=== PATIENT | female | born 1960 | race Caucasian/White ===

== ENCOUNTER → 2019-06-17 09:10 | Outpatient (BNVA) | payer MEDICARE, OTHER, SELFPAY | PROVIDERS: Family Provider Family Medicine; PCP Family Medicine; Visit Provider Nurse Practitioner Women's Health | DX: N89.8 Other specified noninflammatory disorders of vagina (principal) | CPT/HCPCS: 88305 ==

== ENCOUNTER 2019-06-23 12:29 | Outpatient (CLI) | payer MEDICARE, OTHER, SELFPAY ==
--- NOTE | 2019-06-23 12:44 | XRR_ITS ---
PROCEDURE INFORMATION: Exam: XR Cervical Spine, 6 or More Views Exam date and time: 06/23/2019 1:22 PM Age: 58 years old Clinical indication: Radiculopathy; Cervical region; Prior surgery; Surgery type: Fusion; Additional info: Cervical radiculopathy bilateral, migraines x 1 month TECHNIQUE: Imaging protocol: XR of the cervical spine, 6 or more views. COMPARISON: CR Cervical Spine Flex/Ext [id number] 12/31/2015 3:49 PM FINDINGS: Vertebrae: Surgical hardware seen in the anterior aspect of the lower cervical spine anterior to C5 and C6. There is fusion of these vertebral bodies. No acute fracture. There is loss of cervical lordosis which likely represents postsurgical changes. The exam is negative for instability with flexion and extension maneuvers. Comparison to prior examination similar findings are seen. Soft tissues: Normal. Other findings: Unremarkable XR/XR cervical spine min 6V [id number] IMPRESSION: 1. Stable Postsurgical changes cervical spine. 2. Negative for instability with flexion and extension 3. Loss of cervical lordosis 4. Otherwise negative examination
== END 2019-06-23 12:30 | disposition home or self-care (01) ==
LOC: RAD 12:36
PROVIDERS: Family Provider Family Medicine; PCP Family Medicine; Visit Provider Family Medicine
DX: M54.12 Radiculopathy, cervical region (principal); Z98.1 Arthrodesis status
CPT/HCPCS: 72052

== ENCOUNTER 2019-11-29 14:30 | Outpatient (RCR) | payer MEDICARE, OTHER, SELFPAY | END 2019-11-29 23:59 | disposition home or self-care (01) | LOC: SPT 14:30 | PROVIDERS: PCP Family Medicine; Referring Provider Family Medicine; Visit Provider Family Medicine | DX: H81.10 Benign paroxysmal vertigo, unspecified ear (principal) | CPT/HCPCS: 95992; 97162 ==

== ENCOUNTER 2019-12-07 06:00 | Outpatient (RCR) | payer MEDICARE, OTHER, SELFPAY | END 2019-12-30 23:59 | disposition home or self-care (01) | LOC: SPT 06:00 | PROVIDERS: PCP Family Medicine; Referring Provider Family Medicine; Visit Provider Family Medicine | DX: H81.10 Benign paroxysmal vertigo, unspecified ear (principal) | CPT/HCPCS: 95992 ==

== ENCOUNTER 2019-12-09 12:41 | Outpatient (CLI) | payer MEDICARE, OTHER, SELFPAY ==
--- NOTE | 2019-12-09 | MR_ITS ---
WS: [id number] MRA ANGIOGRAPHY [place] HISTORY: VERTIGO /vertebrobasilar INSUFFIENCEY COMPARISON: None available. TECHNIQUE: 3-D MR angiography is performed of the [place]. All images are reviewed including source images. Distal vertebral and basilar arteries are intact with no significant stenosis or plaque. Posterior ce rebral arteries are normal course and caliber. Posterior communicating arteries are both patent but s mall caliber. Intracranial portion of the internal carotid arteries are normal course and caliber. No significant a therosclerosis, stenosis or aneurysm identified. Middle and anterior cerebral arteries are both paten t with no significant disease. Anterior communicating artery is also normal. MR/MR angio head wo con [id number] IMPRESSION: Normal MRA [place].
--- NOTE | 2019-12-09 | MR_ITS ---
WS: [id number] MRA CAROTID ARTERIES HISTORY: VERTIGO /vertebrobasilar INSUFFIENCEY COMPARISON: None available. TECHNIQUE: MRA is performed with intravenous gadolinium. MIP and source images are reviewed. Right: Normal RIGHT common, internal/external carotid arteries. No significant stenosis. No aneurysm. Left: Normal LEFT common, internal and external carotid arteries. No significant stenosis or aneurysm . Subclavian Arteries: Normal. Vertebral Arteries: Normal. Very slight narrowing of the distal RIGHT vertebral artery but no stenosi s. MR/MR angio neck w con* [id number] IMPRESSION: Normal MRA carotid arteries.
== END 2019-12-09 12:42 | disposition home or self-care (01) ==
LOC: RADSHAW 12:44
PROVIDERS: PCP Family Medicine; Visit Provider Family Medicine
DX: R42 Dizziness and giddiness (principal)
CPT/HCPCS: 70544; 70548; A9579

== ENCOUNTER 2019-12-13 14:54 | Observation (INO) | payer MEDICARE, OTHER, SELFPAY ==
[2019-12-13] VITALS (11 sets, daily range): BP systolic 104–146; BP diastolic 64–99; PULSE 82–122; RESP 17–24; TEMP 36.9–37.3; O2SAT 94–99; BMI 30.8
--- NOTE | 2019-12-13 15:43 | XRR_ITS ---
PROCEDURE INFORMATION: Exam: XR Chest, 1 View Exam date and time: 12/13/2019 4:18 PM Age: 58 years old Clinical indication: Chest pain; Other: Center; Additional info: Weakness, n/v TECHNIQUE: Imaging protocol: XR of the chest Views: 1 view. COMPARISON: No relevant prior studies available. FINDINGS: Lungs: Unremarkable. No consolidation. Pleural space: Unremarkable. No pleural effusion. No pneumothorax. Heart/Mediastinum: Unremarkable. No cardiomegaly. Bones/joints: Unremarkable. XR/XR chest 1V portable [id number] IMPRESSION: No acute findings.
--- NOTE | 2019-12-13 15:43 | ECG_ITS ---
[facility] Test Date: 2019-12-13 Pat Name: Randi Arechiga Department: Room: Gender: Female Rn Pediatric: : 1960 Requested By: Mimi Ford Order Number: [id number] Kathi MD: Libby Renteria M.D. Measurements Intervals [place] Rate: 95 P: 63 CO: 153 QRS: 4 QRSD: 89 T: 51 QT: 342 QTc: 430 Interpretive Statements SINUS RHYTHM Compared to ECG 10/07/2018 19:36:33 Myocardial infarct finding no longer present T-wave abnormality no longer present Electronically Signed On 12-13-2019 19:17:57 CDT by Libby Renteria M.D. [id number]
[2019-12-13 16:05] LABS: Basophils % 0.1 %; Eosinophils % 0.1 %; Hematocrit 43.4 % (37.0-47.0); Hemoglobin 13.9 g/dL (11.5-15.3); Lymphocytes # 2.5 10^3/uL (0.8-4.8); Lymphocytes % 30.3 %; Mean Corpuscular Hemoglobin 28.3 pg (28.0-34.0); Mean Corpuscular Volume 88.2 fL (81-99); Mean Platelet Volume 10.4 fL (7.4-10.4); Monocytes # 0.6 10^3/uL (0.2-0.9); Neutrophils # 5.12 10^3/uL (1.8-7.7); Neutrophils % 61.9 %; Nucleated Red Blood Cells % 0 %; Platelet Count 259 10^3/cmm (130-400); Red Blood Count 4.92 10^6/uL (4.1-5.3); Red Cell Distribution Width 11.7 % (12.1-15.1); White Blood Count 8.3 10^3/uL (4.0-10.0)
[2019-12-13 16:22] LABS: Lactate (Lactic Acid level) 1.4 mmol/L (0.5-2.2)
[2019-12-13 16:32] LABS: Alanine Aminotransferase 14 U/L (0-33); Albumin Level 4.6 g/dL (3.5-5.2); Alkaline Phosphatase 66 IU/L (35-105); Anion Gap 15.5 (5-19); Aspartate Amino Transferase 13 U/L (0-32); Blood Urea Nitrogen 18 mg/dL (6-20); Calcium 10.1 mg/dL (8.5-10.5); Carbon Dioxide 27 mmol/L (22-29); Chloride 100 mmol/L (98-107); Globulin 3.1 g/dL (1.3-4.6); Glomerular Filtration Rate 64.1 mL/min (90-130); Glucose 109 mg/dL (65-115); NT Pro B Type Natriuretic Pept 8 pg/mL (0-125); Osmolality Calculated 283 mOsm/kg (285-295); Potassium 4.5 mmol/L (3.5-5.1); Sodium 138 mmol/L (136-145); Total Bilirubin 0.2 mg/dL (0.15-1.2); Total Protein 7.7 g/dL (6.6-8.7)
[2019-12-13 16:49] LABS: INR 0.93 (0.8-1.2)
[2019-12-13] MEDS: ondansetron 2 mg/ML SDV 2 mL 4 MG IVP ×2 (17:11→23:26)
[2019-12-13 17:12] LABS: Add Urine Microscopic? NO
[2019-12-13 17:29] LABS: Bilirubin Urine Neg (NEGATIVE); Blood Urine Neg (Negative); Glucose Urine UA Norm (Normal); Ketones Urine Negative (Negative); Leukocyte Esterase Urine Negative (Negative); Nitrate Urine Negative (Negative); Protein Urine Neg (Negative); Specific Gravity, Urine 1.015 (1.005-1.030); Urine Appearance Clear (CLEAR); Urine Color Yellow (Yellow); Urobilinogen Urine Norm (Negative); pH Urine 5 (5-7)
[2019-12-13 17:40] LABS: Troponin(5th) Baseline 6 ng/L (0-10)
--- NOTE | 2019-12-13 17:43 | ECG_ITS ---
[facility] Test Date: 2019-12-13 Pat Name: Randi Arechiga Department: Room: Gender: Female [employer] Analyst: : 1960 Requested By: Mimi Ford Order Number: [id number] Kathi MD: Libby Renteria M.D. Measurements Intervals [place] Rate: 99 P: 55 VA: 153 QRS: 5 QRSD: 92 T: 31 QT: 347 QTc: 446 Interpretive Statements SINUS RHYTHM Compared to ECG 12/13/2019 17:15:16 No significant changes Electronically Signed On 12-13-2019 19:19:53 CDT by Libby Renteria M.D. [email or web address]/store/[id number]
[2019-12-13 18:27] LABS: Troponin 5 2HR Delta 0 ABS# (0-10)
--- NOTE | 2019-12-13 18:30 | ED_ITS ---
HPI - Dizziness General: Chief Complaint: Nausea/Vomiting/Diarrhea Stated Complaint: N/V/dizziness/syncope Time Seen by Provider: 12/13/19 15:34 History of Present Illness: HPI Narrative: This patient is a 58-year-old female presenting with dizziness, nausea, vomiting. She has had the symptoms for about 3 weeks and has been seeing her primary care doctor, Dr. Francois. He has been getting an outpatient work-up including an MRA of her head and neck. Those were done within the last few days and were normal. She had an episode of vomiting today which is the first time she is had that. She describes the dizziness as being worse with movement or standing up. She also has some mild ringing in her ears. She has a history of fibromyalgia and is on medications for that. Those have not changed. She was started on Trulicity fairly recently and that is her only new medicine. MD elicited complaint: dizziness, lightheadedness, near syncope and vertigo Onset (ago): week(s) (3) Timing: gradual onset and intermittent Severity: severe Description: lightheadedness, difficulty walking and near-syncope Associated symptoms: Reports headache(s), malaise, nausea and vomiting; Denies chest pain or chills Associated neuro symptoms: Deny numbness in extremities Review of Systems General: Reports: 10 or more systems reviewed and unremarkable except in HPI and below Const: Reports: fatigue and malaise; Denies: fever(s) or chills Eyes: Denies: change in vision ENMT: Denies: odynophagia Card: Denies: chest pain or swelling of feet/ankles Resp: Denies: dyspnea, productive cough or non-productive cough GI: Reports: nausea and vomiting; Denies: abdominal pain : Denies: flank pain or difficulty voiding Musc: Denies: neck pain or back pain Skin/Breast: Denies: rash Neuro: Reports: headache(s); Denies: numbness in extremities or weakness in extremities [place]/Lymph: Denies: easy bruising or easy bleeding PFSH ED PFSH: Medical History Diabetes mellitus Fibromyalgia syndrome History of IBS Migraines Stones, urinary tract Surgical History History of carpal tunnel repair History of cervical discectomy History of cholecystectomy Laparoscopic History of hysterectomy 1999, TV, Performed by Dr. Agustin History of kidney surgery Removal of stonesto History of lumbar discectomy History of toe surgery joint cleaned out History of wisdom tooth extraction Family History Mother Hypertension Hyperlipidemia Stroke Thyroid condition Father Hypertension Hyperlipidemia Stroke Family history of ITP Sister Hypertension Hyperlipidemia Thyroid condition x 2 Grandmother Diabetes Maternal Hyperlipidemia Maternal and paternal Stroke Maternal and paternal Grandfather Diabetes Paternal Hyperlipidemia Maternal and paternal Stroke Maternal and patnernal Unknown Patient denies medical problems Denies family history of: breast/ovarian/uterine/colon cancer Social History Smoking and tobacco status: former smoker Alcohol intake: never Additional social history: Well balanced diet Physical Exam Const: COMMON NORMALS: no acute distress, patient oriented x3, no limitations and alert GENERAL APPEARANCE: cooperative and comfortable HENMT: HEAD & SCALP: normal to inspection FACE & SINUS: normal facial exam Eye: GENERAL EYE: appearance normal, both eyes and all related structures Neck/C-Spine: COMMON NORMALS: supple, no meningeal signs and no JVD Chest: COMMONS NORMALS: normal inspection of the chest Resp: COMMON NORMALS: normal respiratory effort, No use of accessory muscles and clear to auscultation bilaterally AUSCULTATION: clear to auscultation bilaterally Cardio: COMMON NORMALS: no JVD, regular rate, regular rhythm and No murmurs present (Cardio) RATE: regular rate RHYTHM: regular rhythm GI: COMMON NORMALS: Normal to inspection, nondistended, normoactive bowel sounds present, Soft to palpation and non-tender INSPECTION: Yes normal to inspection AUSCULTATION: Yes normoactive bowel sounds PALPATION: Yes Soft to palpation Back/Pelvis: COMMON NORMALS: thoracic and lumbar spine normal to inspection Extremity: COMMON NORMALS: normal to inspection Neuro: COMMON NORMALS: patient oriented x3, moves all extremities, no focal motor deficits and no sensory deficits noted SENSORIUM/ORIENTATION: Yes alert MENINGEAL SIGNS: Yes no meningeal signs Psych: COMMON NORMALS: mental status grossly normal, cooperative and normal affect Skin: COMMON NORMALS: no rashes or lesions noted and turgor normal GENERAL SKIN EXAM: no rashes or lesions noted and turgor normal Course ED course: This patient was sent over to the ER for evaluation of syncopal episodes and dizziness. Her work-up here is been benign including a negative d- dimer, negative troponins. She had an MRA of her head and neck recently it was normal. She was quite orthostatic. I did not check orthostatics again after fluids but she did not really feel any better. She feels like this is worsening. I discussed the case with Dr. Francois and he agreed to admit her for further evaluation and monitoring. Vital Signs: Vital signs: Vital Signs Temperature 97.9 F 12/14/19 04:00 Pulse Rate 76 12/14/19 04:00 Respiratory Rate 18 12/14/19 04:00 Blood Pressure 106/68 12/14/19 04:00 Pulse Oximetry 96 12/14/19 04:00 MDM - Dizziness Lab Data: Labs: Lab Results 12/13/19 12/13/19 12/13/19 Range/Units 16:00 16:00 16:00 WBC 8.3 (4.0-10.0) 10^3/ uL RBC 4.92 (4.1-5.3) 10^6/u L Hgb 13.9 (11.5-15.3) g/dL Hct 43.4 (37.0-47.0) % MCV 88.2 (81-99) fL MCH 28.3 (28.0-34.0) pg MCHC 32.0 (30.0-36.0) g/dL RDW 11.7 L (12.1-15.1) % Plt Count 259 (130-400) 10^3/c mm MPV 10.4 (7.4-10.4) fL Neut % (Auto) 61.9 % Lymph % (Auto) 30.3 % [place] % (Auto) 7.0 % Eos % (Auto) 0.1 % Baso % (Auto) 0.1 % Neut # (Auto) 5.12 (1.8-7.7) 10^3/u L Lymph # (Auto) 2.5 (0.8-4.8) 10^3/u L [place] # (Auto) 0.6 (0.2-0.9) 10^3/u L Eos # (Auto) 0.0 (0.0-0.8) 10^3/u L Baso # (Auto) 0.0 (0.0-0.1) 10^3/u L Nucleated RBC % (a uto) 0 % Nucleated RBCs # 0.0 /100WBC PT 12.70 (10.5-13.3) SECO NDS INR 0.93 (0.8-1.2) D-Dimer (0-0.59) ug/mIFE U Sodium 138 (136-145) mmol/L Potassium 4.5 (3.5-5.1) mmol/L Chloride 100 (98-107) mmol/L Carbon Dioxide 27 (22-29) mmol/L Anion Gap 15.5 (5-19) BUN 18 (6-20) mg/dL Creatinine 0.9 (0.5-0.9) mg/dL GFR Calculation 64.1 L (90-130) mL/min Glucose 109 (65-115) mg/dL Calculated Osmolal ity 283 L (285-295) mOsm/k g Lactate (0.5-2.2) mmol/L Calcium 10.1 (8.5-10.5) mg/dL Total Bilirubin 0.2 (0.15-1.2) mg/dL AST 13 (0-32) U/L ALT 14 (0-33) U/L Alkaline Phosphata se 66 (35-105) IU/L Troponin T Baselin e (0-10) ng/L Troponin T 120 Min [place] (0-10) ng/L Delta Troponin T (0-10) ABS# NT-Pro-B Natriuret Pep 8 (0-125) pg/mL Total Protein 7.7 (6.6-8.7) g/dL Albumin 4.6 (3.5-5.2) g/dL Globulin 3.1 (1.3-4.6) g/dL Urine Color (Yellow) Urine Appearance (CLEAR) Urine pH (5-7) Ur Specific Gravit y (1.005-1.030) Urine Protein (Negative) Urine Glucose (UA) (Normal) Urine Ketones (Negative) Urine Blood (Negative) Urine Nitrate (Negative) Urine Bilirubin (NEGATIVE) Urine Urobilinogen (Negative) mg/dL Ur Leukocyte Saige ase (Negative) 12/13/19 12/13/19 12/13/19 Range/Units 16:00 16:00 16:00 WBC (4.0-10.0) 10^3/ uL RBC (4.1-5.3) 10^6/u L Hgb (11.5-15.3) g/dL Hct (37.0-47.0) % MCV (81-99) fL MCH (28.0-34.0) pg MCHC (30.0-36.0) g/dL RDW (12.1-15.1) % Plt Count (130-400) 10^3/c mm MPV (7.4-10.4) fL Neut % (Auto) % Lymph % (Auto) % [place] % (Auto) % Eos % (Auto) % Baso % (Auto) % Neut # (Auto) (1.8-7.7) 10^3/u L Lymph # (Auto) (0.8-4.8) 10^3/u L [place] # (Auto) (0.2-0.9) 10^3/u L Eos # (Auto) (0.0-0.8) 10^3/u L Baso # (Auto) (0.0-0.1) 10^3/u L Nucleated RBC % (a uto) % Nucleated RBCs # /100WBC PT (10.5-13.3) SECO NDS INR (0.8-1.2) D-Dimer <= 0.27 (0-0.59) ug/mIFE U Sodium (136-145) mmol/L Potassium (3.5-5.1) mmol/L Chloride (98-107) mmol/L Carbon Dioxide (22-29) mmol/L Anion Gap (5-19) BUN (6-20) mg/dL Creatinine (0.5-0.9) mg/dL GFR Calculation (90-130) mL/min Glucose (65-115) mg/dL Calculated Osmolal ity (285-295) mOsm/k g Lactate 1.4 (0.5-2.2) mmol/L Calcium (8.5-10.5) mg/dL Total Bilirubin (0.15-1.2) mg/dL AST (0-32) U/L ALT (0-33) U/L Alkaline Phosphata se (35-105) IU/L Troponin T Baselin e 6 (0-10) ng/L Troponin T 120 Min [place] (0-10) ng/L Delta Troponin T (0-10) ABS# NT-Pro-B Natriuret Pep (0-125) pg/mL Total Protein (6.6-8.7) g/dL Albumin (3.5-5.2) g/dL Globulin (1.3-4.6) g/dL Urine Color (Yellow) Urine Appearance (CLEAR) Urine pH (5-7) Ur Specific Gravit y (1.005-1.030) Urine Protein (Negative) Urine Glucose (UA) (Normal) Urine Ketones (Negative) Urine Blood (Negative) Urine Nitrate (Negative) Urine Bilirubin (NEGATIVE) Urine Urobilinogen (Negative) mg/dL Ur Leukocyte Saige ase (Negative) 12/13/19 12/13/19 Range/Units 16:50 18:04 WBC (4.0-10.0) 10^3/ uL RBC (4.1-5.3) 10^6/u L Hgb (11.5-15.3) g/dL Hct (37.0-47.0) % MCV (81-99) fL MCH (28.0-34.0) pg MCHC (30.0-36.0) g/dL RDW (12.1-15.1) % Plt Count (130-400) 10^3/c mm MPV (7.4-10.4) fL Neut % (Auto) % Lymph % (Auto) % [place] % (Auto) % Eos % (Auto) % Baso % (Auto) % Neut # (Auto) (1.8-7.7) 10^3/u L Lymph # (Auto) (0.8-4.8) 10^3/u L [place] # (Auto) (0.2-0.9) 10^3/u L Eos # (Auto) (0.0-0.8) 10^3/u L Baso # (Auto) (0.0-0.1) 10^3/u L Nucleated RBC % (a uto) % Nucleated RBCs # /100WBC PT (10.5-13.3) SECO NDS INR (0.8-1.2) D-Dimer (0-0.59) ug/mIFE U Sodium (136-145) mmol/L Potassium (3.5-5.1) mmol/L Chloride (98-107) mmol/L Carbon Dioxide (22-29) mmol/L Anion Gap (5-19) BUN (6-20) mg/dL Creatinine (0.5-0.9) mg/dL GFR Calculation (90-130) mL/min Glucose (65-115) mg/dL Calculated Osmolal ity (285-295) mOsm/k g Lactate (0.5-2.2) mmol/L Calcium (8.5-10.5) mg/dL Total Bilirubin (0.15-1.2) mg/dL AST (0-32) U/L ALT (0-33) U/L Alkaline Phosphata se (35-105) IU/L Troponin T Baselin e (0-10) ng/L Troponin T 120 Min [place] 6.00 (0-10) ng/L Delta Troponin T 0 (0-10) ABS# NT-Pro-B Natriuret Pep (0-125) pg/mL Total Protein (6.6-8.7) g/dL Albumin (3.5-5.2) g/dL Globulin (1.3-4.6) g/dL Urine Color Yellow (Yellow) Urine Appearance Clear (CLEAR) Urine pH 5 (5-7) Ur Specific Gravit y 1.015 (1.005-1.030) Urine Protein Neg (Negative) Urine Glucose (UA) Norm (Normal) Urine Ketones Negative (Negative) Urine Blood Neg (Negative) Urine Nitrate Negative (Negative) Urine Bilirubin Neg (NEGATIVE) Urine Urobilinogen Norm (Negative) mg/dL Ur Leukocyte Saige ase Negative (Negative) Discharge Plan Discharge Patient Disposition: Admitted As Inpatient Admit Provider: Vlad Francois Clinical Impression: Orthostatic hypotension, Dizziness Condition: Stable Referrals: Vlad Francois MD [Primary Care Provider] - Discharge Date/Time: 12/13/19 22:17 Coding Level of Care Code ED Naturopathic Physician for Chg Fwd Exam Comprehensive
[2019-12-13 19:42] LABS: D Dimer <= 0.27 ug/mIFEU (0-0.59)
--- NOTE | 2019-12-13 19:58 | PC.NURSE ---
EKG done at 191 and shown to ER doctor
[2019-12-13] MEDS: sodium chloride 0.9% 1,000 ML 999 ML IV (20:30)
[2019-12-13] MEDS: sodium chloride 0.9% 1,000 ML 125 ML IV (23:27)
[2019-12-14] VITALS (9 sets, daily range): BP systolic 93–136; BP diastolic 57–85; PULSE 74–88; RESP 16–22; TEMP 36.4–37.2; O2SAT 95–98
[2019-12-14 01:21] LABS: Glucose Point of Care 177 mg/dL (70-110)
[2019-12-14 06:59] LABS: Glucose Point of Care 111 mg/dL (70-110)
--- NOTE | 2019-12-14 08:30 | PM.HP ---
Providers/Chief Complaint Admitting Physician: Vlad Francois MD Primary Care Provider: Vlad Francois MD Chief Complaint: n/v History of Present Illness Randi Arechiga is a 58 year old female with past medical history of diabetes mellitus type 2, fibromyalgia, migraines who presented to my office on 12/13/2019 with concerns for increasing dizziness. The patient has been having dizziness symptoms off and on for the last few weeks and it has been gradually getting worse. There was concern that this could be due to a vertebral artery stenosis, and an MRI/MRA was done that was negative. Upon explaining results to the patient in clinic, the patient became more dizzy and lightheaded. The patient was presyncopal and it was felt best to send her to the emergency department for further evaluation. The patient was noted to have epigastric pain and a cardiac work-up was negative in the ER. The patient's d-dimer was normal as well as other routine labs. The patient continued to have presyncopal episodes and significant dizziness with standing, so she was admitted for further observation. Review of Systems Narrative: The patient admits to nausea, epigastric pain, lower central chest pain, cough, vertigo, recent exposure to the patient with COVID. The patient denies dyspnea, vomiting, constipation, diarrhea, dysuria. Medications/Allergies Home Medications Medication Instructions Recorded Confirmed Last Taken Type amitriptyline 50 mg tablet 50 mg PO ONCE tab 06/15/19 12/14/19 12/14/19 History 50 atenolol 25 mg tablet 25 mg PO DAILY tab 06/15/19 12/14/19 12/09/19 History 25 baclofen 10 mg tablet 10 mg PO DAILY PRN tab 06/15/19 12/14/19 12/11/19 History 10 cyanocobalamin (vitamin B-12) 50 50 mcg PO DAILY tab 06/15/19 12/14/19 12/14/19 History mcg tablet 50 duloxetine 60 mg capsule,delayed 60 mg PO BID cap 06/15/19 12/14/19 12/13/19 History release 120 eletriptan 40 mg tablet 40 mg PO Q2H PRN tab MDD 50 06/15/19 12/14/19 11/14/19 History 40 insulin glargine 100 unit/mL 40 unit SUBCUT BEDTIME ml 06/15/19 12/14/19 12/13/19 History subcutaneous solution 40 levetiracetam 500 mg tablet 500 mg PO BID 06/15/19 12/14/19 12/13/19 History 500 magnesium 250 mg tablet 500 mg PO DAILY tab 06/15/19 12/14/19 12/13/19 History 500 metformin 850 mg tablet 500 mg PO BID 06/15/19 12/14/19 12/13/19 History 1000 montelukast 10 mg tablet 10 mg PO DAILY 06/15/19 12/14/19 12/14/19 History 10 phenylephrine HCl 5 mg tablet See Rx Instructions PO Q6H PRN 06/15/19 12/14/19 Unknown History simvastatin 40 mg tablet 40 mg PO DAILY tab 06/15/19 12/14/19 12/13/19 History 40 spironolactone 50 mg tablet 50 mg PO BID 06/15/19 12/14/19 12/13/19 History 100 azelastine 2 spray INTRANASAL BEDTIME 12/14/19 12/14/19 12/12/19 History dulaglutide [Trulicity] See Rx Instructions .ROUTE .COMPLEX 12/14/19 12/14/19 12/11/19 History tramadol 50 mg PO Q4H PRN 12/14/19 12/14/19 12/06/19 History Allergies Allergy/AdvReac Type Severity Reaction Status Date / Time Sulfa (Sulfonamide Allergy Mild unknown Verified 06/30/19 11:13 Antibiotics) pregabalin [From Lyrica] Allergy swelling Verified 06/30/19 11:13 PFSH Acute PFSH: Medical History Diabetes mellitus Fibromyalgia syndrome History of IBS Migraines Stones, urinary tract Surgical History History of carpal tunnel repair History of cervical discectomy History of cholecystectomy Laparoscopic History of hysterectomy , Performed by Dr. Agustin History of kidney surgery Removal of stonesto History of lumbar discectomy History of toe surgery joint cleaned out History of wisdom tooth extraction Family History Mother Hypertension Hyperlipidemia Stroke Thyroid condition Father Hypertension Hyperlipidemia Stroke Family history of ITP Sister Hypertension Hyperlipidemia Thyroid condition x 2 Grandmother Diabetes Maternal Hyperlipidemia Maternal and paternal Stroke Maternal and paternal Grandfather Diabetes Paternal Hyperlipidemia Maternal and paternal Stroke Maternal and patnernal Unknown Patient denies medical problems Denies family history of: breast/ovarian/uterine/colon cancer Social History Smoking and tobacco status: former smoker Alcohol intake: never Additional social history: Well balanced diet Vitals/I&O/Wt Last Vital Signs Temp 97.9 F 12/14/19 07:52 Pulse 74 12/14/19 07:52 Resp 18 12/14/19 07:52 BP 105/66 12/14/19 07:52 Pulse Ox 95 12/14/19 07:52 12/13/19 12/14/19 12/14/19 22:59 06:59 14:59 Intake Total 1000 / 1000 585.417 / 1585.417 Balance 1000 / 1000 585.417 / 1585.417 Weight last 48 hrs Weight 197 lb Physical Exam Narrative: EXAM NARRATIVE: General: Alert and oriented x3 Eyes: Pupils equal round and reactive to light and accommodation, EOMI Mouth: Mucous membranes moist without lesions Neck: No thyromegaly or masses noted. Cardiac: Regular rate and rhythm without murmurs. Carotid bruit noted in the left. Lungs: Clear to auscultation bilaterally without wheezes, crackles or rhonchi. Mild cough noted. Abdomen: No hepatosplenomegaly noted. No significant tenderness. No masses appreciated. Extremities: Trace edema in the bilateral lower extremities. Neurological: Patient with mild dizziness with sitting up. Patient without significant dizziness with raising arms above head. Data : 12/13/19 16:00 12/13/19 16:00 A&P Assessment and plan (1) Dizziness: Status: Acute (2) Orthostatic hypotension: Status: Acute (3) Migraines: Status: Acute (4) Diabetes mellitus: Status: Acute Additional A&P Information 1. Vertigo -patient has significant vertigo and the underlying cause is unclear. The patient has tried meclizine, Pasha's maneuvers and we have done an MRI/MRA of the brain without significant findings. We will get an ultrasound of the heart to rule out further cardiac issues. Her EKG and troponins are negative. The patient's only new medications over the last few weeks would be Trulicity. This will be stopped along with other medications that may be contributing. 2. Orthostatic hypotension -this could be secondary to her multiple medications. I had a discussion with her regarding the need to cut back on medications and we will cut back on a significant number and gradually add back if needed. 3. Diabetes mellitus -the patient is currently on Trulicity, metformin, and Lantus. We will stop Trulicity in case of side effects. We will hold metformin while in the hospital. Continue with sliding scale. 4. Migraine headaches -the patient has migraine headaches and had been on atenolol, amitriptyline and levetiracetam for prophylaxis. We will stop the atenolol and amitriptyline to decrease possible medication side effects. 5. Polypharmacy -the patient is on multiple medications that may be causing her symptoms. We will hold amitriptyline, atenolol, azelastine, baclofen, Trulicity, Montella cast, phenylephrine, spironolactone and simvastatin. We will gradually add them back as needed. 6. Prophylaxis -Lovenox while the patient is in the hospital. Attestations Medical Necessity Statement*: At this time the patient is here for observation. We will see how she does throughout the day and possibly discharge home later this afternoon depending on how she is doing. Coding Level of Care Code Acute Manager Community Relations for Althea Hutson Diagnoses Dizziness R42 Orthostatic hypotension I95.1 Migraines G43.909 Diabetes mellitus E11.9
[2019-12-14] MEDS: duloxetine 30 mg Capsule PO ×2 (09:21→18:41)
[2019-12-14] MEDS: levETIRAcetam 500 mg Tablet 250 MG PO ×2 (09:22→18:38)
[2019-12-14] MEDS: acetaminophen 500 mg Tablet 1000 MG PO (09:22)
[2019-12-14] MEDS: enoxaparin 40 mg/0.4 mL Syringe SUBCUT (09:22)
[2019-12-14] MEDS: sodium chloride 0.9% 1,000 ML 125 ML IV ×3 (09:23→22:42)
--- NOTE | 2019-12-14 09:45 | PC.CHAP ---
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 visit [] Patient/Family/Request visit [] Outpatient visit [] Follow-up visit [] Physician referral [] Code/Alert [] Routine visit [] Staff referral [] Actively dying [] Patient sleeping [] Family support [] [] Out of room [] Palliative care [] [] Receiving care in room [] Pre-surgical visit [] Trauma [] Long length of stay [] ICU visit [x] Other: Isolation Relational/Emotional Strength [] Patient feels connected with others/family/visitors/staff [] Distress [] Loneliness/isolation [] Abandonment Spirituality of Patient [] Person of Sonia [] Attends Druze of their Sonia [] Believes in Prayer [] Reads Bible or Cheondoism materials [] There are Spiritual issues to be addressed Sporting Goods Sales Associate Interventions [] Prayer [] Active listening [] Non-anxious presence [] Spiritual/emotional support [] Crisis/trauma care [] Spiritual counseling [] Bereavement support [] Provided bereavement packet [] Provided Bible/devotional materials [] Provided toy/stuffed animal, coloring book to patient or family member [] Provided Communion [] Anointing/[place] [] Salvation [] Completed spiritual assessment [] Other: Impact on Illness or Injury [] Angry [] Fearful [] Anxious [] Often cries [] Exhaustion [] Unable to work [] Unable to attend nondenominational [] Unable to walk/stand [] Unable to read [] Unable to drive [] Unable to eat/drink [] Unable to sleep [] Unable to be with family [] Patient intubated [] Other: Summary Time spent with patient
[2019-12-14 09:56] LABS: Basophils % 0.2 %; Eosinophils % 0.3 %; Hematocrit 37.1 % (37.0-47.0); Lymphocytes # 2.1 10^3/uL (0.8-4.8); Lymphocytes % 35.9 %; Mean Corpuscular HGB Conc 32.3 g/dL (30.0-36.0); Mean Corpuscular Hemoglobin 29.4 pg (28.0-34.0); Mean Corpuscular Volume 90.9 fL (81-99); Mean Platelet Volume 10.5 fL (7.4-10.4); Monocytes # 0.3 10^3/uL (0.2-0.9); Monocytes % 5.5 %; Neutrophils # 3.33 10^3/uL (1.8-7.7); Neutrophils % 57.6 %; Nucleated Red Blood Cells % 0 %; Platelet Count 216 10^3/cmm (130-400); Red Blood Count 4.08 10^6/uL (4.1-5.3); Red Cell Distribution Width 11.8 % (12.1-15.1); White Blood Count 5.8 10^3/uL (4.0-10.0)
[2019-12-14 10:15] LABS: Alanine Aminotransferase 12 U/L (0-33); Albumin Level 3.8 g/dL (3.5-5.2); Alkaline Phosphatase 53 IU/L (35-105); Aspartate Amino Transferase 12 U/L (0-32); Blood Urea Nitrogen 12 mg/dL (6-20); CRP High Sensitivity Cardiac < 0.150 mg/dL (0.0-0.3); Calcium 8.8 mg/dL (8.5-10.5); Carbon Dioxide 27 mmol/L (22-29); Chloride 102 mmol/L (98-107); Glomerular Filtration Rate 73.4 mL/min (90-130); Glucose 177 mg/dL (65-115); Lipase 42 U/L (13-60); Osmolality Calculated 284 mOsm/kg (285-295); Sodium 137 mmol/L (136-145); Total Bilirubin 0.2 mg/dL (0.15-1.2); Total Protein 6.8 g/dL (6.6-8.7)
[2019-12-14 10:51] LABS: Anion Gap 12.7 (5-19); Potassium 4.7 mmol/L (3.5-5.1)
[2019-12-14 10:55] LABS: Glucose Point of Care 182 mg/dL (70-110)
[2019-12-14] MEDS: TRAMadol 50 mg Tablet PO (15:12)
[2019-12-14 16:57] LABS: Glucose Point of Care 111 mg/dL (70-110)
[2019-12-14 18:40] LABS: Coronavirus Lab Test PTC Positive
[2019-12-14 20:48] LABS: Glucose Point of Care 160 mg/dL (70-110)
[2019-12-14] MEDS: insulin glargine 100 units/1 mL 40 UNIT SUBCUT (22:42)
[2019-12-14] MEDS: SUMAtriptan 25 mg Tablet 50 MG PO (23:05)
[2019-12-15] VITALS (17 sets, daily range): BP systolic 95–138; BP diastolic 54–84; PULSE 71–97; RESP 13–32; TEMP 36.6–36.8; O2SAT 93–98
[2019-12-15 05:18] LABS: Basophils % 0.2 %; Eosinophils # 0.1 10^3/uL (0.0-0.8); Eosinophils % 0.8 %; Hematocrit 35.8 % (37.0-47.0); Hemoglobin 11.3 g/dL (11.5-15.3); Lymphocytes # 2.5 10^3/uL (0.8-4.8); Lymphocytes % 41.2 %; Mean Corpuscular HGB Conc 31.6 g/dL (30.0-36.0); Mean Corpuscular Hemoglobin 28.8 pg (28.0-34.0); Mean Corpuscular Volume 91.1 fL (81-99); Mean Platelet Volume 10.4 fL (7.4-10.4); Monocytes # 0.3 10^3/uL (0.2-0.9); Monocytes % 5.4 %; Neutrophils # 3.08 10^3/uL (1.8-7.7); Neutrophils % 51.9 %; Nucleated Red Blood Cells % 0 %; Platelet Count 217 10^3/cmm (130-400); Red Blood Count 3.93 10^6/uL (4.1-5.3); Red Cell Distribution Width 11.7 % (12.1-15.1); White Blood Count 5.9 10^3/uL (4.0-10.0)
[2019-12-15 05:37] LABS: Anion Gap 12.2 (5-19); Blood Urea Nitrogen 10 mg/dL (6-20); Carbon Dioxide 26 mmol/L (22-29); Chloride 106 mmol/L (98-107); Potassium 4.2 mmol/L (3.5-5.1); Sodium 140 mmol/L (136-145)
[2019-12-15 05:38] LABS: Alanine Aminotransferase 10 U/L (0-33); Albumin Level 3.6 g/dL (3.5-5.2); Alkaline Phosphatase 48 IU/L (35-105); Aspartate Amino Transferase 8 U/L (0-32); CRP High Sensitivity Cardiac < 0.150 mg/dL (0.0-0.3); Calcium 8.6 mg/dL (8.5-10.5); Globulin 2.8 g/dL (1.3-4.6); Glomerular Filtration Rate 85.6 mL/min (90-130); Glucose 105 mg/dL (65-115); Osmolality Calculated 286 mOsm/kg (285-295); Phosphorus 3.3 mg/dL (2.5-4.5); Total Bilirubin 0.2 mg/dL (0.15-1.2); Total Protein 6.4 g/dL (6.6-8.7)
[2019-12-15 07:46] LABS: Glucose Point of Care 99 mg/dL (70-110)
[2019-12-15] MEDS: sodium chloride 0.9% 1,000 ML 125 ML IV ×2 (08:13→08:14)
--- NOTE | 2019-12-15 08:31 | P.DS_ITS ---
Discharge Providers Date of Admission: 12/13/19 20:26 Date of Discharge: December 15, 2019 Attending Provider at Admission: Vlad Francois MD Attending Provider at Discharge: Vlad Francois MD Primary Care Provider: Vlad Francois MD Diagnoses at Discharge Discharge Diagnosis (1) Dizziness: Status: Acute (2) Orthostatic hypotension: Status: Acute (3) Migraines: Status: Acute (4) Diabetes mellitus: Status: Acute (5) COVID-19: Status: Acute (6) Fibromyalgia syndrome: Status: Acute Other Information Additional DC diagnoses/information: 1. Vertigo 2. Orthostatic hypotension 3. Diabetes mellitus 4. Migraine headaches 5. Polypharmacy 6. COVID-19 Reason for Visit Reason for Visit: n/v Hospital Course Hospital Course: The patient was admitted secondary to significant dizziness and unsteadiness on her feet. The patient was tachycardic and barely able to stand. The patient was given IV fluids and labs do not find any specific findings until her COVID-19 test came back positive. The patient had been exposed to her [id number] who had similar symptoms. The onset of her symptoms was approximately 3 to 4 weeks ago. This brings into question whether her symptoms of dizziness are related to COVID-19 or worsened by it. We have gone through the process of weaning a significant number of medications as she had polypharmacy. The patient symptoms have improved since stopping Trulicity, baclofen, azelastine, atenolol, amitriptyline, decreasing dose of levetiracetam, stopping montelukast, phenylephrine and spironolactone. We will gradually add back any that are necessary. The patient has had some headaches that could be secondary to withdrawal from these medications. The patient does have a known history of migraines for which she was taking levetiracetam, atenolol and amitriptyline. We will follow this as an outpatient and may need to adjust medications to get these back under control. The patient was initially under observation and expected to stay less than 2 midnights, however she did continue to have significant dizziness yesterday, so it was felt best to watch overnight. Her dizziness is improved to the point that she can get herself to the bathroom while holding onto the IV pole. She is comfortable with discharge home at this time. Regarding the COVID-19 diagnosis, the patient has not needed oxygen at this time and her oxygen levels are 95% and above on room air. She is starting to develop a mild cough that she did not have before. Chest x-ray was negative. CRP has been negative as well as her troponins. CPK, ferritin levels and LDH are pending. She was given strict precautions to stay at home and self quarantine for a minimum of 14 days. The patient was also given precautions in terms of what to watch for for severe symptoms including worsening dyspnea. The patient will be continued on her simvastatin and started on aspirin 81 mg for clotting prophylaxis. All questions were answered. We will plan for discharge home as long as she continues to to be stable throughout the day. Physical Exam Narrative: EXAM NARRATIVE: General: Alert and oriented x3 Mouth: Mucous membranes moist without lesions Neck: No thyromegaly or masses noted. Cardiac: Regular rate and rhythm without murmurs. Carotid bruit noted in the left. Lungs: Clear to auscultation bilaterally without wheezes, crackles or rhonchi. Mild cough noted. Abdomen: No hepatosplenomegaly noted. No significant tenderness. No masses appreciated. Extremities: Trace edema in the bilateral lower extremities. Neurological: Patient without significant dizziness with sitting up. Discharge Data Data Completed and Pending: Completed Studies During Hospitalization Category Date Time Status XR chest 1V ana ble [id number] Stat Exams 12/13/19 15:43 Completed Pending at discharge Category Date Time Status Creatine Phosphok inase Routine Lab 12/15/19 08:29 Ordered Ferritin Routine Lab 12/15/19 08:29 Ordered Lactate Dehydroge nase CSF Routine Lab 12/15/19 08:29 Uncollected Labs from last 24 hours 12/15/19 12/15/19 12/15/19 07:39 05:00 05:00 WBC 5.9 RBC 3.93 L Hgb 11.3 L Hct 35.8 L MCV 91.1 MCH 28.8 MCHC 31.6 RDW 11.7 L Plt Count 217 MPV 10.4 Neut % (Auto) 51.9 Lymph % (Auto) 41.2 Glenn % (Auto) 5.4 Eos % (Auto) 0.8 Baso % (Auto) 0.2 Neut # (Auto) 3.08 Lymph # (Auto) 2.5 Glenn # (Auto) 0.3 Eos # (Auto) 0.1 Baso # (Auto) 0.0 Nucleated RBC % (a uto) 0 Nucleated RBCs # 0.0 Sodium 140 Potassium 4.2 Chloride 106 Carbon Dioxide 26 Anion Gap 12.2 BUN 10 Creatinine 0.7 GFR Calculation 85.6 L Glucose 105 POC Glucose 99 Calculated Osmolal ity 286 Calcium 8.6 Phosphorus 3.3 Magnesium 2.0 Total Bilirubin 0.2 AST 8 ALT 10 Alkaline Phosphata se 48 C-React Prot High Sens < 0.150 Total Protein 6.4 L Albumin 3.6 Globulin 2.8 Lipase Nasal/Oral COVID-1 9 12/14/19 12/14/19 12/14/19 20:43 16:40 10:41 WBC RBC Hgb Hct MCV MCH MCHC RDW Plt Count MPV Neut % (Auto) Lymph % (Auto) Glenn % (Auto) Eos % (Auto) Baso % (Auto) Neut # (Auto) Lymph # (Auto) Glenn # (Auto) Eos # (Auto) Baso # (Auto) Nucleated RBC % (a uto) Nucleated RBCs # Sodium Potassium Chloride Carbon Dioxide Anion Gap BUN Creatinine GFR Calculation Glucose POC Glucose 160 111 182 Calculated Osmolal ity Calcium Phosphorus Magnesium Total Bilirubin AST ALT Alkaline Phosphata se C-React Prot High Sens Total Protein Albumin Globulin Lipase Nasal/Oral COVID-1 9 12/14/19 12/14/19 12/13/19 09:50 09:50 23:45 WBC 5.8 RBC 4.08 L Hgb 12.0 Hct 37.1 MCV 90.9 MCH 29.4 MCHC 32.3 RDW 11.8 L Plt Count 216 MPV 10.5 H Neut % (Auto) 57.6 Lymph % (Auto) 35.9 Glenn % (Auto) 5.5 Eos % (Auto) 0.3 Baso % (Auto) 0.2 Neut # (Auto) 3.33 Lymph # (Auto) 2.1 Glenn # (Auto) 0.3 Eos # (Auto) 0.0 Baso # (Auto) 0.0 Nucleated RBC % (a uto) 0 Nucleated RBCs # 0.0 Sodium 137 Potassium 4.7 Chloride 102 Carbon Dioxide 27 Anion Gap 12.7 BUN 12 Creatinine 0.8 GFR Calculation 73.4 L Glucose 177 H POC Glucose Calculated Osmolal ity 284 L Calcium 8.8 Phosphorus Magnesium Total Bilirubin 0.2 AST 12 ALT 12 Alkaline Phosphata se 53 C-React Prot High Sens < 0.150 Total Protein 6.8 Albumin 3.8 Globulin 3.0 Lipase 42 Nasal/Oral COVID-1 9 PCR Positive Vitals: Last Vital Signs Temp 98.9 F 12/14/19 20:00 Pulse 71 12/15/19 06:00 Resp 17 12/15/19 06:00 BP 110/61 12/15/19 06:00 Pulse Ox 94 12/15/19 06:00 Discharge Plan Discharge Patient Disposition: Home, Self-Care Condition: Stable Prescriptions: New aspirin 81 mg Tablet,Delayed Release (Dr/Ec) 81 mg PO DAILY Qty: 30 RF: 0 Continued Lantus U-100 Insulin 100 unit/mL solution 40 unit SUBCUT BEDTIME RF: 0 Vitamin B-12 50 mcg tablet 50 mcg PO DAILY RF: 0 eletriptan [Relpax] 40 mg tablet 40 mg PO Q2H MDD 50 PRN (Reason: Acne) RF: 0 magnesium 250 mg tablet 500 mg PO DAILY RF: 0 metformin 850 mg tablet 500 mg PO BID RF: 0 duloxetine [Cymbalta] 60 mg capsule,delayed release(DR/EC) 60 mg PO BID RF: 0 simvastatin 40 mg tablet 40 mg PO DAILY RF: 0 tramadol 50 mg Tablet 50 mg PO Q4H PRN (Reason: Pain) RF: 0 Changed Keppra 500 mg tablet 250 mg PO BID Qty: 30 RF: 0 Discontinued Medi-Phenyl 5 mg tablet See Rx Instructions PO Q6H PRN (Reason: Allergic Symptoms) RF: 0 spironolactone 50 mg tablet 50 mg PO BID RF: 0 montelukast 10 mg tablet 10 mg PO DAILY RF: 0 baclofen 10 mg tablet 10 mg PO DAILY PRN (Reason: Agitation) RF: 0 amitriptyline 50 mg tablet 50 mg PO ONCE RF: 0 atenolol 25 mg tablet 25 mg PO DAILY RF: 0 azelastine 137 mcg (0.1 %) Aerosol,[place] 2 spray INTRANASAL BEDTIME RF: 0 Trulicity 0.75 mg/0.5 mL Pen Injector See Rx Instructions .ROUTE .COMPLEX RF: 0 Discharge Orders: Discharge Order (Routine); Ordered 12/15/19 Ordered By: Vlad Francois Referrals: Vlad Francois MD [Primary Care Provider] - (Please set up a tele-visit for early next week with Dr. Francois.) Discharge Diet: Diabetic Discharge Activity: Increase activity as tolerated Patient Instructions: Dizziness, Fibromyalgia (DC), Syncope (DC), Hypotension (DC) Activity Restrictions/Additional Instructions: If you have any signs of increasing shortness of breath, please return to the ER for further evaluation. If you are able to get a pulse oximeter, and you are feeling short of breath, check your oxygen level and if it is staying below 94%, go to the ER. Please be cautious with ambulation and let me know if this is getting worse. Discharge Date/Time: 12/15/19 15:34 Discharge Attestations Time Spent in Discharge Care*: greater than 30 min Quality Metrics Clinical Quality Measures During this hospital stay, did patient experience: None Coding Level of Care Code Acute Medical Record Retrieval Specialist for Althea Fwd Diagnoses Dizziness R42 Orthostatic hypotension I95.1 Migraines G43.909 Diabetes mellitus E11.9 COVID-19 U07.1 Fibromyalgia syndrome M79.7
[2019-12-15] MEDS: duloxetine 30 mg Capsule PO (09:36)
[2019-12-15] MEDS: levETIRAcetam 500 mg Tablet 250 MG PO (09:36)
[2019-12-15] MEDS: aspirin 81 mg EC Tablet PO (09:36)
[2019-12-15] MEDS: enoxaparin 40 mg/0.4 mL Syringe SUBCUT (09:37)
[2019-12-15] MEDS: TRAMadol 50 mg Tablet PO (09:37)
[2019-12-15] MEDS: SUMAtriptan 25 mg Tablet 50 MG PO (09:37)
[2019-12-15 10:36] LABS: Creatine Phosphokinase 65 U/L (26-192); Ferritin 100 ng/mL (15-150)
[2019-12-15 11:35] LABS: Glucose Point of Care 130 mg/dL (70-110)
[2019-12-15] MEDS: acetaminophen 500 mg Tablet 1000 MG PO (12:02)
--- NOTE | 2019-12-15 14:06 | PC.NURSE ---
MRS MACK HAS HAD AN INCESSENT HEADACHE SINCE ARRIVING. SHE WAS GIVEN EMETREX, TRAMADOL, AND TYLENOL OVER THE LAST 4 HOURS WITH NO IMPROVEMENT. SHE MAY NEED HER MAG SALTS OR BACLOFEN BUT THEY HAVE BEEN HELD AND RECOMMENDED TO NOT BE GIVEN AT HOME. HER BP HAS DIPPED UNDER [address] GARCIA IS AWARE. SHE WAS TOLD IN DETAIL ABOUT CHECKING HER SATS AND THOSE OF HER HUSBANDS MULTIPLE TIMES A DAY ESPECIALLY IF SHE FEELS WEAKER OR SOB. I ADVISED HER TO SEEK THE ER IF SHE NOTICES A SAT UNDER 94 THAT DOES NOT IMPROVE WITH REST, AND TO PROBABLY CALL AN AMBULANCE IF IT IS UNDER 85 . SHE IS AWARE THAT MANY PEOPLE HAVE NO IDEA WHAT A LOW SAT FEELS LIKE AND SHOULD GET FAMILIAR WITH THE PROCESS. SHE IS EATING WELL BUT STILL HAS TO GET UP SLOWLY AND REST BEDSIDE BEFORE GETTING UP TO GO RELIEVE HERSELF. NO FEVERS TODAY. HER COUGH HAS INCEASED AND WE DISCUSSED MUCINEX AND OTHER COUGH/MUCOUS THINNING MEDS, IF THE COUGH GETS PAINFUL OR CONSTANT TO CALL THE DOCTOR. HER HAS A MEETING AT 215 THAT SHOULD LAST AN HOUR AND HER FLUIDS WILL BE DONE AROUND 3:30. HE WAS TESTED FOR COVID AND SHOULD GET THE RESLULTS AROUND THURSDAY, MEANWHILE SHE WAS ENCOURAGED FOR THEM BOTH TO SELF ISOLATE FOR AT LEAST 2 WEEKS.
[2019-12-15 15:02] LABS: Lactate Dehydrogenase 235 U/L (135-214)
== END 2019-12-15 15:34 | disposition home or self-care (01) ==
LOC: ER 19:47 → MEDSURG 22:07 → ICU 12-14 21:05
PROVIDERS: Emergency Medicine; Admitting Provider Family Medicine; PCP Family Medicine; Visit Provider Family Medicine
DX: U07.1 COVID-19 (principal); I95.1 Orthostatic hypotension; R42 Dizziness and giddiness; G43.909 Migraine, unspecified, not intractable, without status migrainosus; E11.9 Type 2 diabetes mellitus without complications; M79.7 Fibromyalgia; Z79.4 Long term (current) use of insulin; Z87.891 Personal history of nicotine dependence; Z79.899 Other long term (current) drug therapy; Z82.49 Family history of ischemic heart disease and other diseases of the circulatory system; R00.0 Tachycardia, unspecified
CPT/HCPCS: 12345; 36415; 36416; 71045; 80053; 81003; 82550; 82728; 82962; 83605; 83615; 83690; 83735; 83880; 84100; 84484; 85025; 85378; 85610; 86141; 87635; 93005; 96361; 96372; 96374; 96375; 99284; 99285; G0378; J1650; J1815 ×2; J2405; J7030

== ENCOUNTER → 2020-01-09 12:41 | Outpatient (BNVA) | payer MEDICARE, OTHER, SELFPAY | PROVIDERS: PCP Family Medicine; Visit Provider Internal Medicine | DX: B97.29 Other coronavirus as the cause of diseases classified elsewhere (principal) | CPT/HCPCS: 87635 ==

== ENCOUNTER → 2020-05-21 14:06 | Outpatient (BNVA) | payer MEDICARE, OTHER, SELFPAY | PROVIDERS: PCP Family Medicine; Referring Provider Dermatology; Visit Provider Podiatrist Foot & Ankle Surgery | DX: M25.571 Pain in right ankle and joints of right foot (principal); M77.31 Calcaneal spur, right foot | CPT/HCPCS: 73630; 87210 ==

== ENCOUNTER 2020-07-06 12:09 | Emergency (ER) | payer MEDICARE, SELFPAY ==
[2020-07-06] VITALS (10 sets, daily range): BP systolic 120–157; BP diastolic 73–84; PULSE 82–114; RESP 16–18; TEMP 36.7; O2SAT 92–98; BMI 31.4
--- NOTE | 2020-07-06 12:34 | ED_ITS ---
HPI - Headache General: Chief Complaint: Headache Stated Complaint: nausea, migraine Time Seen by Provider: 07/06/20 12:18 Source: patient Mode of arrival: ambulatory Limitations: no limitations History of Present Illness: HPI Narrative: Patient is a 59-year-old female with a history of migraines who run out of her migraine medication which is a triptan. She developed a migraine headache 3 days ago and has been progressively worsening. She states that her primary care provider has refilled her medication, however the pharmacy does not have it at this time and she is not [facility] re when to get it so she was advised to come to the ED to be evaluated. MD elicited complaint: headache and migraine Onset (ago): day(s) (3) Onset description: gradually Location: frontal Severity: severe Quality & Timing: throbbing Exacerbating factors: none Relieving factors: nothing Context: occurred at rest Associated symptoms: Reports nausea, photophobia and sound sensitivity; Deny chest pain, confusion, cough, diaphoresis, eye pain, eye redness, fever(s), lightheadedness, loss of vision, malaise, neck stiffness, numbness, paresthesias, pre-syncope, rash, seizures, short of breath, syncope, vomiting or weakness Treatments prior to arrival: acetaminophen Review of Systems General: Reports: 10 or more systems reviewed and unremarkable except in HPI and below Const: Denies: fever(s), malaise or diaphoresis Eyes: Denies: change in vision or blurry vision ENMT: Denies: throat pain, enlarged tonsils, odynophagia, hoarseness, mouth pain or swelling of lips/tongue Card: Denies: chest pain, lightheadedness, syncope or pre-syncope Resp: Denies: dyspnea, productive cough or non-productive cough GI: Reports: nausea; Denies: vomiting : Denies: flank pain, difficulty voiding, dysuria, urinary frequency, urinary urgency or urinary hesitancy Musc: Denies: neck pain, back pain or extremity swelling Skin/Breast: Denies: rash Neuro: Denies: confusion Endo: Denies: polyuria, polydipsia or tired all the time [facility] PFSH: Medical History Diabetes mellitus Fibromyalgia syndrome History of IBS Migraines Stones, urinary tract Surgical History History of carpal tunnel repair History of cervical discectomy History of cholecystectomy Laparoscopic History of hysterectomy 1999, , Performed by Dr. Agustin History of kidney surgery Removal of stonesto History of lumbar discectomy History of toe surgery joint cleaned out History of wisdom tooth extraction Family History Mother Hypertension Hyperlipidemia Stroke Thyroid condition Father Hypertension Hyperlipidemia Stroke Family history of ITP Sister Hypertension Hyperlipidemia Thyroid condition x 2 Grandmother Diabetes Maternal Hyperlipidemia Maternal and paternal Stroke Maternal and paternal Grandfather Diabetes Paternal Hyperlipidemia Maternal and paternal Stroke Maternal and patnernal Unknown Patient denies medical problems Denies family history of: breast/ovarian/uterine/colon cancer Social History Smoking and tobacco status: former smoker Alcohol intake: never Additional social history: Well balanced diet Physical Exam Const: COMMON NORMALS: no acute distress, average body habitus, patient oriented x3, no limitations, healthy appearing, alert and well nourished HENMT: COMMON NORMALS: normocephalic, atraumatic and moist oral mucous membranes HEAD & SCALP: normocephalic and atraumatic Eye: COMMON NORMALS: Equal, round and reactive pupils present, EOMs intact bilaterally, conjunctivae normal and no scleral icterus CONJUNCTIVA: Yes conjunctivae normal PUPIL: Yes Equal, round and reactive pupils present DIRECT OPHTHALMOSCOPY: Yes photophobia Neck/C-Spine: COMMON NORMALS: full ROM, supple, no meningeal signs, no JVD and No carotid bruits Resp: COMMON NORMALS: normal respiratory effort, No retractions, No use of accessory muscles, clear to auscultation bilaterally and percussion normal AUSCULTATION: clear to auscultation bilaterally PERCUSSION: percussion normal Cardio: COMMON NORMALS: no JVD, regular rate, regular rhythm, S1 normal heart sound present, S2 normal heart sound present, No gallops present (Cardio), No clicks present (Cardio), No murmurs present (Cardio), No rub (Cardio) and Peripheral pulses 2+ throughout RATE: regular rate RHYTHM: regular rhythm HEART SOUNDS: S1 normal heart sound present and S2 normal heart sound present PERIPHERAL PULSES: Peripheral pulses 2+ throughout GI: COMMON NORMALS: Normal to inspection, nondistended, normoactive bowel sounds present, Soft to palpation, non-tender, No hepatosplenomegaly present, no masses and no bruits PALPATION: Yes Soft to palpation and Yes No hepatosplenomegaly present Extremity: COMMON NORMALS: normal to inspection, full ROM, capillary refill normal, no calf tenderness and no pedal edema Neuro: COMMON NORMALS: patient oriented x3 SENSORIUM/ORIENTATION: Yes alert MENINGEAL SIGNS: Yes no meningeal signs Course Vital Signs: Vital signs: Vital Signs Temperature 98.1 F 07/06/20 12:14 Pulse Rate 96 07/06/20 21:27 Respiratory Rate 16 07/06/20 21:27 Blood Pressure 157/84 07/06/20 21:27 Pulse Oximetry 92 07/06/20 21:27 MDM - Headache MDM Narrative: Medical decision making narrative: 59-year-old female patient with a history of migraines and who had run out of migraine medication for about 3 days. She has been having migraine headache for 3 days with no relief. She required multiple doses of medications and eventually we were able to get migraine under control and resolve it. Head CT was negative for acute findings. She remained stable throughout her ED stay. Medical Records: Attestation: I reviewed the patient's medical records. Imaging Data^: CT Head: Attestation: I personally reviewed and interpreted this imaging study as follows: Radiologist's impression: [address] [address] [address] Scan Report Signed Patient: Randi Arechiga #: [id number] : 1960Acct#:[id number] Age/Sex: 59 / FADM Date: 07/06/20 Loc: [facility]/Bed: Attending Dr: Ordering Provider/Ordering MD: Anastacio Rosario MD, [facility] [place] Date of Service: 07/06/20 Procedure(s): CT head wo con* [id number] Accession Number(s): [id number] Report Number: [id number] PROCEDURE INFORMATION: Exam: CT Head Without Contrast Exam date and time: 07/06/2020 6:55 PM Age: 59 years old Clinical indication: Pain; Headache; Aura effect not specified; Does not respond to medication; Severity not specified; Prior surgery; Surgery date: 6+ months; Surgery type: Sinus; Patient HX: C/O migraine x 3 days w n/v and light sensitivity; Additional info: Headache, nausea TECHNIQUE: Imaging protocol: Computed tomography of the head without contrast. Radiation optimization: All CT scans at this facility use at least one of these dose optimization techniques: automated exposure control; mA and/or kV adjustment per patient size (includes targeted exams where dose is matched to clinical indication); or iterative reconstruction. COMPARISON: MR angio head wo con [id number] 12/09/2019 1:08 PM RADIATION DOSE METRICS: Total DLP (mGy-cm): 857.77 FINDINGS: There is mild generalized atrophy. There is no evidence for acute infarct. There is no evidence for mass. There is no hemorrhage. There are no extra-axial fluid collections. There is no midline shift. The skull is intact. The visualized paranasal sinuses are well aerated. There is atherosclerotic change of the cavernous carotid arteries. CT/CT head wo con* [id number] IMPRESSION: No evidence for acute infarct, mass or hemorrhage. Radiation Dose CTDIVOL = (mGy): DLP = 857.77 (mGy-cm) Dictated By:Francisco Maurer MD Signed By:Francisco Maurer MDSigned Date/Time:07/06/201916 DD/ 15 Discharge Plan Discharge Patient Disposition: Home Clinical Impression: Migraine Qualifiers: Migraine type: unspecified Status migrainosus presence: without status migrainosus Intractability: intractable Qualified Code(s): G43.919 - Migraine, unspecified, intractable, without status migrainosus Condition: Stable Prescriptions: Continued Lantus U-100 Insulin 100 unit/mL solution 50 unit SUBCUT DAILY@21 RF: 0 eletriptan [Relpax] 40 mg tablet 40 mg PO PRN RF: 0 duloxetine [Cymbalta] 60 mg capsule,delayed release(DR/EC) 60 mg PO BID RF: 0 simvastatin 40 mg tablet 40 mg PO QPM RF: 0 metformin 500 mg tablet 500 mg PO BID RF: 0 Keppra 500 mg tablet 500 mg PO BID RF: 0 aspirin 81 mg tablet,delayed release (DR/EC) 81 mg PO QPM RF: 0 cyclobenzaprine 10 mg tablet 10 mg PO Q12H PRN (Reason: Muscle Spasm) RF: 0 fluconazole 100 mg tablet 200 mg PO Q7D RF: 0 ferrous sulfate 325 mg (65 mg iron) tablet 325 mg PO EVERY OTHER DAY RF: 0 promethazine 25 mg tablet 25 mg PO Q6H PRN (Reason: Nausea) RF: 0 finasteride 5 mg tablet 5 mg PO QAM RF: 0 amoxicillin-pot clavulanate 875-125 mg tablet 1 tab PO BID RF: 0 Vitamin D3 125 mcg (5,000 unit) Tablet 10,000 unit PO DAILY RF: 0 Trulicity 0.75 mg/0.5 mL pen injector 0.75 mg SUBCUT Q7D RF: 0 Discharge Orders: Discharge ED (Routine); Ordered 07/06/20 Ordered By: Anastacio Rosario Referrals: Vlad Francois MD [Primary Care Provider] - 1-3 days Discharge Diet: Usual diet Discharge Activity: Increase activity as tolerated Patient Instructions: Migraine Headache (ED) Activity Restrictions/Additional Instructions: Return for any new or worsening symptoms. Continue home medications. Follow-up with your primary care provider within 3 days. Coding Level of Care Code ED Informatica for Angelyg Fwd Exam Comprehensive
[2020-07-06] MEDS: diphenhydrAMINE 50 mg/mL SDV 1mL IVP (13:01)
[2020-07-06] MEDS: metoclopramide 5 mg/mL SDV 2 mL 10 MG IVP (13:01)
[2020-07-06] MEDS: ketorolac 30 mg/mL INJ IVP (13:01)
[2020-07-06] MEDS: valproic acid inj 1,000 MG in sodium chloride 0.9% 50 ML 55 MG IV (14:45)
[2020-07-06] MEDS: magnesium sulfate premix 2 GM/50 ML PIGGYBACK IV (14:45)
[2020-07-06] MEDS: dexamethasone 10 mg/mL INJ IVP (14:46)
[2020-07-06] MEDS: ondansetron 2 mg/ML SDV 2 mL 4 MG IVP ×2 (14:46→19:31)
[2020-07-06] MEDS: SUMAtriptan 6 mg/0.5 mL SDV SUBCUT (16:22)
[2020-07-06] MEDS: sodium chloride 0.9% 1,000 ML 999 ML IV (16:22)
[2020-07-06] MEDS: promethazine 25 mg/mL SDV 1 mL IM (18:06)
--- NOTE | 2020-07-06 18:43 | CTR_ITS ---
PROCEDURE INFORMATION: Exam: CT Head Without Contrast Exam date and time: 07/06/2020 6:55 PM Age: 59 years old Clinical indication: Pain; Headache; Aura effect not specified; Does not respond to medication; Severity not specified; Prior surgery; Surgery date: 6+ months; Surgery type: Sinus; Patient HX: C/O migraine x 3 days w n/v and light sensitivity; Additional info: Headache, nausea TECHNIQUE: Imaging protocol: Computed tomography of the head without contrast. Radiation optimization: All CT scans at this facility use at least one of these dose optimization techniques: automated exposure control; mA and/or kV adjustment per patient size (includes targeted exams where dose is matched to clinical indication); or iterative reconstruction. COMPARISON: MR angio head wo con [id number] 12/09/2019 1:08 PM RADIATION DOSE METRICS: Total DLP (mGy-cm): 857.77 FINDINGS: There is mild generalized atrophy. There is no evidence for acute infarct. There is no evidence for mass. There is no hemorrhage. There are no extra-axial fluid collections. There is no midline shift. The skull is intact. The visualized paranasal sinuses are well aerated. There is atherosclerotic change of the cavernous carotid arteries. CT/CT head wo con* [id number] IMPRESSION: No evidence for acute infarct, mass or hemorrhage. Radiation Dose CTDIVOL = (mGy): DLP = 857.77 (mGy-cm)
[2020-07-06] MEDS: haloperidol inj 5 mg/mL INJ 1 mL 1 MG IVP (19:34)
[2020-07-06] MEDS: fentaNYL 50 mcg/mL INJ 2mL 100 MCG IVP (20:15)
== END 2020-07-06 21:41 | disposition home or self-care (01) ==
PROVIDERS: Emergency Provider Family Medicine; PCP Family Medicine
DX: G43.919 Migraine, unspecified, intractable, without status migrainosus (principal); Z79.82 Long term (current) use of aspirin; Z79.4 Long term (current) use of insulin; E11.9 Type 2 diabetes mellitus without complications; Z87.891 Personal history of nicotine dependence
CPT/HCPCS: 12345; 70450; 96365; 96367; 96372; 96375; 96376; 99283; 99284; J1100; J1200; J1630; J1885; J2405; J2550; J2765; J3010; J3030; J3475; J7030

== ENCOUNTER 2020-07-23 14:28 | Outpatient (CLI) | payer MEDICARE, SELFPAY ==
--- NOTE | 2020-07-23 14:34 | XR_ITS ---
WS: [id number] DEXA (DUAL ENERGY X-RAY ABSORPTIOMETRY) Bone mineral density was performed using a [employer] machine. HISTORY: POSTMENOPAUSAL STATUS COMPARISON: None available. Lumbar spine BMD (L1-L4): 1.260 g/cm2 T score: 0.7 Z score: 1.0 Total hip BMD: Left: 0.890 g/cm2. T score: -0.9 Z score: -0.6 Right: 0.938 g/cm2. T score: -0.6 Z score: -0.2 10 year probability of a major osteoporotic fracture is 9%. XR/XR DEXA axial skeleton* [id number] IMPRESSION: NORMAL BONE MINERAL DENSITY based upon the WHO classification for females.
== END 2020-07-23 14:29 | disposition home or self-care (01) ==
LOC: RADWPI 14:32
PROVIDERS: PCP Family Medicine; Visit Provider Family Medicine
DX: Z78.0 Asymptomatic menopausal state (principal)
CPT/HCPCS: 77080

== ENCOUNTER 2020-10-07 06:21 | Emergency (ER) | payer MEDICARE, SELFPAY ==
[2020-10-07 06:27] VITALS: BP 145/85; PULSE 95; RESP 16; TEMP 36.6; O2SAT 99; BMI 31.3
--- NOTE | 2020-10-07 06:28 | XRR_ITS ---
PROCEDURE INFORMATION: Exam: XR Right Foot Exam date and time: 10/07/2020 6:35 AM Age: 59 years old Clinical indication: Pain; Foot; Right TECHNIQUE: Imaging protocol: XR Right foot. Views: 3 or more views. COMPARISON: No relevant prior studies available. FINDINGS: Bones/joints: No fracture or other acute abnormalities are seen in the right foot. Mild degenerative changes are present in the 1st metatarsophalangeal joint and interphalangeal joints with mild narrowing and sclerosis. There is chronic spurring on the calcaneus at the insertions of the Achilles tendon and plantar aponeurosis. There is calcification along the lateral aspect of the cuboid bone consistent with old injury. Soft tissues: See Bones/joints finding. XR/XR foot RT min 3V* [id number] IMPRESSION: 1. No acute abnormality. 2. Chronic degenerative changes.
--- NOTE | 2020-10-07 06:28 | XRR_ITS ---
PROCEDURE INFORMATION: Exam: XR Right Ankle Exam date and time: 10/07/2020 6:35 AM Age: 59 years old Clinical indication: Pain; Ankle; Right TECHNIQUE: Imaging protocol: XR Right ankle. Views: 3 or more views. COMPARISON: No relevant prior studies available. FINDINGS: Bones/joints: Chronic degenerative changes are present with osteophyte formation on the medial malleolus and talus. There is chronic spurring on the calcaneus. No fracture, dislocation or other acute bony abnormalities are seen in the right ankle. Soft tissues: Normal. XR/XR ankle RT min 3V* [id number] IMPRESSION: Chronic degenerative osteoarthritis. No acute abnormality.
--- NOTE | 2020-10-07 06:29 | ED_ITS ---
HPI - General Adult General: Chief complaint: Extremity Injury, Lower Stated complaint: foot pain Time Seen by Provider: 10/07/20 06:23 Source: patient Mode of arrival: ambulatory Limitations: no limitations History of Present Illness: HPI narrative: Mrs. Wheeler is a nice 59-year-old female who comes in complaining of foot pain to the bottom of her right foot. The pain is been going on for quite some time but the past few days has become much worse. She denies any specific injury. She denies any swelling or numbness or weakness to her foot. She states she is has a great deal of pain when she steps down on it. The pain seems to be located in the mid portion of the plantar aspect of her foot but comes up around her heel and her Achilles tendon. Denies any recent antibiotics. Patient has seen Dr. Chappell for this before and she states she was told she would have to live with this but as the pain is gotten worse she states she feels that something else needs to be done. She denies any other complaints or concerns at this time. Associated symptoms: Deny chest pain, dyspnea, headache(s), nausea, rash, palpitations, syncope or vomiting Review of Systems Const: Denies: fever(s) Eyes: Denies: change in vision or blurry vision ENMT: Denies: throat pain, hoarseness or swelling of lips/tongue Card: Denies: chest pain, palpitations, syncope, pre-syncope or dyspnea on exertion Resp: Denies: dyspnea, productive cough, non-productive cough, wheezing, change in phlegm color or hemoptysis GI: Denies: abdominal pain, nausea, vomiting or diarrhea : Denies: flank pain, dysuria, urinary frequency or urinary urgency Musc: Reports: extremity pain and joint pain; Denies: neck pain or back pain Skin/Breast: Denies: rash or pruritus Neuro: Denies: headache(s), numbness in extremities, weakness in extremities or dizziness Martinez/Lymph: Denies: easy bruising, easy bleeding, petechiae or purpura All/Imm: Denies: urticaria or throat swelling PFSH ED PFSH: Medical History Diabetes mellitus Fibromyalgia syndrome History of IBS Migraines Stones, urinary tract Surgical History History of carpal tunnel repair History of cervical discectomy History of cholecystectomy Laparoscopic History of hysterectomy 1999, TV, Performed by Dr. Agustin History of kidney surgery Removal of stonesto History of lumbar discectomy History of toe surgery joint cleaned out History of wisdom tooth extraction Family History Mother Hypertension Hyperlipidemia Stroke Thyroid condition Father Hypertension Hyperlipidemia Stroke Family history of ITP Sister Hypertension Hyperlipidemia Thyroid condition x 2 Grandmother Diabetes Maternal Hyperlipidemia Maternal and paternal Stroke Maternal and paternal Grandfather Diabetes Paternal Hyperlipidemia Maternal and paternal Stroke Maternal and patnernal Unknown Patient denies medical problems Denies family history of: breast/ovarian/uterine/colon cancer Social History Smoking and tobacco status: former smoker Alcohol intake: never Additional social history: Well balanced diet Physical Exam Const: COMMON NORMALS: no acute distress, patient oriented x3, no limitations and alert GENERAL APPEARANCE: cooperative HENMT: COMMON NORMALS: normocephalic, atraumatic, external ears normal, EAC's normal and Normal external nose present HEAD & SCALP: normal to inspection, normocephalic and atraumatic FACE & SINUS: normal facial exam and face symmetric NOSE: Normal external nose present and Normal nares present EXTERNAL EAR: Yes external ears normal EXTERNAL AUDITORY CANAL: EAC's normal MOUTH: Normal oral and palatal mucosa present, lip normal and tongue normal Eye: COMMON NORMALS: Equal, round and reactive pupils present and conjunctivae normal GENERAL EYE: appearance normal, both eyes and all related structures ALIGNMENT: Yes alignment normal PERIORBITAL: periorbital findings normal EYELID: eyelids normal CONJUNCTIVA: Yes conjunctivae normal SCLERA: sclerae normal PUPIL: Yes Equal, round and reactive pupils present Neck/C-Spine: COMMON NORMALS: full ROM, no lymphadenopathy, supple, no meningeal signs and no JVD GENERAL: Yes normal visual inspection and Yes trachea midline Chest: COMMONS NORMALS: normal inspection of the chest and normal palpation of entire chest wall Resp: COMMON NORMALS: normal respiratory effort, No retractions, No use of accessory muscles and clear to auscultation bilaterally EFFORT & INSPECTION: Yes able to speak in complete sentences and Yes symmetric chest movement AUSCULTATION: clear to auscultation bilaterally, no crackles, no rales, no rhonchi and no wheezes Cardio: COMMON NORMALS: no JVD, regular rate, regular rhythm, S1 normal heart sound present and S2 normal heart sound present RATE: regular rate RHYTHM: regular rhythm HEART SOUNDS: S1 normal heart sound present, S2 normal heart sound present, no click, no gallops, no murmurs and no rubs GI: COMMON NORMALS: Soft to palpation and No hepatosplenomegaly present PALPATION: Yes Soft to palpation, No Tenderness to palpation present (GI), No Guarding due to palpation present (GI), No Rigid due to palpation, Yes No hepatosplenomegaly present, No Hernia present, No Palpable mass present and No Pulsatile mass present : COMMON NORMALS: Yes no CVA tenderness BLADDER/KIDNEY EXAM: Yes no CVA tenderness EXTERNAL FEMALE EXAM: No Hernia present Back/Pelvis: COMMON NORMALS: no CVA tenderness, thoracic and lumbar spine normal to inspection, no thoracic nor lumbar tenderness and thoraco-lumbar ROM normal Extremity: COMMON NORMALS: normal to inspection, full ROM, capillary refill normal, no joint enlargement, no clubbing, cyanosis or edema and no calf tenderness NARRATIVE EXTREMITY EXAM: Pain on palpation to the sole of the foot. No erythema, no swelling, no contusions. No pain out of proportion to exam. Neuro: COMMON NORMALS: patient oriented x3, CN's II-XII intact bilaterally, moves all extremities, no focal motor deficits and no sensory deficits noted SENSORIUM/ORIENTATION: Yes alert MENINGEAL SIGNS: Yes no meningeal signs SPEECH: speech normal Psych: COMMON NORMALS: mental status grossly normal, Normal thought process present, cooperative, normal affect, speech normal and activity/motor behavior normal SPEECH: Yes normal speech THOUGHT PROCESS: Normal thought process present Skin: COMMON NORMALS: no rashes or lesions noted, turgor normal, no jaundice, no petechiae and no mottling GENERAL SKIN EXAM: no rashes or lesions noted and turgor normal Course Vital Signs: Vital signs: Vital Signs Temperature 97.9 F 10/07/20 06:27 Pulse Rate 90 10/07/20 06:31 Respiratory Rate 18 10/07/20 06:31 Blood Pressure 147/79 10/07/20 06:31 Pulse Oximetry 97 10/07/20 06:31 MDM - General Adult MDM Narrative: Medical decision making narrative: Mrs. Arechiga is a nice 59-year-old female who comes in with progressive right foot pain. I think she likely has calcific tendinitis of the Achilles tendon and the plantar aspect of the foot. It is possible it could be something more serious such as a tumor mass and I have instructed her that she needs to follow-up with Dr. Chappell but she states she is seeing him and he has told her that something she will have to live with. She would like a name of someone else she can follow-up with his given her Dr. Zambrano's name. She denies any other complaints or concerns. I see no sign of infected joint. Good discharge her with pain medications and focus on her symptomatic relief and she will follow-up with Dr. Zambrano with orthopedic doctor for choice for recheck. Imaging Data^: Right ankle/foot: Attestation: I personally reviewed and interpreted this imaging study as follows: My impression: Probable calcific tendinitis located in the plantar aspect of the right foot. No other obvious dislocations, subluxations or fractures. Other areas of arthritis noted. Discharge Plan Discharge Patient Disposition: Home Clinical Impression: Strain of ankle and foot Qualifiers: Encounter type: initial encounter Laterality: right Qualified Code(s): S96.911A - Strain of unspecified muscle and tendon at ankle and foot level, right foot, initial encounter Condition: Stable Prescriptions: New naproxen 250 mg tablet 500 mg PO BID PRN (Reason: pain) Qty: 20 RF: 0 No Action Lantus U-100 Insulin 100 unit/mL solution 50 unit SUBCUT DAILY@21 RF: 0 eletriptan [Relpax] 40 mg tablet 40 mg PO PRN RF: 0 simvastatin 40 mg tablet 40 mg PO QPM RF: 0 carvedilol 3.125 mg tablet 3.125 mg PO BID RF: 0 duloxetine [Cymbalta] 30 mg capsule,delayed release(DR/EC) 30 mg PO BID RF: 0 nitroglycerin 0.1 mg/hr patch 24 hour 1 patch transdermal DAILY Qty: 30 RF: 1 metformin 500 mg tablet 500 mg PO BID RF: 0 Keppra 500 mg tablet 500 mg PO BID RF: 0 aspirin 81 mg tablet,delayed release (DR/EC) 81 mg PO QPM RF: 0 cyclobenzaprine 10 mg tablet 10 mg PO Q12H PRN (Reason: Muscle Spasm) RF: 0 fluconazole 100 mg tablet 200 mg PO Q7D RF: 0 ferrous sulfate 325 mg (65 mg iron) tablet 325 mg PO EVERY OTHER DAY RF: 0 promethazine 25 mg tablet 25 mg PO Q6H PRN (Reason: Nausea) RF: 0 finasteride 5 mg tablet 5 mg PO QAM RF: 0 Vitamin D3 125 mcg (5,000 unit) Tablet 10,000 unit PO DAILY RF: 0 Trulicity 0.75 mg/0.5 mL pen injector 0.75 mg SUBCUT Q7D RF: 0 Discharge Orders: Discharge ED (Routine); Ordered 10/07/20 Ordered By: Verónica Mac Referrals: Nayan Zambrano DO [Physician] - 4-7 days Vlad Francois MD [Primary Care Provider] - Discharge Diet: Usual diet Discharge Activity: Limit activity as instructed Patient Instructions: Foot Sprain (ED) Activity Restrictions/Additional Instructions: Please return to the ER immediately for any of the signs or symptoms listed on your discharge instruction sheets, worsening/changing of your symptoms, you are not getting better as quickly as expected, or for ANY other cause or concerns. Use your crutches and do not bear weight on your foot if it causes you pain. You can also take Tylenol at home in addition to the medication I have prescribed for you. Follow-up with Dr. Chappell or with Dr. Zambrano for recheck and for further evaluation and care of your pain. You have a abnormal calcification on the bottom of your foot that does need to be checked to evaluate for calcific tendinitis or another even more serious cause for the calcification in the bottom of your foot. Follow-up is essential. Coding Level of Care Code ED [employer] Worker for [employer] Fwd Exam Comprehensive
[2020-10-07 06:31] VITALS: BP 147/79; PULSE 90; RESP 18; O2SAT 97
[2020-10-07] MEDS: HYDROcodone-acetaminophen 5-325 mg Tablet 1 TAB PO ×2 (06:40→07:08)
[2020-10-07] MEDS: naproxen 500 mg Tablet 250 MG PO (07:06)
--- NOTE | 2020-10-07 07:18 | PC.NURSE ---
norco was ordered twice and norco was wasted
[2020-10-07 07:39] VITALS: BP 123/76; PULSE 97; RESP 18; O2SAT 97
--- NOTE | 2020-10-08 10:02 | DCPLANNER ---
police manager had message to schedule a follow up appointment with ortho. police manager called the ortho clinic, spoke with [place], gave clinic patients information. police manager was told that patients information would be printed and reviewed. Clinic will call patient with appointment information.
--- NOTE | 2020-10-10 07:52 | DCPLANNER ---
Patient had a follow up appointment scheduled for 10.09.[address] Chappell at [facility] - patient did attend appointment.
== END 2020-10-07 07:44 | disposition home or self-care (01) ==
PROVIDERS: Emergency Provider Emergency Medicine; PCP Family Medicine
DX: S96.911A Strain of unspecified muscle and tendon at ankle and foot level, right foot, initial encounter (principal); Z79.4 Long term (current) use of insulin; Z79.82 Long term (current) use of aspirin; E11.9 Type 2 diabetes mellitus without complications; Z87.891 Personal history of nicotine dependence; X58.XXXA Exposure to other specified factors, initial encounter
CPT/HCPCS: 29515; 73610; 73630; 99283

== ENCOUNTER 2020-11-02 10:53 | Outpatient (CLI) | payer MEDICARE, SELFPAY ==
--- NOTE | 2020-11-02 11:00 | MR_ITS ---
WS: [id number] MRI RIGHT ANKLE NONCONTRAST TECHNIQUE: Sagittal proton density, sagittal STIR, axial proton density, axial T1, axial T2 fat sat, coronal proton density, coronal proton density fat sat, coronal T2 fat sat. CLINICAL INFORMATION: foot pain. Achilles tendon pain. COMPARISON: None. FINDINGS: Proximal and mid Achilles tendon normal in appearance. T2 signal abnormality in the distal Achilles at the calcaneal insertion consistent with insertional tendinopathy. Trace edema in the toby cent calcaneus. Small amount of peritendinous soft tissue edema. No evidence of high-grade tear. Normal bone marrow signal in the talus and calcaneus. Normal talar dome navicular articulation. Gabriela l talocalcaneal articulation. Degenerative arthritis involving the tarsal bones. Proximal metatarsals appear normal. Normal peroneal longus and brevis. Normal extensor and flexor compartment tendons. Small amount of te nosynovitis along the tibialis posterior. Mild degenerative arthritis at the ankle mortise. Normal la teral malleolus. Tiny chronic avulsion normal plantar aponeurosis. At the tip of the medial malleolus . Plantar calcaneal spurring. Achilles enthesophyte. MR/MR ankle RT wo con* [id number] IMPRESSION: 1. Small amount of T2 hyperintensity involving the distal Achilles at the calc aneal insertion consistent with insertional tendinopathy. Thickening of the dis esa Achilles tendon at the insertion with a small amount of peritendinous edema . No high-grade tears. 2. Plantar calcaneal spurring. Normal plantar aponeurosis. 3. Normal peroneus longus and brevis. 4. Extensor and flexor compartment tendons are normal in appearance. 5. Mild degenerative arthritis ankle mortise. 6. Small chronic bony avulsion at the tip of the medial malleolus.
== END 2020-11-02 10:54 | disposition home or self-care (01) ==
LOC: RADSHAW 10:55
PROVIDERS: PCP Family Medicine; Visit Provider Podiatrist Foot & Ankle Surgery
DX: M76.61 Achilles tendinitis, right leg (principal); M79.671 Pain in right foot; M77.31 Calcaneal spur, right foot; S82.891A Other fracture of right lower leg, initial encounter for closed fracture; X58.XXXA Exposure to other specified factors, initial encounter; M19.071 Primary osteoarthritis, right ankle and foot
CPT/HCPCS: 73721

== ENCOUNTER 2021-01-31 09:57 | Outpatient (CLI) | payer MEDICARE, SELFPAY ==
--- NOTE | 2021-01-31 10:06 | XR_ITS ---
WS: [id number] Left hand, 3 views, 01/31/2021 Clinical Data: BILATERAL HAND PAIN Comparison: None. Findings: No fractures or dislocations are seen. The soft tissues are unremarkable. The joint spaces are normal XR/XR hand LT min 3V* [id number] Impression: Negative left hand.
--- NOTE | 2021-01-31 10:06 | XR_ITS ---
WS: [id number] Right hand, 3 views, 01/31/2021 Clinical Data: BILATERAL HAND PAIN Comparison: None. Findings: No fractures or dislocations are seen. The soft tissues are unremarkable. The joint space s are normal XR/XR hand RT min 3V* [id number] Impression: Negative right hand.
== END 2021-01-31 09:58 | disposition home or self-care (01) ==
LOC: RAD 10:04
PROVIDERS: PCP Family Medicine; Visit Provider Anesthesiology Pain Medicine
DX: M79.641 Pain in right hand (principal); M79.642 Pain in left hand
CPT/HCPCS: 36415; 73130; 86431

== ENCOUNTER → 2021-02-24 18:51 | Outpatient (BNVA) | payer MEDICARE, SELFPAY | PROVIDERS: PCP Family Medicine; Visit Provider Nurse Practitioner | DX: R39.9 Unspecified symptoms and signs involving the genitourinary system (principal) | CPT/HCPCS: 81000 ==

== ENCOUNTER → 2021-05-24 12:22 | Outpatient (BNVA) | payer MEDICARE, SELFPAY | PROVIDERS: PCP Family Medicine; Visit Provider Family Medicine | DX: N39.0 Urinary tract infection, site not specified (principal) | CPT/HCPCS: 81000 ==

== ENCOUNTER 2021-06-09 10:11 | Emergency (ER) | payer MEDICARE, SELFPAY ==
[2021-06-09 10:22] VITALS: BP 148/94; PULSE 103; RESP 12; TEMP 36.8; O2SAT 96; BMI 31.3
--- NOTE | 2021-06-09 12:12 | ED_ITS ---
Documented by User: Bety Ricardo PA-C 06/09/21 15:46 HPI - Abdominal Pain General: Chief Complaint: Abdominal Pain Stated Complaint: abd pains Time Seen by Provider: 06/09/21 12:08 Source: patient Mode of arrival: ambulatory Limitations: no limitations History of Present Illness: HPI narrative: 60-year-old female presents to the ER today for epigastric and right upper quadrant pain x1 to 2 weeks. Patient was seen by her PCP and told that if things worsen she should go to the ER for work-up. Patient had a recent kidney infection around [place] and she reports she is unsure that things got completely better before the pain in her abdomen started. Patient has a history of a cholecystectomy. Patient reports this pain is achy and sharp at times. It kept her up all night. Patient reports nausea but no vomiting. She reports no appetite this morning. Patient denies any diarrhea or constipation. Patient reports eating does make the pain worse. Patient has a history of diabetes. Patient has been taking pantoprazole with no improvement. MD elicited complaint: abdominal pain Pertinent past history: past UTI Onset (ago): week(s) Pain Consistency: constant Location: Epigastric and RUQ Severity: moderate Pain scale (0-10): 6 Quality: cramping, aching and sharp Radiation: back Exacerbating factors: eating Relieving factors: nothing Associated Symptoms: Reports nausea and poor appetite Review of Systems General: Reports: 10 or more systems reviewed and unremarkable except in HPI and below GI: Reports: nausea PFSH ED PFSH: Medical History Diabetes mellitus Fibromyalgia syndrome History of IBS Migraines Stones, urinary tract Surgical History History of carpal tunnel repair History of cervical discectomy History of cholecystectomy Laparoscopic History of hysterectomy 1999, [facility], Performed by Dr. Agustin History of kidney surgery Removal of stonesto History of lumbar discectomy History of toe surgery joint cleaned out History of wisdom tooth extraction Family History Mother Hypertension Hyperlipidemia Stroke Thyroid condition Father Hypertension Hyperlipidemia Stroke Family history of ITP Sister Hypertension Hyperlipidemia Thyroid condition x 2 Grandmother Diabetes Maternal Hyperlipidemia Maternal and paternal Stroke Maternal and paternal Grandfather Diabetes Paternal Hyperlipidemia Maternal and paternal Stroke Maternal and patnernal Unknown Patient denies medical problems Denies family history of: breast/ovarian/uterine/colon cancer Social History Second hand smoke exposure: No Alcohol intake: never Desire information about alcohol rehabilitation?: No Desire information about substance/drug rehabilitation?: No Additional social history: Well balanced diet Physical Exam Const: COMMON NORMALS: average body habitus and patient oriented x3 GENERAL APPEARANCE: cooperative and ill appearing; not comfortable HENMT: COMMON NORMALS: normocephalic and moist oral mucous membranes HEAD & SCALP: normocephalic Eye: COMMON NORMALS: conjunctivae normal CONJUNCTIVA: Yes conjunctivae normal Lymph: LYMPHATIC: no lymphadenopathy noted Resp: COMMON NORMALS: normal respiratory effort, No retractions and clear to auscultation bilaterally EFFORT & INSPECTION: Yes able to speak in complete sentences AUSCULTATION: clear to auscultation bilaterally, no rales, no rhonchi and no wheezes Cardio: COMMON NORMALS: regular rate, regular rhythm and No murmurs present (Cardio) RATE: regular rate RHYTHM: regular rhythm GI: COMMON NORMALS: Normal to inspection, nondistended, normoactive bowel sounds present and Soft to palpation PALPATION: Yes Soft to palpation, Yes Tenderness to palpation present (GI) Details: RUQ and other (epigastric) and No Guarding due to palpation present (GI) : COMMON NORMALS: Yes no CVA tenderness BLADDER/KIDNEY EXAM: Yes no CVA tenderness Back/Pelvis: COMMON NORMALS: no CVA tenderness THORACIC SPINE/UPPER BACK: Yes thoracic ROM normal LUMBAR SPINE/LOWER BACK: Yes lumbar ROM normal Extremity: COMMON NORMALS: normal to inspection and full ROM Neuro: COMMON NORMALS: patient oriented x3, moves all extremities, no sensory deficits noted and gait normal Psych: COMMON NORMALS: mental status grossly normal, Normal thought process present and cooperative THOUGHT PROCESS: Normal thought process present Skin: COMMON NORMALS: no rashes or lesions noted and no wounds GENERAL SKIN EXAM: no rashes or lesions noted Course ED course: Patient presents to the ER today for epigastric and right upper quadrant abdominal pain that has been going on for several weeks but worsening over the last 24 hours. Patient reports nausea and no appetite. Patient reports pain is constant and to keep her up all night. Patient did not have any diarrhea or constipation. Patient's PCP recommended she go to ER for work-up. Will get CT of the abdomen pelvis as patient did have a recent kidney infection also. We will also get labs at this time. Patient given fluids and Zofran for nausea. Reevaluation(s): Reevaluation #1: Patient given a snack due to low blood sugar. She reports she is feeling better after the snack however still nauseated. Time: 14:26 Vital Signs: Vital signs: Vital Signs Temperature 99.3 F 06/09/21 16:00 Pulse Rate 100 06/09/21 16:00 Respiratory Rate 14 06/09/21 16:00 Blood Pressure 114/75 06/09/21 16:00 Pulse Oximetry 94 06/09/21 16:00 MDM - Abdominal Pain MDM Narrative: Medical decision making narrative: 60-year-old female presents to the ER today for epigastric abdominal pain and right upper quadrant pain x2 weeks. Patient reports significantly worsened overnight and she was unable to rest. Patient reports nausea associated with this in addition to the decreased appetite. Patient has had a history of a cholecystectomy however her doctor was concerned for common bile duct issues. Labs and imaging done in the ER today. Patient has a mildly bumped white count otherwise labs are unremarkable. Imaging is normal of the abdomen pelvis. EKG is normal as is troponin. Discussed findings with patient. Would recommend patient follow-up with PCP to discuss EGD versus other tests. Return to the ER with any new or worsening symptoms. We will send patient home with metoclopramide for nausea. Patient verbalized understanding is in agreement with the treatment plan. Lab Data: Attestation: I reviewed the patient's lab results. Labs: Lab Results 06/09/21 06/09/21 06/09/21 12:02 12:02 12:45 WBC 10.3 10^3/uL H 10 ^3/uL (4.0-10.0) RBC 5.17 10^6/uL 10^6 /uL (4.1-5.3) Hgb 15.0 g/dL g/dL (11.5-15.3) Hct 48.3 % H % (37.0-47.0) MCV 93.4 fl fl (81-99) MCH 29.0 pg pg (28.0-34.0) MCHC 31.1 g/dL g/dL (30.0-36.0) RDW 11.9 % L % (12.1-15.1) Plt Count 231 10^3/cmm 10^3 /cmm (130-400) MPV 11.0 fL H fL (7.4-10.4) Neut % (Auto) 73.5 % % Lymph % (Auto) 19.0 % % [place] % (Auto) 6.9 % % Eos % (Auto) 0.2 % % Baso % (Auto) 0.2 % % Neut # (Auto) 7.59 10^3/uL 10^3 /uL (1.8-7.7) Lymph # (Auto) 2.0 10^3/uL 10^3/ uL (0.8-4.8) [place] # (Auto) 0.7 10^3/uL 10^3/ uL (0.2-0.9) Eos # (Auto) 0.0 10^3/uL 10^3/ uL (0.0-0.8) Baso # (Auto) 0.0 10^3/uL 10^3/ uL (0.0-0.1) Nucleated RBC % (a uto) 0 % % Nucleated RBCs # 0.0 /100WBC /100W BC Sodium Cancelled Potassium Cancelled Chloride Cancelled Carbon Dioxide Cancelled Anion Gap Cancelled BUN Cancelled Creatinine Cancelled GFR Calculation Cancelled Glucose Cancelled POC Glucose Calculated Osmolal ity Cancelled Calcium Cancelled Total Bilirubin Cancelled AST Cancelled ALT Cancelled Alkaline Phosphata se Cancelled Troponin T Gen 5 n g/L Total Protein Cancelled Albumin Cancelled Globulin Cancelled Lipase Cancelled Urine Color Yellow (Yellow) Urine Appearance Clear (CLEAR) Urine pH 5 (5-7) Ur Specific Gravit y 1.015 (1.005-1.030) Urine Protein Neg (Negative) Urine Glucose (UA) Norm (Normal) Urine Ketones 1+ H (Negative) Urine Blood Neg (Negative) Urine Nitrate Negative (Negative) Urine Bilirubin Neg (Negative) Urine Urobilinogen Norm mg/dL mg/dL (Negative) Ur Leukocyte Saige ase Negative (Negative) 06/09/21 06/09/21 06/09/21 13:05 13:29 14:54 WBC RBC Hgb Hct MCV MCH MCHC RDW Plt Count MPV Neut % (Auto) Lymph % (Auto) [place] % (Auto) Eos % (Auto) Baso % (Auto) Neut # (Auto) Lymph # (Auto) [place] # (Auto) Eos # (Auto) Baso # (Auto) Nucleated RBC % (a uto) Nucleated RBCs # Sodium 136 mmol/L mmol/L (136-145) Potassium 4.3 mmol/L mmol/L (3.5-5.1) Chloride 100 mmol/L mmol/L (98-107) Carbon Dioxide 25 mmol/L mmol/L (22-29) Anion Gap 15.3 (5-19) BUN 16 mg/dL mg/dL (8-23) Creatinine 0.8 mg/dL mg/dL (0.5-0.9) GFR Calculation 72.9 mL/min L mL/ min (90-130) Glucose 78 mg/dL mg/dL (65-115) POC Glucose 71 mg/dL mg/dL 165 mg/dL H mg/dL (70-110) (70-110) Calculated Osmolal ity 282 mOsm/kg L mOs m/kg (285-295) Calcium 9.1 mg/dL mg/dL (8.5-10.5) Total Bilirubin 0.4 mg/dL mg/dL (0.15-1.2) AST 11 U/L U/L (0-32) ALT 9 U/L U/L (0-33) Alkaline Phosphata se 60 IU/L IU/L (35-105) Troponin T Gen 5 n g/L Total Protein 7.0 g/dL g/dL (6.6-8.7) Albumin 4.3 g/dL g/dL (3.5-5.2) Globulin 2.7 g/dL g/dL (1.3-4.6) Lipase 25 U/L U/L (13-60) Urine Color Urine Appearance Urine pH Ur Specific Gravit y Urine Protein Urine Glucose (UA) Urine Ketones Urine Blood Urine Nitrate Urine Bilirubin Urine Urobilinogen Ur Leukocyte Saige ase 06/09/21 15:09 WBC RBC Hgb Hct MCV MCH MCHC RDW Plt Count MPV Neut % (Auto) Lymph % (Auto) [place] % (Auto) Eos % (Auto) Baso % (Auto) Neut # (Auto) Lymph # (Auto) [place] # (Auto) Eos # (Auto) Baso # (Auto) Nucleated RBC % (a uto) Nucleated RBCs # Sodium Potassium Chloride Carbon Dioxide Anion Gap BUN Creatinine GFR Calculation Glucose POC Glucose Calculated Osmolal ity Calcium Total Bilirubin AST ALT Alkaline Phosphata se Troponin T Gen 5 n g/L 6 ng/L ng/L (0-10) Total Protein Albumin Globulin Lipase Urine Color Urine Appearance Urine pH Ur Specific Gravit y Urine Protein Urine Glucose (UA) Urine Ketones Urine Blood Urine Nitrate Urine Bilirubin Urine Urobilinogen Ur Leukocyte Saige ase Imaging Data ^: CT Abd/Pel: Radiologist's impression: [facility] [address] [place] [address] CT Scan Report Signed Patient: Randi Arechiga Unit #: [id number] : 1960 Age/Sex: 60 / F ADM Date: 06/09/21 Loc: ER Room/Bed: Attending Dr: Ordering Provider/Ordering MD: Bety Ricardo Date of Service: 06/09/21 Procedure(s): CT abdomen pelvis w con* [id number] Accession Number(s): [id number] Report Number: [id number] PROCEDURE INFORMATION: Exam: CT Abdomen And Pelvis With Contrast Exam date and time: 06/09/2021 12:27 PM Age: 60 years old Clinical indication: Abdominal pain; Epigastric; Additional info: Abdominal pain, nausea TECHNIQUE: Imaging protocol: Computed tomography of the abdomen and pelvis with contrast. Axial, coronal and sagittal reformatted images were created and reviewed. Radiation optimization: All CT scans at this facility use at least one of these dose optimization techniques: automated exposure control; mA and/or kV adjustment per patient size (includes targeted exams where dose is matched to clinical indication); or iterative reconstruction. Contrast material: OMNI 300; Contrast volume: 95 ml; Contrast route: INTRAVENOUS (IV); COMPARISON: CT abdomen pelvis w con* [id number] 02/22/2019 1:56 PM RADIATION DOSE METRICS: Total DLP (mGy-cm): 1786.32 FINDINGS: Liver: Unremarkable. Gallbladder and bile ducts: Status post cholecystectomy. No biliary ductal dilatation. Pancreas: Unremarkable. Spleen: Unremarkable. Adrenal glands: Normal. No mass. Kidneys and ureters: No mass. No radiodense calculi. No hydronephrosis. Stomach and bowel: Moderate amount of retained stool in the colon. No obstruction. No bowel wall thickening. No pneumatosis. Appendix: Normal. Intraperitoneal space: No free fluid. No organized fluid collection. No free air. Vasculature: 6 2 mild atherosclerotic disease. No aneurysm. Lymph nodes: No pathologically enlarged lymph nodes. Urinary bladder: Unremarkable as visualized. Reproductive: Status post hysterectomy. Bones/joints: No acute osseous abnormality. Osteopenia. Degenerative changes. Soft tissues: Unremarkable. CT/CT abdomen pelvis w con* [id number] IMPRESSION: 1. No CT evidence of acute intra-abdominal or pelvic pathology. 2. Additional findings, as above. Dictated By: Javier Angel MD Signed By: Javier Angel MD Signed Date/Time: 06/09/21 1420 DD/ 1227 EKG Data ^: EKG 1: EKG interpretation date: 06/09/21 EKG interpretation time: 14:47 Interpretation: NSR, normal rate, no ST-T wave changes noted Critical Care Time Critical Care Time: Critical Care Time: No Discharge Plan Discharge Patient Disposition: Home Clinical Impression: Diabetic gastroparesis Condition: Stable Prescriptions: New metoclopramide HCl 10 mg tablet 10 mg PO Q6H PRN (Reason: nausea and vomiting) Qty: 30 RF: 0 Held promethazine 25 mg tablet 25 mg PO Q6H PRN (Reason: Nausea) RF: 0 Hold Instructions: do not take while taking metoclopramide No Action Lantus U-100 Insulin 100 unit/mL solution 50 unit SUBCUT DAILY@21 RF: 0 eletriptan [Relpax] 40 mg tablet 40 mg PO PRN RF: 0 simvastatin 40 mg tablet 40 mg PO QPM RF: 0 carvedilol 3.125 mg tablet 6.25 mg PO BID RF: 0 levofloxacin 750 mg tablet 750 mg PO DAILY 5 Days Qty: 5 RF: 0 metformin 500 mg tablet 500 mg PO BID RF: 0 Keppra 500 mg tablet 500 mg PO BID RF: 0 aspirin 81 mg tablet,delayed release (DR/EC) 81 mg PO QPM RF: 0 cyclobenzaprine 10 mg tablet 10 mg PO Q12H PRN (Reason: Muscle Spasm) RF: 0 ferrous sulfate 325 mg (65 mg iron) tablet 325 mg PO EVERY OTHER DAY RF: 0 finasteride 5 mg tablet 5 mg PO QAM RF: 0 Vitamin D3 125 mcg (5,000 unit) Tablet 10,000 unit PO DAILY RF: 0 Trulicity 0.75 mg/0.5 mL pen injector 0.75 mg SUBCUT Q7D RF: 0 Discharge Orders: Discharge ED (Routine); Ordered 06/09/21 Ordered By: Bety Ricardo Referrals: Vlad Francois MD [Primary Care Provider] - Discharge Diet: Diabetic Discharge Activity: Resume usual activity Patient Instructions: Gastroparesis (ED), Opioid Safety Activity Restrictions/Additional Instructions: Take metoclopramide for nausea as prescribed. [place] diet recommended until symptoms improve. Follow-up with PCP in 2 to 3 days. Return to the ER with any new or worsening symptoms. Coding Level of Care Code ED Facility Technician for Chg Fwd Exam Comprehensive Documented by User: Simba Jarvis MD 06/15/21 21:36 HPI - Abdominal Pain General: Chief Complaint: Abdominal Pain Stated Complaint: abd pains Time Seen by Provider: 06/09/21 12:08 [facility] ED PFSH: Medical History Diabetes mellitus Fibromyalgia syndrome History of IBS Migraines Stones, urinary tract Surgical History History of carpal tunnel repair History of cervical discectomy History of cholecystectomy Laparoscopic History of hysterectomy 1999, , Performed by Dr. Agustin History of kidney surgery Removal of stonesto History of lumbar discectomy History of toe surgery joint cleaned out History of wisdom tooth extraction Family History Mother Hypertension Hyperlipidemia Stroke Thyroid condition Father Hypertension Hyperlipidemia Stroke Family history of ITP Sister Hypertension Hyperlipidemia Thyroid condition x 2 Grandmother Diabetes Maternal Hyperlipidemia Maternal and paternal Stroke Maternal and paternal Grandfather Diabetes Paternal Hyperlipidemia Maternal and paternal Stroke Maternal and patnernal Unknown Patient denies medical problems Denies family history of: breast/ovarian/uterine/colon cancer Social History Second hand smoke exposure: No Alcohol intake: never Desire information about alcohol rehabilitation?: No Desire information about substance/drug rehabilitation?: No Additional social history: Well balanced diet Course Vital Signs: Vital signs: Vital Signs Temperature 99.3 F 06/09/21 16:00 Pulse Rate 100 06/09/21 16:00 Respiratory Rate 14 06/09/21 16:00 Blood Pressure 114/75 06/09/21 16:00 Pulse Oximetry 94 06/09/21 16:00 MDM - Abdominal Pain MDM Narrative: Medical decision making narrative: I have reviewed this d ocumentation. I have reviewed labs and imaging. Simba Jarvis MD Emergency Medicine Lab Data: Labs: Lab Results 06/09/21 06/09/21 06/09/21 12:02 12:02 12:45 WBC 10.3 10^3/uL H 10 ^3/uL (4.0-10.0) RBC 5.17 10^6/uL 10^6 /uL (4.1-5.3) Hgb 15.0 g/dL g/dL (11.5-15.3) Hct 48.3 % H % (37.0-47.0) MCV 93.4 fl fl (81-99) MCH 29.0 pg pg (28.0-34.0) MCHC 31.1 g/dL g/dL (30.0-36.0) RDW 11.9 % L % (12.1-15.1) Plt Count 231 10^3/cmm 10^3 /cmm (130-400) MPV 11.0 fL H fL (7.4-10.4) Neut % (Auto) 73.5 % % Lymph % (Auto) 19.0 % % [place] % (Auto) 6.9 % % Eos % (Auto) 0.2 % % Baso % (Auto) 0.2 % % Neut # (Auto) 7.59 10^3/uL 10^3 /uL (1.8-7.7) Lymph # (Auto) 2.0 10^3/uL 10^3/ uL (0.8-4.8) [place] # (Auto) 0.7 10^3/uL 10^3/ uL (0.2-0.9) Eos # (Auto) 0.0 10^3/uL 10^3/ uL (0.0-0.8) Baso # (Auto) 0.0 10^3/uL 10^3/ uL (0.0-0.1) Nucleated RBC % (a uto) 0 % % Nucleated RBCs # 0.0 /100WBC /100W BC Sodium Cancelled Potassium Cancelled Chloride Cancelled Carbon Dioxide Cancelled Anion Gap Cancelled BUN Cancelled Creatinine Cancelled GFR Calculation Cancelled Glucose Cancelled POC Glucose Calculated Osmolal ity Cancelled Calcium Cancelled Total Bilirubin Cancelled AST Cancelled ALT Cancelled Alkaline Phosphata se Cancelled Troponin T Gen 5 n g/L Total Protein Cancelled Albumin Cancelled Globulin Cancelled Lipase Cancelled Urine Color Yellow (Yellow) Urine Appearance Clear (CLEAR) Urine pH 5 (5-7) Ur Specific Gravit y 1.015 (1.005-1.030) Urine Protein Neg (Negative) Urine Glucose (UA) Norm (Normal) Urine Ketones 1+ H (Negative) Urine Blood Neg (Negative) Urine Nitrate Negative (Negative) Urine Bilirubin Neg (Negative) Urine Urobilinogen Norm mg/dL mg/dL (Negative) Ur Leukocyte Saige ase Negative (Negative) 06/09/21 06/09/21 06/09/21 13:05 13:29 14:54 WBC RBC Hgb Hct MCV MCH MCHC RDW Plt Count MPV Neut % (Auto) Lymph % (Auto) [place] % (Auto) Eos % (Auto) Baso % (Auto) Neut # (Auto) Lymph # (Auto) [place] # (Auto) Eos # (Auto) Baso # (Auto) Nucleated RBC % (a uto) Nucleated RBCs # Sodium 136 mmol/L mmol/L (136-145) Potassium 4.3 mmol/L mmol/L (3.5-5.1) Chloride 100 mmol/L mmol/L (98-107) Carbon Dioxide 25 mmol/L mmol/L (22-29) Anion Gap 15.3 (5-19) BUN 16 mg/dL mg/dL (8-23) Creatinine 0.8 mg/dL mg/dL (0.5-0.9) GFR Calculation 72.9 mL/min L mL/ min (90-130) Glucose 78 mg/dL mg/dL (65-115) POC Glucose 71 mg/dL mg/dL 165 mg/dL H mg/dL (70-110) (70-110) Calculated Osmolal ity 282 mOsm/kg L mOs m/kg (285-295) Calcium 9.1 mg/dL mg/dL (8.5-10.5) Total Bilirubin 0.4 mg/dL mg/dL (0.15-1.2) AST 11 U/L U/L (0-32) ALT 9 U/L U/L (0-33) Alkaline Phosphata se 60 IU/L IU/L (35-105) Troponin T Gen 5 n g/L Total Protein 7.0 g/dL g/dL (6.6-8.7) Albumin 4.3 g/dL g/dL (3.5-5.2) Globulin 2.7 g/dL g/dL (1.3-4.6) Lipase 25 U/L U/L (13-60) Urine Color Urine Appearance Urine pH Ur Specific Gravit y Urine Protein Urine Glucose (UA) Urine Ketones Urine Blood Urine Nitrate Urine Bilirubin Urine Urobilinogen Ur Leukocyte Saige ase 06/09/21 15:09 WBC RBC Hgb Hct MCV MCH MCHC RDW Plt Count MPV Neut % (Auto) Lymph % (Auto) [place] % (Auto) Eos % (Auto) Baso % (Auto) Neut # (Auto) Lymph # (Auto) [place] # (Auto) Eos # (Auto) Baso # (Auto) Nucleated RBC % (a uto) Nucleated RBCs # Sodium Potassium Chloride Carbon Dioxide Anion Gap BUN Creatinine GFR Calculation Glucose POC Glucose Calculated Osmolal ity Calcium Total Bilirubin AST ALT Alkaline Phosphata se Troponin T Gen 5 n g/L 6 ng/L ng/L (0-10) Total Protein Albumin Globulin Lipase Urine Color Urine Appearance Urine pH Ur Specific Gravit y Urine Protein Urine Glucose (UA) Urine Ketones Urine Blood Urine Nitrate Urine Bilirubin Urine Urobilinogen Ur Leukocyte Saige ase Discharge Plan Discharge Patient Disposition: Home Clinical Impression: Diabetic gastroparesis Condition: Stable Prescriptions: New metoclopramide HCl 10 mg tablet 10 mg PO Q6H PRN (Reason: nausea and vomiting) Qty: 30 RF: 0 Held promethazine 25 mg tablet 25 mg PO Q6H PRN (Reason: Nausea) RF: 0 Hold Instructions: do not take while taking metoclopramide No Action Lantus U-100 Insulin 100 unit/mL solution 50 unit SUBCUT DAILY@21 RF: 0 eletriptan [Relpax] 40 mg tablet 40 mg PO PRN RF: 0 simvastatin 40 mg tablet 40 mg PO QPM RF: 0 carvedilol 3.125 mg tablet 6.25 mg PO BID RF: 0 levofloxacin 750 mg tablet 750 mg PO DAILY 5 Days Qty: 5 RF: 0 metformin 500 mg tablet 500 mg PO BID RF: 0 Keppra 500 mg tablet 500 mg PO BID RF: 0 aspirin 81 mg tablet,delayed release (DR/EC) 81 mg PO QPM RF: 0 cyclobenzaprine 10 mg tablet 10 mg PO Q12H PRN (Reason: Muscle Spasm) RF: 0 ferrous sulfate 325 mg (65 mg iron) tablet 325 mg PO EVERY OTHER DAY RF: 0 finasteride 5 mg tablet 5 mg PO QAM RF: 0 Vitamin D3 125 mcg (5,000 unit) Tablet 10,000 unit PO DAILY RF: 0 Trulicity 0.75 mg/0.5 mL pen injector 0.75 mg SUBCUT Q7D RF: 0 Discharge Orders: Discharge ED (Routine); Ordered 06/09/21 Ordered By: Bety Ricardo Referrals: Vlad Francois MD [Primary Care Provider] - Discharge Diet: Diabetic Discharge Activity: Resume usual activity Patient Instructions: Gastroparesis (ED), Opioid Safety Activity Restrictions/Additional Instructions: Take metoclopramide for nausea as prescribed. [place] diet recommended until symptoms improve. Follow-up with PCP in 2 to 3 days. Return to the ER with any new or worsening symptoms. Coding Level of Care Code ED Facility Technician for [place] Fwd Exam Comprehensive
[2021-06-09 12:14] LABS: Basophils % 0.2 %; Eosinophils % 0.2 %; Hematocrit 48.3 % (37.0-47.0); Mean Corpuscular HGB Conc 31.1 g/dL (30.0-36.0); Mean Corpuscular Volume 93.4 fl (81-99); Monocytes # 0.7 10^3/uL (0.2-0.9); Monocytes % 6.9 %; Neutrophils # 7.59 10^3/uL (1.8-7.7); Neutrophils % 73.5 %; Nucleated Red Blood Cells % 0 %; Platelet Count 231 10^3/cmm (130-400); Red Blood Count 5.17 10^6/uL (4.1-5.3); Red Cell Distribution Width 11.9 % (12.1-15.1); White Blood Count 10.3 10^3/uL (4.0-10.0)
--- NOTE | 2021-06-09 12:27 | CTR_ITS ---
PROCEDURE INFORMATION: Exam: CT Abdomen And Pelvis With Contrast Exam date and time: 06/09/2021 12:27 PM Age: 60 years old Clinical indication: Abdominal pain; Epigastric; Additional info: Abdominal pain, nausea TECHNIQUE: Imaging protocol: Computed tomography of the abdomen and pelvis with contrast. Axial, coronal and sagittal reformatted images were created and reviewed. Radiation optimization: All CT scans at this facility use at least one of these dose optimization techniques: automated exposure control; mA and/or kV adjustment per patient size (includes targeted exams where dose is matched to clinical indication); or iterative reconstruction. Contrast material: OMNI 300; Contrast volume: 95 ml; Contrast route: INTRAVENOUS (IV); COMPARISON: CT abdomen pelvis w con* [id number] 02/22/2019 1:56 PM RADIATION DOSE METRICS: Total DLP (mGy-cm): 1786.32 FINDINGS: Liver: Unremarkable. Gallbladder and bile ducts: Status post cholecystectomy. No biliary ductal dilatation. Pancreas: Unremarkable. Spleen: Unremarkable. Adrenal glands: Normal. No mass. Kidneys and ureters: No mass. No radiodense calculi. No hydronephrosis. Stomach and bowel: Moderate amount of retained stool in the colon. No obstruction. No bowel wall thickening. No pneumatosis. Appendix: Normal. Intraperitoneal space: No free fluid. No organized fluid collection. No free air. Vasculature: 6 2 mild atherosclerotic disease. No aneurysm. Lymph nodes: No pathologically enlarged lymph nodes. Urinary bladder: Unremarkable as visualized. Reproductive: Status post hysterectomy. Bones/joints: No acute osseous abnormality. Osteopenia. Degenerative changes. Soft tissues: Unremarkable. CT/CT abdomen pelvis w con* [id number] IMPRESSION: 1. No CT evidence of acute intra-abdominal or pelvic pathology. 2. Additional findings, as above.
[2021-06-09 13:12] LABS: Add Urine Microscopic? NO; Charge for UA Resulting for Rev
[2021-06-09] MEDS: sodium chloride 0.9% 1,000 ML 999 ML IV (13:30)
[2021-06-09] MEDS: ondansetron 2 mg/ML SDV 2 mL 4 MG IVP (13:30)
[2021-06-09 13:32] LABS: Glucose Point of Care 71 mg/dL (70-110)
[2021-06-09 13:41] LABS: Alanine Aminotransferase 9 U/L (0-33); Albumin Level 4.3 g/dL (3.5-5.2); Alkaline Phosphatase 60 IU/L (35-105); Anion Gap 15.3 (5-19); Aspartate Amino Transferase 11 U/L (0-32); Blood Urea Nitrogen 16 mg/dL (8-23); Calcium 9.1 mg/dL (8.5-10.5); Carbon Dioxide 25 mmol/L (22-29); Chloride 100 mmol/L (98-107); Globulin 2.7 g/dL (1.3-4.6); Glomerular Filtration Rate 72.9 mL/min (90-130); Glucose 78 mg/dL (65-115); Lipase 25 U/L (13-60); Osmolality Calculated 282 mOsm/kg (285-295); Potassium 4.3 mmol/L (3.5-5.1); Sodium 136 mmol/L (136-145); Total Bilirubin 0.4 mg/dL (0.15-1.2)
[2021-06-09 13:42] LABS: Urine Appearance Clear (CLEAR); Urine Color Yellow (Yellow)
[2021-06-09 13:43] LABS: Bilirubin Urine Neg (Negative); Blood Urine Neg (Negative); Glucose Urine UA Norm (Normal); Ketones Urine 1+ (Negative); Leukocyte Esterase Urine Negative (Negative); Nitrate Urine Negative (Negative); Protein Urine Neg (Negative); Specific Gravity, Urine 1.015 (1.005-1.030); Urobilinogen Urine Norm (Negative); pH Urine 5 (5-7)
[2021-06-09] MEDS: iohexol 300 mg/mL 100 mL Btl IV (13:57)
--- NOTE | 2021-06-09 14:22 | ECG_ITS ---
[facility] Test Date: 2021-06-09 Pat Name: Randi Arechiga Department: Room: Gender: Female Manager Route: : 1960 Requested By: Bety Ricardo Order Number: [id number] Armenta MD: Dianelys Robledo M.D. Measurements Intervals [place] Rate: 99 P: 54 MN: 145 QRS: 12 QRSD: 90 T: 40 QT: 345 QTc: 443 Interpretive Statements SINUS RHYTHM LOW QRS VOLTAGE IN PRECORDIAL LEADS [QRS DEFLECTION < 1.0 mV IN CHEST LEADS] Compared to ECG 12/13/2019 19:24:46 Low QRS voltage now present Electronically Signed On 06-11-2021 5:20:19 FIREPERSON by Dianelys Robledo M.D. [id number]
[2021-06-09 14:57] LABS: Glucose Point of Care 165 mg/dL (70-110)
[2021-06-09 15:34] LABS: Troponin T (5th) Once 6 ng/L (0-10)
[2021-06-09 16:00] VITALS: BP 114/75; PULSE 100; RESP 14; TEMP 37.4; O2SAT 94
--- NOTE | 2021-06-09 16:13 | PC.NURSE ---
reviewed discharge instructions with patient, patient verbalizes understanding of all instructions, one prescription and when to follow up, patient ambulated from the ED after IV removed with all belongings
== END 2021-06-09 16:21 | disposition home or self-care (01) ==
PROVIDERS: Emergency Provider Physician Assistant; PCP Family Medicine
DX: E11.43 Type 2 diabetes mellitus with diabetic autonomic (poly)neuropathy (principal); K31.84 Gastroparesis; Z87.440 Personal history of urinary (tract) infections; Z87.442 Personal history of urinary calculi; Z79.4 Long term (current) use of insulin; Z79.84 Long term (current) use of oral hypoglycemic drugs; Z79.82 Long term (current) use of aspirin; Z87.19 Personal history of other diseases of the digestive system; Z90.49 Acquired absence of other specified parts of digestive tract
CPT/HCPCS: 36415; 36416; 74177; 80053; 81003; 82962; 83690; 84484; 85025; 93005; 96361; 96374; 99284; J2405; J7030; Q9967

== ENCOUNTER 2021-08-28 08:23 | Observation (INO) | payer MEDICARE, SELFPAY ==
[2021-08-28] VITALS (13 sets, daily range): BP systolic 104–149; BP diastolic 57–82; PULSE 67–99; RESP 14–21; TEMP 36.1–36.6; O2SAT 94–99; BMI 30.4; BMI 31.0
--- NOTE | 2021-08-28 08:46 | ECG_ITS ---
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 Measurements Intervals [place] Rate: 68 P: 59 ME: 143 QRS: 36 QRSD: 103 T: 39 QT: 400 QTc: 426 Interpretive Statements SINUS RHYTHM Compared to ECG 06/09/2021 14:43:46 No significant changes Electronically Signed On 08-28-2021 17:05:50 CDT by Jim Manuel M.D. [email or web address] [email or web address].[employer] Customer Support/store/[id number] f
--- NOTE | 2021-08-28 08:46 | XR_ITS ---
WS: [id number] Exam: XR chest 1V portable [id number] Date/Time of Exam: 08/28/2021 9:09 AM Reason For Exam: chest pain Comparison 12/13/2019. Findings: The lungs are clear and fully expanded. Costophrenic angles are sharp. No infiltrates. Bronchovascula r relief appears normal. Cardiac silhouette is unremarkable. Bony elements are intact. Fusion hardwar e noted in the lower C-spine. XR/XR chest 1V portable [id number] IMPRESSION: Unremarkable chest radiograph.
--- NOTE | 2021-08-28 08:54 | ED_ITS ---
HPI - Chest Pain General: Chief Complaint: Chest Pain Stated Complaint: Chest Pain Time Seen by Provider: 08/28/21 08:36 Source: patient Mode of arrival: ambulatory Limitations: no limitations History of Present Illness: 60-year-old female presents emergency room with complaints of substernal chest pain that began around 8 AM this morning. No history of coronary disease she had seen a mapping technician for some rapid heart rates. MD complaint: chest pain Pertinent past history: other (Diabetic) Onset (ago): minute(s) Timing of current episode: episodic and still present Prior episodes: No Onset: during rest Pain location: epigastric and subxiphoid Pain radiation: back Severity: moderate Quality: sharp Relieving factors: nothing Exacerbating factors: nothing Associated symptoms: Reports abdominal pain (Epigastric), diaphoresis, dyspnea and nausea; Deny fever(s), leg edema, palpitations, sense of impending doom, syncope or vomiting Treatment prior to arrival: none Review of Systems Const: Reports: diaphoresis; Denies: fever(s) ENMT: Denies: throat pain, ear or mastoid pain, nasal discharge or nasal c ongestion Card: Reports: chest pain; Denies: palpitations or syncope Resp: Reports: dyspnea; Denies: productive cough or non-productive cough GI: Reports: abdominal pain (Epigastric) and nausea; Denies: vomiting : Denies: flank pain, difficulty voiding, dysuria, urinary frequency or urinary urgency Skin/Breast: Denies: rash or pruritus [facility] PFSH: Medical History COVID-19 (~11/2019) Diabetes mellitus Fibromyalgia syndrome History of IBS Migraines Stones, urinary tract Surgical History History of carpal tunnel repair History of cervical discectomy History of cholecystectomy Laparoscopic History of hysterectomy 1999, , Performed by Dr. Agustin History of kidney surgery Removal of stones History of lumbar discectomy History of toe surgery joint cleaned out History of wisdom tooth extraction Family History Mother Hypertension Hyperlipidemia Stroke Thyroid condition Father Hypertension Hyperlipidemia Stroke Family history of ITP Sister Hypertension Hyperlipidemia Thyroid condition x 2 Grandmother Diabetes Maternal Hyperlipidemia Maternal and paternal Stroke Maternal and paternal Grandfather Diabetes Paternal Hyperlipidemia Maternal and paternal Stroke Maternal and patnernal Unknown Patient denies medical problems Denies family history of: breast/ovarian/uterine/colon cancer Social History Smoking and tobacco status: never smoked Second hand smoke exposure: No Alcohol intake: never Substance/Drug Use: never Additional social history: Well balanced diet Physical Exam Const: GENERAL APPEARANCE: cooperative and comfortable ORIENTATION/CONSCIOUSNESS: Yes awake, Yes oriented to person, Yes oriented to place and Yes oriented to time HENMT: COMMON NORMALS: normocephalic, atraumatic and hearing grossly normal bilaterally HEAD & SCALP: normocephalic and atraumatic Neck/C-Spine: COMMON NORMALS: no JVD Resp: COMMON NORMALS: normal respiratory effort, No retractions, No use of ac cessory muscles and clear to auscultation bilaterally AUSCULTATION: clear to auscultation bilaterally Cardio: COMMON NORMALS: no JVD, regular rate, regular rhythm and No murmurs present (Cardio) RATE: regular rate RHYTHM: regular rhythm GI: COMMON NORMALS: Soft to palpation and No hepatosplenomegaly present AUSCULTATION: Yes normoactive bowel sounds PALPATION: Yes Soft to palpation, No Tenderness to palpation present (GI), No Guarding due to palpation present (GI) and Yes No hepatosplenomegaly present Extremity: COMMON NORMALS: normal to inspection, capillary refill normal, no clubbing, cyanosis or edema, no calf tenderness and no pedal edema Neuro: SENSORIUM/ORIENTATION: Yes oriented to person, Yes oriented to place and Yes oriented to time Skin: COMMON NORMALS: no rashes or lesions noted GENERAL SKIN EXAM: no rashes or lesions noted Course Vital Signs: Vital signs: Vital Signs Pulse Rate 89 08/28/21 13:18 Respiratory Rate 15 08/28/21 13:18 Blood Pressure 142/76 08/28/21 13:18 Pulse Oximetry 96 08/28/21 13:18 MDM - Chest Pain Medical Decision Making EKG no acute ST changes, normal troponins are normal. Patient has a heart score of 4-5. She is already on a beta-shari aspirin and statin. Given her heart score her diabetes and quite concerned there would likely be of pretty significant delay to her getting her stress test done because she will be leaving for vacation soon. Her heart score would indicate a observation and early stress testing. I discussed with the patient and her different options they would prefer to have early testing which based on her chest pain pathway she would fall into the category of observation. Medical Records I reviewed the patient's medical records. Lab Data I reviewed the patient's lab results. : 08/28/21 08:56 08/28/21 08:56 Radiology Impressions Chest X-Ray 08/28/21 08:46 IMPRESSION: Unremarkable chest radiograph. Abdomen/Pelvis CT 08/28/21 08:55 IMPRESSION: 1. No acute abdominal or pelvic process identified. 2. Moderate constipation and obstipation with no transition point or focal obstruction. 3. Normal appendix. 4. No free fluid. 5. Prior cholecystectomy with mild dilatation of the common bile duct which is probably physiologic. Laboratory Results WBC 8.7 10^3/uL (4.0-10.0) 08/28/21 08:56 RBC 4.75 10^6/uL (4.1-5.3) 08/28/21 08:56 Hgb 13.6 g/dL (11.5-15.3) 08/28/21 08:56 Hct 40.7 % (37.0-47.0) 08/28/21 08:56 MCV 85.7 fl (81-99) 08/28/21 08:56 MCH 28.6 pg (28.0-34.0) 08/28/21 08:56 MCHC 33.4 g/dL (30.0-36.0) 08/28/21 08:56 RDW 11.6 % (12.1-15.1) L 08/28/21 08:56 Plt Count 233 10^3/cmm (130-400) 08/28/21 08:56 MPV 10.2 fL (7.4-10.4) 08/28/21 08:56 Neut % (Auto) 49.9 % 08/28/21 08:56 Lymph % (Auto) 45.2 % 08/28/21 08:56 Pepin % (Auto) 4.4 % 08/28/21 08:56 Eos % (Auto) 0.2 % 08/28/21 08:56 Baso % (Auto) 0.1 % 08/28/21 08:56 Neut # (Auto) 4.33 10^3/uL (1.8-7.7) 08/28/21 08:56 Lymph # (Auto) 3.9 10^3/uL (0.8-4.8) 08/28/21 08:56 Pepin # (Auto) 0.4 10^3/uL (0.2-0.9) 08/28/21 08:56 Eos # (Auto) 0.0 10^3/uL (0.0-0.8) 08/28/21 08:56 Baso # (Auto) 0.0 10^3/uL (0.0-0.1) 08/28/21 08:56 Nucleated RBC % (auto) 0 % 08/28/21 08:56 Nucleated RBCs # 0.0 /100WBC 08/28/21 08:56 Sodium 136 mmol/L (136-145) 08/28/21 08:56 Potassium 3.5 mmol/L (3.5-5.1) 08/28/21 08:56 Chloride 99 mmol/L (98-107) 08/28/21 08:56 Carbon Dioxide 27 mmol/L (22-29) 08/28/21 08:56 Anion Gap 13.5 (5-19) 08/28/21 08:56 BUN 16 mg/dL (8-23) 08/28/21 08:56 Creatinine 0.7 mg/dL (0.5-0.9) 08/28/21 08:56 GFR Calculation 85.1 mL/min (90-130) L 08/28/21 08:56 Glucose 143 mg/dL (65-115) H 08/28/21 08:56 Calculated Osmolality 286 mOsm/kg (285-295) 08/28/21 08:56 Calcium 9.3 mg/dL (8.5-10.5) 08/28/21 08:56 Total Bilirubin 0.3 mg/dL (0.15-1.2) 08/28/21 08:56 AST 87 U/L (0-32) H 08/28/21 08:56 ALT 49 U/L (0-33) H 08/28/21 08:56 Alkaline Phosphatase 74 IU/L (35-105) 08/28/21 08:56 Troponin T Baseline 6 ng/L (0-10) 08/28/21 08:56 Troponin T 120 Minute 6.00 ng/L (0-10) 08/28/21 11:06 Delta Troponin T 0 ABS# (0-10) 08/28/21 11:06 Total Protein 6.8 g/dL (6.6-8.7) 08/28/21 08:56 Albumin 3.9 g/dL (3.5-5.2) 08/28/21 08:56 Globulin 2.9 g/dL (1.3-4.6) 08/28/21 08:56 Discharge Plan Discharge Patient Disposition: Placed in Observation Admit Provider: Alessandra Terry Clinical Impression: Atypical chest pain, Diabetes Coding Level of Care Code ED Electronic Induction Hardener for g Fwd Exam Comprehensive
--- NOTE | 2021-08-28 08:55 | CT_ITS ---
WS: [id number] CT ABDOMEN AND PELVIS WITH CONTRAST HISTORY: Abdominal pain in the epigastric area. TECHNIQUE: Imaging performed of the abdomen and pelvis with IV contrast. Single phase imaging of the abdomen. Coronal and sagittal reformats are submitted. All CT scans at [facility] use at [facility] one of these dose optimization techniques: automated exposure control; mA and/or kV adjustment per patient size (includes targeted exams where dose is matched to clinical indication); or iterative re construction. IV CONTRAST: Omnipaque 300; 95 mL IV. Oral contrast: No DLP: 1819.93 mGy.cm COMPARISON: 06/09/2021 Lower thorax: Lung bases are clear. Heart is normal size. Small hiatal hernia. Liver/biliary system: Normal size liver. There is mild central bile duct dilatation similar to the pr ior study may be related to the cholecystectomy. Common bile duct is very mildly dilated at 7.8 mm. N o stone identified in the duct. Duct size similar to the prior studies. Normal portal vein. Gallbladder: Status post cholecystectomy. Pancreas: Normal size pancreas and pancreatic duct. No adjacent inflammation. Spleen: Normal size spleen. No mass or infarct. Adrenal glands: Normal. Right kidney: Normal. Left kidney: Normal size kidney. No mass. Nonobstructing 4 mm calcification lower pole. Aorta: Mild atherosclerosis with no aneurysm. Lymphadenopathy: None. Free fluid: None. GI tract: Stomach is moderately distended with food products. There is mild dilatation of the small b owel with mild fluid distention. Moderate colonic diffuse constipation with obstipation. No focal poi nt of obstruction. The appendix is normal. No acute inflammatory process. Abdominal wall: Unremarkable abdominal wall. No hernia. Pelvis: No free fluid or adenopathy within the pelvis. Bones: Mild degenerative disc disease at L5-S1. CT/CT abdomen pelvis w con* [id number] IMPRESSION: 1. No acute abdominal or pelvic process identified. 2. Moderate constipation and obstipation with no transition point or focal obs truction. 3. Normal appendix. 4. No free fluid. 5. Prior cholecystectomy with mild dilatation of the common bile duct which is probably physiologic.
[2021-08-28 09:04] LABS: Basophils % 0.1 %; Eosinophils % 0.2 %; Hematocrit 40.7 % (37.0-47.0); Hemoglobin 13.6 g/dL (11.5-15.3); Lymphocytes # 3.9 10^3/uL (0.8-4.8); Lymphocytes % 45.2 %; Mean Corpuscular HGB Conc 33.4 g/dL (30.0-36.0); Mean Corpuscular Hemoglobin 28.6 pg (28.0-34.0); Mean Corpuscular Volume 85.7 fl (81-99); Mean Platelet Volume 10.2 fL (7.4-10.4); Monocytes # 0.4 10^3/uL (0.2-0.9); Monocytes % 4.4 %; Neutrophils # 4.33 10^3/uL (1.8-7.7); Neutrophils % 49.9 %; Nucleated Red Blood Cells % 0 %; Platelet Count 233 10^3/cmm (130-400); Red Blood Count 4.75 10^6/uL (4.1-5.3); Red Cell Distribution Width 11.6 % (12.1-15.1); White Blood Count 8.7 10^3/uL (4.0-10.0)
[2021-08-28] MEDS: aspirin 81 mg Chew Tablet 324 MG PO (09:04)
[2021-08-28 09:24] LABS: Troponin(5th) Baseline 6 ng/L (0-10)
[2021-08-28 09:26] LABS: Alanine Aminotransferase 49 U/L (0-33); Albumin Level 3.9 g/dL (3.5-5.2); Alkaline Phosphatase 74 IU/L (35-105); Anion Gap 13.5 (5-19); Aspartate Amino Transferase 87 U/L (0-32); Blood Urea Nitrogen 16 mg/dL (8-23); Calcium 9.3 mg/dL (8.5-10.5); Carbon Dioxide 27 mmol/L (22-29); Chloride 99 mmol/L (98-107); Globulin 2.9 g/dL (1.3-4.6); Glomerular Filtration Rate 85.1 mL/min (90-130); Glucose 143 mg/dL (65-115); Osmolality Calculated 286 mOsm/kg (285-295); Potassium 3.5 mmol/L (3.5-5.1); Sodium 136 mmol/L (136-145); Total Bilirubin 0.3 mg/dL (0.15-1.2); Total Protein 6.8 g/dL (6.6-8.7)
[2021-08-28] MEDS: iohexol 300 mg/mL 100 mL Btl IV (09:43)
--- NOTE | 2021-08-28 10:46 | ECG_ITS ---
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 Measurements Intervals [place] Rate: 78 P: 59 LA: 152 QRS: 24 QRSD: 102 T: 16 QT: 384 QTc: 439 Interpretive Statements SINUS RHYTHM Compared to ECG 08/28/2021 08:33:24 No significant changes Electronically Signed On 08-28-2021 17:16:56 CDT by Jim Manuel M.D. [email or web address] comprehensive health centerVolantis Systemsuniversity hospitals [facility].[employer]deal[employer]/store/OM/[id number]
[2021-08-28 11:40] LABS: Troponin 5 2HR Delta 0 ABS# (0-10)
--- NOTE | 2021-08-28 12:44 | ECG_ITS ---
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 Interpretive Statements NAME OF STUDY: LEXISCAN SESTAMIBI STRESS TEST INDICATION: Chest Pain/RESULTS TO GILBERT GARCIA PROCEDURE: At the baseline, the EKG revealed normal sinus rhythm with a poor R wave progression. Normal ST Ts.. The baseline blood pressure was 117/70 mm Hg with a heart rate of 74 beats/min. Lexiscan was infused over a period of 20 seconds. A total of 0.4 milligrams of Lexiscan was infused. The stress phase was continued for a total of 5 minutes. Heart rate at the end of the stress phase was 93 with a blood pressure 132/58. The EKG at the peak infusion revealed no significant changes. Sestamibi was injected 20 seconds after the Lexiscan infusion. Blood pressure at the end of the recovery phase was 127/69 with a heart rate of 89 per minute. CONCLUSION: 1. No significant EKG changes with the LexiScan infusion 2. No LexiScan induced chest pain or cardiac arrhythmia 3. Normal blood pressure and heart rate response 4. Sestamibi/sestamibi perfusion scan pending; see separate report. Electronically Signed On 08-30-2021 14:08:50 CDT by Yuko Nicholas M.D. [email or web address]/store/[id number]
--- NOTE | 2021-08-28 13:08 | PM.HP ---
Providers/Chief Complaint Admitting Physician: Alessandra Terry MD Primary Care Provider: Vlad Francois MD Chief Complaint: Chest Pain History of Present Illness Randi Arechiga is a 60 year old female who presented to the emergency room with chief complaint of chest pain. She was in her usual state of health yesterday. She has a history of diabetes mellitus type 2, hyperlipidemia, fibromyalgia and migraines among other diagnoses listed below. She awakened this morning with sudden onset of severe pain in her lower chest epigastric area. She described it as like labor pain . It was located in the center without radiation elsewhere. She had associated nausea but no vomiting. She was diaphoretic and dizzy. She did have palpitations. She got up to walk around thinking that things would get better. She had no improvement. She started doing Lamaze type breathing. Her heard her and came in to see what was wrong. She told him that she was having chest pain. She then tried to lay down and did not have any improvement after a period of time and came into the emergency room for further evaluation. She has never had anything like this before. The pain is been persistent since it started alternating between sharp and dull discomfort. It is improved presently but not resolved. Initial EKG without any acute ST segment changes. Troponin x2 is unremarkable. Her heart score is 5. She has never had any cardiac testing. She describes a history of fast heartbeat for which she is on carvedilol chronically. Denies knowing the words atrial fibrillation and has not been on any anticoagulation. Consideration was given to discharge home but with persistent symptoms and risk factors she is being admitted for further evaluation and treatment here. Of late she has had recurrent issues with sinus infections. She has had several courses of antibiotics over the last 2 months most recently about a week ago with Levaquin. She was also on a 7-day course of steroids. She has been using Flonase. No other recent changes in medications described. Denies any history of significant reflux symptoms. She does not smoke or drink. She has had her gallbladder removed previously. Of note she did receive multiple trigger point injections yesterday at Dr. Acosta's office for the first time in several years due to pain in her neck, back and shoulders related to fibromyalgia. She denies any episodes of exertional dyspnea or exertional chest pain. Does not describe increasing fatigue lately. She is supposed to go on a vacation for the first time in a couple of years next week. Review of Systems Const: Reports: fatigue; Denies: fever(s) or chills ENMT: Reports: nasal discharge, nasal congestion, sinus pain and other (Left ear feels full, no drainage); Denies: throat pain Card: Reports: chest pain, palpitations and lightheadedness; Denies: edema, syncope, dyspnea on exertion or orthopnea Resp: Reports: dyspnea (With chest pain); Denies: productive cough or non-productive cough GI: Reports: abdominal pain (Epigastric), nausea and constipation (Chronic issue despite taking various things for it); Denies: vomiting, heartburn, diarrhea or hematochezia : Denies: difficulty voiding Musc: Reports: neck pain (Chronic but worse lately), back pain (Chronic but worse lately), extremity pain (Chronic but worse lately) and muscle weakness Skin/Breast: Denies: rash, pruritus or sores Neuro: Denies: headache(s), numbness in extremities, weakness in extremities or difficulty walking Endo: Denies: tired all the time Martinez/Lymph: Denies: easy bleeding All/Imm: Reports: seasonal rhinorrhea Medications/Allergies Home Medications Medication Instructions Recorded Confirmed Last Taken Type eletriptan 40 mg tablet (Relpax) 40 mg PO PRN tab 06/15/19 08/28/21 11/14/19 History 40 insulin glargine 100 unit/mL 44 unit SUBCUT DAILY@21 ml 06/15/19 08/28/21 08/27/21 History subcutaneous solution (Lantus U-100 Insulin) simvastatin 40 mg tablet 40 mg PO QPM tab 06/15/19 08/28/21 08/27/21 History aspirin 81 mg tablet,delayed 81 mg PO QPM 07/06/20 08/28/21 08/27/21 History release dulaglutide 0.75 mg/0.5 mL 0.75 mg SUBCUT Q7D 07/06/20 08/28/21 08/26/21 History subcutaneous pen injector (Trulicity) ferrous sulfate 325 mg (65 mg 325 mg PO EVERY OTHER DAY 07/06/20 08/28/21 08/27/21 History iron) tablet finasteride 5 mg tablet 5 mg PO QAM 0208/28/21 08/27/21 History metformin 500 mg tablet 500 mg PO BID 07/06/20 08/28/21 08/27/21 History promethazine 25 mg tablet 25 mg PO Q6H PRN 07/06/20 08/28/21 07/06/20 History carvedilol 3.125 mg tablet 6.25 mg PO BID tab 01/21/21 08/28/21 08/27/21 History duloxetine 60 mg capsule,delayed 60 mg PO DAILY 08/28/21 08/28/21 08/27/21 History release estradiol 10 mcg vaginal tablet See Rx Instructions .ROUTE .COMPLEX 08/28/21 08/28/21 08/26/21 History (Yuvafem) fluticasone propionate 50 2 spray INTRANASAL BID 08/28/21 08/28/21 08/28/21 History mcg/actuation nasal spray,suspension (Flonase Allergy Relief) hydrocodone 10 mg-acetaminophen 1 tab PO BID 08/28/21 08/28/21 Unknown History 325 mg tablet levetiracetam 500 mg tablet 250 mg PO DAILY 08/28/21 08/28/21 08/27/21 History minoxidil 2.5 mg tablet 2.5 mg PO DAILY 08/28/21 08/28/21 08/27/21 History nitroglycerin 0.4 mg sublingual 0.4 mg SUBLINGUAL Q5M PRN #30 tab 08/28/21 Unknown Rx tablet Allergies Allergy/AdvReac Type Severity Reaction Status Date / Time Sulfa (Sulfonamide Allergy Mild unknown Verified 08/28/21 09:23 Antibiotics) pregabalin [From Lyrica] Allergy swelling Verified 08/28/21 09:23 tramadol Allergy swelling Verified 08/28/21 09:23 surgical glue Allergy Unknown Uncoded 06/09/21 10:22 PFSH Acute PFSH: Medical History (Updated 08/28/21 @ 17:11 by Alessandra Terry MD) Alopecia on finasteride and minoxidil Arrhythmia Fast heart rate on chronic carvedilol COVID-19 (~11/2019) Diabetes mellitus Insulin requiring Fibromyalgia syndrome on duloxetine and hydrocodone prn History of IBS Hyperlipidemia Migraines Recurrent sinusitis Stones, urinary tract Surgical History (Updated 08/28/21 @ 16:45 by Alessandra Terry MD) History of carpal tunnel repair History of cervical discectomy History of cholecystectomy Laparoscopic History of hysterectomy 1999, TVH/BSO, Performed by Dr. Agustin History of kidney surgery Removal of stones History of lumbar discectomy History of sinus surgery History of toe surgery joint cleaned out History of wisdom tooth extraction Other postprocedural status trigger point injections, gets periodically, had 07/2021 Family History (Updated 08/28/21 @ 16:17 by Alessandra Terry MD) Mother Hypertension Hyperlipidemia Thyroid condition Heart attack Stroke Father Hypertension Hyperlipidemia Stroke Family history of ITP History of open heart surgery Sister Hypertension Hyperlipidemia Thyroid condition x 2 Grandmother Diabetes Maternal Hyperlipidemia Maternal and paternal Stroke Maternal and paternal Grandfather Diabetes Paternal Hyperlipidemia Maternal and paternal Stroke Maternal and paternal Unknown Patient denies medical problems Denies family history of: breast/ovarian/uterine/colon cancer Social History Smoking and tobacco status: never smoked Second hand smoke exposure: No Alcohol intake: never Substance/Drug Use: never Additional social history: Well balanced diet Vitals/I&O/Wt Last Vital Signs Pulse 80 08/28/21 13:04 Resp 16 08/28/21 13:04 BP 142/76 08/28/21 13:04 Pulse Ox 95 08/28/21 13:04 Weight last 48 hrs Weight 87.997 kg Physical Exam Narrative: Constitutional: Awake and alert, cooperative, oriented x3 HEENT: Normocephalic, atraumatic, pupils are equally reactive, extraocular movements are intact, nasopharynx is erythematous with rhinorrhea noted, moist mucous membranes, external ear and behind the ear on the left without any redness, erythema or tenderness, tympanic membrane not visualized Neck: Supple Respiratory: Clear to auscultation bilaterally Cardiovascular: Regular rate and rhythm, no murmurs Abdomen: Soft, positive bowel sounds, pain is not reproducible on examination and epigastric area Extremities: No pitting edema Skin: Dry, no rashes on visible skin Neuro: Speech clear, face symmetric, moves all extremities Psych: Slightly flat affect Data : 08/28/21 08:56 08/28/21 08:56 Other Labs: Radiology Impressions Chest X-Ray 08/28/21 08:46 IMPRESSION: Unremarkable chest radiograph. Abdomen/Pelvis CT 08/28/21 08:55 IMPRESSION: 1. No acute abdominal or pelvic process identified. 2. Moderate constipation and obstipation with no transition point or focal obstruction. 3. Normal appendix. 4. No free fluid. 5. Prior cholecystectomy with mild dilatation of the common bile duct which is probably physiologic. Laboratory Results WBC 8.7 10^3/uL (4.0-10.0) 08/28/21 08:56 RBC 4.75 10^6/uL (4.1-5.3) 08/28/21 08:56 Hgb 13.6 g/dL (11.5-15.3) 08/28/21 08:56 Hct 40.7 % (37.0-47.0) 08/28/21 08:56 MCV 85.7 fl (81-99) 08/28/21 08:56 MCH 28.6 pg (28.0-34.0) 08/28/21 08:56 MCHC 33.4 g/dL (30.0-36.0) 08/28/21 08:56 RDW 11.6 % (12.1-15.1) L 08/28/21 08:56 Plt Count 233 10^3/cmm (130-400) 08/28/21 08:56 MPV 10.2 fL (7.4-10.4) 08/28/21 08:56 Neut % (Auto) 49.9 % 08/28/21 08:56 Lymph % (Auto) 45.2 % 08/28/21 08:56 [place] % (Auto) 4.4 % 08/28/21 08:56 Eos % (Auto) 0.2 % 08/28/21 08:56 Baso % (Auto) 0.1 % 08/28/21 08:56 Neut # (Auto) 4.33 10^3/uL (1.8-7.7) 08/28/21 08:56 Lymph # (Auto) 3.9 10^3/uL (0.8-4.8) 08/28/21 08:56 [place] # (Auto) 0.4 10^3/uL (0.2-0.9) 08/28/21 08:56 Eos # (Auto) 0.0 10^3/uL (0.0-0.8) 08/28/21 08:56 Baso # (Auto) 0.0 10^3/uL (0.0-0.1) 08/28/21 08:56 Nucleated RBC % (auto) 0 % 08/28/21 08:56 Nucleated RBCs # 0.0 /100WBC 08/28/21 08:56 Sodium 136 mmol/L (136-145) 08/28/21 08:56 Potassium 3.5 mmol/L (3.5-5.1) 08/28/21 08:56 Chloride 99 mmol/L (98-107) 08/28/21 08:56 Carbon Dioxide 27 mmol/L (22-29) 08/28/21 08:56 Anion Gap 13.5 (5-19) 08/28/21 08:56 BUN 16 mg/dL (8-23) 08/28/21 08:56 Creatinine 0.7 mg/dL (0.5-0.9) 08/28/21 08:56 GFR Calculation 85.1 mL/min (90-130) L 08/28/21 08:56 Glucose 143 mg/dL (65-115) H 08/28/21 08:56 Calculated Osmolality 286 mOsm/kg (285-295) 08/28/21 08:56 Calcium 9.3 mg/dL (8.5-10.5) 08/28/21 08:56 Total Bilirubin 0.3 mg/dL (0.15-1.2) 08/28/21 08:56 AST 87 U/L (0-32) H 08/28/21 08:56 ALT 49 U/L (0-33) H 08/28/21 08:56 Alkaline Phosphatase 74 IU/L (35-105) 08/28/21 08:56 Troponin T Baseline 6 ng/L (0-10) 08/28/21 08:56 Troponin T 120 Minute 6.00 ng/L (0-10) 08/28/21 11:06 Delta Troponin T 0 ABS# (0-10) 08/28/21 11:06 Total Protein 6.8 g/dL (6.6-8.7) 08/28/21 08:56 Albumin 3.9 g/dL (3.5-5.2) 08/28/21 08:56 Globulin 2.9 g/dL (1.3-4.6) 08/28/21 08:56 A&P Assessment and plan (1) Atypical chest pain: Lower sternal and epigastric area Risk factors include diabetes, hyperlipidemia and family history although it sounds like her parents had heart problems in their 70s Differential includes angina, arrhythmia, esophageal spasm, gastritis/esophagitis, constipation, musculoskeletal pain. Not tachypneic and maintaining saturations on room air and not really describing pleuritic type pain. 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 (3) Fibromyalgia syndrome: On chronic duloxetine and as needed hydrocodone which she does not take very often by her report Status: Chronic (4) Constipation: Chronic, take intermittent stool softeners and laxatives without consistent result Status: Acute Qualifiers: Constipation type: chronic idiopathic constipation Qualified Code(s): K59.04 - Chronic idiopathic constipation (5) Other postprocedural status: Status post multiple trigger point injections on 08/27/2021 Status: Acute (6) Hyperlipidemia: On chronic statin therapy Status: Chronic Qualifiers: Hyperlipidemia type: mixed hyperlipidemia Qualified Code(s): E78.2 - Mixed hyperlipidemia (7) Arrhythmia: Status: Chronic Qualifiers: Arrhythmia type: paroxysmal tachycardia, unspecified Qualified Code(s): I47.9 - Paroxysmal tachycardia, unspecified (8) Recurrent sinusitis: Has had 3 courses of antibiotics over the last couple of months and is using Flonase, ongoing symptoms Status: Chronic (9) Migraines: Chronic, on Keppra and as needed triptan Status: Chronic Qualifiers: Migraine type: chronic without aura Status migrainosus presence: without status migrainosus Intractability: not intractable Qualified Code(s): G43.709 - Chronic migraine without aura, not intractable, without status migrainosus (10) Alopecia: On chronic finasteride and minoxidil Status: Chronic Plan Mild elevation in transaminases Observation admission Serial cardiac enzymes and EKGs Continue home carvedilol, aspirin, statin Check hemoglobin A1c and lipid panel Started on treatment dose Lovenox in the emergency room Telemetry monitoring for any arrhythmias Stress test and echocardiogram in the morning Stool softeners with laxatives; reviewed with patient options for chronic bowel regimen Recheck transaminases along with INR Proton pump inhibitor Continue lower dose of home long-acting insulin with sliding scale, currently holding Metformin and Trulicity; Metformin needs to be held for 48 hours secondary to contrast administration Continue home duloxetine for fibromyalgia Continue home Keppra for chronic migraines Continue home finasteride and minoxidil Monitor for any other clinical changes Supportive care otherwise Anticipate disposition home once medically stable Findings, plans and concerns were discussed with patient and she was given an opportunity to ask questions Full code Attestations Medical Necessity Statement*: Currently anticipate a stay less than 2 midnights in this patient presenting with chest pain. It is somewhat atypical but she has a heart score of 5. She has not had prior cardiac evaluation. Pain is persistent and given her risk factors need to rule out cardiovascular source of her symptoms and monitor for progression acutely. Plans are as noted above. Coding Level of Care Code Acute Coating Engineer for Althea Fwd Diagnoses Atypical chest pain R07.89 Diabetes mellitus E11.9; Z79.4 Diabetes mellitus complication status: without complication Diabetes mellitus salvage determiner insulin use: with salvage determiner use Diabetes mellitus type: type 2 Fibromyalgia syndrome M79.7 Migraines G43.709 Migraine type: chronic without aura Status migrainosus presence: without status migrainosus Intractability: not intractable Hyperlipidemia E78.2 Hyperlipidemia type: mixed hyperlipidemia Alopecia L65.9 Other postprocedural status Z98.890 Constipation K59.04 Constipation type: chronic idiopathic constipation Recurrent sinusitis J32.9 Arrhythmia I47.9 Arrhythmia type: paroxysmal tachycardia, unspecified
[2021-08-28] MEDS: enoxaparin 100 mg/mL Syringe 90 MG SUBCUT (14:20)
--- NOTE | 2021-08-28 14:46 | ECG_ITS ---
[facility] Test Date: 2021-08-28 Pat Name: Randi Arechiga Department: Room: 102 Gender: Female Private Pilot: : 1960 Requested By: Cam Ford Order Number: [id number] Kathi MD: Jim Manuel M.D. Measurements Intervals [place] Rate: 77 P: 57 WV: 148 QRS: 13 QRSD: 94 T: 18 QT: 378 QTc: 428 Interpretive Statements SINUS RHYTHM Compared to ECG 08/28/2021 10:22:18 No significant changes Electronically Signed On 08-28-2021 17:18:37 CDT by Jim Manuel M.D. [id number]
--- NOTE | 2021-08-28 14:57 | USCV_ITS ---
Randi Arechiga Age: 60 Gender: F : 1960 Exam Date: 08/28/2021 16:44 Ordering Phys: Alessandra Terry MD Technologist: Emir Elizondo Exam Location: [facility] [place] Indication: Chest pain BP: 126 / 71 HR: 73 Rhythm: Sinus Technical Quality: Adequate MEASUREMENTS (Male / Female) Normal Values 2D ECHO LV Diastolic Diameter PLAX 4.3 cm 4.2 - 5.9 / 3.9 - 5.3 cm LV Systolic Diameter PLAX 2.9 cm IVS Diastolic Thickness 1.1 cm 0.6 - 1.0 / 0.6 - 0.9 cm IVS Systolic Thickness 1.1 cm LVPW Diastolic Thickness 1.2 cm 0.6 - 1.0 / 0.6 - 0.9 cm LVPW Systolic Thickness 1.8 cm LVOT Diameter 2.0 cm LV Ejection Fraction 2D Teich 60.2 % LV Ejection Fraction MOD 2C 56.1 % LV Ejection Fraction 2C AL 55.6 % LA Diameter 3.3 cm LA Width 3.0 cm LA Height 3.9 cm RA Width 2.5 cm RA Height 3.6 cm Aorta at Sinotubular Diameter 2.3 cm M-MODE Aortic Annulus Diameter 2.8 cm LA Ao Ratio MM 1.2 MV E Point Septal Separation 0.3 cm DOPPLER AV Peak Velocity 124.0 cm/s LVOT Peak Velocity 101.0 cm/s AV Area Cont Eq vti 2.7 cm squared AV Area Cont Eq pk 2.6 cm squared MV Area PHT 4.0 cm squared Mitral E to A Ratio 0.7 MV E' Velocity 32.0 cm/s Mitral E to MV E' Ratio 8.0 Mitral E to LV E' Lateral Ratio 9.4 Mitral E to LV E' Septal Ratio 7.0 TR Peak Velocity 244.5 cm/s TR Peak Gradient 23.9 mmHg TR Mean Velocity 184.9 cm/s TR Mean Gradient 14.2 mmHg TR Velocity Time Integral 64.7 cm Right Atrial Pressure 3.0 mmHg Pulmonary Artery Systolic Pressu 26.9 mmHg RV Acceleration Time 0.1 s RV Ejection Time 0.3 s RV AcT/ET 0.3 FINDINGS Left Ventricle Normal left ventricular size, systolic function and wall thickness, with no regional wall motion abnormalities. Left ventricular ejection fraction is estimated at 70 %. Normal diastolic function. Right Ventricle Normal right ventricular size and systolic function, RVSP 26.9 mmHg. Right Atrium Normal right atrial size. Right atrial pressure estimated at 3 mmHg. Left Atrium Normal left atrial size. Mitral Valve Structurally normal mitral valve. No mitral valve stenosis. Trace mitral valve regurgitation. Aortic Valve Structurally normal trileaflet aortic valve. No aortic valve stenosis. No aortic valve regurgitation. Tricuspid Valve Structurally normal tricuspid valve. Pulmonic Valve Structurally normal pulmonic valve. No pulmonary valve stenosis. Trace pulmonary valve regurgitation. Pericardium No pericardial effusion. Aorta Normal size aortic root and proximal ascending aorta. Normal- sized inferior vena cava with normal respiratory variation. CONCLUSIONS 1. Normal left ventricular size, systolic function and wall thickness, with no regional wall motion abnormalities. Left ventricular ejection fraction is estimated at 70 %. Normal diastolic function. 2. No significant valvular abnormality. 3. Normal pulmonary artery pressure. 4. No prior similar studies to compare. Dianelys Robledo MD (Electronically Signed) Final Date: 29 August 2021 14:51 S
[2021-08-28 16:07] LABS: Troponin 5 6HR 6.43 ng/L (0-10)
[2021-08-28 16:16] LABS: NT Pro B Type Natriuretic Pept 15 pg/mL (0-125)
[2021-08-28 16:54] LABS: Troponin 5 6HR Delta 0.43 ng/L (0-12)
[2021-08-28 16:56] LABS: Glucose Point of Care 101 mg/dL (70-110)
[2021-08-28] MEDS: lactulose oral liq 20 gm/30 mL UDC 30 GM PO (17:34)
[2021-08-28] MEDS: aspirin 81 mg EC Tablet PO (17:36)
[2021-08-28] MEDS: fluticasone nasal spray 16gm Btl 2 SPRAY INTRANASAL (17:36)
[2021-08-28] MEDS: sennosides-docusate Tablet 2 TAB PO (17:37)
[2021-08-28] MEDS: carvedilol 3.125 mg Tablet 6.25 MG PO (20:22)
[2021-08-28] MEDS: atorvastatin 40 mg Tablet PO (20:22)
[2021-08-28] MEDS: insulin glargine 100 units/1 mL 38 UNIT SUBCUT (20:22)
[2021-08-28 20:24] LABS: Glucose Point of Care 114 mg/dL (70-110)
[2021-08-29] VITALS (8 sets, daily range): BP systolic 100–143; BP diastolic 67–78; PULSE 74–107; RESP 16–20; TEMP 36.6; O2SAT 94–97
[2021-08-29 03:40] LABS: Glucose Point of Care 69 mg/dL (70-110)
[2021-08-29 04:17] LABS: Basophils % 0.2 %; Eosinophils # 0.1 10^3/uL (0.0-0.8); Eosinophils % 1.6 %; Hematocrit 42.1 % (37.0-47.0); Hemoglobin 13.6 g/dL (11.5-15.3); Lymphocytes % 49.3 %; Mean Corpuscular HGB Conc 32.3 g/dL (30.0-36.0); Mean Corpuscular Hemoglobin 28.6 pg (28.0-34.0); Mean Corpuscular Volume 88.4 fl (81-99); Mean Platelet Volume 10.3 fL (7.4-10.4); Monocytes # 0.5 10^3/uL (0.2-0.9); Monocytes % 5.9 %; Neutrophils # 3.46 10^3/uL (1.8-7.7); Neutrophils % 42.8 %; Nucleated Red Blood Cells % 0 %; Platelet Count 237 10^3/cmm (130-400); Red Blood Count 4.76 10^6/uL (4.1-5.3); Red Cell Distribution Width 11.9 % (12.1-15.1); White Blood Count 8.1 10^3/uL (4.0-10.0)
[2021-08-29 04:24] LABS: Glucose Point of Care 84 mg/dL (70-110)
[2021-08-29] MEDS: ondansetron 2 mg/ML SDV 2 mL 4 MG IVP (04:28)
[2021-08-29 04:30] LABS: Estmated Average Glucose 108; Hemoglobin A1C 5.4 % (4.0-6.0)
[2021-08-29 04:33] LABS: Alanine Aminotransferase 34 U/L (0-33); Albumin Level 3.9 g/dL (3.5-5.2); Alkaline Phosphatase 65 IU/L (35-105); Anion Gap 13.5 (5-19); Aspartate Amino Transferase 23 U/L (0-32); Blood Urea Nitrogen 12 mg/dL (8-23); Calcium 9.5 mg/dL (8.5-10.5); Carbon Dioxide 27 mmol/L (22-29); Chloride 104 mmol/L (98-107); Globulin 2.6 g/dL (1.3-4.6); Glomerular Filtration Rate 85.1 mL/min (90-130); Glucose 79 mg/dL (65-115); Osmolality Calculated 291 mOsm/kg (285-295); Potassium 3.5 mmol/L (3.5-5.1); Sodium 141 mmol/L (136-145); Total Bilirubin 0.2 mg/dL (0.15-1.2); Total Protein 6.5 g/dL (6.6-8.7)
[2021-08-29 04:36] LABS: Chol HDL Ratio 3.02 mg/dL (0.0-4.40); Cholesterol 130 mg/dL (0-200); HDL Cholesterol 43 mg/dL (60-100); LDL Cholesterol Calculated 58 mg/dL (50-129); LDL HDL Ratio 1.35 RATIO (0.00-3.22); Triglycerides 146 mg/dL (0-150)
[2021-08-29 04:38] LABS: Partial Thromboplastin Time 28.3 SECONDS (23.9-36.7)
[2021-08-29 06:33] LABS: Glucose Point of Care 70 mg/dL (70-110)
--- NOTE | 2021-08-29 07:00 | NMCV_ITS ---
NM evert perf SPECT r/s* [id number] Randi Arechiga Age: 60 Gender: F : 1960 Exam Date: 08/29/2021 07:00 Ordering Phys: Cam Edward DO Technologist: ABHISHEK Sanders Exam Location: [facility] [place] Indications: CHEST PAIN STRESS TEST Please [facility] IMAGE PROTOCOL Rest/Stress 1 Lexiscan Day Radiopharmaceutical Dose (mCi) Administration Site Administered by Rest: Tc-99m 10.9 IV ABHISHEK Nice Sestamibi Stress:Tc-99m 32.8 IV ABHISHEK Nice Sestamibi Rest: 29-Aug-2021 60 Discovery 630 Stress: 29-Aug-2021 30 Discovery 630 0.4mg Lexiscan. Images obtained in supine and prone position. SPECT RESULTS Technical Quality: Excellent Raw Data Analysis: Normal Image Corrections: No attenuation or motion correction applied Summed Stress Score: 0 Summed Rest Score: 2 Summed Difference Score: 0 PERFUSION FINDINGS Small patchy areas of slightly decreased tracer uptake were noted in the anteroseptal and inferolateral regions. No significant reversibility was noted in these regions FUNCTIONAL RESULTS (calculated via Gated SPECT) Stress Image LV EF (%): 72 Stress EDV (mL):81 TID: 0.98 Stress ESV (mL):23 FUNCTIONAL FINDINGS: Segmental wall motion analysis revealing no gross wall motion normalities IMPRESSIONS 1. Myocardial perfusion imaging revealing patchy areas of persistent decreased tracer uptake in the anteroseptal and inferolateral regions, most likely are present attenuation artifacts. 2. Normal LV ejection fraction 72%. 3. LV wall motion analysis revealing no gross wall motion abnormalities. 4. Normal LV volume Low probability for coronary ischemia, based on the above findings Dr Yuko Nicholas MD FAC (Electronically Signed) Final Date: 29 August 2021 13:51 S
[2021-08-29] MEDS: regadenoson 0.4 Mg/5 ml Syringe IVP (07:21)
[2021-08-29] MEDS: finasteride 5 mg Tablet PO (08:47)
[2021-08-29] MEDS: carvedilol 3.125 mg Tablet 6.25 MG PO (08:47)
[2021-08-29] MEDS: duloxetine 60 mg Capsule PO (08:47)
[2021-08-29] MEDS: fluticasone nasal spray 16gm Btl 2 SPRAY INTRANASAL (08:48)
[2021-08-29] MEDS: levETIRAcetam 500 mg Tablet 250 MG PO (08:48)
[2021-08-29] MEDS: pantoprazole DR 40 mg Tablet PO (08:49)
[2021-08-29] MEDS: loratadine 10 mg Tablet PO (08:49)
[2021-08-29] MEDS: sennosides-docusate Tablet 2 TAB PO (08:49)
[2021-08-29] MEDS: minoxidil 10 mg Tablet 25 MG PO (09:33)
--- NOTE | 2021-08-29 10:33 | PC.CHAP ---
Pastoral Care Encounter/Spiritual Assessment Type of Contact [] Declined platform engineer visit [] Patient/Family/Request visit [] Outpatient visit [] Follow-up visit [] Physician referral [] Code/Alert [x] Routine visit [] Staff referral [] Actively dying [] Patient sleeping [] Family support [] [] Out of room [] Palliative care [] [x] Receiving care in room [] Pre-surgical visit [] Trauma [x] Long length of stay [] ICU visit [] Other: Relational/Emotional Strength [x] Patient feels connected with others/family/visitors/staff [] Distress [] Loneliness/isolation [] Abandonment Spirituality of Patient [x] Person of Sonia [] Attends Jewish of their Sonia [x] Believes in Prayer [] Reads Bible or Baptism materials [] There are Spiritual issues to be addressed 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 Driving Interventions [x] Prayer [x] Active listening [x] Non-anxious presence [x] Spiritual/emotional support [] Crisis/trauma care [x] Spiritual counseling [] Bereavement support [] Provided bereavement packet [] Provided Bible/devotional materials [] Provided toy/stuffed animal, coloring book to patient or family member [] Provided Communion [] Anointing/[place] [] Salvation [x] Completed spiritual assessment [] Other: Impact on Illness or Injury [] Angry [] Fearful [x] Anxious [] Often cries [] Exhaustion [x] Unable to work [] Unable to attend baptist [] Unable to walk/stand [] Unable to read [] Unable to drive [] Unable to eat/drink [] Unable to sleep [] Unable to be with family [] Patient intubated [] Other: Summary chest pain had tests doen't know about how long she will need heart will need soime recovery time will go home Time spent with patient 10 mins
--- NOTE | 2021-08-29 10:52 | P.DS_ITS ---
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 Permanent problem details: Insulin requiring (3) Fibromyalgia syndrome: Status: Chronic Permanent problem details: on duloxetine and hydrocodone prn (4) Constipation: Status: Acute Qualifiers: Constipation type: chronic idiopathic constipation Qualified Code(s): K59.04 - Chronic idiopathic constipation (5) Other postprocedural status: Status: Acute Permanent problem details: trigger point injections, gets periodically, had 07/2021 (6) Hyperlipidemia: Status: Chronic Qualifiers: Hyperlipidemia type: mixed hyperlipidemia Qualified Code(s): E78.2 - Mixed hyperlipidemia (7) Arrhythmia: Status: Chronic Qualifiers: Arrhythmia type: paroxysmal tachycardia, unspecified Qualified Code(s): I47.9 - Paroxysmal tachycardia, unspecified Permanent problem details: Fast heart rate on chronic carvedilol (8) Recurrent sinusitis: Status: Chronic (9) Migraines: Status: Chronic Qualifiers: Intractability: not intractable Migraine type: chronic without aura Status migrainosus presence: without status migrainosus Qualified Code(s): G43.709 - Chronic migraine without aura, not intractable, without status migrainosus (10) Alopecia: Status: Chronic Permanent problem details: on finasteride and minoxidil Reason for Visit Reason for Visit: Chest Pain Hospital Course Hospital Course 60-year-old female was admitted for management and evaluation of atypical chest pain. Stress test did not show acute ischemic changes, artifact noted. She remained asymptomatic, she was complaining of mid epigastric discomfort, her last bowel movement was 1 week ago. I did give her strong bowel regimen. No bowel movement yet. She did not experience chest pain in the hospital, troponins were negative delta. EKG without ischemic or infarctive changes. Echo showed normal ejection fraction on 70%, no regional wall motion abnormality, She will be discharged home on omeprazole, bowel regimen. I have asked her to follow-up with Dr. Henderson within 2 weeks. Her symptoms seems to be related to GI/chronic constipation. Physical Exam Narrative: Very pleasant female Laying comfortably No active chest pain Midepigastric discomfort on deep palpation Abdomen is soft Pleasant and cooperative female Nonfocal neuro exam S1, S2 Saturating well on room air No audible stridor or wheezing Discharge Data Studies Completed and Pending Completed Studies During Hospitalization Category Date Time Status CT abdomen pelvis w con* [id number] Stat Cat Scan 08/28/21 08:55 Completed Cardiac Stress Test MIBI [Sestamibi Stress Test Request Exams 08/28/21 12:44 Draft ] Stat XR chest 1V portable [id number] Stat Exams 08/28/21 08:46 Completed Pending at discharge Category Date Time Status NM evert perf SPECT r/s* [id number] Routine Nuc Med 08/29/21 07:00 Taken CV. echo complete* [id number] Routine Ultrasound 08/28/21 14:57 Taken Radiology Impressions Chest X-Ray 08/28/21 08:46 IMPRESSION: Unremarkable chest radiograph. Abdomen/Pelvis CT 08/28/21 08:55 IMPRESSION: 1. No acute abdominal or pelvic process identified. 2. Moderate constipation and obstipation with no transition point or focal obstruction. 3. Normal appendix. 4. No free fluid. 5. Prior cholecystectomy with mild dilatation of the common bile duct which is probably physiologic. Laboratory Results WBC 8.1 10^3/uL (4.0-10.0) 08/29/21 03:58 RBC 4.76 10^6/uL (4.1-5.3) 08/29/21 03:58 Hgb 13.6 g/dL (11.5-15.3) 08/29/21 03:58 Hct 42.1 % (37.0-47.0) 08/29/21 03:58 MCV 88.4 fl (81-99) 08/29/21 03:58 MCH 28.6 pg (28.0-34.0) 08/29/21 03:58 MCHC 32.3 g/dL (30.0-36.0) 08/29/21 03:58 RDW 11.9 % (12.1-15.1) L 08/29/21 03:58 Plt Count 237 10^3/cmm (130-400) 08/29/21 03:58 MPV 10.3 fL (7.4-10.4) 08/29/21 03:58 Neut % (Auto) 42.8 % 08/29/21 03:58 Lymph % (Auto) 49.3 % 08/29/21 03:58 [place] % (Auto) 5.9 % 08/29/21 03:58 Eos % (Auto) 1.6 % 08/29/21 03:58 Baso % (Auto) 0.2 % 08/29/21 03:58 Neut # (Auto) 3.46 10^3/uL (1.8-7.7) 08/29/21 03:58 Lymph # (Auto) 4.0 10^3/uL (0.8-4.8) 08/29/21 03:58 [place] # (Auto) 0.5 10^3/uL (0.2-0.9) 08/29/21 03:58 Eos # (Auto) 0.1 10^3/uL (0.0-0.8) 08/29/21 03:58 Baso # (Auto) 0.0 10^3/uL (0.0-0.1) 08/29/21 03:58 Nucleated RBC % (auto) 0 % 08/29/21 03:58 Nucleated RBCs # 0.0 /100WBC 08/29/21 03:58 PT 12.50 SECONDS (12.1-14.9) 08/29/21 03:58 INR 0.90 (0.8-1.2) 08/29/21 03:58 APTT 28.3 SECONDS (23.9-36.7) 08/29/21 03:58 Sodium 141 mmol/L (136-145) 08/29/21 03:58 Potassium 3.5 mmol/L (3.5-5.1) 08/29/21 03:58 Chloride 104 mmol/L (98-107) 08/29/21 03:58 Carbon Dioxide 27 mmol/L (22-29) 08/29/21 03:58 Anion Gap 13.5 (5-19) 08/29/21 03:58 BUN 12 mg/dL (8-23) 08/29/21 03:58 Creatinine 0.7 mg/dL (0.5-0.9) 08/29/21 03:58 GFR Calculation 85.1 mL/min (90-130) L 08/29/21 03:58 Glucose 79 mg/dL (65-115) 08/29/21 03:58 POC Glucose 70 mg/dL (70-110) 08/29/21 06:25 Estimat Average Glucose 108 08/29/21 03:58 Hemoglobin A1c 5.4 % (4.0-6.0) 08/29/21 03:58 Calculated Osmolality 291 mOsm/kg (285-295) 08/29/21 03:58 Calcium 9.5 mg/dL (8.5-10.5) 08/29/21 03:58 Magnesium 2.0 mg/dL (1.7-2.3) 08/29/21 03:58 Total Bilirubin 0.2 mg/dL (0.15-1.2) 08/29/21 03:58 AST 23 U/L (0-32) 08/29/21 03:58 ALT 34 U/L (0-33) H 08/29/21 03:58 Alkaline Phosphatase 65 IU/L (35-105) 08/29/21 03:58 Troponin T Baseline 6 ng/L (0-10) 08/28/21 08:56 Troponin T 120 Minute 6.00 ng/L (0-10) 08/28/21 11:06 Delta Troponin T 0 ABS# (0-10) 08/28/21 11:06 Troponin T Hi Sens 6Hr 6.43 ng/L (0-10) 08/28/21 15:20 Troponin T Hi Sens 6Hr Delta 0.43 ng/L (0-12) 08/28/21 15:20 NT-Pro-B Natriuret Pep 15 pg/mL (0-125) 08/28/21 15:20 Total Protein 6.5 g/dL (6.6-8.7) L 08/29/21 03:58 Albumin 3.9 g/dL (3.5-5.2) 08/29/21 03:58 Globulin 2.6 g/dL (1.3-4.6) 08/29/21 03:58 Triglycerides 146 mg/dL (0-150) 08/29/21 03:58 Cholesterol 130 mg/dL (0-200) 08/29/21 03:58 LDL Cholesterol, Calc 58 mg/dL (50-129) 08/29/21 03:58 HDL Cholesterol 43 mg/dL (60-100) L 08/29/21 03:58 LDL/HDL Ratio 1.35 RATIO (0.00-3.22) 08/29/21 03:58 Cholesterol/HDL Ratio 3.02 mg/dL (0.0-4.40) 08/29/21 03:58 Vitals Last Vital Signs Temp 98 F 08/29/21 04:00 Pulse 90 08/29/21 08:00 Resp 16 08/29/21 08:00 BP 143/72 08/29/21 08:00 Pulse Ox 97 08/29/21 08:00 Discharge Plan Discharge Patient Disposition: Home Condition: Stable Prescriptions: New nitroglycerin 0.4 mg tablet, sublingual 0.4 mg sublingual Q5M PRN (Reason: chest pain) Qty: 30 0RF Rx Instructions: do not exceed 3 doses per episode lactulose 20 gram packet 20 g PO DAILY PRN (Reason: constipation) Qty: 30 0RF omeprazole 10 mg capsule,delayed release(DR/EC) 10 mg PO DAILY Qty: 30 0RF Continued Lantus U-100 Insulin 100 unit/mL solution 44 unit SUBCUT DAILY@21 0RF eletriptan [Relpax] 40 mg tablet 40 mg PO PRN 0RF simvastatin 40 mg tablet 40 mg PO QPM 0RF carvedilol 3.125 mg tablet 6.25 mg PO BID 0RF Rx Instructions: must administer with a meal/food metformin 500 mg tablet 500 mg PO BID 0RF aspirin 81 mg tablet,delayed release (DR/EC) 81 mg PO QPM 0RF ferrous sulfate 325 mg (65 mg iron) tablet 325 mg PO EVERY OTHER DAY 0RF promethazine 25 mg tablet 25 mg PO Q6H PRN (Reason: Nausea) 0RF Hold Instructions: do not take while taking metoclopramide finasteride 5 mg tablet 5 mg PO QAM 0RF Trulicity 0.75 mg/0.5 mL pen injector 0.75 mg SUBCUT Q7D 0RF Rx Instructions: on thursday levetiracetam 500 mg tablet 250 mg PO DAILY 0RF hydrocodone-acetaminophen 10-325 mg tablet 1 tab PO BID 0RF minoxidil 2.5 mg tablet 2.5 mg PO DAILY 0RF duloxetine 60 mg capsule,delayed release(DR/EC) 60 mg PO DAILY 0RF Yuvafem 10 mcg tablet See Rx Instructions .ROUTE .COMPLEX 0RF Rx Instructions: 10 mcg vaginally Thursday &;amp Flonase Allergy Relief 50 mcg/actuation [place],Suspension 2 spray INTRANASAL BID 0RF Rx Instructions: administer into each nostril Discharge Orders: Discharge Order (Routine); Ordered 08/29/21 Ordered By: Libby Goins Referrals: Curt Henderson M.D [Physician] - 10/24/21 12:15 pm (You have a cardiology followup with Dr. Henderson on October 24 at 12:15pm) Vlad Francois MD [Primary Care Provider] - 09/03/21 2:50 pm (You have a hospital followup with Dr. Francois on September 03 at 2:50pm) Patient Instructions: Nitroglycerin (By mouth) (Nitro-Time), Omeprazole (By mouth) (PriLOSEC, PriLOSEC OTC, Omeclamox-Rocky, First..., Lactulose (By mouth) (Constulose, Enulose, Generlac, Kristalose), Irritable Bowel Syndrome (DC), Constipation (DC), Cardiac Stress Test (DC), Opioid Safety Discharge Attestations Time Spent in Discharge Care*: less than 30 min Quality Metrics Clinical Quality Measures [ No reported AMI, CVA or VTE this stay] Coding Level of Care Code Acute Chg FW DC note Diagnoses Atypical chest pain R07.89 Diabetes mellitus E11.9; Z79.4 Diabetes mellitus complication status: without complication Diabetes mellitus usp insulin use: with usp use Diabetes mellitus type: type 2 Fibromyalgia syndrome M79.7 Constipation K59.04 Constipation type: chronic idiopathic constipation Other postprocedural status Z98.890 Hyperlipidemia E78.2 Hyperlipidemia type: mixed hyperlipidemia Arrhythmia I47.9 Arrhythmia type: paroxysmal tachycardia, unspecified Recurrent sinusitis J32.9 Migraines G43.709 Intractability: not intractable Migraine type: chronic without aura Status migrainosus presence: without status migrainosus Alopecia L65.9
[2021-08-29 10:58] LABS: Glucose Point of Care 87 mg/dL (70-110)
[2021-08-29] MEDS: polyethylene glycol 3350 Pkt 17 gm PO (11:43)
[2021-08-29] MEDS: magnesium hydroxide 30 mL UDC 15 ML PO (11:43)
== END 2021-08-29 15:23 | disposition home or self-care (01) ==
LOC: ER 12:14 → CSU 13:04
PROVIDERS: Admitting Provider Hospitalist; Emergency Provider Family Medicine; PCP Family Medicine; Visit Provider Internal Medicine
DX: R07.89 Other chest pain (principal); E11.9 Type 2 diabetes mellitus without complications; Z79.4 Long term (current) use of insulin; M79.7 Fibromyalgia; K59.04 Chronic idiopathic constipation; E78.2 Mixed hyperlipidemia; I47.9 Paroxysmal tachycardia, unspecified; J32.9 Chronic sinusitis, unspecified; G43.709 Chronic migraine without aura, not intractable, without status migrainosus; L65.9 Nonscarring hair loss, unspecified; Z86.16 Personal history of COVID-19; Z82.49 Family history of ischemic heart disease and other diseases of the circulatory system; Z83.3 Family history of diabetes mellitus; Z82.3 Family history of stroke
CPT/HCPCS: 36415; 36416; 71045; 74177; 78452; 80053; 80061; 82962; 83036; 83735; 83880; 84484; 85025; 85610; 85730; 93005; 93017; 93306; 96372; 99285; A9500; G0378; J1650; J1815; J2405; J2785; Q9967

== ENCOUNTER → 2021-10-24 13:20 | Outpatient (BNVA) | payer MEDICARE, SELFPAY | PROVIDERS: PCP Family Medicine; Visit Provider Internal Medicine | DX: R07.9 Chest pain, unspecified (principal); E11.9 Type 2 diabetes mellitus without complications; Z79.4 Long term (current) use of insulin | CPT/HCPCS: 99204; 99213; 99214 ==

== ENCOUNTER 2022-01-05 20:04 | Emergency (ER) | payer MEDICARE, SELFPAY ==
[2022-01-05 20:15] VITALS: BP 150/80; PULSE 88; RESP 16; TEMP 37; O2SAT 95; BMI 31.0
--- NOTE | 2022-01-05 20:36 | ED_ITS ---
HPI - Extremity Problem General: Chief complaint: Extremity Problem,Nontraumatic Stated complaint: Fibromyalgia Time Seen by Provider: 01/05/22 20:36 History of Present Illness: 61-year-old female comes in today with complaints of generalized body aches. Patient denies any fever, vomiting, shortness of breath, or chest pain. Patient appears nontoxic. Patient appears in mild to moderate pain. Patient reports a history of fibromyalgia and when she gets a flareup she aches all over and goes to her physician's office and usually gets a shot of Toradol and promethazine. Patient states that this usually helps and she is able to sleep and feel much better when she wakes up. Patient has tried her routine medications at home with minimal to no relief. Associated symptoms: Deny chest pain, fever(s) or rash Review of Systems General: Reports: 10 or more systems reviewed and unremarkable except in HPI and below Const: Denies: fever(s) Card: Denies: chest pain Resp: Denies: dyspnea GI: Reports: nausea; Denies: vomiting, diarrhea or constipation : Denies: difficulty voiding or dysuria Musc: Reports: other (Generalized muscle pain) Skin/Breast: Denies: rash Neuro: Denies: headache(s) PFSH ED PFSH: Medical History (Updated 01/05/22 @ 20:40 by DAVID Posadas) Alopecia on finasteride and minoxidil Arrhythmia Fast heart rate on chronic carvedilol Atypical chest pain Constipation COVID-19 (~11/2019) Diabetes mellitus Insulin requiring Fibromyalgia syndrome on duloxetine and hydrocodone prn History of IBS Hyperlipidemia Migraines Recurrent sinusitis Stones, urinary tract Surgical History History of carpal tunnel repair History of cervical discectomy History of cholecystectomy Laparoscopic History of hysterectomy 1999, TVH/BSO, Performed by Dr. Agustin History of kidney surgery Removal of stones History of lumbar discectomy History of sinus surgery History of toe surgery joint cleaned out History of wisdom tooth extraction Other postprocedural status trigger point injections, gets periodically, had 07/2021 Family History Mother Hypertension Hyperlipidemia Thyroid condition Heart attack Stroke Father Hypertension Hyperlipidemia Stroke Family history of ITP History of open heart surgery Sister Hypertension Hyperlipidemia Thyroid condition x 2 Grandmother Diabetes Maternal Hyperlipidemia Maternal and paternal Stroke Maternal and paternal Grandfather Diabetes Paternal Hyperlipidemia Maternal and paternal Stroke Maternal and paternal Unknown Patient denies medical problems Denies family history of: breast/ovarian/uterine/colon cancer Social History Smoking and tobacco status: never smoked Second hand smoke exposure: No Alcohol intake: never Additional social history: Well balanced diet Physical Exam Const: COMMON NORMALS: alert HENMT: COMMON NORMALS: normocephalic HEAD & SCALP: normocephalic Neck/C-Spine: COMMON NORMALS: full ROM Resp: COMMON NORMALS: normal respiratory effort and clear to auscultation bilaterally AUSCULTATION: clear to auscultation bilaterally Cardio: COMMON NORMALS: regular rate and regular rhythm RATE: regular rate RHYTHM: regular rhythm Back/Pelvis: OTHER: Generalized tenderness on palpation of the paraspinous muscles and spine. Extremity: COMMON NORMALS: normal to inspection and no pedal edema Neuro: SENSORIUM/ORIENTATION: Yes alert Skin: COMMON NORMALS: no rashes or lesions noted GENERAL SKIN EXAM: no rashes or lesions noted Course Vital Signs: Vital signs: Vital Signs Temperature 98.6 F 01/05/22 20:15 Pulse Rate 88 01/05/22 20:15 Respiratory Rate 16 01/05/22 20:15 Blood Pressure 150/80 01/05/22 20:15 Pulse Oximetry 95 01/05/22 20:15 Oxygen Delivery Me thod 01/05/22 20:15 MDM - Extremity (Nontraumatic) Medical Decision Making Patient comes in today for complaints of generalized body pain. Patient has a history of fibromyalgia and states that she usually will get a flare in which she needs to get a shot of Toradol and promethazine to help settle it so she can rest. On exam patient has some paraspinous muscle tenderness, patient moves all extremities well, patient has no edema, patient has clear lung sounds and normal heart rate. Vital signs are normal. Differential diagnosis includes but not limited to depression, malingering, fibromyalgia. Patient was given a dose of Toradol 60 mg and 1 dose of promethazine 25 mg. Patient had some improvement in discomfort and was allowed to go home to rest and recover. Patient was r ecommended to follow-up with primary care in the morning for further instructions. Patient stated understanding and agreed to plan. Discharge Plan Discharge Patient Disposition: Home Clinical Impression: Chronic pain syndrome, Fibromyalgia Condition: Stable Prescriptions: No Action eletriptan [Relpax] 40 mg tablet 40 mg PO PRN simvastatin 40 mg tablet 40 mg PO QPM Lantus U-100 Insulin 100 unit/mL solution 50 unit SUBCUT DAILY@21 carvedilol 3.125 mg tablet 6.25 mg PO BID Rx Instructions: must administer with a meal/food promethazine 12.5 mg tablet 12.5 mg PO Q6H PRN (Reason: nausea and vomiting) Qty: 20 0RF lactulose 10 gram/15 mL (15 mL) solution 15 ml PO DAILY Rx Instructions: take 15ml po every 6 hours prn for constipation omeprazole 40 mg capsule,delayed release(DR/EC) 40 mg PO DAILY biest/progesterone as directed metformin 500 mg tablet 500 mg PO BID aspirin 81 mg tablet,delayed release (DR/EC) 81 mg PO QPM promethazine 25 mg tablet 25 mg PO Q6H PRN (Reason: Nausea) Hold Instructions: do not take while taking metoclopramide finasteride 5 mg tablet 5 mg PO QAM Trulicity 0.75 mg/0.5 mL pen injector 0.75 mg SUBCUT Q7D Rx Instructions: on thursday levetiracetam 500 mg tablet 250 mg PO DAILY hydrocodone-acetaminophen 10-325 mg tablet 1 tab PO BID minoxidil 2.5 mg tablet 2.5 mg PO DAILY duloxetine 60 mg capsule,delayed release(DR/EC) 60 mg PO DAILY Yuvafem 10 mcg tablet See Rx Instructions .ROUTE .COMPLEX Rx Instructions: 10 mcg vaginally Thursday &;amp nitroglycerin 0.4 mg tablet, sublingual 0.4 mg sublingual Q5M PRN (Reason: chest pain) Qty: 30 0RF Rx Instructions: do not exceed 3 doses per episode Flonase Allergy Relief 50 mcg/actuation [place],Suspension 2 spray INTRANASAL BID Rx Instructions: administer into each nostril Discharge Orders: Discharge ED (Routine); Ordered 01/05/22 Ordered By: Joselito Hutchison Referrals: Vlad Francois MD [Primary Care Provider] - Discharge Diet: Usual diet Discharge Activity: Increase activity as tolerated Patient Instructions: Chronic Pain (ED) Activity Restrictions/Additional Instructions: Follow-up with primary care for further instructions. Drink plenty of water. Try to maintain normal physical activity daily. Return to ER for new concerns. 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
[2022-01-05] MEDS: ketorolac 60 mg/2 mL INJ IM (21:13)
[2022-01-05] MEDS: promethazine 25 mg/mL SDV 1 mL IM (21:13)
== END 2022-01-05 21:15 | disposition home or self-care (01) ==
PROVIDERS: Emergency Provider Nurse Practitioner Family; PCP Family Medicine
DX: G89.4 Chronic pain syndrome (principal); M79.7 Fibromyalgia; Z79.899 Other long term (current) drug therapy; Z79.84 Long term (current) use of oral hypoglycemic drugs; Z79.82 Long term (current) use of aspirin; Z79.4 Long term (current) use of insulin; E11.9 Type 2 diabetes mellitus without complications; E78.5 Hyperlipidemia, unspecified
CPT/HCPCS: 96372; 99284; J1885; J2550

== ENCOUNTER → 2022-06-23 08:04 | Outpatient (BNVA) | payer MEDICARE, SELFPAY | PROVIDERS: PCP Electrodiagnostic Medicine; Visit Provider Podiatrist Foot & Ankle Surgery | DX: M72.2 Plantar fascial fibromatosis (principal) | CPT/HCPCS: 99213 ==

== ENCOUNTER → 2022-08-11 11:40 | Outpatient (BNVA) | payer MEDICARE, SELFPAY | PROVIDERS: PCP Electrodiagnostic Medicine; Visit Provider Podiatrist Foot & Ankle Surgery | DX: M72.2 Plantar fascial fibromatosis (principal); L60.3 Nail dystrophy | CPT/HCPCS: 99213 ==

== ENCOUNTER → 2022-09-15 11:22 | Outpatient (BNVA) | payer MEDICARE, SELFPAY | PROVIDERS: PCP Electrodiagnostic Medicine; Visit Provider Podiatrist Foot & Ankle Surgery | DX: L60.3 Nail dystrophy (principal) | CPT/HCPCS: 99213 ==

== ENCOUNTER 2023-02-15 00:30 | Emergency (ER) | payer MEDICARE, SELFPAY ==
[2023-02-15 00:38] VITALS: BP 138/62; PULSE 98; RESP 20; TEMP 36.6; O2SAT 99; BMI 32.5
--- NOTE | 2023-02-15 00:45 | W.ED.EXTPRO ---
HPI - Extremity Problem General: Chief complaint: Extremity Injury, Lower Stated complaint: Fibromyalgia Time Seen by Provider: 02/15/23 00:42 History of Present Illness: Back [id number] female comes in today for complaints of pain with radiation down the right leg. Patient also reports that she has a history of fibromyalgia. Patient does take routine medications for her pain but tonight she could not rest. Patient had been seen earlier today at the walk-in clinic and had gotten a dose of ketorolac and promethazine for her fibromyalgia flare which she reports has minimally helped. Patient appears nontoxic. Patient appears in mild to moderate pain. Review of Systems General: Reports: 10 or more systems reviewed and unremarkable except in HPI and below Musc: Reports: back pain PFSH ED PFSH: Medical History Alopecia on finasteride and minoxidil Arrhythmia Fast heart rate on chronic carvedilol Atypical chest pain Constipation COVID-19 (~11/2019) Diabetes mellitus Insulin requiring Fibromyalgia syndrome on duloxetine and hydrocodone prn History of IBS Hyperlipidemia Migraines Recurrent sinusitis Stones, urinary tract Surgical History History of carpal tunnel repair History of cervical discectomy History of cholecystectomy Laparoscopic History of hysterectomy 1999, TVH/BSO, Performed by Dr. Agustin History of kidney surgery Removal of stones History of lumbar discectomy History of sinus surgery History of toe surgery joint cleaned out History of wisdom tooth extraction Other postprocedural status trigger point injections, gets periodically, had 07/2021 Family History Mother Hypertension Hyperlipidemia Thyroid condition Heart attack Stroke Father Hypertension Hyperlipidemia Stroke Family history of ITP History of open heart surgery Sister Hypertension Hyperlipidemia Thyroid condition x 2 Grandmother Diabetes Maternal Hyperlipidemia Maternal and paternal Stroke Maternal and paternal Grandfather Diabetes Paternal Hyperlipidemia Maternal and paternal Stroke Maternal and paternal Unknown Patient denies medical problems Denies family history of: breast/ovarian/uterine/colon cancer Social History Smoking and tobacco status: never smoked Second hand smoke exposure: No Alcohol intake: never Substance/Drug Use: never Additional social history: Well balanced diet Physical Exam Const: COMMON NORMALS: alert HENMT: COMMON NORMALS: normocephalic HEAD & SCALP: normocephalic Neck/C-Spine: COMMON NORMALS: full ROM Resp: COMMON NORMALS: normal respiratory effort and clear to auscultation bilaterally AUSCULTATION: clear to auscultation bilaterally Cardio: COMMON NORMALS: regular rate and regular rhythm RATE: regular rate RHYTHM: regular rhythm Back/Pelvis: THORACIC SPINE/UPPER BACK: No thoracic spinal tenderness LUMBAR SPINE/LOWER BACK: No lumbar spinal tenderness and Yes paraspinal muscle tenderness Lumbar paraspinal muscle tenderness: right Extremity: COMMON NORMALS: normal to inspection and no pedal edema Neuro: SENSORIUM/ORIENTATION: Yes alert Skin: COMMON NORMALS: turgor normal GENERAL SKIN EXAM: turgor normal Course Vital Signs: Vital signs: Vital Signs Temperature 98 F 02/15/23 00:38 Pulse Rate 95 02/15/23 00:51 Respiratory Rate 16 02/15/23 00:51 Blood Pressure 132/62 02/15/23 00:51 Pulse Oximetry 94 02/15/23 00:51 Oxygen Delivery Me thod Room Air 02/15/23 00:51 MDM - Extremity (Nontraumatic) Medical Decision Making 62-year-old female comes in today with complaints of low back pain radiating down the right leg. Patient reports that she has a history of fibromyalgia and at first she thought it was a flare but it has had minimal relief with usual dose of ketorolac and promethazine she received at walk-in clinic. Patient came in tonight due to the persistence of pain and not being able to sleep. Patient appears nontoxic. Patient appears in mild to moderate pain. Patient is able to sit up straight in bed with no point tenderness along the cervical, thoracic, lumbar spine. Patient does have some muscle tenderness in the lower right paraspinal muscles of the lumbar spine. Distal pulses and sensations are intact in the extremities. No redness or swelling is noted to the lower extremities. Differential diagnosis includes but not limited to intervertebral disc disease, facet arthropathy, malingering, fibromyalgia, lumbar strain, sciatica. Patient was given a dose of ketorolac 30 mg, and 4 mg of morphine IM. Patient was recommended continue with routine care at home and follow-up with primary care. Patient stated understanding and agreed to plan. No radiology studies performed this visit Discharge Plan Discharge Patient Disposition: Home Clinical Impression: Lumbar radicular pain, Fibromyalgia Condition: Stable Prescriptions: No Action eletriptan [Relpax] 40 mg tablet 40 mg PO PRN Lantus U-100 Insulin 100 unit/mL solution 50 unit SUBCUT DAILY@21 promethazine 12.5 mg tablet 12.5 mg PO Q6H PRN (Reason: nausea and vomiting) Qty: 20 0RF prednisone 20 mg tablet 20 mg PO DAILY 5 Days Qty: 5 0RF lactulose 10 gram/15 mL (15 mL) solution 15 ml PO DAILY Rx Instructions: take 15ml po every 6 hours prn for constipation omeprazole 40 mg capsule,delayed release(DR/EC) 40 mg PO DAILY biest/progesterone as directed simvastatin 40 mg tablet 40 mg PO QPM Qty: 90 3RF meloxicam 15 mg tablet See Rx Instructions .ROUTE .COMPLEX Qty: 30 0RF Dose Instruction: TAKE 1 TABLET BY MOUTH EVERY DAY Rx Instructions: TAKE 1 TABLET BY MOUTH EVERY DAY levetiracetam 500 mg tablet See Rx Instructions .ROUTE .COMPLEX Qty: 90 0RF Dose Instruction: Take 1/2 (one-half) tablet by mouth twice daily Rx Instructions: Take 1/2 (one-half) tablet by mouth twice daily carvedilol 6.25 mg tablet See Rx Instructions .ROUTE .COMPLEX Qty: 180 0RF Dose Instruction: Take 1 tablet by mouth twice daily Rx Instructions: Take 1 tablet by mouth twice daily metformin 500 mg tablet 500 mg PO BID aspirin 81 mg tablet,delayed release (DR/EC) 81 mg PO QPM promethazine 25 mg tablet 25 mg PO Q6H PRN (Reason: Nausea) Hold Instructions: do not take while taking metoclopramide finasteride 5 mg tablet 5 mg PO QAM Trulicity 0.75 mg/0.5 mL pen injector 0.75 mg SUBCUT Q7D Rx Instructions: on thursday hydrocodone-acetaminophen 10-325 mg tablet 1 tab PO BID minoxidil 2.5 mg tablet 2.5 mg PO DAILY duloxetine 60 mg capsule,delayed release(DR/EC) 60 mg PO DAILY Yuvafem 10 mcg tablet See Rx Instructions .ROUTE .COMPLEX Rx Instructions: 10 mcg vaginally Thursday &;amp nitroglycerin 0.4 mg tablet, sublingual 0.4 mg sublingual Q5M PRN (Reason: chest pain) Qty: 30 0RF Rx Instructions: do not exceed 3 doses per episode Flonase Allergy Relief 50 mcg/actuation [place],Suspension 2 spray INTRANASAL BID Rx Instructions: administer into each nostril Discharge Orders: Discharge ED (Routine); Ordered 02/15/23 Ordered By: Joselito Hutchison Referrals: Steve Tim DO [Primary Care Provider] - Discharge Diet: Usual diet Discharge Activity: Increase activity as tolerated Patient Instructions: Fibromyalgia (ED), Back Pain (ED) Activity Restrictions/Additional Instructions: Activity as tolerated. Use ice or heat for further pain relief. Continue with routine medications otherwise as directed. Follow-up with primary care for persistent symptoms. Return to ER for new concerns or worsening symptoms such as loss of bowel or bladder control, fever greater than 100.4, or inability to walk. 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
[2023-02-15 00:51] VITALS: BP 132/62; PULSE 95; RESP 16; O2SAT 94
[2023-02-15 00:54] VITALS: RESP 16; O2SAT 95
[2023-02-15] MEDS: ketorolac 30 mg/mL INJ IM (00:54)
[2023-02-15] MEDS: morphine 4 mg/mL SDV 1 mL IM (00:54)
[2023-02-15] MEDS: ondansetron 4 MG Tablet PO (01:17)
[2023-02-15 01:36] VITALS: BP 148/81; PULSE 93; RESP 14; O2SAT 99
== END 2023-02-15 01:36 | disposition home or self-care (01) ==
PROVIDERS: Emergency Provider Nurse Practitioner Family; PCP Electrodiagnostic Medicine
DX: M54.16 Radiculopathy, lumbar region (principal); M79.7 Fibromyalgia; Z79.82 Long term (current) use of aspirin; Z79.84 Long term (current) use of oral hypoglycemic drugs; Z79.4 Long term (current) use of insulin; E11.9 Type 2 diabetes mellitus without complications; E78.5 Hyperlipidemia, unspecified
CPT/HCPCS: 96372; 99284; J1885; J2270; Q0162

== ENCOUNTER 2023-05-25 01:20 | Emergency (ER) | payer MEDICARE, SELFPAY ==
[2023-05-25 01:30] VITALS: BP 146/92; PULSE 89; RESP 18; TEMP 36.7; O2SAT 95; BMI 32.1
[2023-05-25 01:39] LABS: Glucose Point of Care 228 mg/dL (70-110)
[2023-05-25 02:17] LABS: Basophils % 0.2 %; Eosinophils # 0.1 10^3/uL (0.0-0.8); Eosinophils % 0.8 %; Hematocrit 37.3 % (36-47); Lymphocytes # 3.6 10^3/uL (0.8-4.8); Lymphocytes % 38.9 %; Mean Corpuscular HGB Conc 33.5 g/dL (30-55); Mean Corpuscular Hemoglobin 28.9 pg (27-33); Mean Corpuscular Volume 86.3 fl (85-98); Mean Platelet Volume 10.3 fL (7.4-10.4); Monocytes # 0.6 10^3/uL (0.2-0.9); Monocytes % 6.2 %; Neutrophils # 4.91 10^3/uL (1.8-7.7); Neutrophils % 53.6 %; Nucleated Red Blood Cells % 0 %; Platelet Count 224 10^3/cmm (157-399); Red Blood Count 4.32 10^6/uL (3.85-5.65); Red Cell Distribution Width 11.9 % (12.1-15.1); White Blood Count 9.16 10^3/uL (3.29-11.43)
[2023-05-25] MEDS: sodium chloride 0.9% 1,000 ML 999 ML IV (02:17)
[2023-05-25 02:27] LABS: Ketone (Acetest) Serum Negative (Negative)
[2023-05-25 02:43] LABS: Alanine Aminotransferase 19 U/L (0-33); Albumin Level 4.1 g/dL (3.5-5.2); Alkaline Phosphatase 74 U/L (35-105); Aspartate Amino Transferase 14 U/L (0-32); Blood Urea Nitrogen 13 mg/dL (8-23); Calcium 9.4 mg/dL (8.5-10.5); Carbon Dioxide 27 mmol/L (22-29); Chloride 103 mmol/L (98-107); Globulin 2.7 g/dL (1.3-4.6); Glomerular Filtration Rate 84.5 mL/min (90-130); Glucose 266 mg/dL (65-115); Lipase 53 U/L (13-60); Osmolality Calculated 295 mOsm/kg (285-295); Phosphorus 2.6 mg/dL (2.5-4.5); Sodium 138 mmol/L (136-145); Thyroid Stimulating Hormone 2.13 uIU/mL (0.27-4.20); Total Bilirubin 0.2 mg/dL (0.15-1.2); Total Protein 6.8 g/dL (6.6-8.7)
--- NOTE | 2023-05-25 02:59 | ED_ITS ---
HPI - Recheck/Abnormal Lab/Rx 2 General: Chief Complaint: Recheck/Abnormal Lab/Rx Stated Complaint: blood sugar high, weak nausea heart racing Time Seen by Provider: 05/25/23 02:08 History of Present Illness: 62-year-old female with a history of darryl sheba. She is transition to [facility] from [facility], and is out of her [facility]. She could not get her med urine of this week. She takes 44 units of Lantus at night usually, but gave herself 48 units this evening. Her blood sugar was significantly elevated at home. She had symptoms of diaphoresis, blurry vision, nausea. She has not been sick in any other way. No cough, no fever. Blood sugar at home was in the 360s. Currently down to 228 here. Review of Systems 2 Const: Denies: fever(s), chills or body aches Eyes: Reports: blurry vision; Denies: blind spots Card: Denies: chest pain or palpitations Resp: Denies: dyspnea, productive cough, non-productive cough or wheezing GI: Reports: nausea; Denies: abdominal pain, vomiting, diarrhea or hematochezia : Denies: difficulty voiding Skin/Breast: Denies: rash Neuro: Reports: dizziness; Denies: headache(s), weakness in extremities or confusion PFSH ED 2 PFSH: Medical History Arrhythmia Fast heart rate on chronic carvedilol Constipation Recurrent sinusitis Alopecia on finasteride and minoxidil Hyperlipidemia Atypical chest pain COVID-19 (~11/2019) Fibromyalgia syndrome on duloxetine and hydrocodone prn Migraines Diabetes mellitus Insulin requiring Stones, urinary tract History of IBS Surgical History Other postprocedural status trigger point injections, gets periodically, had 07/2021 History of sinus surgery History of cholecystectomy Laparoscopic History of wisdom tooth extraction History of toe surgery joint cleaned out History of kidney surgery Removal of stones History of lumbar discectomy History of cervical discectomy History of carpal tunnel repair History of hysterectomy 1999, TVH/BSO, Performed by Dr. Agustin Family History Mother Hypertension Hyperlipidemia Thyroid disease Heart attack Stroke Father Hypertension Hyperlipidemia Stroke Family history of ITP History of open heart surgery Sister Hypertension Hyperlipidemia Thyroid disease x 2 Grandmother Diabetes Maternal Hyperlipidemia Maternal and paternal Stroke Maternal and paternal Grandfather Diabetes Paternal Hyperlipidemia Maternal and paternal Stroke Maternal and paternal Unknown Patient denies medical problems Denies family history of: breast/ovarian/uterine/colon cancer Social History Smoking and tobacco/nicotine status: never used tobacco/nicotine Second hand smoke exposure: No Alcohol intake: never Substance/Drug Use: never Additional social history: Well balanced diet Physical Exam 2 Const: COMMON NORMALS: no acute distress GENERAL APPEARANCE: cooperative; not ill appearing and not frail appearing HENMT: COMMON NORMALS: normocephalic, atraumatic and Normal external nose present HEAD & SCALP: normocephalic and atraumatic FACE & SINUS: normal facial exam and face symmetric NOSE: Normal external nose present Eye: COMMON NORMALS: Equal, round and reactive pupils present and EOMs intact bilaterally PUPIL: Yes Equal, round and reactive pupils present Neck/C-Spine: GENERAL: Yes trachea midline Chest: CHEST: Yes Symmetrical chest wall rise Resp: COMMON NORMALS: normal respiratory effort, No retractions, No use of accessory muscles and clear to auscultation bilaterally AUSCULTATION: clear to auscultation bilaterally Cardio: COMMON NORMALS: regular rate and regular rhythm RATE: regular rate RHYTHM: regular rhythm GI: COMMON NORMALS: Normal to inspection, nondistended, normoactive bowel sounds present Extremity: COMMON NORMALS: no pedal edema Neuro: DELGADO COMA SCALE: document GCS findings Delgado coma scale eye opening: Spontaneous Redford coma scale verbal response: Orientated Redford coma scale motor response: Obey commands Redford coma scale total score: 15 S ENSORY EXAM: Yes extremities (intact) Psych: COMMON NORMALS: speech normal SPEECH: Yes normal speech Skin: COMMON NORMALS: no rashes or lesions noted GENERAL SKIN EXAM: no rashes or lesions noted Course 2 Vital Signs: Vital signs: Vital Signs Temperature 98.1 F 05/25/23 01:30 Pulse Rate 82 05/25/23 04:10 Respiratory Rate 16 05/25/23 04:10 Blood Pressure 134/91 05/25/23 04:10 Pulse Oximetry 95 05/25/23 04:10 Oxygen Delivery Me thod Room Air 05/25/23 01:30 MDM - Recheck/Abnormal Lab/Rx Medical Decision Making Patient with hyperglycemia and symptoms likely related to this. Blood sugar is 266 on serum testing. She is given a small dose of IV insulin, 1 L of fluid. She says that her symptoms are improved. Her laboratory is not remarkable otherwise. She will be allowed discharge. Have prescribed a sliding scale insulin with lispro if needed to keep her sugars under control until she gets new medication. She understands. She will return for any worsening symptoms. Lab Data 05/25/23 02:08 05/25/23 02:08 Laboratory Results WBC 9.16 10^3/uL (3.29-11.43) 05/25/23 02:08 RBC 4.32 10^6/uL (3.85-5.65) 05/25/23 02:08 Hgb 12.50 g/dL (11.27-16.99) 05/25/23 02:08 Hct 37.3 % (36-47) 05/25/23 02:08 MCV 86.3 fl (85-98) 05/25/23 02:08 MCH 28.9 pg (27-33) 05/25/23 02:08 MCHC 33.5 g/dL (30-55) 05/25/23 02:08 RDW 11.9 % (12.1-15.1) L 05/25/23 02:08 Plt Count 224 10^3/cmm (157-399) 05/25/23 02:08 MPV 10.3 fL (7.4-10.4) 05/25/23 02:08 Neut % (Auto) 53.6 % 05/25/23 02:08 Lymph % (Auto) 38.9 % 05/25/23 02:08 Hill % (Auto) 6.2 % 05/25/23 02:08 Eos % (Auto) 0.8 % 05/25/23 02:08 Baso % (Auto) 0.2 % 05/25/23 02:08 Neut # (Auto) 4.91 10^3/uL (1.8-7.7) 05/25/23 02:08 Lymph # (Auto) 3.6 10^3/uL (0.8-4.8) 05/25/23 02:08 Hill # (Auto) 0.6 10^3/uL (0.2-0.9) 05/25/23 02:08 Eos # (Auto) 0.1 10^3/uL (0.0-0.8) 05/25/23 02:08 Baso # (Auto) 0.0 10^3/uL (0.0-0.1) 05/25/23 02:08 Nucleated RBC % (auto) 0 % 05/25/23 02:08 Nucleated RBCs # 0.0 /100WBC 05/25/23 02:08 Sodium 138 mmol/L (136-145) 05/25/23 02:08 Potassium 4.0 mmol/L (3.5-5.1) 05/25/23 02:08 Chloride 103 mmol/L (98-107) 05/25/23 02:08 Carbon Dioxide 27 mmol/L (22-29) 05/25/23 02:08 Anion Gap 12.0 (5-19) 05/25/23 02:08 BUN 13 mg/dL (8-23) 05/25/23 02:08 Creatinine 0.7 mg/dL (0.5-0.9) 05/25/23 02:08 GFR Calculation 84.5 mL/min (90-130) L 05/25/23 02:08 Glucose 266 mg/dL (65-115) H 05/25/23 02:08 POC Glucose 158 mg/dL (70-110) H 05/25/23 03:55 Calculated Osmolality 295 mOsm/kg (285-295) 05/25/23 02:08 Calcium 9.4 mg/dL (8.5-10.5) 05/25/23 02:08 Phosphorus 2.6 mg/dL (2.5-4.5) 05/25/23 02:08 Magnesium 2.0 mg/dL (1.7-2.3) 05/25/23 02:08 Total Bilirubin 0.2 mg/dL (0.15-1.2) 05/25/23 02:08 AST 14 U/L (0-32) 05/25/23 02:08 ALT 19 U/L (0-33) 05/25/23 02:08 Alkaline Phosphatase 74 U/L (35-105) 05/25/23 02:08 Total Protein 6.8 g/dL (6.6-8.7) 05/25/23 02:08 Albumin 4.1 g/dL (3.5-5.2) 05/25/23 02:08 Globulin 2.7 g/dL (1.3-4.6) 05/25/23 02:08 Lipase 53 U/L (13-60) 05/25/23 02:08 TSH 2.13 uIU/mL (0.27-4.20) 05/25/23 02:08 Serum Ketones Negative (Negative) 05/25/23 02:08 No radiology studies performed this visit Discharge Plan Discharge Patient Disposition: Home Clinical Impression: Acute hyperglycemia Condition: Stable Prescriptions: New insulin lispro 100 unit/mL insulin pen 3 unit SUBCUT TID Qty: 15 0RF No Action eletriptan [Relpax] 40 mg tablet 40 mg PO PRN Lantus U-100 Insulin 100 unit/mL solution 50 unit SUBCUT DAILY@21 promethazine 12.5 mg tablet 12.5 mg PO Q6H PRN (Reason: nausea and vomiting) Qty: 20 0RF lactulose 10 gram/15 mL (15 mL) solution 15 ml PO DAILY Rx Instructions: take 15ml po every 6 hours prn for constipation omeprazole 40 mg capsule,delayed release(DR/EC) 40 mg PO DAILY biest/progesterone as directed simvastatin 40 mg tablet 40 mg PO QPM Qty: 90 3RF levetiracetam 500 mg tablet See Rx Instructions .ROUTE .COMPLEX Qty: 90 0RF Dose Instruction: Take 1/2 (one-half) tablet by mouth twice daily Rx Instructions: Take 1/2 (one-half) tablet by mouth twice daily carvedilol 6.25 mg tablet See Rx Instructions .ROUTE .COMPLEX Qty: 180 0RF Dose Instruction: Take 1 tablet by mouth twice daily Rx Instructions: Take 1 tablet by mouth twice daily aspirin 81 mg tablet,delayed release (DR/EC) 81 mg PO QPM promethazine 25 mg tablet 25 mg PO Q6H PRN (Reason: Nausea) Hold Instructions: do not take while taking metoclopramide finasteride 5 mg tablet 5 mg PO QAM Trulicity 0.75 mg/0.5 mL pen injector 0.75 mg SUBCUT Q7D Rx Instructions: on thursday hydrocodone-acetaminophen 10-325 mg tablet 1 tab PO BID minoxidil 2.5 mg tablet 2.5 mg PO DAILY duloxetine 60 mg capsule,delayed release(DR/EC) 60 mg PO DAILY Yuvafem 10 mcg tablet See Rx Instructions .ROUTE .COMPLEX Rx Instructions: 10 mcg vaginally Thursday &;amp Flonase Allergy Relief 50 mcg/actuation [place],Suspension 2 spray INTRANASAL BID Rx Instructions: administer into each nostril Discharge Orders: Discharge ED (Routine); Ordered 05/25/23 Ordered By: Mike Daugherty Referrals: Steve Tim DO [Primary Care Provider] - 4-7 days Patient Instructions: Diabetic Hyperglycemia (ED) Activity Restrictions/Additional Instructions: Return for any concerning problems. You may use the sliding scale along with the insulin pen prescribed if control of your blood sugar is difficult. You may also fill your Trulicity, and use that as well. Follow-up with your doctor regarding transition to other medication as directed. Coding Level of Care Code ED Radiologic Technologist Mammogram for Althea Hutson
[2023-05-25] MEDS: insulin regular-human 100 units/1 mL 4 UNIT IVP (03:05)
[2023-05-25 03:58] LABS: Glucose Point of Care 158 mg/dL (70-110)
[2023-05-25 04:10] VITALS: BP 134/91; PULSE 82; RESP 16; O2SAT 95
== END 2023-05-25 04:09 | disposition home or self-care (01) ==
PROVIDERS: Emergency Provider Emergency Medicine; PCP Electrodiagnostic Medicine
DX: E11.65 Type 2 diabetes mellitus with hyperglycemia (principal); Z79.4 Long term (current) use of insulin; Z79.82 Long term (current) use of aspirin; Z79.85 Long-term (current) use of injectable non-insulin antidiabetic drugs; E78.5 Hyperlipidemia, unspecified
CPT/HCPCS: 36416; 80053; 82009; 82962; 83690; 83735; 84100; 84443; 85025; 96361; 96374; 99284; J1815; J7030

== ENCOUNTER 2023-07-10 23:59 | Emergency (ER) | payer MEDICARE, SELFPAY ==
[2023-07-11 00:04] VITALS: BP 188/84; PULSE 86; RESP 18; TEMP 36.4; O2SAT 98
--- NOTE | 2023-07-11 00:24 | W.ED.DENTAL ---
HPI - Dental/Oral General: Chief complaint: Dental/Oral Stated complaint: toothache left side Time Seen by Provider: 07/11/23 00:22 Source: patient Mode of arrival: ambulatory Limitations: no limitations History of Present Illness: Patient is a nice 62-year-old female presents to ED today for treatment regarding a left upper molar toothache. Patient states the tooth has been bothering her intermittently for approximately a year now. She does report previous work, tooth including a filling. She states she was seen by a dentist back in January and was told there was nothing wrong with the tooth. She states today the pain became severe thus prompting her emergency evaluation. She has not noticed any facial swelling, redness, or pain. No fevers. Patient is continuing to eat and drink normally. MD Complaint: tooth pain Teeth map: 1. Onset (ago): hour(s) Duration: constant Severity scale (1-10): 10 Relieving factors: nothing Exacerbating factors: nothing Associated symptoms: Reports no associated symptoms; Denies ear or mastoid pain or odynophagia Treatment prior to arrival: oral analgesic Review of Systems ENMT: Reports: dental pain; Denies: throat pain, odynophagia, swelling of lips/tongue, oral sores, ear or mastoid pain, nasal discharge or nasal congestion Card: Denies: chest pain Resp: Denies: dyspnea GI: Reports: nausea; Denies: vomiting Musc: Denies: neck pain Neuro: Denies: headache(s) [facility] ED PFSH: Medical History Arrhythmia Fast heart rate on chronic carvedilol Constipation Recurrent sinusitis Alopecia on finasteride and minoxidil Hyperlipidemia Atypical chest pain COVID-19 (~11/2019) Fibromyalgia syndrome on duloxetine and hydrocodone prn Migraines Diabetes mellitus Insulin requiring Stones, urinary tract History of IBS Surgical History Other postprocedural status trigger point injections, gets periodically, had 07/2021 History of sinus surgery History of cholecystectomy Laparoscopic History of wisdom tooth extraction History of toe surgery joint cleaned out History of kidney surgery Removal of stones History of lumbar discectomy History of cervical discectomy History of carpal tunnel repair History of hysterectomy 1999, TVH/BSO, Performed by Dr. Agustin Family History Mother Hypertension Hyperlipidemia Thyroid disease Heart attack Stroke Father Hypertension Hyperlipidemia Stroke Family history of ITP History of open heart surgery Sister Hypertension Hyperlipidemia Thyroid disease x 2 Grandmother Diabetes Maternal Hyperlipidemia Maternal and paternal Stroke Maternal and paternal Grandfather Diabetes Paternal Hyperlipidemia Maternal and paternal Stroke Maternal and paternal Unknown Patient denies medical problems Denies family history of: breast/ovarian/uterine/colon cancer Social History Smoking and tobacco/nicotine status: never used tobacco/nicotine Second hand smoke exposure: No Alcohol intake: never Substance/Drug Use: never Additional social history: Well balanced diet Physical Exam Const: COMMON NORMALS: patient oriented x3, no limitations, healthy appearing, alert and well nourished GENERAL APPEARANCE: cooperative and in distress (appears uncomfortable secondary to pain) HENMT: FACE & SINUS: normal facial exam, sinuses nontender and face symmetric; no sinus tenderness, no erythema and no edema MOUTH: Normal oral and palatal mucosa present, lip normal, tongue normal and Normal salivary glands and ducts present TEETH & GINGIVA IMAGES: 1. pain, filling present; no surrounding edema or findings to suggest infection THROAT: posterior oropharynx normal Neck/C-Spine: COMMON NORMALS: no lymphadenopathy GENERAL: No anterior neck swelling and No submandibular swelling Neuro: COMMON NORMALS: patient oriented x3 SENSORIUM/ORIENTATION: Yes alert Course Vital Signs: Vital signs: Vital Signs Temperature 97.6 F 07/11/23 00:04 Pulse Rate 86 07/11/23 00:04 Respiratory Rate 18 07/11/23 00:04 Blood Pressure 188/84 07/11/23 00:04 Pulse Oximetry 98 07/11/23 00:04 Oxygen Delivery Me thod Room Air 07/11/23 00:04 MDM - Dental/Oral Medical Decision Making Patient here for severe dental pain. No signs of infection. Recommend she follow-up with her dentist as soon as possible. She is requesting pain medications. Small amount of these will be provided for her. Return to ED precautions given. Differential Diagnosis Likely dental caries, toothache, dental abscess and fracture of tooth Medical Records I reviewed the patient's medical records. No radiology studies performed this visit Discharge Plan Discharge Patient Disposition: Home Clinical Impression: Toothache Condition: Stable Prescriptions: New lidocaine HCl [Lidocaine Viscous] 2 % solution 15 ml MUCOUS MEM QID Qty: 100 0RF Rx Instructions: Mix with water and swish for 60 seconds, then spit hydrocodone-acetaminophen 5-325 mg tablet 1 tab PO Q6H PRN (Reason: pain) Qty: 10 0RF No Action eletriptan [Relpax] 40 mg tablet 40 mg PO PRN Lantus U-100 Insulin 100 unit/mL solution 50 unit SUBCUT DAILY@21 promethazine 12.5 mg tablet 12.5 mg PO Q6H PRN (Reason: nausea and vomiting) Qty: 20 0RF lactulose 10 gram/15 mL (15 mL) solution 15 ml PO DAILY Rx Instructions: take 15ml po every 6 hours prn for constipation omeprazole 40 mg capsule,delayed release(DR/EC) 40 mg PO DAILY biest/progesterone as directed levetiracetam 500 mg tablet See Rx Instructions .ROUTE .COMPLEX Qty: 90 0RF Dose Instruction: Take 1/2 (one-half) tablet by mouth twice daily Rx Instructions: Take 1/2 (one-half) tablet by mouth twice daily carvedilol 6.25 mg tablet See Rx Instructions .ROUTE .COMPLEX Qty: 180 0RF Dose Instruction: Take 1 tablet by mouth twice daily Rx Instructions: Take 1 tablet by mouth twice daily simvastatin 40 mg tablet See Rx Instructions .ROUTE .COMPLEX Qty: 90 3RF Dose Instruction: TAKE 1 TABLET EVERY EVENING Rx Instructions: TAKE 1 TABLET EVERY EVENING aspirin 81 mg tablet,delayed release (DR/EC) 81 mg PO QPM promethazine 25 mg tablet 25 mg PO Q6H PRN (Reason: Nausea) Hold Instructions: do not take while taking metoclopramide finasteride 5 mg tablet 5 mg PO QAM Trulicity 0.75 mg/0.5 mL pen injector 0.75 mg SUBCUT Q7D Rx Instructions: on thursday hydrocodone-acetaminophen 10-325 mg tablet 1 tab PO BID minoxidil 2.5 mg tablet 2.5 mg PO DAILY duloxetine 60 mg capsule,delayed release(DR/EC) 60 mg PO DAILY Yuvafem 10 mcg tablet See Rx Instructions .ROUTE .COMPLEX Rx Instructions: 10 mcg vaginally Thursday &;amp Flonase Allergy Relief 50 mcg/actuation [place],Suspension 2 spray INTRANASAL BID Rx Instructions: administer into each nostril insulin lispro 100 unit/mL insulin pen 3 unit SUBCUT TID Qty: 15 0RF Discharge Orders: Discharge ED (Routine); Ordered 07/11/23 Ordered By: Lilia Trevizo Referrals: Steve Tim DO [Primary Care Provider] - Patient Instructions: Toothache (ED), Opioid Safety, Pain Management, Toothache Coding Level of Care Code ED Rag Cutting Machine Tender for Althea Hutson
[2023-07-11] MEDS: morphine 4 mg/mL SDV 1 mL IM (00:47)
[2023-07-11] MEDS: promethazine 25 mg/mL SDV 1 mL IM (00:47)
[2023-07-11] MEDS: lidocaine 2% viscous 15 mL UDC MUCOUS MEM (00:47)
== END 2023-07-11 01:09 | disposition home or self-care (01) ==
PROVIDERS: Emergency Provider Physician Assistant; PCP Electrodiagnostic Medicine
DX: K08.89 Other specified disorders of teeth and supporting structures (principal); Z79.82 Long term (current) use of aspirin; Z79.4 Long term (current) use of insulin; Z79.01 Long term (current) use of anticoagulants; E78.5 Hyperlipidemia, unspecified; E11.9 Type 2 diabetes mellitus without complications
CPT/HCPCS: 96372; 99284; J2270; J2550

== ENCOUNTER 2023-07-12 07:44 | Emergency (ER) | payer MEDICARE, SELFPAY ==
[2023-07-12] VITALS (7 sets, daily range): BP systolic 191; BP diastolic 102; PULSE 101–105; RESP 17; O2SAT 91–98; BMI 32.4
[2023-07-12] MEDS: sodium chloride 0.9% 1,000 ML 999 ML IV (08:32)
[2023-07-12] MEDS: morphine 4 mg/mL SDV 1 mL IVP (08:33)
[2023-07-12] MEDS: ondansetron 2 mg/ML SDV 2 mL 4 MG IVP (08:33)
[2023-07-12 08:36] LABS: Basophils % 0.1 %; Eosinophils % 0.2 %; Hematocrit 40.7 % (36-47); Lymphocytes # 1.8 10^3/uL (0.8-4.8); Lymphocytes % 21.3 %; Mean Corpuscular HGB Conc 33.4 g/dL (30-55); Mean Corpuscular Hemoglobin 28.9 pg (27-33); Mean Corpuscular Volume 86.6 fl (85-98); Mean Platelet Volume 10.3 fL (7.4-10.4); Monocytes # 0.6 10^3/uL (0.2-0.9); Monocytes % 6.9 %; Neutrophils # 6.06 10^3/uL (1.8-7.7); Neutrophils % 71.3 %; Nucleated Red Blood Cells % 0 %; Platelet Count 242 10^3/cmm (157-399); Red Cell Distribution Width 11.5 % (12.1-15.1); White Blood Count 8.51 10^3/uL (3.29-11.43)
[2023-07-12 08:54] LABS: Blood Urea Nitrogen 8 mg/dL (8-23); Carbon Dioxide 28 mmol/L (22-29); Chloride 99 mmol/L (98-107); Glomerular Filtration Rate 84.5 mL/min (90-130); Glucose 104 mg/dL (65-115); Osmolality Calculated 281 mOsm/kg (285-295); Sodium 136 mmol/L (136-145)
--- NOTE | 2023-07-12 09:24 | CTR_ITS ---
PROCEDURE INFORMATION: Exam: CT Maxillofacial With Contrast Exam date and time: 07/12/2023 9:04 AM Age: 62 years old Clinical indication: Headache and jaw pain; Patient HX: Had a root canal yesterday on lt upper tooth; Additional info: Facial pain/ abscess TECHNIQUE: Imaging protocol: Computed tomography of the face with contrast. Radiation optimization: All CT scans at this facility use at least one of these dose optimization techniques: automated exposure control; mA and/or kV adjustment per patient size (includes targeted exams where dose is matched to clinical indication); or iterative reconstruction. Contrast material: OMNI 350; Contrast volume: 80 ml; Contrast route: INTRAVENOUS (IV); COMPARISON: CT facial bones w con [id number] 07/12/2023 9:04 AM RADIATION DOSE METRICS: Total DLP (mGy-cm): 623.7 FINDINGS: Orbital cavities: Orbits are normal. Globes are unremarkable. Bones/joints: See Dental finding. Paranasal sinuses: See Dental finding. Mastoid air cells: Remaining paranasal sinuses and mastoid air cells are clear Lymph nodes: No adenopathy. Shotty bilateral neck nodes. Soft tissues: Fat planes of the left face are preserved. Pituitary gland and sella: Bilateral infundibula and frontoethmoidal recesses are patent. Mastoid air cells are clear. Dental: Multiple metallic dental crowns create beam hardening effect which obscures surrounding structures and limits the evaluation . Left upper molar tooth# 14 demonstrates up to 3 mm thick periapical lucencies; lucency extends up to the floor of the left maxillary sinus. (series 15, images 30-31). Left maxillary sinus floor demonstrates osseous rarefaction with thin indistinct cortex and possible small areas of bony discontinuity. Left maxillary sinus demonstrates up to 7 mm thick [id number] diffuse mucosal thickening. Constellation of findings suggests odontogenic sinusitis related to apical periodontal disease. Very small periapical lucency surrounding adjacent #15 left upper molar compatible with early apical periodontitis. Trachea: Visualized airways are patent. CT/CT facial bones w con [id number] IMPRESSION: 1. Constellation of findings compatible with odontogenic sinusitis related to apical periodontal disease of the left upper # 14 molar. 2. Very small periapical lucency surrounding adjacent #15 left upper molar compatible with early apical periodontitis.
[2023-07-12] MEDS: iohexol 350 mg/mL 500 mL Btl (per mL) IV (09:28)
--- NOTE | 2023-07-12 10:01 | PC.NURSE ---
Patient was still rating the pain in the left side of her face and head a 10 out of 10 after the morphine. I provided the patient with an ice pack (she requested one) to see if that might help the pain some.
[2023-07-12] MEDS: LORazepam 2 mg/mL INJ 10 mL MDV 1 MG IV (10:53)
[2023-07-12] MEDS: haloperidol inj 5 mg/mL INJ 1 mL IM (10:53)
[2023-07-12] MEDS: diphenhydrAMINE 50 mg/mL SDV 1mL IVP (10:53)
--- NOTE | 2023-07-12 11:21 | ED_ITS ---
HPI - Headache 2 General: Chief Complaint: Headache Stated Complaint: headache, left side mouth pain Time Seen by Provider: 07/12/23 07:56 History of Present Illness: This patient is a 62-year-old white female who presents to the emergency department complaining of a migraine headache. Since patient states this feels like one of her typical migraines however she did undergo a root canal procedure yesterday and is concerned about a possible abscess. Root canal was performed on a left upper molar. She has had some nausea but no vomiting. No fever. Associated symptoms: Reports nausea Review of Systems 2 General: Reports: 10 or more systems reviewed and unremarkable except in HPI and below GI: Reports: nausea Neuro: Reports: headache(s) PFSH ED 2 PFSH: Medical History Arrhythmia Fast heart rate on chronic carvedilol Constipation Recurrent sinusitis Alopecia on finasteride and minoxidil Hyperlipidemia Atypical chest pain COVID-19 (~11/2019) Fibromyalgia syndrome on duloxetine and hydrocodone prn Migraines Diabetes mellitus Insulin requiring Stones, urinary tract History of IBS Surgical History Other postprocedural status trigger point injections, gets periodically, had 07/2021 History of sinus surgery History of cholecystectomy Laparoscopic History of wisdom tooth extraction History of toe surgery joint cleaned out History of kidney surgery Removal of stones History of lumbar discectomy History of cervical discectomy History of carpal tunnel repair History of hysterectomy 1999, TVH/BSO, Performed by Dr. Agustin Family History Mother Hypertension Hyperlipidemia Thyroid disease Heart attack Stroke Father Hypertension Hyperlipidemia Stroke Family history of ITP History of open heart surgery Sister Hypertension Hyperlipidemia Thyroid disease x 2 Grandmother Diabetes Maternal Hyperlipidemia Maternal and paternal Stroke Maternal and paternal Grandfather Diabetes Paternal Hyperlipidemia Maternal and paternal Stroke Maternal and paternal Unknown Patient denies medical problems Denies family history of: breast/ovarian/uterine/colon cancer Social History Smoking and tobacco/nicotine status: never used tobacco/nicotine Second hand smoke exposure: No Alcohol intake: never Substance/Drug Use: never Additional social history: Well balanced diet Physical Exam 2 Const: COMMON NORMALS: patient oriented x3 and no limitations GENERAL APPEARANCE: cooperative HENMT: COMMON NORMALS: normocephalic, atraumatic, Normal nasal mucous membranes and turbinates present, moist oral mucous membranes and oropharynx normal HEAD & SCALP: normal to inspection, normocephalic and atraumatic F ALANNA & SINUS: normal facial exam NOSE: Normal nasal mucous membranes and turbinates present Eye: COMMON NORMALS: Equal, round and reactive pupils present, EOMs intact bilaterally and conjunctivae normal GENERAL EYE: appearance normal, both eyes and all related structures CONJUNCTIVA: Yes conjunctivae normal PUPIL: Yes Equal, round and reactive pupils present Neck/C-Spine: COMMON NORMALS: supple and no JVD Chest: COMMONS NORMALS: normal inspection of the chest Resp: COMMON NORMALS: normal respiratory effort and clear to auscultation bilaterally AUSCULTATION: clear to auscultation bilaterally Cardio: COMMON NORMALS: no JVD, regular rate, regular rhythm, No gallops present (Cardio), No murmurs present (Cardio) and No rub (Cardio) RATE: r egular rate RHYTHM: regular rhythm GI: COMMON NORMALS: Normal to inspection, nondistended, normoactive bowel sounds present, Soft to palpation and non-tender AUSCULTATION: Yes normoactive bowel sounds PALPATION: Yes Soft to palpation : COMMON NORMALS: Yes no CVA tenderness BLADDER/KIDNEY EXAM: Yes no CVA tenderness Back/Pelvis: COMMON NORMALS: no CVA tenderness and thoracic and lumbar spine normal to inspection Extremity: COMMON NORMALS: normal to inspection Neuro: COMMON NORMALS: patient oriented x3 and CN's II-XII intact bilaterally Psych: COMMON NORMALS: mental status grossly normal, Normal thought process present and cooperative THOUGHT PROCESS: Normal thought process present Skin: COMMON NORMALS: no rashes or lesions noted, turgor normal and no jaundice GENERAL SKIN EXAM: no rashes or lesions noted and turgor normal Course 2 Vital Signs: Vital signs: Vital Signs Pulse Rate 102 H 07/12/23 07:50 Respiratory Rate 17 07/12/23 08:33 Blood Pressure 191/102 07/12/23 07:50 Pulse Oximetry 98 07/12/23 08:33 Oxygen Delivery Me thod Room Air 07/12/23 07:50 MDM - Headache Medical Decision Making CT of the facial bones and sinuses did not reveal an abscess. There does appear to be maxillary sinusitis. CBC and BMP were normal. Patient was initially given Dilaudid, Zofran and IV fluids. She continued to have pains we gave her Haldol, Benadryl and Ativan. She is finally resting more comfortably. I will switch her from the penicillin to Augmentin for the sinusitis. She does have narcotic pain medication that her dentist prescribed. Recommended she follow-up with her dentist and her primary care physician for ongoing management. She was discharged in stable condition. Lab Data 07/12/23 08:30 07/12/23 08:[address] 07/12/23 09:24 IMPRESSION: 1. Constellation of findings compatible with odontogenic sinusitis related to apical periodontal disease of the left upper # 14 molar. 2. Very small periapical lucency surrounding adjacent #15 left upper molar compatible with early apical periodontitis. Laboratory Results WBC 8.51 10^3/uL (3.29-11.43) 07/12/23 08:30 RBC 4.70 10^6/uL (3.85-5.65) 07/12/23 08:30 Hgb 13.60 g/dL (11.27-16.99) 07/12/23 08:30 Hct 40.7 % (36-47) 07/12/23 08:30 MCV 86.6 fl (85-98) 07/12/23 08:30 MCH 28.9 pg (27-33) 07/12/23 08:30 MCHC 33.4 g/dL (30-55) 07/12/23 08:30 RDW 11.5 % (12.1-15.1) L 07/12/23 08:30 Plt Count 242 10^3/cmm (157-399) 07/12/23 08:30 MPV 10.3 fL (7.4-10.4) 07/12/23 08:30 Neut % (Auto) 71.3 % 07/12/23 08:30 Lymph % (Auto) 21.3 % 07/12/23 08:30 [place] % (Auto) 6.9 % 07/12/23 08:30 Eos % (Auto) 0.2 % 07/12/23 08:30 Baso % (Auto) 0.1 % 07/12/23 08:30 Neut # (Auto) 6.06 10^3/uL (1.8-7.7) 07/12/23 08:30 Lymph # (Auto) 1.8 10^3/uL (0.8-4.8) 07/12/23 08:30 [place] # (Auto) 0.6 10^3/uL (0.2-0.9) 07/12/23 08:30 Eos # (Auto) 0.0 10^3/uL (0.0-0.8) 07/12/23 08:30 Baso # (Auto) 0.0 10^3/uL (0.0-0.1) 07/12/23 08:30 Nucleated RBC % (auto) 0 % 07/12/23 08:30 Nucleated RBCs # 0.0 /100WBC 07/12/23 08:30 Sodium 136 mmol/L (136-145) 07/12/23 08:30 Potassium 4.0 mmol/L (3.5-5.1) 07/12/23 08:30 Chloride 99 mmol/L (98-107) 07/12/23 08:30 Carbon Dioxide 28 mmol/L (22-29) 07/12/23 08:30 Anion Gap 13.0 (5-19) 07/12/23 08:30 BUN 8 mg/dL (8-23) 07/12/23 08:30 Creatinine 0.7 mg/dL (0.5-0.9) 07/12/23 08:30 GFR Calculation 84.5 mL/min (90-130) L 07/12/23 08:30 Glucose 104 mg/dL (65-115) 07/12/23 08:30 Calculated Osmolality 281 mOsm/kg (285-295) L 07/12/23 08:30 Calcium 9.0 mg/dL (8.5-10.5) 07/12/23 08:30 All radiology interpretation(s) finalized by discharge Discharge Plan Discharge Patient Disposition: Home Clinical Impression: Headache Qualifiers: Headache type: unspecified Headache chronicity pattern: episodic headache I ntractability: not intractable Qualified Code(s): R51.9 - Headache, unspecified Sinusitis Qualifiers: Sinusitis location: maxillary Chronicity: acute Recurrence: not specified as recurrent Qualified Code(s): J01.00 - Acute maxillary sinusitis, unspecified Condition: Stable Prescriptions: New amoxicillin-pot clavulanate 875-125 mg tablet 1 tab PO BID Qty: 28 0RF No Action eletriptan [Relpax] 40 mg tablet 40 mg PO PRN Lantus U-100 Insulin 100 unit/mL solution 50 unit SUBCUT DAILY@21 promethazine 12.5 mg tablet 12.5 mg PO Q6H PRN (Reason: nausea and vomiting) Qty: 20 0RF lactulose 10 gram/15 mL (15 mL) solution 15 ml PO DAILY Rx Instructions: take 15ml po every 6 hours prn for constipation omeprazole 40 mg capsule,delayed release(DR/EC) 40 mg PO DAILY biest/progesterone as directed levetiracetam 500 mg tablet See Rx Instructions .ROUTE .COMPLEX Qty: 90 0RF Dose Instruction: Take 1/2 (one-half) tablet by mouth twice daily Rx Instructions: Take 1/2 (one-half) tablet by mouth twice daily carvedilol 6.25 mg tablet See Rx Instructions .ROUTE .COMPLEX Qty: 180 0RF Dose Instruction: Take 1 tablet by mouth twice daily Rx Instructions: Take 1 tablet by mouth twice daily simvastatin 40 mg tablet See Rx Instructions .ROUTE .COMPLEX Qty: 90 3RF Dose Instruction: TAKE 1 TABLET EVERY EVENING Rx Instructions: TAKE 1 TABLET EVERY EVENING aspirin 81 mg tablet,delayed release (DR/EC) 81 mg PO QPM promethazine 25 mg tablet 25 mg PO Q6H PRN (Reason: Nausea) Hold Instructions: do not take while taking metoclopramide finasteride 5 mg tablet 5 mg PO QAM Trulicity 0.75 mg/0.5 mL pen injector 0.75 mg SUBCUT Q7D Rx Instructions: on thursday hydrocodone-acetaminophen 10-325 mg tablet 1 tab PO BID minoxidil 2.5 mg tablet 2.5 mg PO DAILY duloxetine 60 mg capsule,delayed release(DR/EC) 60 mg PO DAILY Yuvafem 10 mcg tablet See Rx Instructions .ROUTE .COMPLEX Rx Instructions: 10 mcg vaginally Thursday &;amp Flonase Allergy Relief 50 mcg/actuation [place],Suspension 2 spray INTRANASAL BID Rx Instructions: administer into each nostril insulin lispro 100 unit/mL insulin pen 3 unit SUBCUT TID Qty: 15 0RF Lidocaine Viscous 2 % solution 15 ml MUCOUS MEM QID Qty: 100 0RF Rx Instructions: Mix with water and swish for 60 seconds, then spit hydrocodone-acetaminophen 5-325 mg tablet 1 tab PO Q6H PRN (Reason: pain) Qty: 10 0RF Discharge Orders: Discharge ED (Routine); Ordered 07/12/23 Ordered By: Deng Hernadez Referrals: Steve Tim DO [Primary Care Provider] - 1-3 days Patient Instructions: Opioid Safety, Pain Management Coding Level of Care Code ED Electronic [employer] for Althea Hutson
== END 2023-07-12 11:38 | disposition home or self-care (01) ==
PROVIDERS: Emergency Provider Emergency Medicine; PCP Electrodiagnostic Medicine
DX: R51.9 Headache, unspecified (principal); J01.00 Acute maxillary sinusitis, unspecified; Z79.82 Long term (current) use of aspirin; Z79.85 Long-term (current) use of injectable non-insulin antidiabetic drugs; Z79.4 Long term (current) use of insulin; E78.5 Hyperlipidemia, unspecified; E11.9 Type 2 diabetes mellitus without complications
CPT/HCPCS: 70487; 80048; 85025; 96361; 96372; 96374; 96375; 99285; J1200; J1630; J2060; J2270; J2405; J7030; Q9967

== ENCOUNTER 2023-09-14 13:35 | Outpatient (CLI) | payer MEDICARE, SELFPAY ==
--- NOTE | 2023-09-14 13:30 | XR_ITS ---
WS: [id number] DEXA (DUAL ENERGY X-RAY ABSORPTIOMETRY) Bone mineral density was performed using a [employer] machine. HISTORY: Z78.0 - Asymptomatic menopausal state COMPARISON: 07/23/2020 Left forearm BMD: 0.743 g/cm2. T score: -1.5 Z score: -0.3 Total hip BMD: Left: 0.884 g/cm2. T score: -1.0 Z score: -0.4 Right: 0.894 g/cm2. T score: -0.9 Z score: -0.4 10 year probability of a major osteoporotic fracture is 9.9%. Compared to the prior study from 07/23/2020. Bilateral hips bone mineral density has decreased by 2.7%. IMPRESSION: OSTEOPENIA based upon the WHO classification for females. Significant decrease in bone mineral density within the hips since the prior study.
== END 2023-09-14 13:36 | disposition home or self-care (01) ==
LOC: RAD 13:36
PROVIDERS: PCP Electrodiagnostic Medicine; Visit Provider Nurse Practitioner Women's Health
DX: Z78.0 Asymptomatic menopausal state (principal); M85.80 Other specified disorders of bone density and structure, unspecified site
CPT/HCPCS: 77080

== ENCOUNTER 2024-05-23 14:55 | Outpatient (CLI) | payer MEDICARE, SELFPAY ==
--- NOTE | 2024-05-23 15:01 | MR_ITS ---
WS: [id number] MRI LUMBAR SPINE NONCONTRAST TECHNIQUE: Sagittal T1, T2 and STIR imaging. Axial T1 and T2 imaging. CLINICAL INFORMATION: Intervertebral Disc Disorder Lumbar Region COMPARISON: None. FINDINGS: Mild lumbar curve. No acute compression. Disc bulging worse at L5-S1. Evidence of prior hemilaminecto my L4-5. L1-L2: Spinal canal and foramen are patent. L2-L3: Mild annular bulging. Slight narrowing the RIGHT subarticular recess. Small bilateral foramina l protrusions RIGHT greater than LEFT with mild bilateral foraminal narrowing. Mild facet arthropathy . L3-L4: Slight retrolisthesis. Mild annular bulging with slight impingement the LEFT subarticular rece ss and traversing LEFT L4 nerve root. Mild facet arthropathy. Mild LEFT and no significant RIGHT fora johnnie narrowing. Mild facet arthropathy. L4-L5: Mild disc bulging with slight impingement LEFT subarticular recess and traversing LEFT L5 nerv e root. Moderate facet arthropathy. Mild LEFT and no significant RIGHT foraminal narrowing. L5-S1: Slight retrolisthesis. Mild disc bulging with impingement on the RIGHT S1 nerve root. Mild fac et arthropathy. Moderate RIGHT and mild LEFT foraminal narrowing. Visualized pelvic bony structures: Normal. Paravertebral soft tissues: Normal. MR/MR lumbar spine wo con* [id number] IMPRESSION: 1. Mild central canal stenosis L3-L4 and L4-L5. 2. Impingement on the LEFT L3-4 and LEFT L4-5 subarticular recess with impinge ment on the traversing LEFT L4 and LEFT L5 nerve roots respectively. 3. Disc bulge L5-S1 with impingement traversing RIGHT S1 nerve root in the sub articular recess. 4. Moderate RIGHT L5-S1 foraminal narrowing. 5. Small RIGHT foraminal protrusion L2-3 with mild RIGHT foraminal narrowing. 6. Small LEFT foraminal protrusion L3-4 slightly impinges the exiting L3 nerve root. 7. Prior hemilaminectomy defects L4-5.
== END 2024-05-23 14:56 | disposition home or self-care (01) ==
LOC: RAD 14:59
PROVIDERS: PCP Electrodiagnostic Medicine; Visit Provider Electrodiagnostic Medicine
DX: M51.06 Intervertebral disc disorders with myelopathy, lumbar region (principal); M47.896 Other spondylosis, lumbar region; M99.63 Osseous and subluxation stenosis of intervertebral foramina of lumbar region; M54.16 Radiculopathy, lumbar region
CPT/HCPCS: 72148

== ENCOUNTER 2024-08-01 15:18 | Emergency (ER) | payer MEDICARE, SELFPAY ==
[2024-08-01 15:36] VITALS: BP 110/70; PULSE 98; TEMP 36.7; O2SAT 98; BMI 26.1
[2024-08-01 19:02] LABS: Basophils % 0.1 %; Eosinophils % 0.5 %; Hematocrit 40.4 % (36-47); Lymphocytes # 2.4 10^3/uL (0.8-4.8); Lymphocytes % 29.5 %; Mean Corpuscular HGB Conc 32.7 g/dL (30-55); Mean Corpuscular Hemoglobin 28.4 pg (27-33); Mean Corpuscular Volume 86.9 fl (85-98); Mean Platelet Volume 10.6 fL (7.4-10.4); Monocytes # 0.5 10^3/uL (0.2-0.9); Monocytes % 5.8 %; Neutrophils # 5.08 10^3/uL (1.8-7.7); Neutrophils % 63.8 %; Nucleated Red Blood Cells % 0 %; Platelet Count 246 10^3/cmm (157-399); Red Blood Count 4.65 10^6/uL (3.85-5.65); Red Cell Distribution Width 11.9 % (12.1-15.1); White Blood Count 7.96 10^3/uL (3.29-11.43)
[2024-08-01 19:22] LABS: Alanine Aminotransferase 46 U/L (0-33); Albumin Level 4.2 g/dL (3.5-5.2); Alkaline Phosphatase 73 U/L (35-105); Aspartate Amino Transferase 70 U/L (0-32); Blood Urea Nitrogen 9 mg/dL (8-23); Calcium 9.4 mg/dL (8.5-10.5); Carbon Dioxide 28 mmol/L (22-29); Chloride 102 mmol/L (98-107); Creatinine Clr Calc Pharmacy 97.1584; Globulin 2.9 g/dL (1.3-4.6); Glomerular Filtration Rate 100.6 mL/min (90-130); Glucose 93 mg/dL (65-115); Lipase 46 U/L (13-60); Osmolality Calculated 284 mOsm/kg (285-295); Sodium 138 mmol/L (136-145); Total Bilirubin 0.3 mg/dL (0.15-1.2); Total Protein 7.1 g/dL (6.6-8.7)
--- NOTE | 2024-08-01 21:01 | XRR_ITS ---
PROCEDURE INFORMATION: Exam: XR Abdomen Exam date and time: 08/01/2024 9:05 PM Age: 63 years old Clinical indication: Abdominal pain; Acute; Prior surgery; Surgery date: 6+ months; Surgery type: Hyst choley; Additional info: Ruq pain, HX of constipation TECHNIQUE: Imaging protocol: Radiologic exam of the abdomen. Views: Frontal supine view of the abdomen. 1 View. COMPARISON: CT abdomen pelvis w con* [id number] 08/28/2021 9:44 AM FINDINGS: Gastrointestinal tract: There is excessive colonic stool content. Organs: There has been a cholecystectomy. Vasculature: There are numerous benign phleboliths in the pelvis. Bones/joints: There are mild degenerative changes of the hip joints. The pubic symphysis demonstrates mild degenerative changes. XR/XR KUB portable [id number] IMPRESSION: Constipation.
--- NOTE | 2024-08-01 21:02 | W.ED.ABDPA2 ---
HPI - Abdominal Pain General: Chief Complaint: Abdominal Pain Stated Complaint: abd pain Time Seen by Provider: 08/01/24 20:46 Source: patient Mode of arrival: ambulatory Limitations: no limitations History of Present Illness: Patient is a 63-year-old female with a past medical history of IBS-C, diabetes, and fibromyalgia who presents the emergency department complaining of right upper quadrant abdominal pain since last night. She notes that the pain woke her up from sleep, though she does have a history of cholecystectomy that she states was years ago. Does note some nausea and 1 episode of vomiting, and overall states that she does feel constipated. She did try an enema earlier today, which did relieve her of stool but did not change her pain much. States that she does not chronically take narcotic pain medications. No changes in her diet. States that movement makes her pain worse, no other specific alleviating or exacerbating factor. Other than the enema she has not tried anything for the pain. She is not reporting any fever, history of pancreatitis or heavy alcohol use, jaundice, hematochezia or melena, diarrhea, chest pain or shortness of breath, or any other symptoms at this time. Her vitals are within normal limits. Patient states she still does have her appendix. MD elicited complaint: abdominal pain Pertinent past history: constipation Onset (ago): day(s) Pain Consistency: constant Location: RUQ Severity: severe Pain scale (0-10): 8 Quality: fullness Radiation: none Migration to: no migration Exacerbating factors: movement Relieving factors: nothing Associated Symptoms: Reports constipation, nausea and vomiting; Denies bloating, chills, diarrhea, dysuria, fever(s) and hematochezia Treatments prior to arrival: other (Enema) Related Data Home Medications ?Medication ?Instructions ?Recorded ?Confirmed eletriptan 40 mg tablet (Relpax) 40 mg PO PRN 06/15/19 07/11/24 aspirin 81 mg tablet,delayed 81 mg PO QPM 07/06/20 07/11/24 release finasteride 5 mg tablet 5 mg PO QAM 07/06/20 07/11/24 duloxetine 60 mg capsule,delayed 60 mg PO DAILY 08/28/21 07/11/24 release fluticasone propionate 50 2 spray intranasal BID 08/28/21 07/11/24 mcg/actuation nasal spray,suspension (Flonase Allergy Relief) minoxidil 2.5 mg tablet 2.5 mg PO DAILY 08/28/21 07/11/24 insulin glargine 100 unit/mL 40 unit SUBCUT DAILY@21 09/01/23 07/11/24 subcutaneous solution (Lantus U-100 Insulin) tirzepatide 10 mg/0.5 mL 12.5 mg SUBCUT .weekly 12/24/23 07/11/24 subcutaneous pen injector (Grace) Previous Rx's ?Medication ?Instructions ?Recorded promethazine 12.5 mg tablet 12.5 mg PO Q6H PRN nausea and 12/06/21 vomiting #20 tabs carvedilol 6.25 mg tablet See Rx Instructions .Route 08/12/22 .COMPLEX #180 tabs levetiracetam 500 mg tablet See Rx Instructions .Route 08/12/22 .COMPLEX #90 tabs estradiol 10 mcg vaginal tablet 10 mcg vaginal .twice weekly #24 09/01/23 (Yuvafem) tabs simvastatin 40 mg tablet See Rx Instructions .Route 05/17/24 .COMPLEX #90 tabs Allergies Allergy/AdvReac Type Severity Reaction Status Date / Time Sulfa (Sulfonamide Allergy Mild unknown Verified 08/01/24 15:42 Antibiotics) pregabalin (From Lyrica) Allergy swelling Verified 08/01/24 15:42 tramadol Allergy swelling Verified 08/01/24 15:42 surgical glue Allergy Unknown Uncoded 08/01/24 15:42 Review of Systems General: Reports: 10 or more systems reviewed and unremarkable except in HPI and below Const: Denies: fever(s), chills, change in appetite, change in weight or diaphoresis ENMT: Denies: throat pain or hoarseness Card: Denies: chest pain, palpitations or lightheadedness Resp: Denies: dyspnea, productive cough or wheezing GI: Reports: abdominal pain, nausea, vomiting and constipation; Denies: diarrhea, bloating or hematochezia : Denies: flank pain, difficulty voiding, dysuria, urinary frequency or urinary urgency Musc: Denies: neck pain or back pain Skin/Breast: Denies: rash or new lesions Neuro: Denies: headache(s) or dizziness PFSH ED PFSH: Medical History Arrhythmia Fast heart rate on chronic carvedilol Constipation Recurrent sinusitis Alopecia on finasteride and minoxidil Hyperlipidemia Atypical chest pain COVID-19 (~11/2019) Fibromyalgia syndrome on duloxetine and hydrocodone prn Migraines Diabetes mellitus Insulin requiring Stones, urinary tract History of IBS Surgical History H/O stem cell transplant (~06/2023) both knees-- performed by Dr. Daugherty Other postprocedural status trigger point injections, gets periodically, had 07/2021 History of sinus surgery History of cholecystectomy Laparoscopic History of wisdom tooth extraction History of toe surgery joint cleaned out History of kidney surgery Removal of stones History of lumbar discectomy History of cervical discectomy History of carpal tunnel repair History of hysterectomy 1999, TVH/BSO, Performed by Dr. Agustin Family History Mother Hypertension Hyperlipidemia Thyroid disease Heart attack Stroke Father Hypertension Hyperlipidemia Stroke Family history of ITP History of open heart surgery Sister Hypertension Hyperlipidemia Thyroid disease x 2 Grandmother Diabetes Maternal Hyperlipidemia Maternal and paternal Stroke Maternal and paternal Grandfather Diabetes Paternal Hyperlipidemia Maternal and paternal Stroke Maternal and paternal Unknown Patient denies medical problems Denies family history of: breast/ovarian/uterine/colon cancer Social History Smoking and tobacco/nicotine status: never used tobacco/nicotine Physical Exam Const: COMMON NORMALS: no acute distress, average body habitus, patient oriented x3, no limitations, healthy appearing, alert and well nourished GENERAL APPEARANCE: cooperative and comfortable ORIENTATION/CONSCIOUSNESS: Yes awake HENMT: COMMON NORMALS: normocephalic, atraumatic, hearing grossly normal bilaterally, external ears normal, Normal external nose present, Normal nasal mucous membranes and turbinates present and moist oral mucous membranes HEAD & SCALP: normocephalic and atraumatic NOSE: Normal external nose present and Normal nasal mucous membranes and turbinates present EXTERNAL EAR: Yes external ears normal Eye: COMMON NORMALS: Equal, round and reactive pupils present, EOMs intact bilaterally, conjunctivae normal and normal visual reeves by confrontation CONJUNCTIVA: Yes conjunctivae normal PUPIL: Yes Equal, round and reactive pupils present Neck/C-Spine: COMMON NORMALS: full ROM, supple, no meningeal signs and no JVD Resp: COMMON NORMALS: normal respiratory effort, No retractions, No use of accessory muscles and clear to auscultation bilaterally AUSCULTATION: clear to auscultation bilaterally, no crackles, no rales, no rhonchi and no wheezes Cardio: COMMON NORMALS: no JVD, regular rate, regular rhythm, S1 normal heart sound present, S2 normal heart sound present, No gallops present (Cardio), No clicks present (Cardio), No murmurs present (Cardio), No rub (Cardio) and Peripheral pulses 2+ throughout RATE: regular rate RHYTHM: regular rhythm HEART SOUNDS: S1 normal heart sound present and S2 normal heart sound present PERIPHERAL PULSES: Peripheral pulses 2+ throughout GI: COMMON NORMALS: Normal to inspection, nondistended, normoactive bowel sounds present, Soft to palpation, No hepatosplenomegaly present and no masses AUSCULTATION: Yes normoactive bowel sounds PALPATION: Yes Soft to palpation, Yes Tenderness to palpation present (GI) Details: RUQ, No Guarding due to palpation present (GI), No Rigid due to palpation and Yes No hepatosplenomegaly present RECTAL EXAM: deferred : COMMON NORMALS: Yes no CVA tenderness BLADDER/KIDNEY EXAM: Yes no CVA tenderness Back/Pelvis: COMMON NORMALS: no CVA tenderness Extremity: COMMON NORMALS: normal to inspection and full ROM Neuro: COMMON NORMALS: patient oriented x3, moves all extremities, no focal motor deficits and no sensory deficits noted SENSORIUM/ORIENTATION: Yes alert MENINGEAL SIGNS: Yes no meningeal signs Psych: COMMON NORMALS: mental status grossly normal, cooperative and speech normal SPEECH: Yes normal speech Skin: COMMON NORMALS: no rashes or lesions noted GENERAL SKIN EXAM: no rashes or lesions noted Course Vital Signs: Vital signs: Vital Signs Temperature 98.0 F 08/01/24 15:36 Pulse Rate 98 08/01/24 15:36 Blood Pressure 89/57 08/01/24 23:00 Pulse Oximetry 95 08/01/24 23:00 Oxygen Delivery Me thod Room Air 08/01/24 15:36 MDM - Abdominal Pain Medical Decision Making Patient presented with right upper quadrant pain waking her from sleep last night. History of cholecystectomy. Episode of vomiting and some nausea reported, no other concerning symptoms. Vitals have been unremarkable throughout ED stay. Lab work was all normal, mild microscopic hematuria noted on urinalysis but she had no urinary symptoms to report. Initially obtained KUB that showed constipation, which patient has a history of chronic IBS-C. Patient does still reported she was in quite a bit of pain after receiving Toradol and having Fleet enema earlier before coming in, so ordered CT that ruled out any acute process. She does have a history of fibromyalgia as well and this could be causal for the pain as well as any other musculoskeletal etiology, I suspect constipation and will send her home with mag citrate, lactulose, and mineral oil. Discussed with her return precautions and necessary follow-up with primary care, on which she verbalized understanding. Lab Data 08/01/24 18:29 08/01/24 18:29 Labs/Radiology: Radiology Impressions KUB X-Ray 08/01/24 21:01 IMPRESSION: Constipation. Abdomen/Pelvis CT 08/01/24 22:24 IMPRESSION: No acute intra-abdominal process. Laboratory Results WBC 7.96 10^3/uL (3.29-11.43) 08/01/24 18:29 RBC 4.65 10^6/uL (3.85-5.65) 08/01/24 18:29 Hgb 13.20 g/dL (11.27-16.99) 08/01/24 18:29 Hct 40.4 % (36-47) 08/01/24 18:29 MCV 86.9 fl (85-98) 08/01/24 18:29 MCH 28.4 pg (27-33) 08/01/24 18: MCHC 32.7 g/dL (30-55) 08/01/24 18:29 RDW 11.9 % (12.1-15.1) L 08/01/24 18:29 Plt Count 246 10^3/cmm (157-399) 08/01/24 18:29 MPV 10.6 fL (7.4-10.4) H 08/01/24 18:29 Neut % (Auto) 63.8 % 08/01/24 18:29 Lymph % (Auto) 29.5 % 08/01/24 18:29 [place]ady % (Auto) 5.8 % 08/01/24 18:29 Eos % (Auto) 0.5 % 08/01/24 18:29 Baso % (Auto) 0.1 % 08/01/24 18: Neut # (Auto) 5.08 10^3/uL (1.8-7.7) 08/01/24 18: Lymph # (Auto) 2.4 10^3/uL (0.8-4.8) 08/01/24 18: [place]ady # (Auto) 0.5 10^3/uL (0.2-0.9) 08/01/24 18: Eos # (Auto) 0.0 10^3/uL (0.0-0.8) 08/01/24 18: Baso # (Auto) 0.0 10^3/uL (0.0-0.1) 08/01/24 18: Nucleated RBC % (auto) 0 % 08/01/24 18: Nucleated RBCs # 0.0 /100WBC 08/01/24 18: Sodium 138 mmol/L (136-145) 08/01/24 18: Potassium 4.0 mmol/L (3.5-5.1) 08/01/24 18: Chloride 102 mmol/L (98-107) 08/01/24 18: Carbon Dioxide 28 mmol/L (22-29) 08/01/24 18: Anion Gap 12.0 (5-19) 08/01/24 18: BUN 9 mg/dL (8-23) 08/01/24 18: Creatinine 0.6 mg/dL (0.5-0.9) 08/01/24 18: GFR Calculation 100.6 mL/min (90-130) 08/01/24 18: Glucose 93 mg/dL (65-115) 08/01/24 18: Calculated Osmolality 284 mOsm/kg (285-295) L 08/01/24 18: Calcium 9.4 mg/dL (8.5-10.5) 08/01/24 18: Total Bilirubin 0.3 mg/dL (0.15-1.2) 08/01/24 18: AST 70 U/L (0-32) H 08/01/24 18: ALT 46 U/L (0-33) H 08/01/24 18: Alkaline Phosphatase 73 U/L (35-105) 08/01/24 18: Total Protein 7.1 g/dL (6.6-8.7) 08/01/24 18: Albumin 4.2 g/dL (3.5-5.2) 08/01/24 18: Globulin 2.9 g/dL (1.3-4.6) 08/01/24 18: Lipase 46 U/L (13-60) 08/01/24 18:29 Urine Color Yellow (Yellow) 08/01/24 18: Urine Appearance Clear (CLEAR) 08/01/24 18: Urine pH 5.5 (5-7) 08/01/24 18: Ur Specific [place] 1.014 (1.005-1.030) 08/01/24 18: Urine Protein Negative (Negative) 08/01/24 18: Urine Glucose (UA) Negative (Normal) 08/01/24 18: Urine Ketones Trace (Negative) 08/01/24 18: Urine Blood 1+ (Negative) A 08/01/24 18:29 Urine Nitrate Negative (Negative) 08/01/24 18: Urine Bilirubin Negative (Negative) 08/01/24 18: Urine Urobilinogen 1.0 mg/dL (Negative) 08/01/24 18:29 Ur Leukocyte Esterase Negative (Negative) 08/01/24 18:29 Urine RBC 10-15 /hpf (0-2) H 08/01/24 18:29 Urine WBC None /hpf (0-5) 08/01/24 18:29 Ur Squamous Epith Cells 0-4 /hpf (0-5) H 08/01/24 18:29 Calcium Oxalate Crystal 0-4 /hpf H 08/01/24 18:29 Amorphous Sediment Not Reportable 08/01/24 18:29 Urine Bacteria None /hpf (NONE) 08/01/24 18:29 Urine Mucus Trace /hpf 08/01/24 18:29 All radiology interpretation(s) finalized by discharge Discharge Plan Discharge Patient Disposition: Home Clinical Impression: Constipation Qualifiers: Constipation type: unspecified constipation type Qualified Code(s): K59.00 - Constipation, unspecified Abdominal pain Qualifiers: Abdominal location: right upper quadrant Qualified Code(s): R10.11 - Right upper quadrant pain Condition: Stable Prescriptions: No Action eletriptan [Relpax] 40 mg tablet 40 mg PO PRN Lantus U-100 Insulin 100 unit/mL solution 40 unit SUBCUT DAILY@21 promethazine 12.5 mg tablet 12.5 mg PO Q6H PRN (Reason: nausea and vomiting) Qty: 20 0RF Yuvafem 10 mcg tablet 10 mcg vaginal .twice weekly Qty: 24 3RF Mounjaro 10 mg/0.5 mL pen injector 12.5 mg SUBCUT .weekly levetiracetam 500 mg tablet See Rx Instructions .ROUTE .COMPLEX Qty: 90 0RF Dose Instruction: Take 1/2 (one-half) tablet by mouth twice daily Rx Instructions: Take 1/2 (one-half) tablet by mouth twice daily carvedilol 6.25 mg tablet See Rx Instructions .ROUTE .COMPLEX Qty: 180 0RF Dose Instruction: Take 1 tablet by mouth twice daily Rx Instructions: Take 1 tablet by mouth twice daily simvastatin 40 mg tablet See Rx Instructions .ROUTE .COMPLEX Qty: 90 3RF Dose Instruction: TAKE 1 TABLET EVERY EVENING Rx Instructions: TAKE 1 TABLET EVERY EVENING aspirin 81 mg tablet,delayed release (DR/EC) 81 mg PO QPM finasteride 5 mg tablet 5 mg PO QAM minoxidil 2.5 mg tablet 2.5 mg PO DAILY duloxetine 60 mg capsule,delayed release(DR/EC) 60 mg PO DAILY Flonase Allergy Relief 50 mcg/actuation [place],Suspension 2 spray INTRANASAL BID Rx Instructions: administer into each nostril Discharge Orders: Discharge ED (Routine); Ordered 08/01/24 Ordered By: Sebastian Shetty Referrals: Steve Tim DO [Primary Care Provider] - Patient Instructions: Constipation (ED), Abdominal Pain (ED) Activity Restrictions/Additional Instructions: Lactulose, mineral oil, and magnesium citrate at home as we discussed. Increase your dietary fiber and drink plenty of fluids. Continue taking home medications. Follow-up with primary care later this week for general reevaluation. If you develop any new or concerning symptoms please return to the emergency department. Please see the attached patient instructions for further education. Print Language: Tamazight Coding Level of Care Code ED [employer] Manager for [employer]thea Hutson
[2024-08-01 21:21] LABS: Bilirubin Urine Negative (Negative); Blood Urine 1+ (Negative); Glucose Urine UA Negative (Normal); Ketones Urine Trace (Negative); Leukocyte Esterase Urine Negative (Negative); Nitrate Urine Negative (Negative); Protein Urine Negative (Negative); Specific Gravity, Urine 1.014 (1.005-1.030); Urine Appearance Clear (CLEAR); Urine Color Yellow (Yellow); pH Urine 5.5 (5-7)
[2024-08-01] MEDS: ketorolac 60 mg/2 mL INJ IM (21:27)
[2024-08-01 21:31] LABS: Add Urine Microscopic? YES; Squamous Epithelial Cell Urine 0-4 /hpf (0-5)
[2024-08-01 21:32] LABS: Calcium Oxalate Crystals Urine 0-4 /hpf; Mucus Urine TRACE /hpf
[2024-08-01 21:49] VITALS: O2SAT 97
--- NOTE | 2024-08-01 22:24 | CTR_ITS ---
PROCEDURE INFORMATION: Exam: CT Abdomen And Pelvis With Contrast Exam date and time: 08/01/2024 10:38 PM Age: 63 years old Clinical indication: Abdominal pain; Localized; Right upper quadrant (ruq); Prior surgery; Surgery date: 6+ months; Surgery type: Gb, hysterectomy; Additional info: Ruq pain, HX of lauryn, still /10 after meds TECHNIQUE: Imaging protocol: Computed tomography of the abdomen and pelvis with contrast. Radiation optimization: All CT scans at this facility use at least one of these dose optimization techniques: automated exposure control; mA and/or kV adjustment per patient size (includes targeted exams where dose is matched to clinical indication); or iterative reconstruction. Contrast material: OMNIPAQUE 350; Contrast volume: 100 ml; Contrast route: INTRAVENOUS (IV); COMPARISON: CT abdomen pelvis w con* [id number] 08/28/2021 9:44 AM RADIATION DOSE METRICS: Total DLP (mGy-cm): 501.93 FINDINGS: Liver: Normal. No mass. Gallbladder and biliary ducts: There has been a cholecystectomy. Pancreas: Normal. No ductal dilation. Spleen: Normal. No splenomegaly. Adrenal glands: Normal. No mass. Kidneys and ureters: There is an 8 mm nonobstructing stone in the lower pole of the left kidney. There is no evidence of hydronephrosis. Stomach and bowel: Unremarkable. No obstruction. No mucosal thickening. Appendix: No evidence of appendicitis. Intraperitoneal space: Unremarkable. No free air. No significant fluid collection. Vasculature: Calcified atheromas of the visualized arteries. There are numerous benign phleboliths in the pelvis. Lymph nodes: Unremarkable. No enlarged lymph nodes. Urinary bladder: Unremarkable as visualized. Reproductive: There has been a hysterectomy. Bones/joints: There are mild degenerative changes of the sacroiliac joints. The pubic symphysis demonstrates mild degenerative changes. There are mild degenerative changes of the hip joints. The lumbar spine demonstrates mild degenerative changes at multiple levels. Soft tissues: Unremarkable. CT/CT abdomen pelvis w con* [id number] IMPRESSION: No acute intra-abdominal process.
[2024-08-01] MEDS: iohexol 350 mg/mL 500 mL Btl (per mL) IV (22:37)
[2024-08-01 23:00] VITALS: BP 89/57; O2SAT 95
[2024-08-01] MEDS: lactulose oral liq 20 gm/30 mL UDC 30 GM PO (23:19)
[2024-08-01] MEDS: magnesium citrate Btl 296 mL PO (23:19)
[2024-08-01] MEDS: mineral oil 30 mL UDC PO (23:19)
[2024-08-01 23:25] VITALS: BP 141/81; PULSE 87; RESP 16; O2SAT 97
== END 2024-08-01 23:26 | disposition home or self-care (01) ==
PROVIDERS: Emergency Medicine; Emergency Provider Physician Assistant; PCP Electrodiagnostic Medicine
DX: K59.00 Constipation, unspecified (principal); R10.11 Right upper quadrant pain; E78.5 Hyperlipidemia, unspecified; E11.9 Type 2 diabetes mellitus without complications
CPT/HCPCS: 36415; 74018; 74177; 80053; 81001; 83690; 85025; 96372; 99285; J1885

== ENCOUNTER → 2024-09-13 14:06 | Outpatient (BNVA) | payer MEDICARE, SELFPAY | PROVIDERS: PCP Electrodiagnostic Medicine; Visit Provider Nurse Practitioner Women's Health | DX: M79.7 Fibromyalgia (principal) | CPT/HCPCS: 82306; 84443 ==

== ENCOUNTER 2024-10-06 08:28 | Outpatient (CLI) | payer MEDICARE, SELFPAY ==
--- NOTE | 2024-10-06 08:34 | FL_ITS ---
WS: [id number] [place] gastro [id number] REASON FOR EXAM: GASTROPARESIS FLUOROSCOPY TIME: 2min [id number] # OF SPOT FILMS: 13 TECHNIQUE: The examination was ordered as a Gastrografin small bowel follow-through. After interviewing the patient no indication for Gastrografin was found. Patient ingested a thin barium meal. Prone images were obtained at 30 minutes 1 hour, 2 hours, and 4 hours. After 2 hours the patient was allowed to eat and return for the final images. Fluoroscopy and fluoroscopically directed spot images were obtained at 2 hours. FINDINGS: 1 hour after thin barium medial contrast has progressed from the stomach into the proximal jejunum. At 2 hours the barium had progressed into the hepatic flexure of the colon. At 4 hours there was further progression of barium into the right colon but no advancement of the contrast column beyond the hepatic flexure. The patient's ligament of Treitz is in an abnormal position in the midline inferior to the stomach. There was a mild extrinsic compression of the duodenum/jejunum at this point. On the patient's previous CT scan this portion of the bowel can be seen lying between the proximal superior mesenteric artery and the aorta. There was mild dilatation of the duodenum proximal to this point. CT confirms low position of the presumed ligament of Treitz. The jejunum and the ileum demonstrated normal mucosa and caliber. No extrinsic or intrinsic mass effect noted. Terminal ileum is normal. FL/FL small bowel FT gastro [id number] IMPRESSION: Ingested contrast reaches the colon between 1 hour and 2 hours likely near the 90-minute, minimally delayed. Abnormal position of the presumed ligament of Treitz with mild SMA compression as above. This likely produces mild impedance of the gastric outflow.
== END 2024-10-06 08:29 | disposition home or self-care (01) ==
LOC: RAD 08:30
PROVIDERS: PCP Electrodiagnostic Medicine; Visit Provider Electrodiagnostic Medicine
DX: K31.84 Gastroparesis (principal); R93.89 Abnormal findings on diagnostic imaging of other specified body structures
CPT/HCPCS: 74250

== ENCOUNTER 2025-01-10 18:54 | Emergency (ER) | payer MEDICARE, SELFPAY ==
[2025-01-10 19:03] VITALS: BP 107/67; PULSE 107; RESP 14; TEMP 36.9; O2SAT 97
--- NOTE | 2025-01-10 21:25 | W.ED.HA ---
HPI - Headache General: Chief Complaint: Headache Stated Complaint: Migraine/ nausea/ fibromyalgia Time Seen by Provider: 01/10/25 21:16 History of Present Illness: 64-year-old female with a history of fibromyalgia, diabetes, obesity, hyperlipidemia and migraine headaches who presents emergency room with an intractable migraine. She taken her home medications earlier today. She is having some nausea but no vomiting. She has not had much to eat or drink today. She has phonophobia and photophobia. She had taken a hydrocodone earlier which did not help. Also Her Shani triptan did not help either. Related Data Home Medications ?Medication ?Instructions ?Recorded ?Confirmed aspirin 81 mg tablet,delayed 81 mg PO QPM 07/06/20 12/27/24 release finasteride 5 mg tablet 5 mg PO QAM 07/06/20 12/27/24 duloxetine 60 mg capsule,delayed 60 mg PO DAILY 08/28/21 12/27/24 release minoxidil 2.5 mg tablet 2.5 mg PO DAILY 08/28/21 12/27/24 tirzepatide 10 mg/0.5 mL 12.5 mg SUBCUT .weekly 12/24/23 12/27/24 subcutaneous pen injector (Grace) Previous Rx's ?Medication ?Instructions ?Recorded carvedilol 6.25 mg tablet See Rx Instructions .Route 08/12/22 .COMPLEX #180 tabs levetiracetam 500 mg tablet See Rx Instructions .Route 08/12/22 .COMPLEX #90 tabs simvastatin 40 mg tablet See Rx Instructions .Route 05/17/24 .COMPLEX #90 tabs ospemifene 60 mg tablet (Osphena) 60 mg PO DAILY #90 tabs 09/28/24 estradiol 0.01% (0.1 mg/gram) 1 g vaginal .twice weekly #3 tubes 11/02/24 vaginal cream (Estrace) Allergies Allergy/AdvReac Type Severity Reaction Status Date / Time Sulfa (Sulfonamide Allergy Mild unknown Verified 01/10/25 19:07 Antibiotics) pregabalin (From Lyrica) Allergy swelling Verified 01/10/25 19:07 tramadol Allergy swelling Verified 01/10/25 19:07 surgical glue Allergy Unknown Uncoded 01/10/25 19:07 Review of Systems Narrative: Constitutional symptoms: Negative except as documented in HPI. Skin symptoms: Negative except as documented in HPI. Eye symptoms: Negative except as documented in HPI. ENMT symptoms: Negative except as documented in HPI. Respiratory symptoms: Negative except as documented in HPI. Cardiovascular symptoms: Negative except as documented in HPI. Gastrointestinal symptoms: Negative except as documented in HPI. Genitourinary symptoms: Negative except as documented in HPI. Musculoskeletal symptoms: Negative except as documented in HPI. Neurologic symptoms: Negative except as documented in HPI. Psychiatric symptoms: Negative except as documented in HPI. Endocrine symptoms: Negative except as documented in HPI. PFSH ED PFSH: Medical History (Updated 01/10/25 @ 21:32 by Rebeca Sharp MD) No pertinent past medical history neghx: htn, thyroid, dvt/pe PCP: [facility] Arrhythmia Fast heart rate on chronic carvedilol Constipation Recurrent sinusitis Alopecia on finasteride and minoxidil Hyperlipidemia Atypical chest pain COVID-19 (~11/2019) Fibromyalgia syndrome on duloxetine and hydrocodone prn Migraines Diabetes mellitus Insulin requiring Stones, urinary tract History of IBS Surgical History H/O stem cell transplant (~06/2023) both knees-- performed by Dr. Daugherty Other postprocedural status trigger point injections, gets periodically, had 07/2021 History of sinus surgery History of cholecystectomy Laparoscopic History of wisdom tooth extraction History of toe surgery joint cleaned out History of kidney surgery Removal of stones History of lumbar discectomy History of cervical discectomy History of carpal tunnel repair History of hysterectomy 1999, TVH/BSO, Performed by Dr. Agustin Family History Mother Hypertension Hyperlipidemia Thyroid disease Heart attack Stroke Father Hypertension Hyperlipidemia Stroke Family history of ITP History of open heart surgery Sister Hypertension Hyperlipidemia Thyroid disease x 2 Grandmother Diabetes Maternal Hyperlipidemia Maternal and paternal Stroke Maternal and paternal Grandfather Diabetes Paternal Hyperlipidemia Maternal and paternal Stroke Maternal and paternal Unknown Patient denies medical problems Denies family history of: breast/ovarian/uterine/colon cancer Social History Smoking and tobacco/nicotine status: never used tobacco/nicotine Physical Exam Narrative: EXAM NARRATIVE: General: Alert, no acute distress. Skin: Warm, dry. Head: Normocephalic, atraumatic. Neck: Supple, trachea midline. Eye: Extraocular movements are intact. Ears, nose, mouth and throat: mucosa moist. Cardiovascular: Regular, Normal peripheral perfusion. Respiratory: Lungs are clear to auscultation, respirations are non-labored, breath sounds are equal, Symmetrical chest wall expansion. Gastrointestinal: Soft, Nontender, Non distended Musculoskeletal: Normal ROM, no deformity. Neurological: Alert and oriented, No focal neurological deficit observed. Psychiatric: Cooperative, appropriate mood & affect. Course Vital Signs: Vital signs: Vital Signs Temperature 98.5 F 01/10/25 19:03 Pulse Rate 98 01/10/25 21:27 Respiratory Rate 14 01/10/25 19:03 Blood Pressure 130/75 01/10/25 21:27 Pulse Oximetry 98 01/10/25 21:27 Oxygen Delivery Me thod Room Air 01/10/25 21:27 MDM - Headache Medical Decision Making Medical decision making: Differential diagnosis for this patient presenting with severe headache including but not limited to and based on the above HPI, review of systems and physical exam: Intracranial hemorrhage, stroke, migraine, cluster headache, infections such as influenza, covid Orders placed to evaluate differential diagnosis based on the above differential, HPI and physical exam Assessment and plan: Migraine headache - 50 mg IV Benadryl - 30 mg IV Toradol - 10 mg IV Reglan - 8 mg IV Zofran - 60 mg IV Norflex - 1 L normal saline bolus - Discharged home - Discussed plan with patient. Answered any questions. - Evaluation and treatment of this problem were appropriate in the emergency setting. No radiology studies performed this visit Discharge Plan Discharge Patient Disposition: Home Clinical Impression: Migraine Condition: Stable Prescriptions: No Action Mounjaro 10 mg/0.5 mL pen injector 12.5 mg SUBCUT .weekly Osphena 60 mg tablet 60 mg PO DAILY Qty: 90 3RF Rx Instructions: must administer with food, preferably a high-fat meal levetiracetam 500 mg tablet See Rx Instructions .ROUTE .COMPLEX Qty: 90 0RF Dose Instruction: Take 1/2 (one-half) tablet by mouth twice daily Rx Instructions: Take 1/2 (one-half) tablet by mouth twice daily carvedilol 6.25 mg tablet See Rx Instructions .ROUTE .COMPLEX Qty: 180 0RF Dose Instruction: Take 1 tablet by mouth twice daily Rx Instructions: Take 1 tablet by mouth twice daily simvastatin 40 mg tablet See Rx Instructions .ROUTE .COMPLEX Qty: 90 3RF Dose Instruction: TAKE 1 TABLET EVERY EVENING Rx Instructions: TAKE 1 TABLET EVERY EVENING estradiol [Estrace] 0.01 % (0.1 mg/gram) cream 1 g vaginal .twice weekly Qty: 3 3RF Rx Instructions: space out doses [email or web address] aspirin 81 mg tablet,delayed release (DR/EC) 81 mg PO QPM finasteride 5 mg tablet 5 mg PO QAM minoxidil 2.5 mg tablet 2.5 mg PO DAILY duloxetine 60 mg capsule,delayed release(DR/EC) 60 mg PO DAILY Discharge Orders: Discharge ED (Routine); Ordered 01/10/25 Ordered By: Rebeca Sharp Referrals: Steve Tim DO [Primary Care Provider, Family Practice] Discharge Diet: Usual diet Discharge Activity: Increase activity as tolerated Patient Instructions: Migraine Headache (ED), Opioid Safety, Pain Management, Patient Portal & Michelle Instructions Activity Restrictions/Additional Instructions: Thank you for choosing [facility] for your healthcare needs today. You have been screened and evaluated and felt safe for discharge. Health conditions do change or evolve sometimes and as such it is important that you follow up with your Primary Doctor to be re checked, 3-5 days is a general good time frame for follow up. You are always welcome to return to the ED for re assessment if your symptoms are worsening or you have new concerns Print Language: Latvian Coding Level of Care Code ED Pulling Unit Floorhand for Althea Hutson
[2025-01-10 21:27] VITALS: BP 130/75; PULSE 98; O2SAT 98
[2025-01-10] MEDS: ondansetron 2 mg/ML SDV 2 mL 8 MG IVP (21:37)
[2025-01-10] MEDS: diphenhydrAMINE 50 mg/mL SDV 1mL IVP (21:41)
[2025-01-10] MEDS: metoclopramide 5 mg/mL SDV 2 mL 10 MG IVP (21:46)
[2025-01-10] MEDS: orphenadrine 30 mg/mL Inj 2 mL 60 MG IVP (21:46)
[2025-01-10 22:55] VITALS: BP 139/74; PULSE 92; O2SAT 97
--- OUTSIDE RECORDS SUMMARY | 2025-01-11 18:24 | XMS_ITS | Encounter Summary ---
Author Organization [facility] Address [address] [place] [address] Care Team Providers Care Associate Professor Of Law Name Role Phone Vlad Francois MD Primary Care Provider [phone] Reason for Referral * Outpatient Services (Routine) - Closed Specialty Diagnoses / Procedures Referred By Nancy apple Referred To Contact Diagnoses Back pain Procedures MRI LUMBAR W WO CONTRAST Radha Díaz MD [address] [place] [address] Phone: tel: fax: Referral ID Status Reason Start Date Expiration Date Visits Re quested Visits Authorized [id number] Closed 09/03/2010 03/02/2011 1 1 Encounter Details Date Type Department Care Team (Late st Contact Info) Description 09/03/2010 Ancillary Orders [facility] Pre-Registration [place] CALL TO MAKE APPOINTMENT ONLY [address] [place] [address] Radha Díaz MD [address] 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 Herniated disc material seen previously in the rightward subarticular space and lateral recess has been resected. No residual displacing effect on the descending right S1 nerve root sleeve. There is however prominent enhancing perineural granulation tissue surrounding the nerve root. New from the prior study are fairly exuberant edema type marrow endplate changes with associated inflammatory enhancement at the L5-S1 level post discectomy. This is not highly concerning for spondylodiscitis, but rather postoperative inflammatory, although this diagnosis is not entirely excluded in the appropriate clinical context. Surveillance imaging could be pursued as indicated. [email or web address] 1409 PM - uploaded from [employer]- Narrative 09/05/2010 4:01 PM CDT Exam: MRI LUMBAR W WO CONTRAST Date/Time of Exam: Sep 05, 2010 01:28:00 PM History: BACK PAIN. Technique: Multiplanar, multisequence MR images were obtained through the lumbar spine prior to and following 20 mL Optimark. Comparison: 03/18/2010. Findings: Lumbar alignment is stable. Mild diffuse lumbar discogenic degeneration from the L1-L4 levels is overall stable to the prior study. There is some progressive disc disease at L4-L5 manifest as further loss of disc space height and now with new fairly prominent edema type discogenic marrow endplate changes present. Marrow signal is otherwise normal. Conus normal. Axial images show overall stable findings over the upper levels with only minor annular bulging and no stenosis. At L4-L5, mild annular bulging and a small central disc protrusion are stable to the prior study without stenosis. At L5-S1, there are changes of an interval right hemilaminotomy and right paramedian discectomy with the majority of right paracentral disc material present previously within the subarticular space and lateral recess having been resected. There is no appreciable residual displacing effect on the descending right S1 nerve root sleeve. A small central component of the disc herniation persists without neural impingement. There is however fairly extensive epidural and perineural enhancing granulation tissue surrounding the nerve root in the discectomy bed. Inflammatory enhancement extends along the laminectomy bed. No postoperative fluid collection. Procedure Note AyanaBijan, DO - 09/05/2010 Exam: MRI LUMBAR W WO CONTRAST Date/Time of Exam: Sep 05, 2010 01:28:00 PM History: BACK PAIN. Technique: Multiplanar, multisequence MR images were obtained through the lumbar spine prior to and following 20 mL Optimark. Comparison: 03/18/2010. Findings: Lumbar alignment is stable. Mild diffuse lumbar discogenic degeneration from the L1-L4 levels is overall stable to the prior study. There is some progressive disc disease at L4-L5 manifest as further loss of disc space height and now with new fairly prominent edema type discogenic marrow endplate changes present. Marrow signal is otherwise normal. Conus normal. Axial images show overall stable findings over the upper levels with only minor annular bulging and no stenosis. At L4-L5, mild annular bulging and a small central disc protrusion are stable to the prior study without stenosis. At L5-S1, there are changes of an interval right hemilaminotomy and right paramedian discectomy with the majority of right paracentral disc material present previously within the subarticular space and lateral recess having been resected. There is no appreciable residual displacing effect on the descending right S1 nerve root sleeve. A small central component of the disc herniation persists without neural impingement. There is however fairly extensive epidural and perineural enhancing granulation tissue surrounding the nerve root in the discectomy bed. Inflammatory enhancement extends along the laminectomy bed. No postoperative fluid collection. IMPRESSION Impression: Interval right hemilaminotomy and paramedian discectomy at L5-S1. Herniated disc material seen previously in the rightward subarticular space and lateral recess has been resected. No residual displacing effect on the descending right S1 nerve root sleeve. There is however prominent enhancing perineural granulation tissue surrounding the nerve root. New from the prior study are fairly exuberant edema type marrow endplate changes with associated inflammatory enhancement at the L5-S1 level post discectomy. This is not highly concerning for spondylodiscitis, but rather postoperative inflammatory, although this diagnosis is not entirely excluded in the appropriate clinical context. Surveillance imaging could be pursued as indicated. [email or web address] 1409 PM - uploaded from [employer] Radha Díaz MD MR ORDERABLES Final Result documented in this encounter Visit Diagnoses Diagnosis Back pain Backache, unspecified Back pain Backache, unspecified documented in this encounter Care Teams Associate Professor Of Law Relationship Specialty Start Date End Date Vlad Francois MD [address] [place] [address] PCP - General Family Practice 01/17/16 documented as of this encounter
--- OUTSIDE RECORDS SUMMARY | 2025-01-11 18:24 | XMS_ITS | Encounter Summary ---
Author Organization [facility] Address [address] [place] [address] Care Team Providers Care Genetic Counsellor Name Role Phone Vlad Francois MD Primary Care Provider [phone] Reason for Referral * Outpatient Services (Routine) - Closed Specialty Diagnoses / Procedures Referred By Contac t Referred To Contact Diagnoses Backache, unspecified Pain in limb Thoracic or lumbosacral neuritis or radiculitis, unspecified Displacement of lumbar intervertebral disc without myelopathy Procedures MRI LUMBAR W WO CONTRAST Radha Díaz MD [address] [place] [address] Phone: tel: fax: [facility] Pre-Registration [place] CALL TO MAKE APPOINTMENT ONLY [address] [place] [address] Phone: tel: fax: Referral ID Status Reason Start Date Expiration Date Visits Re quested Visits Authorized [id number] Closed 12/02/2011 12/01/2012 1 1 * Outpatient Services (Routine) - Closed Specialty Diagnoses / Procedures Referred By Contac t Referred To Contact Diagnoses Cervicalgia Brachial neuritis or radiculitis NOS Procedures MRI CERVICAL WO CONTRAST Radha Díaz MD [address] [place] [address] Phone: tel: fax: [facility] Pre-Registration [place] CALL TO MAKE APPOINTMENT ONLY [address] [address] Phone: tel: fax: Referral ID Status Reason Start Date Expiration Date Visits Re quested Visits Authorized [id number] Closed 12/02/2011 12/01/2012 1 1 Encounter Details Date Type Department Care Team (Latest Contact Info) Description 12/02/2011 Ancillary Orders [facility] Pre-Registration [place] CALL TO MAKE APPOINTMENT ONLY [address] [address] Radha Díaz MD 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 rli - uploaded from [employer] 12/11/2011 3:29 PM CDT Exam: MRI LUMBAR W WO CONTRAST Date/Time of Exam: Dec 11, 2011 01:31:00 PM Reason For Exam: BACKACHE, UNSPECIFIED. Technique: MRI of the lumbar spine was performed prior to and following the administration of intravenous contrast. Contrast: 20 mL of Optimark were given. No significant focal bony lesion or acute fracture is seen. Alignment is normal. L1-L2: Unremarkable. L2-L3 and L3-L4: No significant abnormality. L4-L5: Small central disc protrusion with minimal narrowing of the thecal sac. L5-S1: Mild disc height loss, degenerative endplate plate changes with small disc bulge and mild bilateral foraminal narrowing. The postcontrast images show no abnormal enhancement. Procedure Note Alton Adams MD - 12/11/2011 Exam: MRI LUMBAR W WO CONTRAST Date/Time of Exam: Dec 11, 2011 01:31:00 PM Reason For Exam: BACKACHE, UNSPECIFIED. Technique: MRI of the lumbar spine was performed prior to and following the administration of intravenous contrast. Contrast: 20 mL of Optimark were given. No significant focal bony lesion or acute fracture is seen. Alignment is normal. L1-L2: Unremarkable. L2-L3 and L3-L4: No significant abnormality. L4-L5: Small central disc protrusion with minimal narrowing of the thecal sac. L5-S1: Mild disc height loss, degenerative endplate plate changes with small disc bulge and mild bilateral foraminal narrowing. The postcontrast images show no abnormal enhancement. IMPRESSION Impression: Mild degenerative changes. rli - uploaded from [employer] - Radha Díaz MD MR ORDERABLES Final Result * MRI CERVICAL WO CONTRAST (12/11/2011 1:31 PM CDT) Anatomical Region Laterality Modality Spine Magnetic Resonan ce 12/11/2011 12:3 3 PM CDT Impressions 12/11/2011 3:29 PM CDT Impression: Postoperative change, but otherwise no significant abnormality. rli - uploaded from [employer] - Narrative 12/11/2011 3:29 PM CDT Exam: MRI CERVICAL WO CONTRAST Date/Time of Exam: Dec 11, 2011 01:31:00 PM Reason For Exam: CERVICALGIA. Technique: MRI of the cervical spine was performed without the administration of intravenous contrast. No significant focal bony lesion or acute fracture is seen. There is an anterior fusion at C5-C6. Alignment is normal. Spinal cord shows no abnormality. No significant spinal stenosis is seen. C1-C2 through C4-C5: No significant abnormality. C5-C6: Postoperative changes, but otherwise unremarkable. C6-C7: Unremarkable. A minimal disc bulge is present. C7-T1: No abnormality. Procedure Note Alton Adams MD - 12/11/2011 Exam: MRI CERVICAL WO CONTRAST Date/Time of Exam: Dec 11, 2011 01:31:00 PM Reason For Exam: CERVICALGIA. Technique: MRI of the cervical spine was performed without the administration of intravenous contrast. No significant focal bony lesion or acute fracture is seen. There is an anterior fusion at C5-C6. Alignment is normal. Spinal cord shows no abnormality. No significant spinal stenosis is seen. C1-C2 through C4-C5: No significant abnormality. C5-C6: Postoperative changes, but otherwise unremarkable. C6-C7: Unremarkable. A minimal disc bulge is present. C7-T1: No abnormality. IMPRESSION Impression: Postoperative change, but otherwise no significant abnormality. rli - uploaded from [employer] - Radha Díaz MD MR ORDERABLES Final Result documented in this encounter Visit Diagnoses Diagnosis Cervicalgia Brachial neuritis or radiculitis NOS Brachial neuritis or radiculitis nos Backache, unspecified Pain in limb Thoracic or lumbosacral neuritis or radiculitis, unspecified Displacement of lumbar intervertebral disc without myelopathy Cervicalgia Brachial neuritis or radiculitis NOS Brachial neuritis or radiculitis nos Backache, unspecified Pain in limb Thoracic or lumbosacral neuritis or radiculitis, unspecified Displacement of lumbar intervertebral disc without myelopathy documented in this encounter Care Teams Genetic Counsellor Relationship Specialty Start Date End Date Vlad Francois MD [address] [facility] [place] [id number] PCP - General Family Practice 01/17/16 documented as of this encounter
--- OUTSIDE RECORDS SUMMARY | 2025-01-11 18:24 | XMS_ITS | Encounter Summary ---
Author Organization [facility] Address [address] [place] [address] Care Team Providers Care Plumbing Installer Name Role Phone Vlad Francois MD Primary Care Provider [phone] Reason for Referral * Outpatient Services (Routine) - Closed Specialty Diagnoses / Procedures Referred By Nancy apple Referred To Contact Diagnoses Other screening mammogram Procedures MAMMO DIGITAL SCREEN BILAT Vlad Palmer MD NO ADDRESS ON FILE Referral ID Status Reason Start Date Expiration Date Visits Re quested Visits Authorized [id number] Closed 07/12/2012 08/12/2013 1 1 TENNIS COACH Encounter Details Date Type Department Care Team (Latest Contact Info) Description 07/12/2012 Ancillary Orders [facility] Pre-Registration [place] CALL TO MAKE APPOINTMENT ONLY [address] [place] [address] Vlad Palmer MD NO ADDRESS ON FILE Other screening mammogram Social History Tobacco Use Types Packs/Day Years Used Date Smoking Tobacco: Never Smokeless Tobacco: Never Alcohol Use Standard Drinks/Week Comments No 0 (1 standard drink = 0.6 oz pur e alcohol) Comments No Sex and Gender Information Value Date Recorded Sex Assigned at Not on file Legal Sex Female 5:59 AM HEAD TENNIS COACH Gender Identity Not on file Sexual Orientation Not on file Occupation Industry Job Start Date Job End Date Not on file Not on file Not on file Not on file documented as of this encounter Plan of Treatment Not on file documented as of this encounter Results * MAMMO DIGITAL SCREEN BILAT (08/05/2012 12:38 PM HEAD TENNIS COACH) Anatomical Region Laterality Modality Breast Bilateral Mammography Narrative 08/06/2012 2:40 PM HEAD TENNIS COACH Bilateral Mammogram Reason for Exam: Screening Comparison: Comparison is made with the prior exam(s) dated 06.18.11, 1215.04, 04.10. Findings: Bilateral CC and MLO views were obtained. This examination was reviewed with the aid of a computer-aided detection system(CAD). The breast tissue density is average. No significant new findings since the prior mammogram(s). Procedure Note Emily Hernanedz MD - 08/06/2012 Bilateral Mammogram Reason for Exam: Screening Comparison: Comparison is made with the prior exam(s) dated 06.18.11,1215., 04.10. Findings: Bilateral CC and MLO views were obtained. This examination was reviewed with the aid of a computer-aided detectionsystem(CAD). The breast tissue density is average. No significant new findings since the prior mammogram(s). us Vlad Palmer MD MAMMO ORDERABLES Final Resul t documented in this encounter Visit Diagnoses Diagnosis Other screening mammogram Other screening mammogram documented in this encounter Care Teams Plumbing Installer Relationship Specialty Start Date End Date Vlad Francois MD [address] [place] [phone] PCP - General Family Practice 01/17/16 documented as of this encounter
--- OUTSIDE RECORDS SUMMARY | 2025-01-11 18:25 | XMS_ITS | Encounter Summary ---
Author Organization [facility] Address [address] [place] [address] Care Team Providers Care Script Manager Name Role Phone Vlad Francois MD Primary Care Provider [phone] Encounter Details Date Type Department Care Team (Latest Contact Info) Description 09/16/2005 Outpatient Historical [facility] Imaging Services-[facility] [place] [address] [place] [address] Aidan Oden, DPM NO ADDRESS ON FILE Pain in Limb (Primary Dx) Social History Tobacco Use Types Packs/Day Years Used Date Smoking Tobacco: Never Assessed Comments Unknown Sex and Gender Information Value Date Recorded Sex Assigned at Not on file Legal Sex Female 5:59 AM LATHE SETUP OPERATOR Gender Identity Not on file Sexual Orientation Not on file documented as of this encounter Plan of Treatment Not on file documented as of this encounter Visit Diagnoses Diagnosis Pain in limb- Primary Pain in soft tissues of limb documented in this encounter Care Teams Script Manager Relationship Specialty Start Date End Date Vlad Francois MD [address] [place] [phone] PCP - General Family Practice 01/17/16 documented as of this encounter
--- OUTSIDE RECORDS SUMMARY | 2025-01-11 18:25 | XMS_ITS | Encounter Summary ---
Author Organization [facility] Address [address] [place] [address] Care Team Providers Care Aircraft Machinist Helper Name Role Phone Vlad Francois MD Primary Care Provider [phone] Encounter Details Date Type Department Care Team (Late st Contact Info) Description 12/25/2005 Outpatient Historical [facility] Physical Therapy [address] [place] [address] [place] [address] Vlad Raman MD NO ADDRESS ON FILE Social History Tobacco Use Types Packs/Day Years Used Date Smoking Tobacco: Never Assessed Comments Unknown Sex and Gender Information Value Date Recorded Sex Assigned at Not on file Legal Sex Female 5:59 AM BONDING MACHINE OPERATOR Gender Identity Not on file Sexual Orientation Not on file documented as of this encounter Plan of Treatment Not on file documented as of this encounter Visit Diagnoses Not on filedocumented in this encounter Care Teams Aircraft Machinist Helper Relationship Specialty Start Date End Date Vlad Francois MD [address] [place] [phone] PCP - General Family Practice 01/17/16 documented as of this encounter
--- OUTSIDE RECORDS SUMMARY | 2025-01-11 18:25 | XMS_ITS | Encounter Summary ---
Author Organization [facility] Address [address] [place] [address] Care Team Providers Care Ramp And Cargo Supervisor Name Role Phone Vlad Francois MD Primary Care Provider [phone] Reason for Referral * Outpatient Services (Urgent) - Closed Specialty Diagnoses / Procedures Referred By Nancy apple Referred To Contact Radiology Diagnoses New daily persistent headache Memory loss Blurred vision Procedures MRI BRAIN WO CONTRAST Vlad Raman MD [facility] MRI [address] [place] [address] Phone: tel: fax: Referral ID Status Reason Start Date Expiration Date V isits Requested Visits Authorized [id number] Closed F [facility] TO SCHEDULE (SGF) 01/30/2015 03/01/2016 1 1 Encounter Details Date Type Department Care Team (Latest Contact Info) Description 01/30/2015 Ancillary Orders [facility] Pre-Registration [place] CALL TO MAKE APPOINTMENT ONLY [address] [place] [address] Vlad Raman MD NO ADDRESS ON FILE New daily persistent headache (Primary Dx); Memory loss; Blurred vision Social History Tobacco Use Types Packs/Day Years Used Date Smoking Tobacco: Never Smokeless Tobacco: Never Alcohol Use Standard Drinks/Week Comments No 0 (1 standard drink = 0.6 oz pur e alcohol) Comments No Sex and Gender Information Value Date Recorded Sex Assigned at Not on file Legal Sex Female 5:59 AM SHAREPOINT ARCHITECT Gender Identity Not on file Sexual Orientation Not on file Occupation Industry Job Start Date Job End Date Not on file Not on file Not on file Not on file documented as of this encounter Plan of Treatment Not on file documented as of this encounter Results * MRI BRAIN WO CONTRAST (01/31/2015 12:35 PM CDT) Anatomical Region Laterality Modality Head Magnetic Resonan ce 01/31/2015 12:2 3 PM CDT Impressions 01/31/2015 12:56 PM CDT IMPRESSION: See report below. Exam: MRI BRAIN WO CONTRAST Date/Time of Exam: Jan 31, 2015 12:35:58 PM Reason For Exam: New daily persistent headache. Technique: MRI of the brain was performed without the administration of intravenous contrast. Diffusion-weighted imaging shows no recent infarcts the brain shows no sites of abnormal signal on FLAIR images. No old infarcts or masses or abnormal fluid collections are present the ventricles appear normal. Midline structures are normal. The intracranial flow-voids are unremarkable. The posterior fossa appears normal. The suprasellar cistern is normal. The basal ganglia and cerebral white matter and cortex appear normal. The paranasal sinuses are unremarkable. The orbits appear normal. Susceptibility weighted imaging is normal. Impression: Normal exam. Narrative Procedure Note Mason Ward MD - 01/31/2015 IMPRESSION IMPRESSION: See report below. Exam: MRI BRAIN WO CONTRAST Date/Time of Exam: Jan 31, 2015 12:35:58 PM Reason For Exam: New daily persistent headache. Technique: MRI of the brain was performed without the administration of intravenous contrast. Diffusion-weighted imaging shows no recent infarcts the brain shows no sites of abnormal signal on FLAIR images. No old infarcts or masses or abnormal fluid collections are present the ventricles appear normal. Midline structures are normal. The intracranial flow-voids are unremarkable. The posterior fossa appears normal. The suprasellar cistern is normal. The basal ganglia and cerebral white matter and cortex appear normal. The paranasal sinuses are unremarkable. The orbits appear normal. Susceptibility weighted imaging is normal. Impression: Normal exam. Vlad Raman MD MR ORDERABLES Final Result documented in this encounter Visit Diagnoses Diagnosis New daily persistent headache- Primary Memory loss Blurred vision Other specified visual disturbances New daily persistent headache Memory loss Blurred vision Other specified visual disturbances documented in this encounter Care Teams Ramp And Cargo Supervisor Relationship Specialty Start Date End Date Vlad Francois MD [address] [place] [phone] PCP - General Family Practice 01/17/16 documented as of this encounter
--- OUTSIDE RECORDS SUMMARY | 2025-01-11 18:25 | XMS_ITS | Encounter Summary ---
Author Organization [facility] Address [address] [place] [address] Care Team Providers Care Bioinformatics Software Engineer Name Role Phone Vlad Francois MD Primary Care Provider [phone] Encounter Details Date Type Department Care Team (Latest Contact Info) Description 12/16/2004 Outpatient Historical [facility] Ophthalmology [address] [place] [address] Mason Charles MD NO ADDRESS ON FILE HEADACHE (Primary Dx); MYOPIA; ASTIGMATISM NOS; PRESBYOPIA Social History Tobacco Use Types Packs/Day Years Used Date Smoking Tobacco: Never Assessed Comments Unknown Sex and Gender Information Value Date Recorded Sex Assigned at Not on file Legal Sex Female 5:59 AM CHRISTIAN SCIENCE READER Gender Identity Not on file Sexual Orientation Not on file documented as of this encounter Plan of Treatment Not on file documented as of this encounter Visit Diagnoses Diagnosis Headache(784.0)- Primary Headache Myopia Astigmatism, unspecified Presbyopia documented in this encounter Care Teams Bioinformatics Software Engineer Relationship Specialty Start Date End Date Vlad Francois MD [address] [place] [phone] PCP - General Family Practice 01/17/16 documented as of this encounter
--- OUTSIDE RECORDS SUMMARY | 2025-01-11 18:25 | XMS_ITS | Encounter Summary ---
Author Organization [facility] Address [address] [place] [address] Care Team Providers Care Educational Consultant Name Role Phone Vlad Francois MD Primary Care Provider [phone] Encounter Details Date Type Department Care Team (Late st Contact Info) Description 01/03/2025 External Device Data [facility] ABSTRACTION Provider, Abstract NO ADDRESS ON FILE Social History Tobacco Use Types Packs/Day Years Used Date Smoking Tobacco: Never Smokeless Tobacco: Never Alcohol Use Standard Drinks/Week Comments No 0 (1 standard drink = 0.6 oz pur e alcohol) Comments No Sex and Gender Information Value Date Recorded Sex Assigned at Female 06/06/2024 12:31 PM MANAGER STRATEGIC PARTNERSHIPS Legal Sex Female 7:08 AM MANAGER STRATEGIC PARTNERSHIPS Gender Identity Female 06/06/2024 12:31 PM MANAGER STRATEGIC PARTNERSHIPS Sexual Orientation Straight 06/06/2024 12 :31 PM MANAGER STRATEGIC PARTNERSHIPS documented as of this encounter Plan of Treatment Not on file documented as of this encounter Visit Diagnoses Not on filedocumented in this encounter Care Teams Educational Consultant Relationship Specialty Start Date End Date Vlad Francois MD [address] [place] [phone] PCP - General 08/10/20 documented as of this encounter
--- OUTSIDE RECORDS SUMMARY | 2025-01-11 18:25 | XMS_ITS | Encounter Summary ---
Author Organization [facility] Address [address] [place] [address] Care Team Providers Care Fiberglass Roving Winder Name Role Phone Vlad Francois MD Primary Care Provider Encounter Details Date Type Department Care Team (Latest Contact Info) Description 01/09/2006 Outpatient Historical [facility] Endocrinology-[facility] [place] [address] [place] [address] Barrington Laureano MD NO ADDRESS ON FILE Abnormal Weight Gain (Primary Dx) Social History Tobacco Use Types Packs/Day Years Used Date Smoking Tobacco: Never Assessed Comments Unknown Sex and Gender Information Value Date Recorded Sex Assigned at Not on file Legal Sex Female 5:59 AM MANAGER MASSAGE DEPARTMENT Gender Identity Not on file Sexual Orientation Not on file documented as of this encounter Plan of Treatment Not on file documented as of this encounter Visit Diagnoses Diagnosis Abnormal weight gain- Primary documented in this encounter Care Teams Fiberglass Roving Winder Relationship Specialty Start Date End Date Vlad Francois MD [address] [place] [phone] PCP - General Family Practice 01/17/16 documented as of this encounter
--- OUTSIDE RECORDS SUMMARY | 2025-01-11 18:25 | XMS_ITS | Encounter Summary ---
Author Organization [facility] Address [address] [facility] Attn: [place] [address] Care Team Providers Care Practice Professional Name Role Phone Vlad Francois MD Primary Care Provider [phone] Encounter Details Date Type Department Care Team (Late st Contact Info) Description 09/09/1999 Outpatient Historical Goran Jaime MD NO ADDRESS ON FILE Social History Tobacco Use Types Packs/Day Years Used Date Smoking Tobacco: Never Assessed Comments Unknown Sex and Gender Information Value Date Recorded Sex Assigned at Not on file Legal Sex Female 5:59 AM UNIX ARCHITECT Gender Identity Not on file Sexual Orientation Not on file documented as of this encounter Plan of Treatment Not on file documented as of this encounter Visit Diagnoses Not on filedocumented in this encounter Care Teams Practice Professional Relationship Specialty Start Date End Date Vlad Francois MD [address] [place] [phone] PCP - General Family Practice 01/17/16 documented as of this encounter
--- OUTSIDE RECORDS SUMMARY | 2025-01-11 18:25 | XMS_ITS | Encounter Summary ---
Author Organization [facility] Address [address] [facility] Attn: [place] [address] Care Team Providers Care Rubber Roller Grinder Operator Name Role Phone Vlad Francois MD Primary Care Provider [phone] Encounter Details Date Type Department Care Team (Late st Contact Info) Description 05/02/2001 Outpatient Historical Non-Staff, Physician NO ADDRESS ON FILE Social History Tobacco Use Types Packs/Day Years Used Date Smoking Tobacco: Never Assessed Comments Unknown Sex and Gender Information Value Date Recorded Sex Assigned at Not on file Legal Sex Female 5:59 AM PLAIN GOODS HEMMER Gender Identity Not on file Sexual Orientation Not on file documented as of this encounter Plan of Treatment Not on file documented as of this encounter Visit Diagnoses Not on filedocumented in this encounter Care Teams Rubber Roller Grinder Operator Relationship Specialty [place] [address] [place] [phone] PCP - General Family Practice 01/17/16 documented as of this encounter
--- OUTSIDE RECORDS SUMMARY | 2025-01-11 18:25 | XMS_ITS | Encounter Summary ---
Author Organization [facility] Address [address] [place] [address] Care Team Providers Care Morning Show Host Name Role Phone Vlad Francois MD Primary Care Provider [phone] Encounter Details Date Type Department Care Team (Late st Contact Info) Description 01/25/2006 Outpatient Historical [facility] Physical Therapy [address] [place] [address] [place] [address] Vlad Raman MD NO ADDRESS ON FILE Social History Tobacco Use Types Packs/Day Years Used Date Smoking Tobacco: Never Assessed Comments Unknown Sex and Gender Information Value Date Recorded Sex Assigned at Not on file Legal Sex Female 5:59 AM INSTRUCTIONAL COACH Gender Identity Not on file Sexual Orientation Not on file documented as of this encounter Plan of Treatment Not on file documented as of this encounter Visit Diagnoses Not on filedocumented in this encounter Care Teams Morning Show Host Relationship Specialty Start Date End Date Vlad Francois MD [address] [place] [phone] PCP - General Family Practice 01/17/16 documented as of this encounter
--- OUTSIDE RECORDS SUMMARY | 2025-01-11 18:25 | XMS_ITS | Encounter Summary ---
Author Organization [facility] Address [address] [place] [address] Care Team Providers Care Shelter Case Manager Name Role Phone Vlad Francois MD Primary Care Provider [phone] Encounter Details Date Type Department Care Team (Latest Contact Info) Description 09/16/2005 Outpatient [facility] Podiatry-[facility] [place] [address] [place] [address] Aidan Oden, DPM NO ADDRESS ON FILE Exostosis of Unspecified Site (Primary Dx) Social History Tobacco Use Types Packs/Day Years Used Date Smoking Tobacco: Never Assessed Comments Unknown Sex and Gender Information Value Date Recorded Sex Assigned at Not on file Legal Sex Female 5:59 AM CHAIN MENDER Gender Identity Not on file Sexual Orientation Not on file documented as of this encounter Plan of Treatment Not on file documented as of this encounter Visit Diagnoses Diagnosis Exostosis of unspecified site- Primary documented in this encounter Care Teams Shelter Case Manager Relationship Specialty [place] [address] [place] [phone] PCP - General Family Practice 01/17/16 documented as of this encounter
--- OUTSIDE RECORDS SUMMARY | 2025-01-11 18:25 | XMS_ITS | Encounter Summary ---
Author Organization [facility] Address [address] [place] [address] Care Team Providers Care Scheduler Name Role Phone Vlad Francois MD Primary Care Provider [phone] Encounter Details Date Type Department Care Team (Latest Contact Info) Description 12/03/2005 Outpatient Historical [facility] Ear, Nose and Throat [address] [place] [address] [place] [address] Aiden Schulz MD [address] [address] Benign Paroxysmal Positional Vertigo (Primary Dx) Social History Tobacco Use Types Packs/Day Years Used Date Smoking Tobacco: Never Assessed Comments Unknown Sex and Gender Information Value Date Recorded Sex Assigned at Not on file Legal Sex Female 5:59 AM GLOBAL COMPENSATION ANALYST Gender Identity Not on file Sexual Orientation Not on file documented as of this encounter Plan of Treatment Not on file documented as of this encounter Visit Diagnoses Diagnosis Benign paroxysmal positional vertigo- Primary documented in this encounter Care Teams Scheduler Relationship Specialty [place] [address] [place] [phone] PCP - General Family Practice 01/17/16 documented as of this encounter
--- OUTSIDE RECORDS SUMMARY | 2025-01-11 18:25 | XMS_ITS | Encounter Summary ---
Author Organization [facility] Address [address] [place] [address] Care Team Providers Care Pierogi Maker Name Role Phone Vlad Francois MD Primary Care Provider [phone] Encounter Details Date Type Department Care Team (Latest Contact Info) Description 08/08/2004 Outpatient Historical [facility] OBGYN-[place] [address] [place] [address] Marylu Brenner NO ADDRESS ON FILE Atrophic vaginitis (Primary Dx) Social History Tobacco Use Types Packs/Day Years Used Date Smoking Tobacco: Never Assessed Comments Unknown Sex and Gender Information Value Date Recorded Sex Assigned at Not on file Legal Sex Female 5:59 AM FOREST RANGER Gender Identity Not on file Sexual Orientation Not on file documented as of this encounter Plan of Treatment Not on file documented as of this encounter Visit Diagnoses Diagnosis Atrophic vaginitis- Primary Postmenopausal atrophic vaginitis documented in this encounter Care Teams Pierogi Maker Relationship Specialty Start Date End Date Vlad Francois MD [facility] [place] [phone] PCP - General Family Practice 01/17/16 documented as of this encounter
--- OUTSIDE RECORDS SUMMARY | 2025-01-11 18:25 | XMS_ITS | Encounter Summary ---
Author Organization [facility] Address [address] [place] [address] Care Team Providers Care Administrator Pesticide Name Role Phone Vlad Francois MD Primary Care Provider [phone] Encounter Details Date Type Department Care Team (Latest Contact Info) Description 09/18/1999 Outpatient Historical [facility] Ear, Nose and Throat [address] [address] [place] [address] oGran Jaime MD NO ADDRESS ON FILE Allergic rhinitis, cause unspecified (Primary Dx) Social History Tobacco Use Types Packs/Day Years Used Date Smoking Tobacco: Never Assessed Comments Unknown Sex and Gender Information Value Date Recorded Sex Assigned at Not on file Legal Sex Female 5:59 AM INVESTMENT DIRECTOR Gender Identity Not on file Sexual Orientation Not on file documented as of this encounter Plan of Treatment Not on file documented as of this encounter Visit Diagnoses Diagnosis Allergic rhinitis, cause unspecified- Primary documented in this encounter Care Teams Administrator Pesticide Relationship Specialty Start Date End Date Vlad Francois MD [address] [place] [phone] PCP - General Family Practice 01/17/16 documented as of this encounter
--- OUTSIDE RECORDS SUMMARY | 2025-01-11 18:25 | XMS_ITS | Encounter Summary ---
Author Organization [facility] Address [address] [place] [address] Care Team Providers Care Non Licensed Nuclear Plant Operator Name Role Phone Vlad Francois MD Primary Care Provider [phone] Encounter Details Date Type Department Care Team (Latest Contact Info) Description 09/16/2004 Outpatient Historical [facility] OBGYN-[place] [address] [place] [address] Theo Staley MD [address] [address] CANDIDAL VULVOVAGINITIS (Primary Dx); NONINFECT VAG LEUKORRHEA Social History Tobacco Use Types Packs/Day Years Used Date Smoking Tobacco: Never Assessed Comments Unknown Sex and Gender Information Value Date Recorded Sex Assigned at Not on file Legal Sex Female 5:59 AM GENERAL ACCOUNTANT Gender Identity Not on file Sexual Orientation Not on file documented as of this encounter Plan of Treatment Not on file documented as of this encounter Visit Diagnoses Diagnosis Candidiasis of vulva and vagina- Primary Leukorrhea, not specified as infective documented in this encounter Care Teams Non Licensed Nuclear Plant Operator Relationship Specialty Start Date End Date Vlad Francois MD [address] [place] [phone] PCP - General Family Practice 01/17/16 documented as of this encounter
--- OUTSIDE RECORDS SUMMARY | 2025-01-11 18:25 | XMS_ITS | Encounter Summary ---
Author Organization [facility] Address [address] [place] [address] Care Team Providers Care Windsurfing Instructor Name Role Phone Vlad Francois MD Primary Care Provider [phone] Encounter Details Date Type Department Care Team (Late st Contact Info) Description 11/06/2006 Outpatient Historical [facility] 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 The cauda equina and conus medullaris appearnormal. No intradural disease is present. Mild type one bony changes are present surrounding the L5-S1 disc space. Mild spondylosis is presentdiffusely. The paraspinal tissues are unremarkable in appearance. L1-L2: Normal. L2-L3: Unremarkable. L3-L4: Mild loss of disc signal is present. L4-L5: A mild diffuse bulge of the disc is present. Minimal central disc protrusion may bepresent. L5-S1: Disc protrusion is present in the right paracentral and subarticular zones without appreciableimpingement upon the adjacent S1 nerve root. The neural foramina are widely patent. Impression: 1. Mild disc protrusion on the right at L5-S1 does not appreciably affect the adjacent S1 nerve root. Clinical correlation is necessary. 2. Mild disc disease at L4-L5 is present without appreciable neural impingement. - Dictated By: Mason Ward M.D. Electronically Signed By: Mason Ward M.D. Date Signed: 11/06/06 Procedure Note 04/21/2009 The lumbar spine is normal in sagittal alignment. The cauda equina andconus medullaris appearnormal. No intradural disease is present. Mild type one bony changes are present surrounding the L5-S1 disc space.Mild spondylosis is presentdiffusely. The paraspinal tissues are unremarkable in appearance. L1-L2: Normal. L2-L3: Unremarkable. L3-L4: Mild loss of disc signal is present. L4-L5: A mild diffuse bulge of the disc is present. Minimal central discprotrusion may bepresent. L5-S1: Disc protrusion is present in the right paracentral and subarticular zoneswithout appreciableimpingement upon the adjacent S1 nerve root. The neural foramina are widely patent. Impression: 1. Mild disc protrusion on the right at L5-S1 does not appreciably affectthe adjacent S1 nerve root. Clinical correlation is necessary. 2. Mild disc disease at L4-L5 is present without appreciable neuralimpingement. - Dictated By: Mason Ward M.D. Electronically Signed By: Mason Ward M.D. Date Signed: 11/06/06 us Radha Díaz MD MR ORDERABLES Final Result * MRI CERVICAL WO CONTRAST (11/06/2006 12:01 AM CDT) Anatomical Region Laterality Modality Spine Other 11/06/2006 12:0 1 AM CDT Narrative 11/06/2006 12:01 AM CDT The cervical spine is normal in sagittal alignment. The medulla, foramen magnum and cervical cordappear normal. No intradural disease is present. The paraspinal tissues are unremarkable inappearance. Skull base to C3: Normal. C3-C4: Normal. C4-C5: Minimal spondylosis is present. C5-C6: Mild disc extrusion is present in the left paracentral and subarticular zones causing mild cordimpingement. C6-C7: Mild diffuse spondylosis is present. C7-T1: Mild central disc protrusion appears be present, without neural impingement. Impression: 1. Mild disc protrusion on the left at C5-C6 could affect the left C6 nerve root. 2. Mild spondylosis and disc changes are noted elsewhere, without suspected neural impingement. - Dictated By: Mason Ward M.D. Electronically Signed By: Mason Ward M.D. Date Signed: 11/06/06 Procedure Note 04/21/2009 The cervical spine is normal in sagittal alignment. The medulla, foramenmagnum and cervical cordappear normal. No intradural disease is present. The paraspinal tissues areunremarkable inappearance. Skull base to C3: Normal. C3-C4: Normal. C4-C5: Minimal spondylosis is present. C5-C6: Mild disc extrusion is present in the left paracentral and subarticularzones causing mild cordimpingement. C6-C7: Mild diffuse spondylosis is present. C7-T1: Mild central disc protrusion appears be present, without neuralimpingement. Impression: 1. Mild disc protrusion on the left at C5-C6 could affect the left P3ozmsv root. 2. Mild spondylosis and disc changes are noted elsewhere, withoutsuspected neural impingement. - Dictated By: Mason Ward M.D. Electronically Signed By: Mason Ward M.D. Date Signed: 11/06/06 Radha Díaz MD MR ORDERABLES Final Result documented in this encounter Visit Diagnoses Not on filedocumented in this encounter Care Teams Windsurfing Instructor Relationship Specialty Start Date End Date Vlad Francois MD [address] [place] [address] PCP - General Family Practice 01/17/16 documented as of this encounter
--- OUTSIDE RECORDS SUMMARY | 2025-01-11 18:25 | XMS_ITS | Encounter Summary ---
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
--- OUTSIDE RECORDS SUMMARY | 2025-01-11 18:25 | XMS_ITS | Encounter Summary ---
Author Organization [facility] Address [address] [place] [address] Care Team Providers Care Consulting Solution Director Name Role Phone Vlad Francois MD Primary Care Provider [phone] Reason for Referral * Outpatient Services (Routine) - Closed Specialty Diagnoses / Procedures Referred By Nancy apple Referred To Contact Diagnoses Other screening mammogram Procedures MAMMO DIGITAL SCREEN BILAT Vlad Palmer MD NO ADDRESS ON FILE Referral ID Status Reason Start Date Expiration Date Visits Re quested Visits Authorized [id number] Closed 05/09/2011 05/08/2012 1 1 BURSEMENT COUNSELOR Encounter Details Date Type Department Care Team (Latest Contact Info) Description 05/09/2011 Ancillary Orders [facility] Pre-Registration [place] CALL TO MAKE APPOINTMENT ONLY [address] [place] [address] Vlad Palmer MD NO ADDRESS ON FILE Other screening mammogram Social History Tobacco Use Types Packs/Day Years Used Date Smoking Tobacco: Never Smokeless Tobacco: Never Alcohol Use Standard Drinks/Week Comments No 0 (1 standard drink = 0.6 oz pur e alcohol) Comments No Sex and Gender Information Value Date Recorded Sex Assigned at Not on file Legal Sex Female 5:59 AM REIMBURSEMENT COUNSELOR Gender Identity Not on file Sexual Orientation Not on file documented as of this encounter Plan of Treatment Not on file documented as of this encounter Results * MAMMO DIGITAL SCREEN BILAT (06/18/2011 10:53 AM REIMBURSEMENT COUNSELOR) Anatomical Region Laterality Modality Breast Bilateral Mammography Narrative 06/20/2011 9:18 AM REIMBURSEMENT COUNSELOR Bilateral Mammogram Reason for Exam: Screening Comparison: Comparison is made with multiple prior exams, the most recent dated 05/15/2004. Findings: Bilateral CC and MLO views were obtained. This examination was reviewed with the aid of a computer-aided detection system(CAD). The breast tissue density is composed of scattered fibroglandular densities. No significant new findings since the prior mammogram(s). Procedure Note Aurora Melenderz MD - 06/20/2011 Bilateral Mammogram Reason for Exam: Screening Comparison: Comparison is made with multiple prior exams, the most recentdated 05/15/2004. Findings: Bilateral CC and MLO views were obtained. This examination was reviewed with the aid of a computer-aided detectionsystem(CAD). The breast tissue density is composed of scattered fibroglandulardensities. No significant new findings since the prior mammogram(s). Vlad Palmer MD MAMMO ORDERABLES Final Resul t documented in this encounter Visit Diagnoses Diagnosis Other screening mammogram Other screening mammogram documented in this encounter Care Teams Consulting Solution Director Relationship Specialty Start Date End Date Vlad Francois MD [address] [place] [address] PCP - General Family Practice 01/17/16 documented as of this encounter
--- OUTSIDE RECORDS SUMMARY | 2025-01-11 18:25 | XMS_ITS | Encounter Summary ---
Author Organization [facility] Address [address] [place] [address] Care Team Providers Care Human Resources Receptionist Name Role Phone Vlad Francois MD Primary Care Provider [phone] Encounter Details Date Type Department Care Team (Latest Contact Info) Description 08/02/2004 Outpatient Historical [facility] [address] [place] [phone] Aidan Oden, DPM NO ADDRESS ON FILE Pain in limb (Primary Dx) Social History Tobacco Use Types Packs/Day Years Used Date Smoking Tobacco: Never Assessed Comments Unknown Sex and Gender Information Value Date Recorded Sex Assigned at Not on file 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
--- OUTSIDE RECORDS SUMMARY | 2025-01-11 18:25 | XMS_ITS | Encounter Summary ---
Author Organization [facility] Address [address] [place] [address] Care Team Providers Care Travel Accommodations Rater Name Role Phone Vlad Francois MD Primary Care Provider [phone] Reason for Referral * Outpatient Services (Routine) - Closed Specialty Diagnoses / Procedures Referred By Nancy apple Referred To Contact Radiology Diagnoses Encounter for screening mammogram for malignant neoplasm of breast Procedures MAMMO SCREEN BILAT W OR WO CAD Paul Sandoval DO [address] [facility] [address] [place] [address] Phone: tel: fax: [facility] [place] [address] [facility] [address] [place] [address] Phone: tel: fax: Referral ID Status Reason Start Date Expiration Date Visits Re quested Visits Authorized [id number] Closed 01/28/2017 02/28/2018 1 1 Encounter Details Date Type Department Care Team (Late st Contact Info) Description 01/28/2017 Ancillary Orders [facility] Pre-Registration [place] CALL TO MAKE APPOINTMENT ONLY [address] [place] [address] Paul Sandoval DO [address] [facility] [address] [place] [address] Encounter for screening mammogram for malignant neoplasm of breast Social History Tobacco Use Types Packs/Day Years Used Date Smoking Tobacco: Never Smokeless Tobacco: Never Alcohol Use Standard Drinks/Week Comments No 0 (1 standard drink = 0.6 oz pur e alcohol) Comments No Sex and Gender Information Value Date Recorded Sex Assigned at Not on file 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 Gender Identity Not on file Sexual Orientation Not on file Occupation Industry Job Start Date Job End Date Not on file Not on file Not on file Not on file documented as of this encounter Plan of Treatment Not on file documented as of this encounter Results * MAMMO SCREEN BILAT W OR WO CAD (03/26/2017 9:38 AM CDT) Anatomical Region Laterality Modality Breast Bilateral Mammography Narrative 03/27/2017 10:48 AM CDT Bilateral Mammogram Reason for Exam: Screening Comparison: Compared to: 01/29/2016 MAMMO DIGITAL SCREEN BILAT, 01/25/2015 MAMMO DIGITAL SCREEN BILAT, 11/29/2013 MAMMO DIGITAL SCREEN BILAT, 08/05/2012 MAMMO DIGITAL SCREEN BILAT, and 06/18/2011 MAMMO DIGITAL SCREEN BILAT Findings: Bilateral CC and MLO views were obtained. This examination was reviewed with the aid of a computer-aided detection system(CAD). Breast Composition: There are scattered areas of fibroglandular density. There are no suspicious masses, areas of architectural distortions, or microcalcifications to suggest malignancy. No significant new findings since the prior mammogram(s). Paul Sandoval DO MAMMO ORDERABLES Nena l Result documented in this encounter Visit Diagnoses Diagnosis Encounter for screening mammogram for malignant neoplasm of breast Other screening mammogram Encounter for screening mammogram for malignant neoplasm of breast Other screening mammogram documented in this encounter Care Teams Travel Accommodations Rater Relationship Specialty Start Date End Date Vlad Francois MD [address] [place] [address] PCP - General Family Practice 01/17/16 documented as of this encounter
--- OUTSIDE RECORDS SUMMARY | 2025-01-11 18:25 | XMS_ITS | Encounter Summary ---
Author Organization [facility] Address [address] [place] [address] Care Team Providers Care Income Tax Advisor Name Role Phone Vlad Francois MD Primary Care Provider [phone] Encounter Details Date Type Department Care Team (Latest Contact Info) Description 02/22/2007 Outpatient Historical [facility] ld [address] [place] [phone] Javier Farmer MD NO ADDRESS ON FILE Primary Localized Osteoarthrosis, Lower Leg (Primary Dx); Pain in Joint, Lower Leg; Degeneration of Lumbar or Lumbosacral Intervertebral Disc; Obesity, Unspecified Social History Tobacco Use Types Packs/Day Years Used Date Smoking Tobacco: Never Assessed Comments Unknown Sex and Gender Information Value Date Recorded Sex Assigned at Not on file Legal 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
--- OUTSIDE RECORDS SUMMARY | 2025-01-11 18:25 | XMS_ITS | Encounter Summary ---
Author Organization [facility] Address [address] [place] [address] Care Team Providers Care Conditioner Tender Name Role Phone Vlad Francois MD Primary Care Provider [phone] Encounter Details Date Type Department Care Team (Late st Contact Info) Description 05/15/2004 Outpatient [facility] [address] [place] [address] Ilia Sprague MD [address] [id number] SCREENING MAMM-MAILG NEOPL-OTHER (Primary Dx) Social History Tobacco Use Types Packs/Day Years Used Date Smoking Tobacco: Never Assessed Comments Unknown Sex and Gender Information Value Date Recorded Sex Assigned at Not on file 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
--- OUTSIDE RECORDS SUMMARY | 2025-01-11 18:25 | XMS_ITS | Encounter Summary ---
Author Organization [facility] Address [address] [place] [address] Care Team Providers Care Elevating Grader Operator Name Role Phone Vlad Francois MD Primary Care Provider [phone] Reason for Referral * Outpatient Services (Routine) - Closed Specialty Diagnoses / Procedures Referred By Nancy aplpe Referred To Contact Radiology Diagnoses Encounter for screening mammogram for malignant neoplasm of breast Procedures MAMMO DIGITAL SCREEN BILAT Vlad Francois MD [address] [facility] [place] [address] Phone: tel: fax: [facility] [address] [facility] [address] [place] [address] Phone: tel: fax: Referral ID Status Reason Start Date Expiration Date V isits Requested Visits Authorized [id number] Closed [facility] TO SCHEDULE ([facility]) 01/11/2016 02/10/2017 1 1 Encounter Details Date Type Department Care Team (Latest Contact Info) Description 01/11/2016 Ancillary Orders [facility] Pre-Registration [place] CALL TO MAKE APPOINTMENT ONLY [address] [place] [address] Vlad Francois MD [address] [place] [address] Encounter for screening mammogram for malignant neoplasm of breast (Primary Dx) Social History Tobacco Use Types Packs/Day Years Used Date Smoking Tobacco: Never Smokeless Tobacco: Never Alcohol Use Standard Drinks/Week Comments No 0 (1 standard drink = 0.6 oz pur e alcohol) Comments No Sex and Gender Information Value Date Recorded Sex Assigned at Not on file 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 Gender Identity Not on file Sexual Orientation Not on file Occupation Industry Job Start Date Job End Date Not on file Not on file Not on file Not on file documented as of this encounter Plan of Treatment Not on file documented as of this encounter Results * MAMMO DIGITAL SCREEN BILAT (01/29/2016 11:36 AM CDT) Anatomical Region Laterality Modality Breast Bilateral Mammography Narrative 01/30/2016 3:02 PM CDT Bilateral Mammogram Reason for Exam: Screening Comparison: Compared to: 01/25/2015 MAMMO DIGITAL SCREEN BILAT, 11/29/2013 MAMMO DIGITAL SCREEN BILAT, 08/05/2012 MAMMO DIGITAL SCREEN BILAT, 06/18/2011 MAMMO DIGITAL SCREEN BILAT Findings: Bilateral CC and MLO views were obtained. This examination was reviewed with the aid of a computer-aided detection system(CAD). Breast Composition: Scattered fibroglandular density. The fibroglandular pattern is stable. No significant new findings since the prior mammogram(s). External Provider [facility] MAMMO ORDERABLES Final Res ult documented in this encounter Visit Diagnoses Diagnosis Encounter for screening mammogram for malignant neoplasm of breast- Primary Other screening mammogram Encounter for screening mammogram for malignant neoplasm of breast Other screening mammogram documented in this encounter Care Teams Elevating Grader Operator Relationship Specialty Start Date End Date Vlad Francois MD [address] [place] [phone] PCP - General Family Practice 01/17/16 documented as of this encounter
--- OUTSIDE RECORDS SUMMARY | 2025-01-11 18:25 | XMS_ITS | Clinical Summary ---
Author Organization [facility] Address [address] [place] [address] Care Team Providers Care Control Room Tender Name Role Phone Vlad Francois MD Primary Care Provider Allergies Active Allergy Reactions Criticality Noted Date Comments Pregabalin Swelling Low 04/16/2016 Sulfa (Sulfonamide Antibiotics) Unknown 01/31 Medications ZOLMITRIPTAN (ZOMIG NA) Administer in each nostril. Active MAGNESIUM PO Take 400 mg by mouth. Active ERGOCALCIFEROL (VITAMIN D PO) Take by mouth. Active metformin (GLUCOPHAGE) 500 mg Oral tablet Take 1,000 mg by mouth 2 times daily with meals . Active simvastatin (ZOCOR) 10 mg Oral tablet Take 10 mg by mouth Daily LATE. Active OTHERIndications:K nee pain,Localized osteoarthrosis not specified whether primary or secondary, lower leg,DJD (degenerative joint disease) of knee daily. bi est cream Active Auvk-Uocz-GZT#1-Vi t C-Rogerio-Bor (GLUCOSAMINE-CHOND -MSM COMPLEX) 068-654-10-0.5 mg Oral Tab Take by mouth daily. Active aspirin (EVELIN) 81 mg Oral Tab Take by mouth daily. 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 Length of need:99 mo; nasal mask with headgear q 6 mo; mask only q 3 mo;2 cushions q mo; Tubing heated, water chamber 1 per 3 months, chin strap 1 per 6 months, filters disposable 2 per month, filters reusable 1 per 6 months. Dx: G47.33. 1 Each 05/09/20 16 Active glipiZIDE (GLUCOTROL) 5 mg tablet Take 5 mg by mouth daily with breakfast. Active Trulicity 0.75 mg/0.5 mL injection INJECT 0.75MG (0.5ML) SUBCUTANEOUSLY ONCE WEEKLY 11/21/19 Active montelukast (SINGULAIR) 10 mg tablet Take 10 mg by mouth daily at bedtime. 09/28/19 20 Active ondansetron (ZOFRAN ODT) 4 mg Tablet, Rapid Dissolve Take 1 Tablet (4 mg) by mouth every 8 hours as needed for Nausea/Emesis. Dissolve tablet on top of tongue, then swallow with saliva. 30 Tablet 12/28/19 20 Active amitriptyline (ELAVIL) 10 mg tablet Take 3 Tablets (30 mg) by mouth daily at bedtime. 90 Tablet 1 03/08/20 20 Active levETIRAcetam (KEPPRA) 500 mg tablet Take 1 Tablet (500 mg) by mouth 2 times daily. 180 Tablet 1 03/08/20 20 Active DULoxetine (Cymbalta) 60 mg Capsule, Delayed Release(E.C.) Take 1 Capsule (60 mg) by mouth daily. 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 primary or secondary, lower leg 20 mg Intra-arTIC u INTRA-PROCEDURE ONCE 01/27/2013 Active sodium hyaluronate 10 mg/mL intra-arTICular injection 20 mgIndications:Knee pain, bilateral,DJD (degenerative joint disease) of knee,Localized osteoarthrosis not specified whether primary or secondary, lower leg 20 mg Intra-arTIC u INTRA-PROCEDURE ONCE 01/27/2013 Active sodium hyaluronate 10 mg/mL intra-arTICular injection 20 mgIndications:Knee pain,DJD (degenerative joint disease) of knee,Localized osteoarthrosis not specified whether primary or secondary, lower leg 20 mg Intra-arTIC u INTRA-PROCEDURE ONCE 02/10/2013 Active sodium hyaluronate 10 mg/mL intra-arTICular injection 20 mgIndications:Knee pain,DJD (degenerative joint disease) of knee,Localized osteoarthrosis not specified whether primary or secondary, lower leg 20 mg Intra-arTIC u INTRA-PROCEDURE ONCE 02/10/2013 Active Active Problems Problem Noted Date Diagnosed Date Right hip pain 08/23/2018 Chronic pain of both knees 04/16/2016 Chronic maxillary sinusitis 04/12/2015 Chronic rhinitis 04/12/2015 Family History Medical History Relation Name Comments Healthy Daughter Heart Disease Father High Cholesterol Father Hypertension Father Kidney Disease Father Other Father Stroke Father Heart Disease Mother High Cholesterol Mother Hypertension Mother Kidney Disease Mother Other Mother High Cholesterol Sister 1 Thyroid Disease Sister 1 Healthy Sister 2 High Cholesterol Sister 2 Healthy Sister 3 High Cholesterol Sister 3 Breast Cancer Neg Hx negative respo nses - see media tab Relation Name Status Comments Daughter Alive Father Alive Mother Alive Sister 1 Alive Sister 2 Alive Sister 3 Alive Social History Tobacco Use Types Packs/Day Years Used Date Smoking Tobacco: Never Smokeless Tobacco: Never Alcohol Use Standard Drinks/Week Comments No 0 (1 standard drink = 0.6 oz pur e alcohol) Comments No Sex and Gender Information Value Date Recorded Sex Assigned at Not on file 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 Gender Identity Not on file Sexual Orientation Not on file Occupation Industry Job Start Date Job End Date Not on file Not on file Not on file Not on file Last Filed Vital Signs Vital Sign Reading Time Taken Comments Blood Pressure 132/76 03/08/2020 3:18 PM CDT Pulse 73 12/28/2019 12:15 AM CDT Temperature 36.1 C (97 F) 12/27/2019 6:34 PM CDT Respiratory Rate 20 12/28/2019 12:15 AM CDT Oxygen Saturation 94% 12/28/2019 12:15 AM CDT Inhaled Oxygen Concentration - - Weight 93 kg (205 lb) 03/08/2020 3:18 PM CDT Height 170.2 cm (5' 7 ) 03/08/2020 3:18 PM CDT Body Mass Index 32.11 03/08/2020 3:18 PM CDT Plan of Treatment Health Maintenance Due Date Last Done Comments DTAP/TDAP/TD VACCINES (1 - Tdap) 12/21/1978 FIT-DNA Q 3 years 12/21/2004 FIT/FOBT Q 1 year 12/21/2004 Flex Sig/CT Colonography Q 5 years 12/21/2004 PNEUMOCOCCAL VACCINE 50+ YEA RS (1 of 1 - PCV) 12/21/2009 ZOSTER VACCINE (1 of 2) 12/21/2009 BREAST CANCER SCREENING 10/01/2021 10/02/19, 07/21/2019, 07/06/2018, Additional history exists OSTEOPOROSIS SCREENING 12/21/2024 INFLUENZA VACCINE (#1) 2024 03/30/2002 COLORECTAL SCREENING 08/23/2030 08/23/2020, 08/18/2012, 08/18/2012 Colorectal Cancer Screening 08/23/2030 RSV VACCINE (60+ or ) (1 - 1-dose 75+ series) 12/21/2034 Procedures Procedure Name Priority Date/Time Associated Diagnosis Comments MAMMO 3D YAQUELIN SCREEN BILAT W OR WO CAD Routine 10/01/2020 12:10 PM CDT Visit for screening mammogram ENDOSCOPY, COLON, SCREENING Routine 08/18/2012 10:52 AM CDT Special screening for malignant neoplasms, colon from Last 3 Months or Most Recently Relevant to Health Maintenance Results * MAMMO SCRN BILAT 3D YAQUELIN W OR WO CAD (10/01/2020 12:10 PM CDT) Anatomical Region Laterality Modality Breast Bilateral Mammography Narrative 10/02/2020 7:29 AM CDT Bilateral Digital Mammogram with CAD and 3D Tomography Reason for Exam: Screening Comparison: Compared to: 07/21/2019 MAMMO SCRN BILAT 3D YAQUELIN W OR WO CAD, 06/15/2018 MAMMO SCRN BILAT 3D YAQUELIN W OR WO CAD, 03/26/2017 MAMMO SCREEN BILAT W OR WO CAD, and 01/29/2016 MAMMO DIGITAL SCREEN BILAT Technique: 3D MLO and CC digital tomosynthesis images were acquired and synthesized 2D images (C view) were generated. This digital mammogram was also analyzed by the Computer Aided Detection System CAD). Breast Composition: There are scattered areas of fibroglandular density. There are no suspicious masses, areas of architectural distortions, or microcalcifications to suggest malignancy. No significant new findings since the prior mammogram(s). Vlad Francois MD MAMMO ORDERABLES Final Result from Last 3 Months or Most Recently Relevant to Health Maintenance Insurance MEDICARE PART A AND B AARP SUPP RX EXPRESS SCRIPTS Medicare Part D RX ALEJAN[employer]O PLANS (INTERNAL) [facility] Internal Plans Advance Directives For more information, please contact: [phone] * Full Code (Latest Code Status on File) Date Activated Date Inactivated Comments 08/18/2012 10:52 AM 08/18/2012 1:47 PM Care Teams Control Room Tender Relationship Specialty [place] [address] [place] [phone] PCP - General Family Practice 01/17/16
--- OUTSIDE RECORDS SUMMARY | 2025-01-11 18:25 | XMS_ITS | Encounter Summary ---
Author Organization [facility] Address [address] [place] [address] Care Team Providers Care Internet Project Manager Name Role Phone Vlad Francois MD Primary Care Provider [phone] Encounter Details Date Type Department Care Team (Late st Contact Info) Description 06/13/2004 Outpatient Historical [facility] OBG[facility]-[place] [address] [place] [address] Ilia Sprague MD [address] [facility] [address] [place] [address] Atrophic vaginitis (Primary Dx); ATROPHY OF VULVA Social History Tobacco Use Types Packs/Day Years Used Date Smoking Tobacco: Never Assessed Comments Unknown Sex and Gender Information Value Date Recorded Sex Assigned at Not on file 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
--- OUTSIDE RECORDS SUMMARY | 2025-01-11 18:25 | XMS_ITS | Encounter Summary ---
Author Organization [facility] Address [address] [place] [address] Care Team Providers Care Speech Language Assistant Name Role Phone Vlad Francois MD Primary Care Provider [phone] Encounter Details Date Type Department Care Team (Latest Contact Info) Description 11/24/2005 Outpatient Historical [facility] Physical Therapy [address] [place] [address] [place] [phone] Vlad Raman MD NO ADDRESS ON FILE Cervicalgia (Primary Dx) Social History Tobacco Use Types Packs/Day Years Used Date Smoking Tobacco: Never Assessed Comments Unknown Sex and Gender Information Value Date Recorded Sex Assigned at Not on file 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
--- OUTSIDE RECORDS SUMMARY | 2025-01-11 18:25 | XMS_ITS | Encounter Summary ---
Author Organization [facility] Address [address] [place] [address] Care Team Providers Care Forecast Analyst Name Role Phone Vlad Francois MD Primary Care Provider [phone] Encounter Details Date Type Department Care Team (Latest Contact Info) Description 06/07/2004 Outpatient Historical [facility] [place] [address] [place] [address] Arnoldo Steward MD [address] [place] [address] Plantar fibromatosis (Primary Dx) Social History Tobacco Use Types Packs/Day Years Used Date Smoking Tobacco: Never Assessed Comments Unknown Sex and Gender Information Value Date Recorded Sex Assigned at Not on file 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
--- OUTSIDE RECORDS SUMMARY | 2025-01-11 18:25 | XMS_ITS | Encounter Summary ---
Author Organization [facility] Address [address] [place] [address] Care Team Providers Care Road Freight Firer Name Role Phone Vlad Francois MD Primary Care Provider [phone] Encounter Details Date Type Department Care Team (Latest Contact Info) Description 08/14/2004 Outpatient Historical [facility] Pod[facility] [place] [address] [place] [address] Aidan Oden, DPM NO ADDRESS ON FILE Pain in limb (Primary Dx); EXOSTOSIS, SITE NOS; CALCANEAL SPUR Social History Tobacco Use Types Packs/Day Years Used Date Smoking Tobacco: Never Assessed Comments Unknown Sex and Gender Information Value Date Recorded Sex Assigned at Not on file 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
--- OUTSIDE RECORDS SUMMARY | 2025-01-11 18:25 | XMS_ITS | Encounter Summary ---
Author Organization [facility] Address [address] [place] [address] Care Team Providers Care Director Stage Name Role Phone Vlad Francois MD Primary Care Provider [phone] Encounter Details Date Type Department Care Team (Latest Contact Info) Description 12/11/2005 Outpatient Historical [facility]- 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
--- OUTSIDE RECORDS SUMMARY | 2025-01-11 18:25 | XMS_ITS | Encounter Summary ---
Author Organization [facility] Address [address] [place] [address] Care Team Providers Care Journeyman Welder Name Role Phone Vlad Francois MD Primary Care Provider [phone] Encounter Details Date Type Department Care Team (Latest Contact Info) Description 05/15/2004 Outpatient Historical [facility] Breast Ingram [address] [facility] [address] [place] [address] Angel Viveros MD NO ADDRESS ON FILE SCREENING MAMM-MAILG NEOPL-OTHER (Primary Dx) Social History Tobacco Use Types Packs/Day Years Used Date Smoking Tobacco: Never Assessed Comments Unknown Sex and Gender Information Value Date Recorded Sex Assigned at Not on file 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
--- OUTSIDE RECORDS SUMMARY | 2025-01-11 18:25 | XMS_ITS | Encounter Summary ---
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
--- OUTSIDE RECORDS SUMMARY | 2025-01-11 18:25 | XMS_ITS | Encounter Summary ---
Author Organization [facility] Address [address] [place] [address] Care Team Providers Care Fire Apparatus Engineer Name Role Phone Vlad Francois MD Primary Care Provider [phone] Encounter Details Date Type Department Care Team (Latest Contact Info) Description 06/12/1997 Outpatient Historical [facility] [address] [place] [address] Chapito Isaacs MD NO ADDRESS ON FILE Vaginitis and vulvovaginitis, unspecified (Primary Dx) Social History Tobacco Use Types Packs/Day Years Used Date Smoking Tobacco: Never Assessed Comments Unknown Sex and Gender Information Value Date Recorded Sex Assigned at Not on file 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
--- OUTSIDE RECORDS SUMMARY | 2025-01-11 18:25 | XMS_ITS | Encounter Summary ---
Author Organization [facility] Address [address] [place] [address] Care Team Providers Care Tire Buster Name Role Phone Vlad Francois MD Primary Care Provider [phone] Encounter Details Date Type Department Care Team (Latest Contact Info) Description 08/02/2004 Outpatient Historical [facility] [place] [address] [place] [address] Aidan Oden, DPM NO ADDRESS ON FILE Pain in limb (Primary Dx) Social History Tobacco Use Types Packs/Day Years Used Date Smoking Tobacco: Never Assessed Comments Unknown Sex and Gender Information Value Date Recorded Sex Assigned at Not on file 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
--- OUTSIDE RECORDS SUMMARY | 2025-01-11 18:25 | XMS_ITS | Encounter Summary ---
Author Organization [facility] Address [address] [place] [address] Care Team Providers Care Banker Mason Name Role Phone Vlad Francois MD Primary Care Provider [phone] Encounter Details Date Type Department Care Team (Latest Contact Info) Description 11/06/2006 Outpatient Historical [facility] [place] [address] [place] [phone] Radha Díaz MD [address] 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
--- OUTSIDE RECORDS SUMMARY | 2025-01-11 18:25 | XMS_ITS | Encounter Summary ---
Author Organization [facility] Address [address] [place] [address] Care Team Providers Care Molasses Preparer Name Role Phone Vlad Francois MD Primary Care Provider [phone] Reason for Referral * Outpatient Services (Routine) - Closed Specialty Diagnoses / Procedures Referred By Contkash t Referred To Contact Diagnoses Other screening mammogram Procedures MAMMO DIGITAL SCREEN BILAT Vlad Palmer MD NO ADDRESS ON FILE [facility] Pre-Registration [place] CALL TO MAKE APPOINTMENT ONLY [address] [place] [address] Phone: tel: fax: Referral ID Status Reason Start Date Expiration Date V isits Requested Visits Authorized [id number] Closed [facility] TO SCHEDULE ([facility]) 09/23/2013 10/24/2014 1 1 Encounter Details Date Type Department Care Team (Latest Contact Info) Description 09/23/[address] 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 Gender Identity Not on file Sexual Orientation Not on file Occupation Industry Job Start Date Job End Date Not on file Not on file Not on file Not on file documented as of this encounter Plan of Treatment Not on file documented as of this encounter Results * MAMMO DIGITAL SCREEN BILAT (11/29/2013 10:37 AM CDT) Anatomical Region Laterality Modality Breast Bilateral Mammography Narrative 11/30/2013 8:50 AM CDT Bilateral Mammogram Reason for Exam: Screening Comparison: Compared to: 08/05/2012 MAMMO DIGITAL SCREEN BILAT, 06/18/2011 MAMMO DIGITAL SCREEN BILAT 12.15.04 Findings: Bilateral CC and MLO views were obtained. This examination was reviewed with the aid of a computer-aided detection system(CAD). The breast tissue density is average. No significant new findings since the prior mammogram(s). Procedure Note Devi Mix MD - 11/30/2013 Bilateral Mammogram Reason for Exam: Screening Comparison: Compared to: 08/05/2012 MAMMO DIGITAL SCREEN BILAT, 06/18/2011MAMMO DIGITAL SCREEN BILAT 12.15.04 Findings: Bilateral CC and MLO views were obtained. This examination was reviewed with the aid of a computer-aided detectionsystem(CAD). The breast tissue density is average. No significant new findings since the prior mammogram(s). Vlad Palmer MD MAMMO ORDERABLES Final Resul t documented in this encounter Visit Diagnoses Diagnosis Other screening mammogram- Primary Other screening mammogram documented in this encounter Care Teams Molasses Preparer Relationship Specialty Start Date End Date Vlad Francois MD [address] [place] [phone] PCP - General Family Practice 01/17/16 documented as of this encounter
--- OUTSIDE RECORDS SUMMARY | 2025-01-11 18:25 | XMS_ITS | Encounter Summary ---
Author Organization [facility] Address [address] [place] [address] Care Team Providers Care Designated Broker Name Role Phone Vlad Francois MD Primary Care Provider Encounter Details Date Type Department Care Team (Latest Contact Info) Description 09/23/1999 Outpatient Historical [facility] O[facility] [address] [place] [address] Chapito Isaacs MD NO ADDRESS ON FILE Abdominal pain, unspecified site (Primary Dx) Social History Tobacco Use Types Packs/Day Years Used Date Smoking Tobacco: Never Assessed Comments Unknown Sex and Gender Information Value Date Recorded Sex Assigned at Not on file 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
--- OUTSIDE RECORDS SUMMARY | 2025-01-11 18:25 | XMS_ITS | Patient Health Record ---
Author Organization [facility] Address [address] [place], [place] [address] Care Team Providers Care Steam Hammer Operator Name Role Phone Vlad Francois MD Primary Care Provider Kitty Blackman MD, Chaim Unavailable [phone] Allergies Allergen (clinical drug ingredient) Drug/Non Drug Allergy documented on EMR Reaction Allergy Type Onset Date Status sulfa drugs (uncoded) Unknown Allergy Active surgical glue (uncoded) blisters Allergy Active tramadol Ultram swelling Drug Allergy Active pregabalin Lyrica swelling Drug Allergy Active Reason For Referral No Information Medications Medication SIG (Take, Route, Frequency, Duration) Notes Start Date End Date Status eletriptan 40 mg as directed orally Active DULoxetine 60 mg 1 cap orally 2 times a day Active Hair, Skin, Nails 5 mg 1 cap orally once a day Active finasteride 5 mg 1 tab orally once a day Active Iron as directed Active Acetaminophen-Hydrocodo ne Bitartrate 325 mg-7.5 mg 1 tab po orally BID prn pain; Duration: 23 days Do not fill prior to 09/03/21. ICD-10: M47.812 08/27/2021 Active Acetaminophen-Hydrocodo ne Bitartrate 325 mg-7.5 mg 1 tab po orally BID prn pain; Duration: 7 days ICD-10: M47.812 08/27/2021 Active Acetaminophen-Hydrocodo ne Bitartrate 325 mg-7.5 mg 1 tab po orally BID prn pain; Duration: 30 day(s) Do not fill prior to 10/26/21. ICD-10: M47.812 08/27/2021 Active meclizine 25 mg 1 tab orally every 6 hours, as needed for dizziness Active Acetaminophen-Hydrocodo ne Bitartrate 325 mg-7.5 mg 1 tab po orally BID prn pain; Duration: 30 day(s) Do not fill prior to 09/26/21. ICD-10: M47.812 08/27/2021 Active levETIRAcetam 500 mg 1 tab orally 2 time s a day Active carvedilol 3.125 mg 1 tab orally 2 times a day Active simvastatin 40 mg 1 tab orally once a day (at bedtime) Active aspirin 81 mg 1 tab orally once a day Active metFORMIN 500 mg 1 tab orally 2 times a day Active docusate sodium 250 mg 1 cap orally as directed Active Tylenol Extra Strength 500 mg 2 tabs orally 1 X PRN Active cyclobenzaprine 10 mg 1 tab po orally Q1 2H prn spasm Active Trulicity Pen 3 mg/0.5 mL as directed subcutaneously once a week Active Social History Tobacco Use: Social History Observation Description Date Details (start date - stop date) Never Smoker NA - NA alcohol Question Answer Notes Did you have a drink containing alcohol in the p ast year? No Points 0 Interpretation Negative Tobacco use: Question Answer Notes : nonsmoker Problems Problem Type SNOMED Code ICD Code Onset Dates Problem Status W/U Status Risk Notes Problem High risk drug monitoring status (343262076) joint terminal attack controller (current) use of opiate analgesic (Z79.891) Active confirmed Problem Enthesopathy (39763362) Enthesopathy, unspecified (M77.9) Active confirmed Problem Obstructive sleep apnea (adult) (pediatric) (G47.33) Active confirmed Problem Cervical spondylosis without myelopathy (508943834) Spondylosis without myelopathy or radiculopathy, cervical region (M47.812) Active confirmed Problem Cervical radiculopathy (62421084) Cervical disc disorder with radiculopathy, unspecified cervical region (M50.10) Active confirmed Problem Cervical disc disorder with radiculopathy (126947389) Cervical disc disorder with radiculopathy, mid-cervical region (M50.12) Active confirmed Problem Cervicalgia (84411282) Cervicalgia (M54.2) Active confirmed Problem Myalgia (87309174) Myalgia (M79.1) Active confirmed Problem Pain in right hand (923252971227593) Pain in right hand (M79.641) Active confirmed Problem Pain in limb (27879201) Pain in left hand (M79.642) Active confirmed Problem Headache (60550121) Headache (R51) Active confirmed Problem Long-term current use of drug therapy (653155774) Other mcfp (current) drug therapy (Z79.899) Active confirmed Problem Myalgia (26274231) Myalgia of auxiliary muscles, head and neck (M79.12) Active confirmed Problem Headache (38830936) Headache, unspecified (R51.9) Active confirmed Plan Of Treatment No Information Insurance Providers Payer Name Payer Address Payer Phone Subscriber Number Group Number Insured Name Patient Relationship to Insured Coverage Start Date Coverage End Date WPS Medicare Part B Claims Department [address] [address] [place] [address] [id number] Randi Arechiga Self - patient is the insured [facility] [employer] [facility] CLAIM [employer] [address] [place] [address] [id number] Randi Arechiga Self - patient is the insured Medical (General) History Medical History History ICD Code Fibromyalgia Diabetes mellitus Hypercholesterolemia Migraine headaches Irritable bowel syndrome Joint pain, osteoarthritis Arthritis pain in hands and fingers Vitamin D deficiency Vitamin B12 deficiency Arthritis Sinusitis Chronic pain in multiple joints Mild cortical thinning of the right kidn ey Fatty infiltration of the liver Obstructive sleep apnea COVID-19 11/2019 Tachycardia Carpal tunnel syndrome, left wrist, mild Iron deficiency Kidney function issue Surgical History Surgery Date(Month/Year) [place] teeth extraction Sinus surgery, performed at [facility], 1988 Carpal tunnel release, right, 1989 Dilation and curettage, 1990 Hysterectomy, performed at [facility] in [place], [place], 2000 C5-6 ACDFF, performed at [place], [place], 2006 L5-6 surgery, performed at [place], [place], 2009 Right toe surgery (cyst), 2009, 2011 Kidney stone procedure, 2013 Cholecystectomy, performed at [facility], 2019 Hospitalization History Reason Date(Month/Year) [facility] Infertility COVID-19, treated at [facility], 11/2019
--- OUTSIDE RECORDS SUMMARY | 2025-01-11 18:25 | XMS_ITS | Encounter Summary ---
Author Organization [facility] Address [address] [place] [address] Care Team Providers Care Dry House Tender Name Role Phone Vlad Francois MD Primary Care Provider [phone] Encounter Details Date Type Department Care Team (Late st Contact Info) Description 12/03/2005 Outpatient Historical [facility] 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
--- OUTSIDE RECORDS SUMMARY | 2025-01-11 18:25 | XMS_ITS | Encounter Summary ---
Author Organization [facility] Address [address] [place] [address] Care Team Providers Care Bouffant Curtain Machine Tender Name Role Phone Vlad Francois MD Primary Care Provider Encounter Details Date Type Department Care Team (Late st Contact Info) Description 04/29/2004 Outpatient Historical [facility] OBGYN-[place] [address] [place] [address] Ilia Sprague MD [address] [facility] [address] [place] [address] Atrophic vaginitis (Primary Dx); ATROPHY OF VULVA Social History Tobacco Use Types Packs/Day Years Used Date Smoking Tobacco: Never Assessed Comments Unknown Sex and Gender Information Value Date Recorded Sex Assigned at Not on file Legal Sex Female 5:59 AM INTERNATIONAL RELATIONS PROFESSOR Gender Identity Not on file Sexual Orientation Not on file documented as of this encounter Plan of Treatment Not on file documented as of this encounter Visit Diagnoses Diagnosis Atrophic vaginitis- Primary Postmenopausal atrophic vaginitis Atrophy of vulva documented in this encounter Care Teams Bouffant Curtain Machine Tender Relationship Specialty Start Date End Date Vlad Francois MD [address] [place] [address] PCP - General Family Practice 01/17/16 documented as of this encounter
--- OUTSIDE RECORDS SUMMARY | 2025-01-11 18:25 | XMS_ITS | Encounter Summary ---
Author Organization [facility] Address [address] [place] [address] Care Team Providers Care Primer Inserting Machine Adjuster Name Role Phone Vlad Francois MD Primary Care Provider [phone] Encounter Details Date Type Department Care Team (Late st Contact Info) Description 01/25/2008 Outpatient Historical [facility] [place] [address] [place] [phone] Radha Díaz MD [address] [place] [address] Social History Tobacco Use Types Packs/Day Years Used Date Smoking Tobacco: Never Assessed Comments Unknown Sex and Gender Information Value Date Recorded Sex Assigned at Not on file Legal Sex Female 5:59 AM PRODUCE WEIGHER Gender Identity Not on file Sexual Orientation Not on file documented as of this encounter Plan of Treatment Not on file documented as of this encounter Procedures Procedure Name Priority Date/Time Associated Diagnosis Comments MRI CERVICAL WO CONTRAST Routine 01/28/2008 1:22 PM CDT documented in this encounter Results * MRI CERVICAL WO CONTRAST (01/28/2008 1:22 PM CDT) Anatomical Region Laterality Modality Spine Other 01/28/2008 1:22 PM CDT Narrative 02/21/2008 1:30 PM CDT MRI OF THE CERVICAL SPINE WITHOUT CONTRAST, 01/28/2008. INDICATION: Neck pain and radiculopathy. Prior surgical intervention. TECHNIQUE: Multiplanar multisequence MR images were obtained without contrast. COMPARISON: 11/06/2006. FINDINGS: Cervical alignment remains grossly normal. There has been interval C5-C6 interbody fusion and ventral hardware stabilization. Residual left paracentral spondylophyte at the fused C5-C6 level is slightly less prominent but remodels the left paramedian cord slightly and results in mild left-sided neural foraminal narrowing. At C6-C7, moderate spondylotic disc bulging is more prominent than seen previously flattening the ventral cord, but without overt impingement. There is mild to moderate bilateral neural foraminal narrowing which is greater on the left. Tiny central disc protrusion at C7-T1 does not appear significant. Upper levels remain grossly unremarkable. IMPRESSION: Interval C5-C6 interbody fusion. Residual left paracentral spondylophyte at this level is slightly less prominent than seen previously remodeling the cord and with mild left-sided neural foraminal narrowing. Protruding disc material at C6-C7 has progressed from prior study flattening the ventral cord to slightly greater degree also left paracentral prominent but without overt impingement. Mild to moderate bilateral neural foraminal narrowing is greater on the left. sdm Dictated By: Bijan Piña D.O. Electronically Signed By: Bijan Piña D.O. Date Signed: 02/21/08 [facility] Procedure Note Bijan Piña - 02/21/2008 MRI OF THE CERVICAL SPINE WITHOUT CONTRAST, 01/28/2008. INDICATION: Neck pain and radiculopathy. Prior surgical intervention. TECHNIQUE: Multiplanar multisequence MR images were obtained withoutcontrast. COMPARISON: 11/06/2006. FINDINGS: Cervical alignment remains grossly normal. There has beeninterval C5- C6 interbody fusion and ventral hardware stabilization. Residual left paracentral spondylophyteat the fused C5-C6 level is slightly less prominent but remodels the left paramedian cord slightly andresults in mild left-sided neural foraminal narrowing. At C6-C7, moderate spondylotic disc bulging is more prominent than seenpreviously flattening the ventral cord, but without overt impingement. There is mild to moderate bilateralneural foraminal narrowing which is greater on the left. Tiny central disc protrusion at C7-T1 doesnot appear significant. Upper levels remain grossly unremarkable. IMPRESSION: Interval C5-C6 interbody fusion. Residual left paracentral spondylophyteat this level is slightly less prominent than seen previously remodeling the cord and with mildleft-sided neural foraminal narrowing. Protruding disc material at C6-C7 has progressed from prior studyflattening the ventral cord to slightly greater degree also left paracentral prominent but without overtimpingement. Mild to moderate bilateral neural foraminal narrowing is greater on the left. sdm Dictated By: Bijan Piña D.O. Electronically Signed By: Bijan Piña D.O. Date Signed: 02/21/08 [facility] Radha Díaz MD MR ORDERABLES Final Result documented in this encounter Visit Diagnoses Not on filedocumented in this encounter Care Teams Primer Inserting Machine Adjuster Relationship Specialty [place] [address] [place] [phone] PCP - General Family Practice 01/17/16 documented as of this encounter
--- OUTSIDE RECORDS SUMMARY | 2025-01-11 18:25 | XMS_ITS | Encounter Summary ---
Author Organization [facility] Address [address] [place] [address] Care Team Providers Care Kick Press Setter Name Role Phone Vlad Francois MD Primary Care Provider [phone] Encounter Details Date Type Department Care Team (Latest Contact Info) Description 10/28/2006 Outpatient Historical [facility] [address] [place] [address] Shalini Johnston MD [address] [place] [address] Skin Sensation Disturb (Primary Dx); Pain in Limb Social History Tobacco Use Types Packs/Day Years Used Date Smoking Tobacco: Never Assessed Comments Unknown Sex and Gender Information Value Date Recorded Sex Assigned at Not on file Legal Sex Female 5:59 AM SENIOR TRAINER Gender Identity Not on file Sexual Orientation Not on file documented as of this encounter Plan of Treatment Not on file documented as of this encounter Visit Diagnoses Diagnosis Skin sensation disturb- Primary Disturbance of skin sensation Pain in limb Pain in soft tissues of limb documented in this encounter Care Teams Kick Press Setter Relationship Specialty Start Date End Date Vlad Francois MD [address] [place] [address] PCP - General Family Practice 01/17/16 documented as of this encounter
--- OUTSIDE RECORDS SUMMARY | 2025-01-11 18:25 | XMS_ITS | Encounter Summary ---
Author Organization [facility] Address [address] [place] [address] Care Team Providers Care Display Director Name Role Phone Vlad Francois MD Primary Care Provider [phone] Encounter Details Date Type Department Care Team (Latest Contact Info) Description 09/18/1999 Out[facility] [place] [address] [place] [address] Chapito Isaacs MD NO ADDRESS ON FILE Unspecified symptom associated with female genital organs (Primary Dx) Social History Tobacco Use Types Packs/Day Years Used Date Smoking Tobacco: Never Assessed Comments Unknown Sex and Gender Information Value Date Recorded Sex Assigned at Not on file Legal Sex Female 5:59 AM JOB SITE 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
--- OUTSIDE RECORDS SUMMARY | 2025-01-11 18:25 | XMS_ITS | Encounter Summary ---
Author Organization [facility] Address [address] [place] [address] Care Team Providers Care Loft Worker Head Name Role Phone Vlad Francois MD Primary Care Provider [phone] Reason for Referral * Outpatient Services (Routine) - Closed Specialty Diagnoses / Procedures Referred By Contkash t Referred To Contact Diagnoses Other screening mammogram Breast screening, unspecified Procedures MAMMO DIGITAL SCREEN BILAT Paul Sandoval DO [address] [facility] [address] [facility] [address] [place] [address] Phone: tel: fax: [facility] Pre-Registration [place] CALL TO MAKE APPOINTMENT ONLY [address] [place] [address] Phone: tel: fax: Referral ID Status Reason Start Date Expiration Date V isits Requested Visits Authorized [id number] Closed F [facility] TO SCHEDULE (SGF) 12/27/2014 01/27/2016 1 1 Encounter Details Date Type Department Care Team (Late st Contact Info) Description 12/27/2014 Ancillary Orders [facility] Pre-Registration [place] CALL TO MAKE APPOINTMENT ONLY [address] [place] [phone] Paul Sandoval DO [address] [facility] [facility] [address] [place] [address] Other screening mammogram (Primary Dx); Breast screening, unspecified Social History Tobacco Use Types Packs/Day Years Used Date Smoking Tobacco: Never Smokeless Tobacco: Never Alcohol Use Standard Drinks/Week Comments No 0 (1 standard drink = 0.6 oz pur e alcohol) Comments No Sex and Gender Information Value Date Recorded Sex Assigned at Not on file Legal Sex Female 5:59 AM MEDICAL TERRITORY 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 Gender Identity Not on file Sexual Orientation Not on file Occupation Industry Job Start Date Job End Date Not on file Not on file Not on file Not on file documented as of this encounter Plan of Treatment Not on file documented as of this encounter Results * MAMMO DIGITAL SCREEN BILAT (01/25/2015 2:55 PM CDT) Anatomical Region Laterality Modality Breast Bilateral Mammography Narrative 01/26/2015 10:09 AM CDT Bilateral Mammogram Reason for Exam: Screening Comparison: Compared to: 11/29/2013 MAMMO DIGITAL SCREEN BILAT, 08/05/2012 MAMMO DIGITAL SCREEN BILAT, 06/18/2011 MAMMO DIGITAL SCREEN BILAT Findings: Bilateral CC and MLO views were obtained. This examination was reviewed with the aid of a computer-aided detection system(CAD). The breast tissue density is average. No significant new findings since the prior mammogram(s). Paul Bronson Sandoval DO MAMMO ORDERABLES Nena l Result documented in this encounter Visit Diagnoses Diagnosis Other screening mammogram- Primary Breast screening, unspecified Other screening mammogram Breast screening, unspecified documented in this encounter Care Teams Loft Worker Head Relationship Specialty Start Date End Date Vlad Francois MD [address] [place] [phone] PCP - General Family Practice 01/17/16 documented as of this encounter
--- OUTSIDE RECORDS SUMMARY | 2025-01-11 18:25 | XMS_ITS | Encounter Summary ---
Author Organization [facility] Address [address] [place] [address] Care Team Providers Care Commercial Artist Lettering Name Role Phone Vlad Francois MD Primary Care Provider [phone] Encounter Details Date Type Department Care Team (Latest Contact Info) Description 09/23/1999 Outpatient Historical [facility] [address] [place] [address] Chapito Isaacs MD NO ADDRESS ON FILE Abdominal pain, unspecified site (Primary Dx) Social History Tobacco Use Types Packs/Day Years Used Date Smoking Tobacco: Never Assessed Comments Unknown Sex and Gender Information Value Date Recorded Sex Assigned at Not on file Legal Sex Female 5: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
--- OUTSIDE RECORDS SUMMARY | 2025-01-11 18:26 | XMS_ITS | Encounter Summary ---
Author Organization [facility] Address [address] [place] [address] Care Team Providers Care Knife Blade Polisher Name Role Phone Vlad Francois MD Primary Care Provider [phone] Encounter Details Date Type Department Care Team (Late st Contact Info) Description 04/30/[address] [facility] [address] [facility] [address] [place] [address] [facility], External Provider [address] [place] [address] Visit for screening mammogram Social History Tobacco Use Types Packs/Day Years Used Date Smoking Tobacco: Never Smokeless Tobacco: Never Alcohol Use Standard Drinks/Week Comments No 0 (1 standard drink = 0.6 oz pur e alcohol) Comments No Sex and Gender Information Value Date Recorded Sex Assigned at Not on file Legal Sex Female 5:59 AM CORDUROY CUTTER OPERATOR Gender Identity Not on file Sexual Orientation Not on file Occupation Industry Job Start Date Job End Date Not on file Not on file Not on file Not on file documented as of this encounter Plan of Treatment Not on file documented as of this encounter Visit Diagnoses Diagnosis Visit for screening mammogram Other screening mammogram documented in this encounter Care Teams Knife Blade Polisher Relationship Specialty Start Date End Date Vlad Francois MD [address] [place] [address] PCP - General Family Practice 01/17/16 documented as of this encounter
--- OUTSIDE RECORDS SUMMARY | 2025-01-11 18:26 | XMS_ITS | Encounter Summary ---
Author Organization [facility] Address [address] [place] [address] Care Team Providers Care Centralized Traffic Control Operator Name Role Phone Vlad Francois MD Primary Care Provider [phone] Reason for Referral * Radiology Services (Routine) - Closed Specialty Diagnoses / Procedures Referred By Nancy apple Referred To Contact Diagnoses Visit for screening mammogram Procedures MAMMO SCRN BILAT 3D YAQUELIN W OR WO CAD MAMMO SCRN BILAT 3D YAQUELIN W OR WO CAD MAMMO SCREEN BILAT W OR WO CAD CHG SCREENING MAMMOGRAPHY BI 2-VIEW BREAST INC CAD CHG SCREENING DIGITAL BREAST TOMOSYNTHESIS BI CHG SCREENING MAMMOGRAPHY BI 2-VIEW BREAST INC CAD CHG SCREENING DIGITAL BREAST TOMOSYNTHESIS BI Vlad Francois MD [address] [place] [address] Phone: tel: fax: [facility] [address] [place] [address] Phone: tel: Referral ID Status Reason Start Date Expiration Date Visits Re quested Visits Authorized [id number] Closed 03/19/2018 04/19/2019 1 1 Encounter Details Date Type Department Care Team (Late st Contact Info) Description 06/15/2018 Ancillary Orders [facility] [address] [address] Vlad Francois MD [address] [place] [address] Visit for screening mammogram Social History Tobacco Use Types Packs/Day Years Used Date Smoking Tobacco: Never Smokeless Tobacco: Never Alcohol Use Standard Drinks/Week Comments No 0 (1 standard drink = 0.6 oz pur e alcohol) Comments No Sex and Gender Information Value Date Recorded Sex Assigned at Not on file Legal Sex Female 5:59 AM SELF PROPELLED DREDGE OPERATOR Gender Identity Not on file Sexual Orientation Not on file Occupation Industry Job Start Date Job End Date Not on file Not on file Not on file Not on file documented as of this encounter Plan of Treatment Not on file documented as of this encounter Results * MAMMO SCRN BILAT 3D YAQUELIN W OR WO CAD (06/15/2018 1:07 PM SELF PROPELLED DREDGE OPERATOR) Anatomical Region Laterality Modality Breast Bilateral Mammography 06/15/2018 1:07 PM SELF PROPELLED DREDGE OPERATOR Narrative 06/16/2018 2:47 PM SELF PROPELLED DREDGE OPERATOR Screening 06/15/2018 3D MLO and CC digital tomosynthesis images were acquired and synthesized 2D images (C view) were generated. This digital mammogram was also analyzed by the Computer Aided Detection System (CAD). There is average breast parenchymal density. Comparison is made with prior exams of 03/26/2017, 01/29/2016, 01/25/2015, 11/29/2013, 08/05/2012, and 06/18/2011. No change is seen on the left. No suspicious calcifications are seen. However, there is an ill-defined area of asymmetry superiorly on the right MLO view not seen on the craniocaudal view located approximately 7 cm from the nipple. This will require further evaluation. Impression: I would recommend the patient return for right additional views. [id number] us External Provider [facility] MAMMO ORDERABLES Final Res ult documented in this encounter Visit Diagnoses Diagnosis Visit for screening mammogram Other screening mammogram Visit for screening mammogram Other screening mammogram documented in this encounter Care Teams Centralized Traffic Control Operator Relationship Specialty Start Date End Date Vlad Francois MD [facility] [place] [address] PCP - General Family Practice 01/17/16 documented as of this encounter
--- OUTSIDE RECORDS SUMMARY | 2025-01-11 18:26 | XMS_ITS | Encounter Summary ---
Author Organization [facility] Address [address] [place] [address] Care Team Providers Care Marine Operations Coordinator Name Role Phone Vlad Francois MD Primary Care Provider [phone] Encounter Details Date Type Department Care Team (Late st Contact Info) Description 01/28/2008 Outpatient Historical [facility] [address] [place] [phone] Other, [facility] [place] NO ADDRESS ON FILE Social History Tobacco Use Types Packs/Day Years Used Date Smoking Tobacco: Never Assessed Comments Unknown Sex and Gender Information Value Date Recorded Sex Assigned at Not on file Legal Sex Female 5:59 AM ENTERER Gender Identity Not on file Sexual Orientation Not on file documented as of this encounter Plan of Treatment Not on file documented as of this encounter Visit Diagnoses Not on filedocumented in this encounter Care Teams Marine Operations Coordinator Relationship Specialty Start Date End Date Vlad Francois MD [address] [place] [phone] PCP - General Family Practice 01/17/16 documented as of this encounter
--- OUTSIDE RECORDS SUMMARY | 2025-01-11 18:26 | XMS_ITS | Encounter Summary ---
Author Organization [facility] Address [address] [place] [address] Care Team Providers Care Oncology Radiation Physician Name Role Phone Vlad Francois MD Primary Care Provider [phone] Encounter Details Date Type Department Care Team (Late st Contact Info) Description 01/27/2008 Outpatient [facility] Breast Center 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
--- OUTSIDE RECORDS SUMMARY | 2025-01-11 18:26 | XMS_ITS | Clinical Summary ---
Author Organization [facility] Address [address] [place] [address] Care Team Providers Care Magnetic Locater Name Role Phone Vlad Francois MD Primary Care Provider [phone] Allergies Active Allergy Reactions Criticality Noted Date Comments Pregabalin Swelling Low 04/16/2016 Sulfa (Sulfonamide Antibiotics) Unknown 01/31 Tramadol Swelling Low 07/11/2023 Medications dulaglutide (Trulicity) 0.75 mg/0.5 mL injection INJECT 0.75MG (0.5ML) SUBCUTANEOUSLY ONCE WEEKLY 0 Active DULoxetine (CYMBALTA) 60 mg Capsule, Delayed Release(E.C.) Take 1 Capsule (60 mg) by mouth daily. 90 Capsule 1 0 Active levETIRAcetam (KEPPRA) 500 mg tablet Take 1 Tablet (500 mg) by mouth 2 times daily. 180 Tablet 1 0 Active eletriptan (RELPAX) 20 mg Tablet Take 20 mg by mouth every 2 hours as needed. Active insulin glargine (Lantus U-100 Insulin) 100 unit/mL vial Inject 40 Units by subcutaneous injection daily. 0 Active meclizine (ANTIVERT) 25 mg tablet 25 mg daily. 0 Active simvastatin (ZOCOR) 40 mg tablet Take 40 mg by mouth daily. 0 Active gabapentin (NEURONTIN) 300 mg capsule Take 300 mg by mouth 3 times daily. Active HYDROcodone-ac etaminophen (NORCO) 7.5-325 mg Tablet Take 1 Tablet by mouth every 4 hours as needed for Pain, Moderate. Active albuterol sulfate HFA 90 mcg/actuation aerosol inhaler Take 2 Puffs by inhalation every 4 hours as needed. 4 Active aspirin/calciu m carb/magnesium (BUFFERIN ORAL) Take by mouth daily. Active finasteride (PROSCAR) 5 mg tablet Take 5 mg by mouth daily. Active fluconazole (DIFLUCAN) 150 mg tablet TAKE ONE TABLET BY MOUTH TODAY, THEN TAKE ONE TABLET IN ONE WEEK 4 Active BD Veo Insulin Syringe UF 1 mL 31 gauge x 15/64 Syringe USE DIRECTED ONCE DAILY 4 Active Mounjaro 2.5 mg/0.5 mL Pen Injector 4 Active traZODone (DESYREL) 100 mg tablet Take 100 mg by mouth daily at bedtime. 4 Active carvediloL (COREG) 6.25 mg tablet Take 1 Tablet by mouth 2 times daily. 4 Active promethazine HCl (PROMETHAZINE ORAL) Q6H 2 Active Active Problems Problem Noted Date Diagnosed Date Right hip pain 08/23/2018 Chronic pain of both knees 04/16/2016 Chronic maxillary sinusitis 04/12/2015 Chronic rhinitis 04/12/2015 Encounters Date Type Department Care Team Description 01/03/2025 External Device Data [facility] ABSTRACTION Provider, Abstract 12/14/2024 External Device Data [facility] ABSTRACTION Provider, Abstract 12/13/2024 External Device Data [facility] ABSTRACTION Provider, Abstract 11/22/2024 External Device Data [facility] ABSTRACTION Provider, Abstract 10/19/2024 External Device Data [facility] ABSTRACTION Provider, Abstract 10/18/2024 External Device Data [facility] ABSTRACTION Provider, Abstract from Last 3 Months Family History Medical History Relation Name Comments Healthy Daughter Cancer - Other Father Andrez Cox ITP Heart Disease Father Andrez Cox High Cholesterol Father Andrez Cox Hypertension Father Andrez Cox Kidney Disease Father Andrez Cox Other Father Andrez Cox Stroke Father Andrez Cox Heart Disease Mother High Cholesterol Mother Hypertension Mother Kidney Disease Mother Other Mother Healthy Sister 1 High Cholesterol Sister 1 Healthy Sister 2 High Cholesterol Sister 2 High Cholesterol Sister 3 Thyroid Disease Sister 3 Breast Cancer Neg Hx negative respo nses - see media tab Melanoma Neg Hx Ovarian Cancer Neg Hx Pancreatic Cancer Neg Hx Uterine or Endometrial Cance r, Not Including Cervical Neg Hx Relation Name Status Comments Daughter Alive Father Andrez Cox Alive Mother Alive Sister 1 Alive Sister 2 Alive Sister 3 Alive Social History Tobacco Use Types Packs/Day Years Used Date Smoking Tobacco: Never Smokeless Tobacco: Never Alcohol Use Standard Drinks/Week Comments No 0 (1 standard drink = 0.6 oz pur e alcohol) Comments No Sex and Gender Information Value Date Recorded Sex Assigned at Female 06/06/2024 12:31 PM WORKFORCE PLANNER Legal Sex Female 7:08 AM WORKFORCE PLANNER Gender Identity Female 06/06/2024 12:31 PM WORKFORCE PLANNER Sexual Orientation Straight 06/06/2024 12 :31 PM WORKFORCE PLANNER Last Filed Vital Signs Vital Sign Reading Time Taken Comments Blood Pressure 112/58 11/18/2023 7:04 AM CDT Pulse 84 02/26/2022 11:27 AM CDT Temperature 36.1 C (97 F) 12/27/2019 6:34 PM CDT Respiratory Rate 20 12/28/2019 12:1 5 AM CDT Oxygen Saturation - - Inhaled Oxygen Concentration - - Weight 91.1 kg (200 lb 12.8 oz) 09/08/2023 9:58 AM CDT Height 170.2 cm (5' 7 ) 09/08/2023 9:58 AM CDT Body Mass Index 31.45 09/08/2023 9:58 AM CDT Plan of Treatment Health Maintenance Due Date Last Done Comments DIABETES ANNUAL FOOT EXAM 12/21/1977 DIABETES MICROALBUMIN ANNUAL SCREEN 12/21/1977 LDL CHOLESTEROL ANNUAL 12/21/1977 DTAP/TDAP/TD VACCINES (1 - Tdap) 12/21/1978 PNEUMOCOCCAL VACCINE 50+ YEA RS (1 of 2 - PCV) 12/21/1978 FIT-DNA Q 3 years 12/21/2004 FIT/FOBT Q 1 year 12/21/2004 Flex Sig/CT Colonography Q 5 years 12/21/2004 ZOSTER VACCINE (1 of 2) 12/21/2009 RSV VACCINE (60+ or ) (1 - Risk 60-74 years 1-dose series) 2019 DIABETES ANNUAL RETINAL EXAM 06/19/2023, 04/16/2021, 04/24/2020, Additional history exists COVID-19 Vaccine (4 2023-2 5 season) 2024 06/08/2021, 08/16/2020, 07/17/2020 DIABETES HBA1C Q 6 MONTHS 11/28/20242023, 02/03/2024, 11/03/2022, Additional history exists INFLUENZA VACCINE (#1) 2024 , 03/25/2022, 03/30/2002 OSTEOPOROSIS SCREENING 07/23/2025 07/23/2020 BREAST CANCER SCREENING 09/07/2025 09/08/19, 09/08/2023, 01/22/2022, Additional history exists COLORECTAL SCREENING 08/23/2030 08/23/2020, 08/23/2020, 08/18/2012, Additional history exists Colorectal Cancer Screening 08/23/2030 Procedures Procedure Name Priority Date/Time Associated Diagnosis Comments MAMMO 3D YAQUELIN SCREEN BILAT W OR WO CAD Routine 09/07/2024 10:15 AM CDT Encounter for mammogram to establish baseline mammogram from Last 3 Months or Most Recently Relevant to Health Maintenance Results * MAMMO 3D YAQUELIN SCREEN BILAT W OR WO CAD (09/07/2024 10:15 AM CDT) Anatomical Region Laterality Modality Breast Bilateral Mammography Impressions 09/09/2024 10:27 PM CDT : No mammographic evidence of malignancy. BI-RADS ASSESSMENT: 1 - Negative RECOMMENDATION: Routine annual screening mammography. Narrative 09/09/2024 10:27 PM CDT EXAM: MAMMO SCRN BILAT 3D YAQUELIN W OR WO CAD INDICATION: Screening COMPARISON: 09/08/2023 MAMMO 3D YAQUELIN SCREEN BILAT W OR WO CAD, 01/15/2022 MAMMO SCRN BILAT 3D YAQUELIN W OR WO CAD, 10/01/2020 MAMMO SCRN BILAT 3D YAQUELIN W OR WO CAD, 07/21/2019 MAMMO SCRN BILAT 3D YAQUELIN W OR WO CAD, and 06/15/2018 MAMMO SCRN BILAT 3D YAQUELIN W OR WO CAD BREAST COMPOSITION: There are scattered areas of fibroglandular density. FINDINGS: RIGHT BREAST: There are no suspicious masses, calcifications, or areas of architectural distortion. LEFT BREAST: There are no suspicious masses, calcifications, or areas of architectural distortion. Steve Tim DO MAMMO ORDERABLES Final Result from Last 3 Months or Most Recently Relevant to Health Maintenance Insurance [employer] [id number] [place] [id number] MEDICARE PART A AND B * Guarantor: LINDA ARECHIGA Account Type Relation to Patient Date of Phone Billing Address Personal/Family [address] [place] [address] RX [employer] Medicare Part D RX [employer] (INTERNAL) [facility] Care Teams Magnetic Locater Relationship Specialty Start Date End Date Vlad Francois MD [address] [place] [address] PCP - General 08/10/20
--- OUTSIDE RECORDS SUMMARY | 2025-01-11 18:26 | XMS_ITS | Encounter Summary ---
Author Organization [facility] Address [address] [place] [address] Care Team Providers Care Collar Tailor Name Role Phone Vlad Francois MD Primary Care Provider [phone] Reason for Referral * Radiology Services (Routine) - Closed Specialty Diagnoses / Procedures Referred By Contac t Referred To Contact Diagnoses Inconclusive mammogram Procedures MAMMO DIAG UNI RIGHT 3D YAQUELIN W OR WO CAD CHG DIAGNOSTIC MAMMOGRAPHY COMPUTER-AIDED DETCJ UNI CHG DIGITAL BREAST TOMOSYNTHESIS UNILATERAL Vlad Francois MD [address] [place] [address] Phone: tel: fax: Referral ID Status Reason Start Date Expiration Date Visits Re quested Visits Authorized [id number] Closed 06/17/2018 07/18/2019 1 1 UNTANT CLERK Encounter Details Date Type Department Care Team (Latest Contact Info) Description 06/17/2018 Ancillary Orders [facility] [address] [address] Vlad Francois MD [address] [place] [address] Inconclusive mammogram Social History Tobacco Use Types Packs/Day Years Used Date Smoking Tobacco: Never Smokeless Tobacco: Never Alcohol Use Standard Drinks/Week Comments No 0 (1 standard drink = 0.6 oz pur e alcohol) Comments No Sex and Gender Information Value Date Recorded Sex Assigned at Not on file Legal Sex Female 5:59 AM ACCOUNTANT CLERK Gender Identity Not on file Sexual Orientation Not on file Occupation Industry Job Start Date Job End Date Not on file Not on file Not on file Not on file documented as of this encounter Plan of Treatment Not on file documented as of this encounter Results * MAMMO DIAG UNI RIGHT 3D YAQUELIN W OR WO CAD (07/06/2018 12:05 PM ACCOUNTANT CLERK) Anatomical Region Laterality Modality Breast Right Mammography 07/06/2018 12:0 5 PM ACCOUNTANT CLERK Impressions 07/06/2018 3:32 PM ACCOUNTANT CLERK : The apparent change on recent mammogram does not persist. Although an area of asymmetry persists, this appears to be normal asymmetrical glandular tissue and stable. I suspect this was caused to appear changed by summation artifact. I recommend routine screening mammogram in one year. The patient was given a result/recommendation letter. [id number] Narrative 07/06/2018 3:32 PM ACCOUNTANT CLERK Right Diagnostic Mammogram 3-D Yaquelin Spot MLO With Digital Mediolateral Image: 3-D spot tomosynthesis imaging is presented in the MLO projection to evaluate asymmetry suggested on mediolateral oblique imaging of her recent screening mammogram 06/15/2018 when compared with multiple previous. Straight mediolateral digital image is also presented. The area is well visualized. This is suggested to be a localized area of dense tissue, which remains asymmetrical, but does not appear suspicious. The area as visualized today on the additional imaging appears stable when compared with previous mammograms, as well. I suspect the area was made to appear more prominent by summation artifact. us External Provider [facility] MAMMO ORDERABLES Final Res ult documented in this encounter Visit Diagnoses Diagnosis Inconclusive mammogram Inconclusive mammogram documented in this encounter Care Teams Collar Tailor Relationship Specialty Start Date End Date Vlda Francois MD [facility] [place] [phone] PCP - General Family Practice 01/17/16 documented as of this encounter
--- OUTSIDE RECORDS SUMMARY | 2025-01-11 18:26 | XMS_ITS | Encounter Summary ---
Author Organization [facility] Address [address] [place] [address] Care Team Providers Care Medical Office Technician Name Role Phone Vlad Francois MD Primary Care Provider [phone] Encounter Details Date Type Department Care Team (Latest Contact Info) Description 05/27/2017 Ancillary Orders [facility] Orthopedics - Orthopedic [facility] [address] [place] [address] Chaim Alejandro MD NO ADDRESS ON FILE Chronic pain of right knee Social History Tobacco Use Types Packs/Day Years Used Date Smoking Tobacco: Never Smokeless Tobacco: Never Alcohol Use Standard Drinks/Week Comments No 0 (1 standard drink = 0.6 oz pur e alcohol) Comments No Sex and Gender Information Value Date Recorded Sex Assigned at Not on file Legal Sex Female 5:59 AM CYBER ANALYST Gender Identity Not on file Sexual Orientation Not on file Occupation Industry Job Start Date Job End Date Not on file Not on file Not on file Not on file documented as of this encounter Plan of Treatment Not on file documented as of this encounter Results * XR KNEE 1 OR 2 VW BILAT (05/27/2017 11:25 AM CYBER ANALYST) Anatomical Region Laterality Modality Lower Extremity Computed Radiogr aphy Narrative 05/28/2017 7:29 AM CYBER ANALYST Weight-bearing AP and lateral x-rays of the bilateral knees were reviewed today and demonstrate medial compartment narrowing and patellofemoral wear of osteoarthritic changes. us Chaim Alejandro MD DIAGNOSTIC IMAGING ORDERAB LES Final Result documented in this encounter Visit Diagnoses Diagnosis Chronic pain of right knee Chronic pain of right knee documented in this encounter Care Teams Medical Office Technician Relationship Specialty Start Date End Date Vlad Francois MD [address] [place] [phone] PCP - General Family Practice 01/17/16 documented as of this encounter
--- OUTSIDE RECORDS SUMMARY | 2025-01-11 18:26 | XMS_ITS | Patient Health Record ---
Author Organization [facility] Address [address] [place] [address] Care Team Providers Care Regulatory Administrator Name Role Phone Singh, Araseli Unavailable [phone] [facility], [facility] Unavailable Unavailable Allergies Allergen (clinical drug ingredient) Drug/Non Drug Allergy documented on EMR Reaction Allergy Type Onset Date Status pregabalin Lyrica swelling of face and tongue Drug Allergy Active tramadol Ultram swelling of face and tongue Drug Allergy Active Substance with sulfonamide structure and antibacterial mechanism of action (substance) Sulfa Antibiotics Unknown Drug Allergy Active Surgical Glue blistering Allergy Activ e Reason For Referral No Information Medications Medication SIG (Take, Route, Frequency, Duration) Notes Start Date End Date Status Minoxidil 2.5 MG Tablet Oral; Duration: 90 Active Lantus 100 UNIT/ML Solution Subcutaneous ; Duration: 60 Active Nitroglycerin 0.4 MG Tablet Sublingual DISSOLVE ONE TABLET UNDER THE TONGUE EVERY 5 MINUTES NEEDED FOR CHEST PAIN. DO NOT EXCEED A TOTAL OF 3 DOSES IN 15 MINUTES Sublingual; Duration: 7 Active levETIRAcetam 500 MG Tablet Oral; Duration: 90 Active HYDROcodone-Acetaminophen 7.5-325 MG Tablet TAKE 1 TABLET BY MOUTH TWICE A DAY NEEDED FOR PAIN FOR 23 DAYS Oral; Duration: 23 Active Finasteride 5 MG Tablet Oral; Duration: 30 Active Trulicity 3 MG/0.5ML Solution Pen-injector INJECT SUB-Q 3 MG EVERY WEEK Subcutaneous; Duration: 28 Active Cetirizine HCl 10 MG Tablet 1 tablet Ora lly Once a day; Duration: 30 day(s) Active Carvedilol 6.25 MG Tablet Oral; Duration: 90 Active Yuvafem 10 MCG Tablet _insert 1 TABLET I NTO THE VAGINA EVERY THURSDAY & THURSDAY Vaginal; Duration: 90 Active DULoxetine HCl 60 MG Capsule Delayed Release Particles TAKE 1 CAPSULE BY MOUTH EVERY DAY Oral; Duration: 90 Active BD Veo Insulin Syringe U/F 31G X 15 1 ML Miscellaneous USE 1 SYRINGE ONCE DAILY; Duration: 90 Active Mounjaro 2.5 MG/0.5ML Solution Pen-injector 2.5 mg Subcutaneous weekly; Duration: 30 days Active Simvastatin 40 MG Tablet Oral; Duration: 90 Active Social History Tobacco Use: Social History Observation Description Date Details (start date - stop date) Never Smoker NA - NA Social History Depression Screening Social Info Question Answer Notes depression screening findings Findings Negative (0 -4) PHQ-9 Little interest or p lewis in doing things Not at all Feeling down, depressed, or hopeless Not at all Trouble falling or staying asleep, or sleeping t oo much Not at all Feeling tired or having little energy Not at all Poor appetite or overeating Not at all Feeling bad about yourself, or that you are a failure, or have let yourself or your family down Not at all Trouble concentrating on thi ngs, such as reading the newspaper or watching television Not at all Moving or speaking so slowly that other people could have noticed. Or the opposite ? being so fidgety or restless that you have been moving around a lot more than usual Not at all Thoughts that you would be b sara off , or of hurting yourself in some way Not at all Total Score 0 Drugs/Alcohol: Social Info Question Answer Notes Drugs Have you used drugs other than those for medical reasons in the past 12 months? No Tobacco Use: Social Info Question Answer Notes xTobacco Use/Smoking Are you a nonsmoker Additional Details Category Social Info Options Details Drugs/Alcohol: Do you drink alcohol? No Section Notes: 10/04/2021 Depression screen completed 04/20/2023 score 0 Problems Problem Type SNOMED Code ICD Code Onset Dates Problem Status W/U Status Risk Notes Problem Type II diabetes mellitus without complication (980505911) Type 2 diabetes mellitus without complications (E11.9) Active confirmed Problem Essential hypertension (12764274) Essential (primary) hypertension (I10) Active confirmed Problem Fibromyalgia (675367903) Fibromyalgia (M79.7) Active confirmed Problem Long-term current use of insulin (328307485) MCFP (current) use of insulin (Z79.4) Active confirmed Problem Type II diabetes mellitus without complication (592620459) Controlled type 2 diabetes mellitus without complication, without long-term current use of insulin (E11.9) Active confirmed Problem Bronchitis (96458364) Bronchitis (J40) Active confirmed Problem Migraine (38235153) Migraine without status migrainosus, not intractable, unspecified migraine type (G43.909) Active confirmed Problem Environmental allergy (224925440) Environmental allergies (Z91.09) Active confirmed Problem Primary hypertension (98336469) Primary hypertension (I10) Active confirmed Plan Of Treatment No Information Insurance Providers Payer Name Payer Address Payer Phone Subscriber Number Group Number Insured Name Patient Relationship to Insured Coverage Start Date Coverage End Date [place] [address] [place] [phone] [id number] Randi Arechiga Self - patient is the insured [facility] Medicare Supplement [address] [place] [address] [id number] Randi Arechiga Self - patient is the insured Medications Administered Medication Instructions Date of Administration Dosage Notes DEPO-Medrol 04/20/2023 40 mg ndc 45334-410 3-01 pt tolerated well/instructed to wait 20 min dexAMETHasone 04/20/2023 4 mg ndc 27905-0 423-00 pt tolerated well/instructed to wait 20 min Rocephin 10/04/2021 250 mg NDC: 63307-349-34 Patient tolerated well, advised to wait 20 min at clinic DEPO-Medrol 10/04/2021 40 mg NDC: [address]-07 Patient tolerated well, advised to wait 20 min at clinic dexAMETHasone 10/04/2021 4 mg NDC: 46151-036-25 Patient tolerated well, advised to wait 20 min at clinic
--- OUTSIDE RECORDS SUMMARY | 2025-01-11 18:26 | XMS_ITS | Encounter Summary ---
Author Organization [facility] Address [address] [place] [address] Care Team Providers Care Jogger Operator Name Role Phone Vlad Francois MD Primary Care Provider [phone] Encounter Details Date Type Department Care Team (Late st Contact Info) Description 03/19/2018 Ancillary Orders [facility] Pre-Registration [place] CALL TO MAKE APPOINTMENT ONLY [address] [place] [address] [facility], External Provider [address] [place] [address] Visit for screening mammogram Social History Tobacco Use Types Packs/Day Years Used Date Smoking Tobacco: Never Smokeless Tobacco: Never Alcohol Use Standard Drinks/Week Comments No 0 (1 standard drink = 0.6 oz pur e alcohol) Comments No Sex and Gender Information Value Date Recorded Sex Assigned at Not on file Legal Sex Female 5:59 AM 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
--- OUTSIDE RECORDS SUMMARY | 2025-01-11 18:26 | XMS_ITS | Encounter Summary ---
Author Organization [facility] Address [address] [place] [address] Care Team Providers Care Buildings And Grounds Supervisor Name Role Phone Vlad Francois MD Primary Care Provider [phone] Encounter Details Date Type Department Care Team (Late st Contact Info) Description 03/08/[address] [facility] Orthopedics- 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 There is also evidence of degenerative changes at L5-S1 and some lesser changes at L4-5 level. Procedure Note Aiden Mondragon MD - 03/15/2010 I did obtain lumbosacral spine x-rays, and there is evidence of loss ofsome of the normally expected lumbar lordosis. There is also evidence ofdegenerative changes at L5-S1 and some lesser changes at L4-5 level. us Aiden Mondragon MD DIAGNOSTIC IMAGING ORDERABLE S Final Result documented in this encounter Visit Diagnoses Diagnosis Pain Generalized pain documented in this encounter Care Teams Buildings And Grounds Supervisor Relationship Specialty Start Date End Date Vlad Francois MD [address] [place] [phone] PCP - General Family Practice 01/17/16 documented as of this encounter
== END 2025-01-10 22:56 | disposition home or self-care (01) ==
PROVIDERS: Emergency Provider Emergency Medicine; PCP Electrodiagnostic Medicine
DX: G43.919 Migraine, unspecified, intractable, without status migrainosus (principal); Z79.82 Long term (current) use of aspirin; E11.9 Type 2 diabetes mellitus without complications; E78.5 Hyperlipidemia, unspecified
CPT/HCPCS: 96361; 96374; 96375; 99284; J1200; J1885; J2360; J2405; J2765; J7030

== ENCOUNTER 2025-03-02 11:32 | Emergency (ER) | payer MEDICARE, OTHER, SELFPAY ==
[2025-03-02 11:35] VITALS: BP 131/86; PULSE 70; RESP 18; TEMP 36.4; O2SAT 100; BMI 23.1
--- OUTSIDE RECORDS SUMMARY | 2025-03-02 11:37 | XMS_ITS | Encounter Summary ---
Author Organization [facility] Address [address] [place] [address] Care Team Providers Care Christmas Tree Farm Worker Name Role Phone Vlad Francois MD Primary Care Provider [phone] Reason for Referral * Outpatient Services (Routine) - Closed Specialty Diagnoses / Procedures Referred By Nancy apple Referred To Contact Diagnoses Back pain Procedures MRI LUMBAR W WO CONTRAST Radha Díaz MD [address] [place] [address] Phone: tel: fax: Referral ID Status Reason Start Date Expiration Date Visits Re quested Visits Authorized [id number] Closed 09/03/2010 03/02/2011 1 1 Encounter Details Date Type Department Care Team (Late st Contact Info) Description 09/03/2010 Ancillary Orders [facility] Pre-Registration [place] CALL TO MAKE APPOINTMENT ONLY [address] [place] [address] Radha Díaz MD [address] 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 renay 1409 PM - uploaded from [employer]- Narrative 09/05/2010 4:01 PM CDT Exam: MRI [...] indicated. renay 1409 PM - uploaded from [employer]- us Radha Díaz MD MR ORDERABLES Final Result documented in this encounter Visit Diagnoses Diagnosis Back pain Backache, unspecified Back pain Backache, unspecified documented in this encounter Care Teams Christmas Tree Farm Worker Relationship Specialty Start Date End Date Vlad Francois MD [address] [place] [address] PCP - General Family Practice 01/17/16 documented as of this encounter
--- OUTSIDE RECORDS SUMMARY | 2025-03-02 11:37 | XMS_ITS | Encounter Summary ---
Author Organization [facility] Address [address] [place] [address] Care Team Providers Care Haul Truck Driver Name Role Phone Vlad Francois MD Primary Care Provider Encounter Details Date Type Department Care Team (Latest Contact Info) Description 12/03/2005 Outpatient Historical [facility] Ear, Nose and Throat 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
--- OUTSIDE RECORDS SUMMARY | 2025-03-02 11:37 | XMS_ITS | Encounter Summary ---
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
--- OUTSIDE RECORDS SUMMARY | 2025-03-02 11:37 | XMS_ITS | Encounter Summary ---
Author Organization [facility] Address [address] [place] [address] Care Team Providers Care It Network Architect Name Role Phone Vlad Francois MD Primary Care Provider [phone] Encounter Details Date Type Department Care Team (Latest Contact Info) Description 01/09/2006 Outpatient Historical [facility] Endocrinology-[facility] [place] [address] [place] [address] Barrington Laureano MD NO ADDRESS ON FILE Abnormal Weight Gain (Primary Dx) Social History Tobacco Use Types Packs/Day Years Used Date Smoking Tobacco: Never Assessed Comments Unknown Sex and Gender Information Value Date Recorded Sex Assigned at Not on file Legal Sex Female 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
--- OUTSIDE RECORDS SUMMARY | 2025-03-02 11:37 | XMS_ITS | Encounter Summary ---
Author Organization [facility] Address [address] [place] [address] Care Team Providers Care Shared Services Manager Name Role Phone Vlad Francois MD Primary Care Provider [phone] Reason for Referral * Outpatient Services (Routine) - Closed Specialty Diagnoses / Procedures Referred By Nancy apple Referred To Contact Diagnoses Other screening mammogram Procedures MAMMO DIGITAL SCREEN BILAT Vlad Palmer MD NO ADDRESS ON FILE Referral ID Status Reason Start Date Expiration Date Visits Re quested Visits Authorized [id number] Closed 07/12/2012 08/12/2013 1 1 ER MILL OPERATOR Encounter Details Date Type Department Care Team (Latest Contact Info) Description 07/12/2012 Ancillary Orders [facility] Pre-Registration [place] CALL TO MAKE APPOINTMENT ONLY [address] [place] [address] Vlad Palmer MD NO ADDRESS ON FILE Other screening mammogram Social History Tobacco Use Types Packs/Day Years Used Date Smoking Tobacco: Never Smokeless Tobacco: Never Alcohol Use Standard Drinks/Week Comments No 0 (1 standard drink = 0.6 oz pur e alcohol) Comments No Sex and Gender Information Value Date Recorded Sex Assigned at Not on file Legal 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 Female 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 Findings: Bilateral CC and MLO views were obtained. This examination was reviewed with the aid of a computer-aided detection system(CAD). The breast tissue density is average. No significant new findings since the prior mammogram(s). Procedure Note Emily Hernandez MD - 08/06/2012 Bilateral Mammogram Reason for [...] mammogram documented in this encounter Care Teams Shared Services Manager Relationship Specialty Start Date End Date Vlad Francois MD [address] [place] [phone] PCP - General Family Practice 01/17/16 documented as of this encounter
--- OUTSIDE RECORDS SUMMARY | 2025-03-02 11:37 | XMS_ITS | Encounter Summary ---
Author Organization [facility] Address [address] [place] [address] Care Team Providers Care Senior Ui Web Developer Name Role Phone Vlad Farncois MD Primary Care Provider [phone] Reason for Referral * Outpatient Services (Routine) - Closed Specialty Diagnoses / Procedures Referred By Nancy apple Referred To Contact Diagnoses Other screening mammogram Procedures MAMMO DIGITAL SCREEN BILAT Vlad Palmer MD NO ADDRESS ON FILE Referral ID Status Reason Start Date Expiration Date Visits Re quested Visits Authorized [id number] Closed 05/09/2011 05/08/2012 1 1 [place] DELIVERY DRIVER Encounter Details Date Type Department Care Team (Latest Contact Info) Description 05/09/2011 Ancillary Orders [facility] Pre-Registration [place] CALL TO MAKE APPOINTMENT ONLY [address] [place] [address] Vlad Palmer MD NO ADDRESS ON FILE Other screening mammogram Social History Tobacco Use Types Packs/Day Years Used Date Smoking Tobacco: Never Smokeless Tobacco: Never Alcohol Use Standard Drinks/Week Comments No 0 (1 standard drink = 0.6 oz pur e alcohol) Comments No Sex and Gender Information Value Date Recorded Sex Assigned at Not on file Legal 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 Findings: Bilateral CC and MLO views were obtained. This examination was reviewed with the aid of a computer-aided detection system(CAD). The breast tissue density is composed of scattered fibroglandular densities. No significant new findings since the prior mammogram(s). Procedure Note Aurora Melendrez MD - 06/20/2011 Bilateral Mammogram Reason for [...] mammogram documented in this encounter Care Teams Senior Ui Web Developer Relationship Specialty Start Date End Date Vlad Francois MD [address] [place] [address] PCP - General Family Practice 01/17/16 documented as of this encounter
--- OUTSIDE RECORDS SUMMARY | 2025-03-02 11:37 | XMS_ITS | Encounter Summary ---
Author Organization [facility] Address [address] [place] [address] Care Team Providers Care Lining Brusher Name Role Phone Vlad Francois MD Primary Care Provider [phone] Reason for Referral * Outpatient Services (Routine) - Closed Specialty Diagnoses / Procedures Referred By Contac t Referred To Contact Diagnoses Backache, unspecified Pain in limb Thoracic or lumbosacral neuritis or radiculitis, unspecified Displacement of lumbar intervertebral disc without myelopathy Procedures MRI LUMBAR W WO CONTRAST Radha Díaz MD [address] [place] [address] Phone: tel: fax: [facility] Pre-Registration [place] CALL TO MAKE APPOINTMENT ONLY [address] [place] [address] Phone: tel: fax: Referral ID Status Reason Start Date Expiration Date Visits Re quested Visits Authorized [id number] Closed 12/02/2011 12/01/2012 1 1 * Outpatient Services (Routine) - Closed Specialty Diagnoses / Procedures Referred By Contac t Referred To Contact Diagnoses Cervicalgia Brachial neuritis or radiculitis NOS Procedures MRI CERVICAL WO CONTRAST Radha Díaz MD [address] 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 rli - uploaded from [employer] 12/11/2011 3:29 PM CDT Exam: MRI LUMBAR [...] Mild degenerative changes. rli - uploaded from [employer] - Radha Díaz MD MR ORDERABLES Final [...] myelopathy documented in this encounter Care Teams Lining Brusher Relationship Specialty Start Date End Date Vlad Francois MD [address] [facility] [place] [phone] PCP - General Family Practice 01/17/16 documented as of this encounter
--- OUTSIDE RECORDS SUMMARY | 2025-03-02 11:37 | XMS_ITS | Encounter Summary ---
Author Organization [facility] Address [address] [place] [address] Care Team Providers Care Insurance Business Analyst Name Role Phone Vlad Francois MD Primary Care Provider [phone] Encounter Details Date Type Department Care Team (Late st Contact Info) Description 12/03/2005 Outpatient Historical [facility] Ear, Nose and Throat [address] [place] [phone] Social History Tobacco Use Types Packs/Day Years Used Date Smoking Tobacco: Never Assessed Comments Unknown Sex and Gender Information Value Date Recorded Sex Assigned at Not on file Legal Sex Female 5:59 AM LITHARGE MILL OPERATOR Gender Identity Not on file Sexual Orientation Not on file documented as of this encounter Plan of Treatment Not on file documented as of this encounter Visit Diagnoses Not on filedocumented in this encounter Care Teams Insurance Business Analyst Relationship Specialty Start Date End Date Vlad Francois MD [address] [place] [phone] PCP - General Family Practice 01/17/16 documented as of this encounter
--- OUTSIDE RECORDS SUMMARY | 2025-03-02 11:37 | XMS_ITS | Encounter Summary ---
Author Organization [facility] Address [address] [place] [address] Care Team Providers Care Vice President Residential Solar Sales Name Role Phone Vlad Francois MD Primary Care Provider [phone] Encounter Details Date Type Department Care Team (Late st Contact Info) Description 12/25/2005 Outpatient Historical [facility] Physical Therapy [address] [place] [address] [place] [phone] Vlad Raman MD NO ADDRESS ON FILE Social History Tobacco Use Types Packs/Day Years Used Date Smoking Tobacco: Never Assessed Comments Unknown Sex and Gender Information Value Date Recorded Sex Assigned at Not on file Legal 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
--- OUTSIDE RECORDS SUMMARY | 2025-03-02 11:37 | XMS_ITS | Encounter Summary ---
Author Organization [facility] Address [address] [place] [address] Care Team Providers Care Tobacco Acreage Measurer Name Role Phone Vlad Francois MD Primary Care Provider [phone] Encounter Details Date Type Department Care Team (Latest Contact Info) Description 08/14/2004 Outpatient Historical [facility] Podiatry-[facility] [place] [address] [place] [address] Aidan Oden, DPM NO ADDRESS ON FILE Pain in limb (Primary Dx); EXOSTOSIS, SITE NOS; CALCANEAL SPUR Social History Tobacco Use Types Packs/Day Years Used Date Smoking Tobacco: Never Assessed Comments Unknown Sex and Gender Information Value Date Recorded Sex Assigned at Not on file Legal Sex Female 5:59 AM MOLDER 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
--- OUTSIDE RECORDS SUMMARY | 2025-03-02 11:37 | XMS_ITS | Encounter Summary ---
Author Organization [facility] Address [address] [place] [address] Care Team Providers Care Jboss Developer Name Role Phone Vlad Francois MD Primary Care Provider [phone] Encounter Details Date Type Department Care Team (Latest Contact Info) Description 12/11/2005 Outpatient Historical [facility] Urgent Care- [facility] [place] [address] [place] [address] Simba Barroso, DO [address] [place] [address] Spasm of Muscle (Primary Dx) Social History Tobacco Use Types Packs/Day Years Used Date Smoking Tobacco: Never Assessed Comments Unknown Sex and Gender Information Value Date Recorded Sex Assigned at Not on file 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
--- OUTSIDE RECORDS SUMMARY | 2025-03-02 11:37 | XMS_ITS | Encounter Summary ---
Author Organization [facility] Address [address] [place] [address] Care Team Providers Care Machinist Supervisor Outside Name Role Phone Vlad Francois MD Primary Care Provider [phone] Encounter Details Date Type Department Care Team (Late st Contact Info) Description 12/03/2005 Outpatient Historical [facility] Social History Tobacco Use Types Packs/Day Years Used Date Smoking Tobacco: Never Assessed Comments Unknown Sex and Gender Information Value Date Recorded Sex Assigned at Not on file Legal Sex Female 5:59 AM TOMB MAKER HELPER Gender Identity Not on file Sexual Orientation Not on file documented as of this encounter Plan of Treatment Not on file documented as of this encounter Visit Diagnoses Not on filedocumented in this encounter Care Teams Machinist Supervisor Outside Relationship Specialty Start Date End Date Vlad Francois MD [address] [place] [address] PCP - General Family Practice 01/17/16 documented as of this encounter
--- OUTSIDE RECORDS SUMMARY | 2025-03-02 11:37 | XMS_ITS | Clinical Summary ---
Author Organization [facility] Address [address] [place] [address] Care Team Providers Care Automotive Service Consultant Name Role Phone Vlad Francois MD [...] of knee daily. bi est cream Active Qlgz-Vqic-NAJ#1-Vi t C-Rogerio-Bor (GLUCOSAMINE-CHOND -MSM COMPLEX) [id number] mg Oral Tab Take by mouth daily. Active aspirin (EVELIN) 81 mg Oral Tab Take by mouth daily. 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
--- OUTSIDE RECORDS SUMMARY | 2025-03-02 11:37 | XMS_ITS | Encounter Summary ---
Author Organization [facility] Address [address] [place] [address] Care Team Providers Care Lead Software Test Engineer Name Role Phone Vlad Francois MD Primary Care Provider [phone] Encounter Details Date Type Department Care Team (Latest Contact Info) Description 11/24/2005 Outpatient Historical [facility] Physical Therapy [address] [place] [address] [place] [address] Vlad Raman MD NO ADDRESS ON FILE Cervicalgia (Primary Dx) Social History Tobacco Use Types Packs/Day Years Used Date Smoking Tobacco: Never Assessed Comments Unknown Sex and Gender Information Value Date Recorded Sex Assigned at Not on file Legal Sex Female 5:59 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
--- OUTSIDE RECORDS SUMMARY | 2025-03-02 11:38 | XMS_ITS | Encounter Summary ---
Author Organization [facility] Address [address] [place] [address] Care Team Providers Care Denture Processor Name Role Phone Vlad Francois MD Primary Care Provider [phone] Encounter Details Date Type Department Care Team (Late st Contact Info) Description 03/08/[address] [facility] Orthopedics- [address] [place] [phone] Aiden Mondragon MD NO ADDRESS ON FILE Pain Social History Tobacco Use Types Packs/Day Years Used Date Smoking Tobacco: Never Alcohol Use Standard Drinks/Week Comments No 0 (1 standard drink = 0.6 oz pur e alcohol) Comments No Sex and Gender Information Value Date Recorded Sex Assigned at Not on file Legal Sex Female 5:59 AM ZIPPER IRONER Gender Identity Not on file Sexual Orientation [...] pain documented in this encounter Care Teams Denture Processor Relationship Specialty Start Date End Date Vlad Francois MD [address] [place] [phone] PCP - General Family Practice 01/17/16 documented as of this encounter
--- OUTSIDE RECORDS SUMMARY | 2025-03-02 11:38 | XMS_ITS | Encounter Summary ---
Author Organization [facility] Address [address] [place] [address] Care Team Providers Care Production Line Welder Name Role Phone Vlad Francois MD Primary Care Provider Reason for Referral * Outpatient Services (Routine) - Closed Specialty Diagnoses / Procedures Referred By Contkash t Referred To Contact Diagnoses Other screening mammogram Procedures MAMMO DIGITAL SCREEN BILAT Vlad Palmer MD NO ADDRESS ON FILE [facility] Pre-Registration [place] CALL TO MAKE APPOINTMENT ONLY [address] [place] [address] Phone: tel: fax: Referral ID Status Reason Start Date Expiration Date V isits Requested Visits Authorized [id number] Closed [facility] [place]U[place] ([facility] 09/23/2013 10/24/2014 1 1 Encounter Details Date Type Department Care Team (Latest Contact Info) Description 09/23/2013 Ancillary Orders [facility] Pre-Registration [place] CALL TO MAKE APPOINTMENT ONLY [address] [place] [address] Vlad Palmer MD NO ADDRESS [...] on file Legal 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
--- OUTSIDE RECORDS SUMMARY | 2025-03-02 11:38 | XMS_ITS | Encounter Summary ---
Author Organization [facility] Address [address] [place] [address] Care Team Providers Care Swatch Folder Name Role Phone Vlad Francois MD Primary Care Provider [phone] Reason for Referral * Outpatient Services (Routine) - Closed Specialty Diagnoses / Procedures Referred By Nancy apple Referred To Contact Radiology Diagnoses Encounter for screening mammogram for malignant neoplasm of breast Procedures MAMMO DIGITAL SCREEN BILAT Vlad Francois MD [address] [facility] [address] Phone: tel: fax: [facility] [address] [facility] [address] [place] [address] Phone: tel: fax: Referral ID Status Reason Start Date Expiration Date V isits Requested Visits Authorized [id number] Closed [facility] TO SCHEDULE ([facility]) 01/11/2016 02/10/2017 1 1 Encounter Details Date Type Department Care Team (Latest Contact Info) Description 01/11/[address] 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 External Provider [facility] MAMMO ORDERABLES Final Res ult documented in this encounter Visit Diagnoses Diagnosis Encounter for screening mammogram for malignant neoplasm of breast- Primary Other screening mammogram Encounter for screening mammogram for malignant neoplasm of breast Other screening mammogram documented in this encounter Care Teams Swatch Folder Relationship Specialty Start Date End Date Vlad Francois MD [address] [place] [phone] PCP - General Family Practice 01/17/16 documented as of this encounter
--- OUTSIDE RECORDS SUMMARY | 2025-03-02 11:38 | XMS_ITS | Encounter Summary ---
Author Organization [facility] Address [address] [place] [address] Care Team Providers Care Nutritional Health Coach Name Role Phone Vlad Francois MD Primary Care Provider Reason for Referral * Radiology Services (Routine) - Closed Specialty Diagnoses / Procedures Referred By Contac t Referred To Contact Diagnoses Inconclusive mammogram Procedures MAMMO DIAG UNI RIGHT 3D YAQUELIN W OR WO CAD CHG DIAGNOSTIC MAMMOGRAPHY COMPUTER-AIDED DETCJ UNI CHG DIGITAL BREAST TOMOSYNTHESIS UNILATERAL Vlad Francois MD [address] [place] [address] Phone: tel: fax: Referral ID Status Reason Start Date Expiration Date Visits Re quested Visits Authorized [id number] Closed 06/17/2018 07/18/2019 1 1 SUPERVISOR Encounter Details Date Type Department Care Team (Latest Contact Info) Description 06/17/2018 Ancillary Orders [facility] [address] [address] Vlad Francois MD [address] [place] [address] Inconclusive mammogram Social History Tobacco Use Types Packs/Day Years Used Date Smoking Tobacco: Never Smokeless Tobacco: Never Alcohol Use Standard Drinks/Week Comments No 0 (1 standard drink = 0.6 oz pur e alcohol) Comments No Sex and Gender Information Value Date Recorded Sex Assigned at Not on file Legal Sex Female 5:59 AM MELT SUPERVISOR Gender Identity Not on file Sexual Orientation Not on file Occupation Industry Job Start Date Job End Date Not on file Not on file Not on file Not on file documented as of this encounter Plan of Treatment Not on file documented as of this encounter Results * MAMMO DIAG UNI RIGHT 3D YAQUELIN W OR WO CAD (07/06/2018 12:05 PM MELT SUPERVISOR) Anatomical Region Laterality Modality Breast Right Mammography 07/06/2018 12:0 5 PM MELT SUPERVISOR Impressions 07/06/2018 3:32 PM MELT SUPERVISOR : The apparent change on recent mammogram does not persist. Although an area of asymmetry persists, this appears to be normal asymmetrical glandular tissue and stable. I suspect this was caused to appear changed by summation artifact. I recommend routine screening mammogram in one year. The patient was given a result/recommendation letter. [id number] Narrative 07/06/2018 3:32 PM MELT SUPERVISOR Right Diagnostic Mammogram 3-D Yaquelin Spot MLO [...] prominent by summation artifact. us External Provider [facility] MAMMO ORDERABLES Final Res ult documented in this encounter Visit Diagnoses Diagnosis Inconclusive mammogram Inconclusive mammogram documented in this encounter Care Teams Nutritional Health Coach Relationship Specialty Start Date End Date Vlad Francois MD [facility] [place] [phone] PCP - General Family Practice 01/17/16 documented as of this encounter
--- OUTSIDE RECORDS SUMMARY | 2025-03-02 11:38 | XMS_ITS | Encounter Summary ---
Author Organization [facility] Address [address] [place] [address] Care Team Providers Care Electrical Machinist Name Role Phone Vlad Francois MD Primary Care Provider [phone] Encounter Details Date Type Department Care Team (Latest Contact Info) Description 11/06/2006 Outpatient Historical [facility] Imaging Services [place] [address] [place] [address] Radha Díaz MD [address] 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
--- OUTSIDE RECORDS SUMMARY | 2025-03-02 11:38 | XMS_ITS | Encounter Summary ---
Author Organization [facility] Address [address] [place] [address] Care Team Providers Care General Ii Farmworker Name Role Phone Vlad Francois MD Primary Care Provider [phone] Encounter Details Date Type Department Care Team (Latest Contact Info) Description 08/02/2004 Outpatient Historical [facility] Podiatry-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
--- OUTSIDE RECORDS SUMMARY | 2025-03-02 11:38 | XMS_ITS | Encounter Summary ---
Author Organization [facility] Address [address] [place] [address] Care Team Providers Care Vegetable Harvest Worker Name Role Phone Vlad Francois MD Primary Care Provider [phone] Encounter Details Date Type Department Care Team (Latest Contact Info) Description 10/28/2006 [facility] [address] [facility] [address] [place] [address] Shalini Johnston MD [address] [place] [address] Skin Sensation Disturb (Primary Dx); Pain in Limb Social History Tobacco Use Types Packs/Day Years Used Date Smoking Tobacco: Never Assessed Comments Unknown Sex and Gender Information Value Date Recorded Sex Assigned at Not on file Legal Sex Female 5:59 AM LAB RN Gender Identity Not on file Sexual Orientation Not on file documented as of this encounter Plan of Treatment Not on file documented as of this encounter Visit Diagnoses Diagnosis Skin sensation disturb- Primary Disturbance of skin sensation Pain in limb Pain in soft tissues of limb documented in this encounter Care Teams Vegetable Harvest Worker Relationship Specialty Start Date End Date Vlad Francois MD [address] [place] [phone] PCP - General Family Practice 01/17/16 documented as of this encounter
--- OUTSIDE RECORDS SUMMARY | 2025-03-02 11:38 | XMS_ITS | Encounter Summary ---
Author Organization [facility] Address [address] [place] [address] Care Team Providers Care Account Development Executive Name Role Phone Vlad Francois MD Primary Care Provider [phone] Encounter Details Date Type Department Care Team (Latest Contact Info) Description 09/23/1999 Outpatient Historical [facility] Imaging Services-[place] [address] [place] [address] Chapito Isaacs MD NO ADDRESS ON FILE Abdominal pain, unspecified site (Primary Dx) Social History Tobacco Use Types Packs/Day Years Used Date Smoking Tobacco: Never Assessed Comments Unknown Sex and Gender Information Value Date Recorded Sex Assigned at Not on file Legal 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
--- OUTSIDE RECORDS SUMMARY | 2025-03-02 11:38 | XMS_ITS | Encounter Summary ---
Author Organization [facility] Address [address] [place] [address] Care Team Providers Care Director Of Enterprise Strategy Name Role Phone Vlad Francois MD Primary Care Provider [phone] Encounter Details Date Type Department Care Team (Late st Contact Info) Description 04/29/2004 Outpatient Historical [facility] OBGYN-[place] [address] [place] [address] Ilia Sprague MD [address] [facility] [address] [place] [address] Atrophic vaginitis (Primary Dx); ATROPHY OF VULVA Social History Tobacco Use Types Packs/Day Years Used Date Smoking Tobacco: Never Assessed Comments Unknown Sex and Gender Information Value Date Recorded Sex Assigned at Not on file Legal 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
--- OUTSIDE RECORDS SUMMARY | 2025-03-02 11:38 | XMS_ITS | Encounter Summary ---
Author Organization [facility] Address [address] [place] [address] Care Team Providers Care All Source Analyst Name Role Phone Vlad Francois MD Primary Care Provider [phone] Encounter Details Date Type Department Care Team (Late st Contact Info) Description 11/06/2006 Outpatient Historical [facility] Imaging Services [facility] 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 2. Mild spondylosis and disc changes are noted elsewhere, withoutsuspected neural impingement. - Dictated By: Mason Wrad M.D. Electronically Signed By: Mason Ward M.D. Date Signed: 11/06/06 Radha Díaz MD MR ORDERABLES Final Result documented in this encounter Visit Diagnoses Not on filedocumented in this encounter Care Teams All Source Analyst Relationship Specialty Start Date End Date Vlad Francois MD [address] [place] [address] PCP - General Family Practice 01/17/16 documented as of this encounter
--- OUTSIDE RECORDS SUMMARY | 2025-03-02 11:38 | XMS_ITS | Encounter Summary ---
Author Organization [facility] Address [address] [place] [address] Care Team Providers Care Cyber Incident Handler Name Role Phone Vlad Francois MD Primary Care Provider [phone] Encounter Details Date Type Department Care Team (Latest Contact Info) Description 06/07/2004 Outpatient Historical [facility] [place] [address] [place] [address] Arnoldo Steward MD [address] [place] [address] Plantar fibromatosis (Primary Dx) Social History Tobacco Use Types Packs/Day Years Used Date Smoking Tobacco: Never Assessed Comments Unknown Sex and Gender Information Value Date Recorded Sex Assigned at Not on file Legal 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
--- OUTSIDE RECORDS SUMMARY | 2025-03-02 11:38 | XMS_ITS | Encounter Summary ---
Author Organization [facility] Address [address] [place] [address] Care Team Providers Care Sales Consultant Residential Manager Name Role Phone Vlad Francois MD Primary Care Provider [phone] Encounter Details Date Type Department Care Team (Late st Contact Info) Description 05/15/2004 Outpatient [facility] Breast [facility] [address] [place] [address] Ilia Sprague MD [address] [address] SCREENING MAMM-MAILG NEOPL-OTHER (Primary Dx) Social History Tobacco Use Types Packs/Day Years Used Date Smoking Tobacco: Never Assessed Comments Unknown Sex and Gender Information Value Date Recorded Sex Assigned at Not on file Legal Sex Female 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
--- OUTSIDE RECORDS SUMMARY | 2025-03-02 11:38 | XMS_ITS | Encounter Summary ---
Author Organization [facility] Address [address] [place] [address] Care Team Providers Care Management Services Technician Name Role Phone Vlad Francois MD Primary Care Provider [phone] Encounter Details Date Type Department Care Team (Late st Contact Info) Description 01/25/2006 Outpatient Historical [facility] [address] [place] [address] Vlad Raman MD NO ADDRESS ON FILE Social History Tobacco Use Types Packs/Day Years Used Date Smoking Tobacco: Never Assessed Comments Unknown Sex and Gender Information Value Date Recorded Sex Assigned at Not on file Legal Sex Female 5:59 AM 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
--- OUTSIDE RECORDS SUMMARY | 2025-03-02 11:38 | XMS_ITS | Encounter Summary ---
Author Organization [facility] Address [address] [place] [address] Care Team Providers Care Loom Operator Apprentice Name Role Phone Vlad Francois MD Primary Care Provider [phone] Encounter Details Date Type Department Care Team (Latest Contact Info) Description 09/16/2004 Outpatient Historical [facility] [address] [place] [address] Theo Staley MD [address] [address] CANDIDAL VULVOVAGINITIS (Primary Dx); NONINFECT VAG LEUKORRHEA Social History Tobacco Use Types Packs/Day Years Used Date Smoking Tobacco: Never Assessed Comments Unknown Sex and Gender Information Value Date Recorded Sex Assigned at Not on file 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
--- OUTSIDE RECORDS SUMMARY | 2025-03-02 11:38 | XMS_ITS | Encounter Summary ---
Author Organization [facility] Address [address] [place] [address] Care Team Providers Care Desk Interviewer Name Role Phone Vlad Francois MD Primary Care Provider [phone] Encounter Details Date Type Department Care Team (Latest Contact Info) Description 02/22/2007 Outpatient Historical [facility] ld [address] [place] [address] Javier Farmer MD NO ADDRESS ON FILE Primary Localized Osteoarthrosis, Lower Leg (Primary Dx); Pain in Joint, Lower Leg; Degeneration of Lumbar or Lumbosacral Intervertebral Disc; Obesity, Unspecified Social History Tobacco Use Types Packs/Day Years Used Date Smoking Tobacco: Never Assessed Comments Unknown Sex and Gender Information Value Date Recorded Sex Assigned at Not on file Legal Sex Female 5: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
--- OUTSIDE RECORDS SUMMARY | 2025-03-02 11:38 | XMS_ITS | Encounter Summary ---
Author Organization [facility] Address [address] [place] [address] Care Team Providers Care Audio/Visual Manager Name Role Phone Vlad Francois MD Primary Care Provider [phone] Reason for Referral * Outpatient Services (Routine) - Closed Specialty Diagnoses / Procedures Referred By Nancy apple Referred To Contact Radiology Diagnoses Encounter for screening mammogram for malignant neoplasm of breast Procedures MAMMO SCREEN BILAT W OR WO CAD Paul Sandoval DO [address] [facility] 1 [place] [address] Phone: tel: fax: [facility] [place] [address] [facility] [address] [place] [address] Phone: tel: fax: Referral ID Status Reason Start Date Expiration Date Visits Re quested Visits Authorized [id number] Closed 01/28/2017 02/28/2018 1 1 Encounter Details Date Type Department Care Team (Late st Contact Info) Description 01/28/2017 Ancillary Orders [facility] Pre-Registration [place] CALL TO MAKE APPOINTMENT ONLY [address] [place] [address] Paul Sandoval DO [address] 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
--- OUTSIDE RECORDS SUMMARY | 2025-03-02 11:38 | XMS_ITS | Encounter Summary ---
Author Organization [facility] Address [address] [place] [address] Care Team Providers Care Ophthalmic Technician Name Role Phone Vlad Francois MD Primary Care Provider [phone] Encounter Details Date Type Department Care Team (Late st Contact Info) Description 01/27/2008 Outpatient [facility] Breast Center [facility] [address] [place] [address] Vlad Palmer MD NO ADDRESS ON FILE Social History Tobacco Use Types Packs/Day Years Used Date Smoking Tobacco: Never Assessed Comments Unknown Sex and Gender Information Value Date Recorded Sex Assigned at Not on file 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
--- OUTSIDE RECORDS SUMMARY | 2025-03-02 11:38 | XMS_ITS | Clinical Summary ---
Author Organization [facility] Address [address] [place] [address] Care Team Providers Care Dolphin Researcher Name Role Phone Vlad Francois MD Primary Care Provider [phone] Allergies Active Allergy Reactions Criticality Noted Date [...] Encounters Date Type Department Care Team Description 02/14/2025 External Device Data STL ABSTRACTION Provider, Abstract 01/03/2025 External Device Data STL ABSTRACTION Provider, [...] Sex Assigned at Female 06/06/2024 12:31 PM SHEEP AND WHEAT FARMER Legal Sex Female 7:08 AM SHEEP AND WHEAT FARMER Gender Identity Female 06/06/2024 12:31 PM SHEEP AND WHEAT FARMER Sexual Orientation Straight 06/06/2024 12 :31 PM SHEEP AND WHEAT FARMER Last Filed Vital Signs Vital Sign Reading [...] EXAM 06/19/2023, 04/16/2021, 04/24/2020, Additional history exists DIABETES HBA1C Q 6 MONTHS 11/28/20242023, 02/03/2024, 11/03/2022, Additional history exists INFLUENZA VACCINE (#1) 2024 , 03/25/2022, 03/30/2002 COVID-19 Vaccine (2024-2 6 season) 2025 06/08/2021, 08/16/2020, 07/17/2020 OSTEOPOROSIS SCREENING 07/23/2025 07/23/2020 BREAST CANCER SCREENING [...] WO CAD, 01/15/2022 MAMMO SCRN BILAT 3D YQAUELIN W OR WO CAD, 10/01/2020 MAMMO SCRN [...] masses, calcifications, or areas of architectural distortion. us Steve Tim DO MAMMO ORDERABLES Final Result from Last 3 Months or Most Recently Relevant to Health Maintenance Insurance MEDICARE PART A AND B * Guarantor: LINDA ARECHIGA Tom Account Type Relation to Patient Date of Phone Billing Address Personal/Family [address] [place] [address] [employer] Medicare Part D Care Teams Dolphin Researcher Relationship Specialty Start Date End Date Vlad Francois MD [address] [place] [address] PCP - General 08/10/20
--- OUTSIDE RECORDS SUMMARY | 2025-03-02 11:38 | XMS_ITS | Encounter Summary ---
Author Organization [facility] Address [address] [place] [address] Care Team Providers Care Concrete Block Layer Name Role Phone Vlad Francois MD Primary Care Provider [phone] Encounter Details Date Type Department Care Team (Latest Contact Info) Description 05/27/[address] [facility] Orthopedics - Orthopedic [facility] [address] [place] [address] Chaim Alejandro MD NO ADDRESS [...] on file Legal Sex Female 5:59 AM COMMUNITY HEALTH SPECIALIST Gender Identity Not on file Sexual Orientation Not on file Occupation Industry Job Start Date Job End Date Not on file Not on file Not on file Not on file documented as of this encounter Plan of Treatment Not on file documented as of this encounter Results * XR KNEE 1 OR 2 VW BILAT (05/27/2017 11:25 AM COMMUNITY HEALTH SPECIALIST) Anatomical Region Laterality Modality Lower Extremity Computed Radiogr aphy Narrative 05/28/2017 7:29 AM COMMUNITY HEALTH SPECIALIST Weight-bearing AP and lateral x-rays of the bilateral knees were reviewed today and demonstrate medial compartment narrowing and patellofemoral wear of osteoarthritic changes. us Chaim Alejandro MD DIAGNOSTIC IMAGING ORDERAB LES Final Result documented in this encounter Visit Diagnoses Diagnosis Chronic pain of right knee Chronic pain of right knee documented in this encounter Care Teams Concrete Block Layer Relationship Specialty Start Date End Date Vlad Francois MD [address] [place] [phone] PCP - General Family Practice 01/17/16 documented as of this encounter
--- OUTSIDE RECORDS SUMMARY | 2025-03-02 11:38 | XMS_ITS | Encounter Summary ---
Author Organization [facility] Address [address] [place] [address] Care Team Providers Care Meeting Manager Name Role Phone Vlad Francois MD Primary Care Provider [phone] Encounter Details Date Type Department Care Team (Latest Contact Info) Description 12/16/2004 Outpatient Historical [facility] Ophthalmology [address] [place] [address] Mason Charles MD NO ADDRESS ON FILE HEADACHE (Primary Dx); MYOPIA; ASTIGMATISM NOS; PRESBYOPIA Social History Tobacco Use Types Packs/Day Years Used Date Smoking Tobacco: Never Assessed Comments Unknown Sex and Gender Information Value Date Recorded Sex Assigned at Not on file Legal Sex Female 5:59 AM GRAIN PICKER Gender Identity Not on file Sexual Orientation Not on file documented as of this encounter Plan of Treatment Not on file documented as of this encounter Visit Diagnoses Diagnosis Headache(784.0)- Primary Headache Myopia Astigmatism, unspecified Presbyopia documented in this encounter Care Teams Meeting Manager Relationship Specialty Start Date End Date Vlad Francois MD [address] [place] [phone] PCP - General Family Practice 01/17/16 documented as of this encounter
--- OUTSIDE RECORDS SUMMARY | 2025-03-02 11:38 | XMS_ITS | Patient Health Record ---
Author Organization [facility] Address [address] [place] [address] Care Team Providers Care Manager Trust Name Role Phone Singh, Araseli Unavailable [phone] SINGH, [facility] Unavailable Unavailable Allergies Allergen (clinical drug ingredient) [...] Problem Type II diabetes mellitus without complication (533072772) Type 2 diabetes mellitus without complications (E11.9) Active confirmed Problem Essential hypertension (67473279) Essential (primary) hypertension (I10) Active confirmed Problem Fibromyalgia (975864996) Fibromyalgia (M79.7) Active confirmed Problem Long-term current use of insulin (467309704) prison (current) use of insulin (Z79.4) Active confirmed Problem Type II diabetes mellitus without complication (906770172) Controlled type 2 diabetes mellitus without complication, without long-term current use of insulin (E11.9) Active confirmed Problem Bronchitis (52033877) Bronchitis (J40) Active confirmed Problem Migraine (40282489) Migraine without status migrainosus, not intractable, unspecified migraine type (G43.909) Active confirmed Problem Environmental allergy (435177801) Environmental allergies (Z91.09) Active confirmed Problem Primary hypertension (94599337) Primary hypertension (I10) Active confirmed Plan Of Treatment No Information Insurance Providers Payer Name Payer Address Payer Phone Subscriber Number Group Number Insured Name Patient Relationship to Insured Coverage Start Date Coverage End Date [place] [address] [place] [phone] [id number] Randi Arechiga Self - patient is the insured [facility] Medicare Supplement [address] [place] [phone] [id number] Randi Arechiga Self - patient is the insured Medications Administered Medication Instructions Date of Administration Dosage Notes DEPO-Medrol 10/04/2021 40 mg NDC: [address]-74 Patient tolerated well, advised to wait 20 min at clinic DEPO-Medrol 04/20/2023 40 mg ndc 47359-288 3-01 pt tolerated well/instructed to wait 20 min dexAMETHasone 10/04/2021 4 mg NDC: 42733-040-69 Patient tolerated well, advised to wait 20 min at clinic dexAMETHasone 04/20/[address] [place] [address]-0 423-00 pt tolerated well/instructed to wait 20 min Rocephin 10/04/2021 250 mg NDC: [address]-06 Patient tolerated well, advised to wait 20 min at clinic
--- OUTSIDE RECORDS SUMMARY | 2025-03-02 11:38 | XMS_ITS | Encounter Summary ---
Author Organization [facility] Address [address] [place] [address] Care Team Providers Care Preschool Teacher Assistant Name Role Phone Vlad Francois MD Primary Care Provider [phone] Encounter Details Date Type Department Care Team (Latest Contact Info) Description 06/12/1997 Outpatient Historical [facility] [address] [place] [address] Chapito Isaacs MD NO ADDRESS ON FILE Vaginitis and vulvovaginitis, unspecified (Primary Dx) Social History Tobacco Use Types Packs/Day Years Used Date Smoking Tobacco: Never Assessed Comments Unknown Sex and Gender Information Value Date Recorded Sex Assigned at Not on file Legal Sex Female 5:59 AM LEAD NUCLEAR MEDICINE TECHNOLOGIST Gender Identity Not on file Sexual Orientation Not on file documented as of this encounter Plan of Treatment Not on file documented as of this encounter Visit Diagnoses Diagnosis Vaginitis and vulvovaginitis, unspecified- Primary documented in this encounter Care Teams Preschool Teacher Assistant Relationship Specialty Start Date End Date Vlad Francois MD [address] [place] [address] PCP - General Family Practice 01/17/16 documented as of this encounter
--- OUTSIDE RECORDS SUMMARY | 2025-03-02 11:38 | XMS_ITS | Encounter Summary ---
Author Organization [facility] Address [address] [place] [address] Care Team Providers Care Clinical Pharmacy Technician Name Role Phone Vlad Francois MD Primary Care Provider [phone] Encounter Details Date Type Department Care Team (Late st Contact Info) Description 01/25/2008 Outpatient Historical [facility] Imaging Services Radha [address] [place] [address] Radha Díaz MD [address] [place] [address] Social History Tobacco Use Types Packs/Day Years Used Date Smoking Tobacco: Never Assessed Comments Unknown Sex and Gender Information Value Date Recorded Sex Assigned at Not on file Legal Sex Female 5:59 AM FIELD OPERATOR Gender Identity Not on file Sexual [...] By: Bijan Piña D.O. Date Signed: 02/21/08 [facility] Procedure Note Bijan Piña - 02/21/2008 MRI [...] on filedocumented in this encounter Care Teams Clinical Pharmacy Technician Relationship Specialty [place] [address] [place] [phone] PCP - General Family Practice 01/17/16 documented as of this encounter
--- OUTSIDE RECORDS SUMMARY | 2025-03-02 11:38 | XMS_ITS | Encounter Summary ---
Author Organization [facility] Address [address] [place] [address] Care Team Providers Care Nursing Administrator Name Role Phone Vlad Francois MD Primary Care Provider [phone] Encounter Details Date Type Department Care Team (Latest Contact Info) Description 09/18/1999 Outpatient Historical [facility] Ear, Nose and Throat [address] [place] [address] Goran Jaime MD NO ADDRESS ON FILE Allergic rhinitis, cause unspecified (Primary Dx) Social History Tobacco Use Types Packs/Day Years Used Date Smoking Tobacco: Never Assessed Comments Unknown Sex and Gender Information Value Date Recorded Sex Assigned at Not on file Legal Sex Female 5:59 AM TRIAL EXAMINER Gender Identity Not on file Sexual Orientation Not on file documented as of this encounter Plan of Treatment Not on file documented as of this encounter Visit Diagnoses Diagnosis Allergic rhinitis, cause unspecified- Primary documented in this encounter Care Teams Nursing Administrator Relationship Specialty Start Date End Date Vlad Francois MD [address] [place] [address] PCP - General Family Practice 01/17/16 documented as of this encounter
--- OUTSIDE RECORDS SUMMARY | 2025-03-02 11:38 | XMS_ITS | Encounter Summary ---
Author Organization [facility] Address [address] [place] [address] Care Team Providers Care Agricultural Purchasing Agent Name Role Phone Vlad Francois MD Primary Care Provider [phone] Encounter Details Date Type Department Care Team (Latest Contact Info) Description 09/16/2005 Outpatient [facility] [place] [address] [place] [address] Aidan Oden, DPM NO ADDRESS ON FILE Exostosis of Unspecified Site (Primary Dx) Social History Tobacco Use Types Packs/Day Years Used Date Smoking Tobacco: Never Assessed Comments Unknown Sex and Gender Information Value Date Recorded Sex Assigned at Not on file Legal Sex Female 5:59 AM COUNTY MANAGER Gender Identity Not on file Sexual Orientation Not on file documented as of this encounter Plan of Treatment Not on file documented as of this encounter Visit Diagnoses Diagnosis Exostosis of unspecified site- Primary documented in this encounter Care Teams Agricultural Purchasing Agent Relationship Specialty [place] [address] [place] [phone] PCP - General Family Practice 01/17/16 documented as of this encounter
--- OUTSIDE RECORDS SUMMARY | 2025-03-02 11:38 | XMS_ITS | Encounter Summary ---
Author Organization [facility] Address [address] [place] [address] Care Team Providers Care Front Desk Worker Name Role Phone Vlad Francois MD Primary Care Provider [phone] Encounter Details Date Type Department Care Team (Late st Contact Info) Description 06/13/2004 Outpatient Historical [facility] OBGYN-[place] [address] [place] [address] [place] [address] Ilia Sprague MD [address] [facility] [address] [place] [address] Atrophic vaginitis (Primary Dx); ATROPHY OF VULVA Social History Tobacco Use Types Packs/Day Years Used Date Smoking Tobacco: Never Assessed Comments Unknown Sex and Gender Information Value Date Recorded Sex Assigned at Not on file Legal Sex Female 5:59 AM CREAM TESTER Gender Identity Not on file Sexual Orientation Not on file documented as of this encounter Plan of Treatment Not on file documented as of this encounter Visit Diagnoses Diagnosis Atrophic vaginitis- Primary Postmenopausal atrophic vaginitis Atrophy of vulva documented in this encounter Care Teams Front Desk Worker Relationship Specialty Start Date End Date Vlad Francois MD [address] [place] [address] PCP - General Family Practice 01/17/16 documented as of this encounter
--- OUTSIDE RECORDS SUMMARY | 2025-03-02 11:38 | XMS_ITS | Encounter Summary ---
Author Organization [facility] Address [address] Attn: [place] [address] Care Team Providers Care Paper Cleaner Name Role Phone Vlad Francois MD Primary Care Provider [phone] Encounter Details Date Type Department Care Team (Late st Contact Info) Description 05/02/2001 Outpatient Historical Non-Staff, Physician NO ADDRESS ON FILE Social History Tobacco Use Types Packs/Day Years Used Date Smoking Tobacco: Never Assessed Comments Unknown Sex and Gender Information Value Date Recorded Sex Assigned at Not on file Legal Sex Female 5:59 AM STAKING PRESS OPERATOR Gender Identity Not on file Sexual Orientation Not on file documented as of this encounter Plan of Treatment Not on file documented as of this encounter Visit Diagnoses Not on filedocumented in this encounter Care Teams Paper Cleaner Relationship Specialty [place] [address] [place] [phone] PCP - General Family Practice 01/17/16 documented as of this encounter
--- OUTSIDE RECORDS SUMMARY | 2025-03-02 11:38 | XMS_ITS | Encounter Summary ---
Author Organization [facility] Address [address] [place] [address] Care Team Providers Care Natural Sciences Manager Name Role Phone Vlad Francois MD Primary Care Provider Encounter Details Date Type Department Care Team (Late st Contact Info) Description 04/30/2018 Ancillary Orders [facility] [address] [facility] [address] [place] [address] [facility], External Provider [address] [place] [address] Visit for screening mammogram Social History Tobacco Use Types Packs/Day Years Used Date Smoking Tobacco: Never Smokeless Tobacco: Never Alcohol Use Standard Drinks/Week Comments No 0 (1 standard drink = 0.6 oz pur e alcohol) Comments No Sex and Gender Information Value Date Recorded Sex Assigned at Not on file Legal Sex Female 5:59 AM APPRENTICE Gender Identity Not on file Sexual Orientation Not on file Occupation Industry Job Start Date Job End Date Not on file Not on file Not on file Not on file documented as of this encounter Plan of Treatment Not on file documented as of this encounter Visit Diagnoses Diagnosis Visit for screening mammogram Other screening mammogram documented in this encounter Care Teams Natural Sciences Manager Relationship Specialty Start Date End Date Vlad Francois MD [address] [place] [address] PCP - General Family Practice 01/17/16 documented as of this encounter
--- OUTSIDE RECORDS SUMMARY | 2025-03-02 11:38 | XMS_ITS | Encounter Summary ---
Author Organization [facility] Address [address] [place] [address] Care Team Providers Care Photographic Aide Name Role Phone Vlad Francois MD Primary Care Provider [phone] Encounter Details Date Type Department Care Team (Latest Contact Info) Description 09/16/2005 Outpatient Historical [facility] [place] [address] [place] [address] Aidan Oden, DPM NO ADDRESS ON FILE Pain in Limb (Primary Dx) Social History Tobacco Use Types Packs/Day Years Used Date Smoking Tobacco: Never Assessed Comments Unknown Sex and Gender Information Value Date Recorded Sex Assigned at Not on file Legal Sex Female 5:59 AM SOFTWARE QA SYSTEM SPECIALIST Gender Identity Not on file Sexual Orientation Not on file documented as of this encounter Plan of Treatment Not on file documented as of this encounter Visit Diagnoses Diagnosis Pain in limb- Primary Pain in soft tissues of limb documented in this encounter Care Teams Photographic Aide Relationship Specialty Start Date End Date Vlad Francois MD [address] [place] [phone] PCP - General Family Practice 01/17/16 documented as of this encounter
--- OUTSIDE RECORDS SUMMARY | 2025-03-02 11:38 | XMS_ITS | Encounter Summary ---
Author Organization [facility] Address [address] [place] [address] Care Team Providers Care Adult Remedial Education Instructor Name Role Phone Vlad Francois MD Primary Care Provider [phone] Encounter Details Date Type Department Care Team (Latest Contact Info) Description 05/15/2004 Outpatient Historical [facility] Breast [place] [address] [facility] [address] [place] [address] Angel Viveros MD NO ADDRESS ON FILE SCREENING MAMM-MAILG NEOPL-OTHER (Primary Dx) Social History Tobacco Use Types Packs/Day Years Used Date Smoking Tobacco: Never Assessed Comments Unknown Sex and Gender Information Value Date Recorded Sex Assigned at Not on file Legal Sex Female 5:59 AM DOCTOR OF PODIATRIC MEDICINE Gender Identity Not on file Sexual Orientation Not on file documented as of this encounter Plan of Treatment Not on file documented as of this encounter Visit Diagnoses Diagnosis Other screening mammogram- Primary documented in this encounter Care Teams Adult Remedial Education Instructor Relationship Specialty Start Date End Date Vlad Francois MD [address] [place] [phone] PCP - General Family Practice 01/17/16 documented as of this encounter
--- OUTSIDE RECORDS SUMMARY | 2025-03-02 11:38 | XMS_ITS | Encounter Summary ---
Author Organization [facility] Address [address] [facility] Attn: [place] [address] Care Team Providers Care Manager Control Name Role Phone Vlad Francois MD Primary Care Provider [phone] Encounter Details Date Type Department Care Team (Late st Contact Info) Description 09/09/1999 Outpatient Historical Goran Jaime MD NO ADDRESS ON FILE Social History Tobacco Use Types Packs/Day Years Used Date Smoking Tobacco: Never Assessed Comments Unknown Sex and Gender Information Value Date Recorded Sex Assigned at Not on file Legal Sex Female 5:59 AM HOSPITALITY RECRUITER Gender Identity Not on file Sexual Orientation Not on file documented as of this encounter Plan of Treatment Not on file documented as of this encounter Visit Diagnoses Not on filedocumented in this encounter Care Teams Manager Control Relationship Specialty Start Date End Date Vlad Francois MD [address] [place] [phone] PCP - General Family Practice 01/17/16 documented as of this encounter
--- OUTSIDE RECORDS SUMMARY | 2025-03-02 11:38 | XMS_ITS | Encounter Summary ---
Author Organization [facility] Address [address] [place] [address] Care Team Providers Care Director Of Loss Prevention Name Role Phone Vlad Francois MD Primary Care Provider [phone] Encounter Details Date Type Department Care Team (Late st Contact Info) Description 01/28/2008 Outpatient Historical [facility] Imaging Services [facility] [address] [place] [phone] Other, [facility] NO ADDRESS ON FILE Social History Tobacco Use Types Packs/Day Years Used Date Smoking Tobacco: Never Assessed Comments Unknown Sex and Gender Information Value Date Recorded Sex Assigned at Not on file Legal Sex Female 5:59 AM UNDERWEAR CUTTER Gender Identity Not on file Sexual Orientation Not on file documented as of this encounter Plan of Treatment Not on file documented as of this encounter Visit Diagnoses Not on filedocumented in this encounter Care Teams Director Of Loss Prevention Relationship Specialty Start Date End Date Vlad Francois MD [address] [place] [phone] PCP - General Family Practice 01/17/16 documented as of this encounter
--- OUTSIDE RECORDS SUMMARY | 2025-03-02 11:38 | XMS_ITS | Encounter Summary ---
Author Organization [facility] Address [address] [place] [address] Care Team Providers Care Inbound Telemarketer Name Role Phone Vlad Francois MD Primary Care Provider [phone] Reason for Referral * Radiology Services (Routine) [...] CAD CHG SCREENING DIGITAL BREAST TOMOSYNTHESIS BI Vlda Francois MD [address] [place] [address] Phone: tel: fax: [facility] [address] [place] [address] Phone: tel: Referral ID Status Reason Start Date Expiration Date Visits Re quested Visits Authorized [id number] Closed 03/19/2018 04/19/2019 1 1 Encounter Details Date Type Department Care Team (Late st Contact Info) Description 06/15/2018 Ancillary Orders [facility] [address] [address] Vlad Francois MD [address] [place] [address] Visit for screening mammogram Social History Tobacco Use Types Packs/Day Years Used Date Smoking Tobacco: Never Smokeless Tobacco: Never Alcohol Use Standard Drinks/Week Comments No 0 (1 standard drink = 0.6 oz pur e alcohol) Comments No Sex and Gender Information Value Date Recorded Sex Assigned at Not on file Legal Sex Female 5:59 AM GLOBAL ACCOUNT EXECUTIVE Gender Identity Not on file Sexual Orientation Not on file Occupation Industry Job Start Date Job End Date Not on file Not on file Not on file Not on file documented as of this encounter Plan of Treatment Not on file documented as of this encounter Results * MAMMO SCRN BILAT 3D YAQUELIN W OR WO CAD (06/15/2018 1:07 PM GLOBAL ACCOUNT EXECUTIVE) Anatomical Region Laterality Modality Breast Bilateral Mammography 06/15/2018 1:07 PM GLOBAL ACCOUNT EXECUTIVE Narrative 06/16/2018 2:47 PM GLOBAL ACCOUNT EXECUTIVE Screening 06/15/2018 3D MLO and CC digital [...] the patient return for right additional views. [id number] us External Provider [facility] MAMMO ORDERABLES Final Res ult documented in this encounter Visit Diagnoses Diagnosis Visit for screening mammogram Other screening mammogram Visit for screening mammogram Other screening mammogram documented in this encounter Care Teams Inbound Telemarketer Relationship Specialty Start Date End Date Vlad Francois MD [facility] [place] [address] PCP - General Family Practice 01/17/16 documented as of this encounter
--- OUTSIDE RECORDS SUMMARY | 2025-03-02 11:38 | XMS_ITS | Encounter Summary ---
Author Organization [facility] Address [address] [place] [address] Care Team Providers Care Wildlife Refuge Manager Name Role Phone Vlad Francois MD Primary Care Provider [phone] Encounter Details Date Type Department Care Team (Late st Contact Info) Description 03/19/2018 Ancillary Orders [facility] Pre-Registration [place] CALL TO MAKE APPOINTMENT ONLY [address] [place] [address] [facility], External Provider [address] [place] [address] Visit for screening mammogram Social History Tobacco Use Types Packs/Day Years Used Date Smoking Tobacco: Never Smokeless Tobacco: Never Alcohol Use Standard Drinks/Week Comments No 0 (1 standard drink = 0.6 oz pur e alcohol) Comments No Sex and Gender Information Value Date Recorded Sex Assigned at Not on file Legal Sex Female 5:59 AM TRANSMISSION LINE ENGINEER Gender Identity Not on file Sexual Orientation Not on file Occupation Industry Job Start Date Job End Date Not on file Not on file Not on file Not on file documented as of this encounter Plan of Treatment Not on file documented as of this encounter Visit Diagnoses Diagnosis Visit for screening mammogram Other screening mammogram documented in this encounter Care Teams Wildlife Refuge Manager Relationship Specialty Start Date End Date Vlad Francois MD [address] [place] [phone] PCP - General Family Practice 01/17/16 documented as of this encounter
--- OUTSIDE RECORDS SUMMARY | 2025-03-02 11:38 | XMS_ITS | Encounter Summary ---
Author Organization [facility] Address [address] [place] [address] Care Team Providers Care Director Of Communications Name Role Phone Vlad Francois MD Primary Care Provider [phone] Reason for Referral * Outpatient Services (Urgent) - Closed Specialty Diagnoses / Procedures Referred By Nancy apple Referred To Contact Radiology Diagnoses New daily persistent headache Memory loss Blurred vision Procedures MRI BRAIN WO CONTRAST Vlad Raman MD [facility] MRI [address] [place] [address] Phone: tel: fax: Referral ID Status Reason Start Date Expiration Date V isits Requested Visits Authorized [id number] Closed F [facility] TO SCHEDULE (SGF) 01/30/2015 03/01/2016 1 1 Encounter Details Date Type Department Care Team (Latest Contact Info) Description 01/30/2015 Ancillary Orders [facility] Pre-Registration [place] CALL TO MAKE APPOINTMENT ONLY [address] [place] [address] Vlad Raman MD NO ADDRESS [...] on file Legal Sex Female 5:59 AM NETWORK OPERATIONS MANAGER Gender Identity Not on file Sexual [...] disturbances documented in this encounter Care Teams Director Of Communications Relationship Specialty Start Date End Date Vlad Francois MD [address] [place] [phone] PCP - General Family Practice 01/17/16 documented as of this encounter
--- OUTSIDE RECORDS SUMMARY | 2025-03-02 11:38 | XMS_ITS | Encounter Summary ---
Author Organization [facility] Address [address] [place] [address] Care Team Providers Care Pet Care Technician Name Role Phone Vlad Francois MD Primary Care Provider [phone] Encounter Details Date Type Department Care Team (Latest Contact Info) Description 09/23/1999 Outpatient Historical [facility] [place] [address] [place] [address] Chapito Isaacs MD NO ADDRESS ON FILE Abdominal pain, unspecified site (Primary Dx) Social History Tobacco Use Types Packs/Day Years Used Date Smoking Tobacco: Never Assessed Comments Unknown Sex and Gender Information Value Date Recorded Sex Assigned at Not on file 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
--- OUTSIDE RECORDS SUMMARY | 2025-03-02 11:38 | XMS_ITS | Encounter Summary ---
Author Organization [facility] Address [address] [place] [address] Care Team Providers Care Liquid Compounder Name Role Phone Vlad Francois MD Primary Care Provider [phone] Encounter Details Date Type Department Care Team (Latest Contact Info) Description 09/18/1999 Outpatient Historical [facility] [address] [place] [address] Chapito Isaacs MD NO ADDRESS ON FILE Unspecified symptom associated with female genital organs (Primary Dx) Social History Tobacco Use Types Packs/Day Years Used Date Smoking Tobacco: Never Assessed Comments Unknown Sex and Gender Information Value Date Recorded Sex Assigned at Not on file 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
--- OUTSIDE RECORDS SUMMARY | 2025-03-02 11:38 | XMS_ITS | Encounter Summary ---
Author Organization [facility] Address [address] [place] [address] Care Team Providers Care Administrative Operations Coordinator Name Role Phone Vlad Francois MD Primary Care Provider [phone] Encounter Details Date Type Department Care Team (Latest Contact Info) Description 08/02/2004 Outpatient Historical [facility] [place] [address] [place] [address] Aidan Oden, DPM NO ADDRESS ON FILE Pain in limb (Primary Dx) Social History Tobacco Use Types Packs/Day Years Used Date Smoking Tobacco: Never Assessed Comments Unknown Sex and Gender Information Value Date Recorded Sex Assigned at Not on file 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
--- OUTSIDE RECORDS SUMMARY | 2025-03-02 11:38 | XMS_ITS | Encounter Summary ---
Author Organization [facility] Address [address] [place] [address] Care Team Providers Care Hair Spinning Machine Operator Name Role Phone Vlad Francois MD Primary Care Provider [phone] Reason for Referral * Outpatient Services (Routine) - Closed Specialty Diagnoses / Procedures Referred By Contkash t Referred To Contact Diagnoses Other screening mammogram Breast screening, unspecified Procedures MAMMO DIGITAL SCREEN BILAT Paul Sandoval DO [address] [email or web address] [address] [place] [address] Phone: tel: fax: [facility] Pre-Registration [place] CALL TO MAKE APPOINTMENT ONLY [address] [place] [address] Phone: tel: fax: Referral ID Status Reason Start Date Expiration Date V isits Requested Visits Authorized [id number] Closed F [facility] TO SCHEDULE (SGF) 12/27/2014 01/27/2016 1 1 Encounter Details Date Type Department Care Team (Late st Contact Info) Description 12/27/2014 Ancillary Orders [facility] Pre-Registration [place] CALL TO MAKE APPOINTMENT ONLY [address] [place] [address] Paul Sandoval DO [address] [facility] [address] [place] [address] Other screening mammogram (Primary Dx); Breast screening, unspecified Social History Tobacco Use Types Packs/Day Years Used Date Smoking Tobacco: Never Smokeless Tobacco: Never Alcohol Use Standard Drinks/Week Comments No 0 (1 standard drink = 0.6 oz pur e alcohol) Comments No Sex and Gender Information Value Date Recorded Sex Assigned at Not on file 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
--- OUTSIDE RECORDS SUMMARY | 2025-03-02 11:38 | XMS_ITS | Encounter Summary ---
Author Organization [facility] Address [address] [place] [address] Care Team Providers Care Synchronizer Name Role Phone Vlad Francois MD Primary Care Provider Encounter Details Date Type Department Care Team (Latest Contact Info) Description 08/08/2004 Outpatient Historical [facility] [place] [address] [place] [address] Marylu Brenner NO ADDRESS ON FILE Atrophic vaginitis (Primary Dx) Social History Tobacco Use Types Packs/Day Years Used Date Smoking Tobacco: Never Assessed Comments Unknown Sex and Gender Information Value Date Recorded Sex Assigned at Not on file 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
--- NOTE | 2025-03-02 11:40 | CTR_ITS ---
PROCEDURE INFORMATION: Exam: CT Head Without Contrast Exam date and time: 03/02/2025 1:19 PM Age: 64 years old Clinical indication: Injury or trauma; Blunt trauma (contusions or hematomas); Injury details: Left lower back pain post fall. PT stated she fell into the wall. PT stated she is currently on abx for a UTI with positive e. Coli culture. PT stated she has been having n/v since she fell. PT stated she did hit her head. Prior surgery; Surgery date: 6+ months; Surgery type: Gc, hyst, lumbar discectomy; Additional info: N/v since fall TECHNIQUE: Imaging protocol: Computed tomography of the head without contrast. Radiation optimization: All CT scans at this facility use at least one of these dose optimization techniques: automated exposure control; mA and/or kV adjustment per patient size (includes targeted exams where dose is matched to clinical indication); or iterative reconstruction. COMPARISON: CT head wo con* [id number] 07/06/2020 6:52 PM RADIATION DOSE METRICS: Total DLP (mGy-cm): 1182.19 FINDINGS: Brain: No acute intracranial hemorrhage. No confluent lobar infarct. No mass effect. Cerebral ventricles: The ventricles and sulci are normal in size and shape for the patient's stated age. Paranasal sinuses: No fluid levels. Mastoid air cells: Visualized mastoid air cells are well aerated. Bones: No acute calvarial fracture. Soft tissues: Visualized soft tissues are unremarkable. CT/CT head wo con* [id number] IMPRESSION: No acute intracranial abnormality. If symptoms persist, consider further evaluation with MRI, if there are no contraindications to obtaining a MRI scan.
--- NOTE | 2025-03-02 11:40 | CT_ITS ---
WS: [id number] CT lumbar spine wo con* [id number] REASON FOR EXAM: low back pain IV CONTRAST ADMINISTERED: None. TECHNIQUE: Multiple axial images without intravenous contrast. COMPARISON EXAMINATION: None TOTAL EXAM DLP: 1301.[address] scans at [facility] use at least one of these dose optimization techniques: automated exposure control; mA and/or kV adjustment per patient size (includes targeted exams where dose is matched to clinical indication); or iterative reconstruction. FINDINGS: Note the lumbar spine is included and evaluated on the CT scan of the abdomen and pelvis. No acute compression fracture of the lumbar spine. Mild degenerative spondylosis with mild vertebral body osteophytosis L1-L5. Significant disc space narrowing with moderate endplate sclerosis and osteophytosis and degenerative gas in the disc space at L5-S1. Facet joints are intact and without abnormality. Minimal degenerative arthropathy. CT/CT lumbar spine wo con* [id number] IMPRESSION: No acute lumbar spine abnormality.
--- NOTE | 2025-03-02 12:10 | CT_ITS ---
WS: [id number] CT abdomen pelvis w con* [id number] REASON FOR EXAM: fall, left flank pain IV CONTRAST ADMINISTERED: None. TOTAL EXAM DLP: 1301.[address] scans at [facility] use at least one of these dose optimization techniques: automated exposure control; mA and/or kV adjustment per patient size (includes targeted exams where dose is matched to clinical indication); or iterative reconstruction. FINDINGS: ABDOMEN: No free fluid or free air or retroperitoneal air identified. No traumatic injury of the liver identified. There is mild dilatation of the central bile ducts and common duct presumably compensatory dilatation post cholecystectomy. The spleen is intact without perisplenic hemorrhage. There is enhancement inseparable from the gastric fundus which appears to represent partial volume of the splenic vein. No injury suspected. The adrenals and the right kidney are normal. There is a contained subcapsular hematoma (4.7 x 5.3 x 11.3 cm) of the left kidney with moderate compression of the kidney. There is a complex fracture of the lower pole of the kidney. There is minimal stranding perinephric hemorrhage. Left lower pole calculus. No excretory phase was obtained (5-minute delay) so contrasted urine extravasation from the collecting system is not evaluated however no additional fluid collection is seen in the retroperitoneum. No mesenteric or bowel wall injury. PELVIS: No free fluid, free air or retroperitoneal air. No excretory phase to to evaluate for bladder contrasted urine extravasation however no free fluid or focal fluid collection is identified. No fracture of the lower thoracic spine, lower ribs, lumbar spine, or bony pelvis identified. CT/CT abdomen pelvis w con* [id number] IMPRESSION: Fracture of the lower pole of the left kidney with a contained subcapsular jany plaak as above. An excretory phase i.e. 5-minute delay was not obtained to evaluate for urine e xtravasation however no free fluid or focal fluid collection is identified to s uggest injury of the renal collecting systems and ureters or the bladder.
[2025-03-02 12:11] LABS: Hematocrit 39.0 % (36-47); Hemoglobin 12.70 g/dL (11.27-16.99); Mean Corpuscular HGB Conc 32.6 g/dL (30-55); Mean Corpuscular Hemoglobin 28.7 pg (27-33); Mean Corpuscular Volume 88.2 fl (85-98); Nucleated Red Blood Cells % 0 %; Platelet Count 223 10^3/cmm (157-399); Red Blood Count 4.42 10^6/uL (3.85-5.65); White Blood Count 6.41 10^3/uL (3.29-11.43)
--- NOTE | 2025-03-02 12:18 | W.ED.FALL ---
HPI - Fall General: Chief Complaint: Fall Stated Complaint: Passed out loomis when pee N V L side Pain Time Seen by Provider: 03/02/25 12:07 History of Present Illness: 64-year-old female with a history of fibromyalgia, hyper lipidemia, who presents to the emergency room after having had a fall. Says she has been being treated for UTI. She got dizzy and fell. After that she started having severe pain in her left flank. She also bruised her elbow. No head injury. No altered mental status. She is extremely tearful. Related Data Home Medications ?Medication ?Instructions ?Recorded ?Confirmed aspirin 81 mg tablet,delayed 81 mg PO QPM 07/06/20 01/23/25 release finasteride 5 mg tablet 5 mg PO QAM 07/06/20 01/23/25 duloxetine 60 mg capsule,delayed 60 mg PO DAILY 08/28/21 01/23/25 release minoxidil 2.5 mg tablet 2.5 mg PO DAILY 08/28/21 01/23/25 tirzepatide 10 mg/0.5 mL 12.5 mg SUBCUT .weekly 12/24/23 01/23/25 subcutaneous pen injector (Grace) Previous Rx's ?Medication ?Instructions ?Recorded carvedilol 6.25 mg tablet See Rx Instructions .Route 08/12/22 .COMPLEX #180 tabs levetiracetam 500 mg tablet See Rx Instructions .Route 08/12/22 .COMPLEX #90 tabs simvastatin 40 mg tablet See Rx Instructions .Route 05/17/24 .COMPLEX #90 tabs ospemifene 60 mg tablet (Osphena) 60 mg PO DAILY #90 tabs 09/28/24 estradiol 0.01% (0.1 mg/gram) 1 g vaginal .twice weekly #3 tubes 11/02/24 vaginal cream (Estrace) Allergies Allergy/AdvReac Type Severity Reaction Status Date / Time Sulfa (Sulfonamide Allergy Mild unknown Verified 01/23/25 14:03 Antibiotics) pregabalin (From Lyrica) Allergy swelling Verified 01/23/25 14:03 tramadol Allergy swelling Verified 01/23/25 14:03 surgical glue Allergy Unknown Uncoded 01/23/25 14:03 Review of Systems Narrative: Constitutional symptoms: Negative except as documented in HPI. Skin symptoms: Negative except as documented in HPI. Eye symptoms: Negative except as documented in HPI. ENMT symptoms: Negative except as documented in HPI. Respiratory symptoms: Negative except as documented in HPI. Cardiovascular symptoms: Negative except as documented in HPI. Gastrointestinal symptoms: Negative except as documented in HPI. Genitourinary symptoms: Negative except as documented in HPI. Musculoskeletal symptoms: Negative except as documented in HPI. Neurologic symptoms: Negative except as documented in HPI. Psychiatric symptoms: Negative except as documented in HPI. Endocrine symptoms: Negative except as documented in HPI. PFSH ED PFSH: Medical History (Updated 03/02/25 @ 15:04 by Rebeca Sharp MD) No pertinent past medical history neghx: htn, thyroid, dvt/pe PCP: [facility] Arrhythmia Fast heart rate on chronic carvedilol Constipation Recurrent sinusitis Alopecia on finasteride and minoxidil Hyperlipidemia Atypical chest pain COVID-19 (~11/2019) Fibromyalgia syndrome on duloxetine and hydrocodone prn Migraines Diabetes mellitus Insulin requiring Stones, urinary tract History of IBS Surgical History H/O stem cell transplant (~06/2023) both knees-- performed by Dr. Daugherty Other postprocedural status trigger point injections, gets periodically, had 07/2021 History of sinus surgery History of cholecystectomy Laparoscopic History of wisdom tooth extraction History of toe surgery joint cleaned out History of kidney surgery Removal of stones History of lumbar discectomy History of cervical discectomy History of carpal tunnel repair History of hysterectomy 1999, TVH/BSO, Performed by Dr. Agustin Family History Mother Hypertension Hyperlipidemia Thyroid disease Heart attack Stroke Father Hypertension Hyperlipidemia Stroke Family history of ITP History of open heart surgery Sister Hypertension Hyperlipidemia Thyroid disease x 2 Grandmother Diabetes Maternal Hyperlipidemia Maternal and paternal Stroke Maternal and paternal Grandfather Diabetes Paternal Hyperlipidemia Maternal and paternal Stroke Maternal and paternal Unknown Patient denies medical problems Denies family history of: breast/ovarian/uterine/colon cancer Social History Smoking and tobacco/nicotine status: never used tobacco/nicotine Physical Exam Narrative: EXAM NARRATIVE: General: Alert, no acute distress. Skin: Warm, dry. Head: Normocephalic, atraumatic. Neck: Supple, trachea midline. Eye: Extraocular movements are intact. Ears, nose, mouth and throat: mucosa moist. Cardiovascular: Regular, Normal peripheral perfusion. Respiratory: Lungs are clear to auscultation, respirations are non-labored, breath sounds are equal, Symmetrical chest wall expansion. Gastrointestinal: Soft, Nontender, Non distended Musculoskeletal: Normal ROM, no deformity. Left flank pain Neurological: Alert and oriented, No focal neurological deficit observed. Psychiatric: Cooperative, appropriate mood & affect. Course Vital Signs: Vital signs: Vital Signs Temperature 97.6 F 03/02/25 11:35 Pulse Rate 94 03/02/25 15:15 Respiratory Rate 15 03/02/25 15:15 Blood Pressure 120/67 03/02/25 15:15 Pulse Oximetry 95 03/02/25 15:15 Oxygen Delivery Me thod Room Air 03/02/25 15:15 MDM - Fall Medical Decision Making Medical decision making: Differential diagnosis including but not limited to and based on the above HPI, review of systems and physical exam: In this patient with dizziness and a fall would have concern for renal failure and urinary infection that has not been treated. With pain in the left flank would have concern for intra abdominal or back injury so these are scanned as well. Orders placed to evaluate differential diagnosis based on the above differential, HPI and physical exam Lab Review: Laboratory results were reviewed and interpreted by myself the emergency room physician. No leukocytosis. No anemia. No renal failure. Urine is negative for infection at this time. Liver enzymes are normal. CT head: No acute intracranial process. No intracranial hemorrhage, no evidence of infarct. No evidence of acute fracture. This was reviewed and interpreted by myself the emergency room physician. I also reviewed the radiology report. CT of the lumbar spine: No fracture. Good alignment. No step-offs. This was reviewed and interpreted by myself the emergency room physician. I also reviewed the radiologist report. CT of the abdomen pelvis with contrast: Fracture of the lower pole of the left kidney with a contained subcapsular hematoma. 5 x 5 x 11. This was reviewed and interpreted by myself the emergency room physician. I also reviewed the radiology report. Consultation: I spoke with Dr. Wood urologist out of [place] in [place] who recommends transfer as the patient might need embolectomy. He thinks is probably about a grade 2 kidney fracture. I reviewed the patient's medical record. Reexamination: Patient's pain is a little bit better controlled. Nausea is improved some. I discussed findings. request that she be flown. At this point there is no other transportation for the next several hours and I agree that she needs to go faster than this Assessment and plan: Renal fracture Fall ?IV Dilaudid x 2 mg. IV Zofran. IV Compazine and Benadryl. - Discharged home - Discussed plan with patient. Answered any questions. - Evaluation and treatment of this problem were appropriate in the emergency setting. Lab Data 03/02/25 11:55 03/02/25 11:[address] 03/02/25 11:40 IMPRESSION: No acute intracranial abnormality. If symptoms persist, consider further evaluation with MRI, if there are no contraindications to obtaining a MRI scan. Lumbar Spine CT 03/02/25 11:40 IMPRESSION: No acute lumbar spine abnormality. Abdomen/Pelvis CT 03/02/25 12:10 IMPRESSION: Fracture of the lower pole of the left kidney with a contained subcapsular hematoma as above. An excretory phase i.e. 5-minute delay was not obtained to evaluate for urine extravasation however no free fluid or focal fluid collection is identified to suggest injury of the renal collecting systems and ureters or the bladder. Laboratory Results WBC 6.41 10^3/uL (3.29-11.43) 03/02/25 11:55 RBC 4.42 10^6/uL (3.85-5.65) 03/02/25 11:55 Hgb 12.70 g/dL (11.27-16.99) 03/02/25 11:55 Hct 39.0 % (36-47) 03/02/25 11:55 MCV 88.2 fl (85-98) 03/02/25 11:55 MCH 28.7 pg (27-33) 03/02/25 11:55 MCHC 32.6 g/dL (30-55) 03/02/25 11:55 RDW 11.6 % (12.1-15.1) L 03/02/25 11:55 Plt Count 223 10^3/cmm (157-399) 03/02/25 11:55 MPV 10.7 fL (7.4-10.4) H 03/02/25 11:55 Neut % (Auto) 58.4 % 03/02/25 11:55 Lymph % (Auto) 34.9 % 03/02/25 11:55 Sunflower % (Auto) 5.6 % 03/02/25 11:55 Eos % (Auto) 0.5 % 03/02/25 11:55 Baso % (Auto) 0.3 % 03/02/25 11:55 Neut # (Auto) 3.74 10^3/uL (1.8-7.7) 03/02/25 11:55 Lymph # (Auto) 2.2 10^3/uL (0.8-4.8) 03/02/25 11:55 Sunflower # (Auto) 0.4 10^3/uL (0.2-0.9) 03/02/25 11:55 Eos # (Auto) 0.0 10^3/uL (0.0-0.8) 03/02/25 11:55 Baso # (Auto) 0.0 10^3/uL (0.0-0.1) 03/02/25 11:55 Nucleated RBC % (auto) 0 % 03/02/25 11:55 Nucleated RBCs # 0.0 /100WBC 03/02/25 11:55 Sodium 139 mmol/L (136-145) 03/02/25 11:55 Potassium 4.8 mmol/L (3.5-5.1) 03/02/25 11:55 Chloride 101 mmol/L (98-107) 03/02/25 11:55 Carbon Dioxide 23 mmol/L (22-29) 03/02/25 11:55 Anion Gap 19.8 (5-19) H 03/02/25 11:55 BUN 12 mg/dL (8-23) 03/02/25 11:55 Creatinine 0.9 mg/dL (0.5-0.9) 03/02/25 11:55 GFR Calculation 62.8 mL/min (90-130) L 03/02/25 11:55 Glucose 193 mg/dL (65-115) H 03/02/25 11:55 Calculated Osmolality 293 mOsm/kg (285-295) 03/02/25 11:55 Lactic Acid 1.6 mmol/L (0.5-2.2) 03/02/25 11:55 Calcium 9.8 mg/dL (8.5-10.5) 03/02/25 11:55 Total Bilirubin 0.5 mg/dL (0.15-1.2) 03/02/25 11:55 AST 15 U/L (0-32) 03/02/25 11:55 ALT 14 U/L (0-33) 03/02/25 11:55 Alkaline Phosphatase 55 U/L (35-105) 03/02/25 11:55 Total Protein 7.1 g/dL (6.6-8.7) 03/02/25 11:55 Albumin 4.2 g/dL (3.5-5.2) 03/02/25 11:55 Globulin 2.9 g/dL (1.3-4.6) 03/02/25 11:55 Lipase 27 U/L (13-60) 03/02/25 11:55 Urine Color Yellow (Yellow) 03/02/25 12:42 Urine Appearance Turbid (CLEAR) A 03/02/25 12:42 Urine pH >=9.0 (5-7) A 03/02/25 12:42 Ur Specific [place] 1.018 (1.005-1.030) 03/02/25 12:42 Urine Protein 2+ (Negative) A 03/02/25 12:42 Urine Glucose (UA) Negative (Normal) 03/02/25 12:42 Urine Ketones 2+ (Negative) H 03/02/25 12:42 Urine Blood Negative (Negative) 03/02/25 12:42 Urine Nitrate Negative (Negative) 03/02/25 12:42 Urine Bilirubin Negative (Negative) 03/02/25 12:42 Urine Urobilinogen 1.0 mg/dL (Negative) 03/02/25 12:42 Ur Leukocyte Esterase Negative (Negative) 03/02/25 12:42 Urine RBC 0-4 /hpf (0-2) H 03/02/25 12:42 Urine WBC 0-4 /hpf (0-5) H 03/02/25 12:42 Ur Squamous Epith Cells 0-4 /hpf (0-5) H 03/02/25 12:42 Amorphous Sediment 3+ /hpf 03/02/25 12:42 Urine Bacteria Trace /hpf (NONE) 03/02/25 12:42 Hyaline Casts 0-4 /lpf H 03/02/25 12:42 Urine Mucus None /hpf 03/02/25 12:42 All radiology interpretation(s) finalized by discharge Discharge Plan Discharge Patient Disposition: Xfer Short-Term Hosp Clinical Impression: Fractured left kidney Condition: Stable Referrals: Steve Tim DO [Primary Care Provider, Family Practice] Print Language: Frisian Coding Level of Care Code ED Conference Planning Manager for Althea Hutson
[2025-03-02] MEDS: HYDROmorphone 0.5 MG/0.5 ML INJ 1 MG IVP ×2 (12:24→13:10)
[2025-03-02] MEDS: ondansetron 2 mg/ML SDV 2 mL 4 MG IVP (12:24)
[2025-03-02 12:27] VITALS: BP 168/84; PULSE 74; O2SAT 100
[2025-03-02 12:32] LABS: Lactic Sepsis W/Reflex 1.6 mmol/L (0.5-2.2)
[2025-03-02 12:33] LABS: Alanine Aminotransferase 14 U/L (0-33); Albumin Level 4.2 g/dL (3.5-5.2); Alkaline Phosphatase 55 U/L (35-105); Anion Gap 19.8 (5-19); Aspartate Amino Transferase 15 U/L (0-32); Blood Urea Nitrogen 12 mg/dL (8-23); Calcium 9.8 mg/dL (8.5-10.5); Carbon Dioxide 23 mmol/L (22-29); Chloride 101 mmol/L (98-107); Creatinine Clr Calc Pharmacy 62.6895; Globulin 2.9 g/dL (1.3-4.6); Glucose 193 mg/dL (65-115); Lipase 27 U/L (13-60); Osmolality Calculated 293 mOsm/kg (285-295); Potassium 4.8 mmol/L (3.5-5.1); Sodium 139 mmol/L (136-145); Total Protein 7.1 g/dL (6.6-8.7)
[2025-03-02] MEDS: iohexol 350 mg/mL 500 mL Btl (per mL) IV (13:25)
[2025-03-02 13:36] LABS: Glucose Urine UA Negative (Normal); Nitrate Urine Negative (Negative); Specific Gravity, Urine 1.018 (1.005-1.030)
[2025-03-02 14:00] VITALS: BP 138/79; PULSE 96; O2SAT 92
[2025-03-02] MEDS: diphenhydrAMINE 50 mg/mL SDV 1mL IVP (14:00)
[2025-03-02 15:15] VITALS: BP 120/67; PULSE 94; RESP 15; O2SAT 95
[2025-03-02 15:48] VITALS: BP 126/73; PULSE 96; O2SAT 96
== END 2025-03-02 15:50 | disposition short-term general hospital (02) ==
PROVIDERS: Emergency Provider Emergency Medicine; PCP Electrodiagnostic Medicine
DX: S37.092A Other injury of left kidney, initial encounter (principal); E78.5 Hyperlipidemia, unspecified; E11.9 Type 2 diabetes mellitus without complications; W19.XXXA Unspecified fall, initial encounter
CPT/HCPCS: 36415; 70450; 72131; 74177; 80053; 81001; 83605; 83690; 85025; 87040; 96361; 96374; 96375; 96376; 99285; J0780; J1171; J1200; J1885; J2405; J7030

== ENCOUNTER 2025-03-22 10:52 | Emergency (ER) | payer MEDICARE, OTHER, SELFPAY ==
[2025-03-22 11:04] VITALS: BP 98/62; PULSE 100; TEMP 37.1; O2SAT 100; BMI 23.8
--- NOTE | 2025-03-22 11:19 | CT_ITS ---
WS: [id number] CT ABDOMEN PELVIS TECHNIQUE: Contrast-enhanced CT of the abdomen and pelvis with coronal and sagittal reformatted images. CLINICAL INFORMATION: hematuria COMPARISON: None. DLP: 613.[address] scans at [facility] use at least one of these dose optimization techniques: automated exposure control; mA and/or kV adjustment per patient size (includes targeted exams where dose is matched to clinical indication); or iterative reconstruction. FINDINGS: Persistent LEFT subcapsular hematoma with evidence of embolization coils. Evolving subcapsular blood products. Hematoma slightly increased but otherwise not significantly changed compared to previous. Persistent fracture of the lower pole and medial aspect of the LEFT kidney with poor perfusion in this area similar to the prior study. Otherwise slightly delayed but relatively normal renal parenchymal enhancement LEFT kidney. Contrast excretion visualized on the delayed imaging without urine leak. Cholecystectomy. Portal vein and splenic vein are patent. Small esophageal hiatal hernia. Normal spleen. Normal caliber abdominal aorta. Aortic calcification. Adrenal glands are normal. No hydronephrosis in the RIGHT kidney. Normal RIGHT renal parenchymal enhancement. Celiac and SMA are patent. No other acute findings. CT/CT abdomen pelvis w con* [id number] IMPRESSION: 1. Persistence LEFT renal subcapsular hematoma with evolving blood products sl ightly increased in size compared to previous but otherwise not significantly c hanged. 2. Interval embolization coils involving the fractured portion of the LEFT kid jessica with decreased enhancement along the lower pole and medial aspect. 3. Otherwise relatively normal but slightly delayed LEFT renal parenchymal enh ancement and normal excretion. 4. No contrast extravasation to indicate active urine leak.
--- NOTE | 2025-03-22 11:19 | XR_ITS ---
WS: [id number] Portable AP upright chest, 03/22/2025 Clinical Data: weakness Comparison: Two-view chest, 08/10/2023 Findings: No nodules, masses or effusions are seen. The heart is normal. The pulmonary vascularity is not increased. No pneumonia or pneumothorax is seen. The aortic arch shows mild tortuosity. XR/XR chest 1V portable [id number] Impression: Atherosclerosis.
--- NOTE | 2025-03-22 11:20 | W.ED.FEMALGU ---
HPI - Female Genitourinary General: Chief complaint: Urogenital-Female Stated complaint: dr nagy sent, blood in urine, weakness Time Seen by Provider: 03/22/25 11:12 Source: patient Mode of arrival: ambulatory Limitations: no limitations History of Present Illness: 64-year-old female who had a history of a fall 3 weeks ago she had a lacerated left kidney. She states that she was transferred to [facility] I did embolize the kidney and then watched her for 6 days and discharged her. She states that her blood pressure got high there so they increased her carvedilol. She states that since then she has had some lower blood pressure with readings. She is continue to have some abdominal and flank pain and seen her PCP today and had blood in her urine was sent here. She denies any fevers denies any vomiting. Related Data Home Medications ?Medication ?Instructions ?Recorded ?Confirmed aspirin 81 mg tablet,delayed 81 mg PO QPM 07/06/20 03/22/25 release duloxetine 60 mg capsule,delayed 60 mg PO DAILY 08/28/21 03/22/25 release tirzepatide 10 mg/0.5 mL 12.5 mg SUBCUT .weekly 12/24/23 03/22/25 subcutaneous pen injector (Mounjaro) oxycodone 5 mg tablet 5 mg PO Q4H PRN Pain 03/22/25 03/22/25 trazodone 100 mg tablet 100 mg PO BEDTIME 03/22/25 03/22/25 Previous Rx's ?Medication ?Instructions ?Recorded carvedilol 6.25 mg tablet See Rx Instructions .Route 08/12/22 .COMPLEX #180 tabs levetiracetam 500 mg tablet See Rx Instructions .Route 08/12/22 .COMPLEX #90 tabs ospemifene 60 mg tablet (Osphena) 60 mg PO DAILY #90 tabs 09/28/24 Allergies Allergy/AdvReac Type Severity Reaction Status Date / Time Sulfa (Sulfonamide Allergy Mild unknown Verified 03/22/25 11:10 Antibiotics) pregabalin (From Lyrica) Allergy swelling Verified 03/22/25 11:10 tramadol Allergy swelling Verified 03/22/25 11:10 surgical glue Allergy Unknown Uncoded 03/22/25 11:10 [facility] ED PFSH: Medical History (Updated 03/22/25 @ 14:58 by Carol Mesa MD) No pertinent past medical history neghx: htn, thyroid, dvt/pe PCP: [place] Arrhythmia Fast heart rate on chronic carvedilol Constipation Recurrent sinusitis Alopecia on finasteride and minoxidil Hyperlipidemia Atypical chest pain COVID-19 (~11/2019) Fibromyalgia syndrome on duloxetine and hydrocodone prn Migraines Diabetes mellitus Insulin requiring Stones, urinary tract History of IBS Surgical History H/O stem cell transplant (~06/2023) both knees-- performed by Dr. Daugherty Other postprocedural status trigger point injections, gets periodically, had 07/2021 History of sinus surgery History of cholecystectomy Laparoscopic History of wisdom tooth extraction History of toe surgery joint cleaned out History of kidney surgery Removal of stones History of lumbar discectomy History of cervical discectomy History of carpal tunnel repair History of hysterectomy 1999, TVH/BSO, Performed by Dr. Agustin Family History Mother Hypertension Hyperlipidemia Thyroid disease Heart attack Stroke Father Hypertension Hyperlipidemia Stroke Family history of ITP History of open heart surgery Sister Hypertension Hyperlipidemia Thyroid disease x 2 Grandmother Diabetes Maternal Hyperlipidemia Maternal and paternal Stroke Maternal and paternal Grandfather Diabetes Paternal Hyperlipidemia Maternal and paternal Stroke Maternal and paternal Unknown Patient denies medical problems Denies family history of: breast/ovarian/uterine/colon cancer Social History Smoking and tobacco/nicotine status: never used tobacco/nicotine Physical Exam Const: COMMON NORMALS: no acute distress, patient oriented x3 and healthy appearing HENMT: COMMON NORMALS: normocephalic and atraumatic HEAD & SCALP: normocephalic and atraumatic Eye: COMMON NORMALS: Equal, round and reactive pupils present and EOMs intact bilaterally PUPIL: Yes Equal, round and reactive pupils present Neck/C-Spine: COMMON NORMALS: full ROM and supple Chest: COMMONS NORMALS: normal inspection of the chest and normal palpation of entire chest wall Resp: COMMON NORMALS: normal respiratory effort, No retractions, No use of accessory muscles and clear to auscultation bilaterally AUSCULTATION: clear to auscultation bilaterally Cardio: COMMON NORMALS: regular rate, regular rhythm and No murmurs present (Cardio) RATE: regular rate RHYTHM: regular rhythm GI: COMMON NORMALS: Normal to inspection, nondistended, normoactive bowel sounds present, Soft to palpation, non-tender and no masses PALPATION: Yes Soft to palpation Extremity: COMMON NORMALS: normal to inspection and full ROM Neuro: COMMON NORMALS: patient oriented x3, moves all extremities and no focal motor deficits Psych: COMMON NORMALS: mental status grossly normal, Normal thought process present and cooperative THOUGHT PROCESS: Normal thought process present Skin: COMMON NORMALS: no rashes or lesions noted and no wounds GENERAL SKIN EXAM: no rashes or lesions noted Course Vital Signs: Vital signs: Vital Signs Temperature 98.8 F 03/22/25 11:04 Pulse Rate 90 03/22/25 15:11 Respiratory Rate 16 03/22/25 15:11 Blood Pressure 124/63 03/22/25 15:11 Pulse Oximetry 97 03/22/25 15:11 Oxygen Delivery Me thod Room Air 03/22/25 14:54 MDM - Female Medical Decision Making Patient presents here from her PCPs office having microscopic hematuria patient had a history of a left kidney laceration 3 weeks ago she states she has had some mild weakness since then. Patient is been well-appearing here vitals here been normal her blood work here shows no acute abnormalities no signs of UTI does have microscopic hematuria did repeat her CT scan I spoke to trauma surgery at [facility] and the scan is unchanged and they recommended follow-up. I did go over these findings with patient she is stable for discharge she is to follow-up and return if worsening she understands agrees to plan. Medical Records I reviewed the patient's medical records. Lab Data I reviewed the patient's lab results. 03/22/25 11:39 03/22/25 13:30 Radiology Impressions Abdomen/Pelvis CT 03/22/25 11:19 IMPRESSION: 1. Persistence LEFT renal subcapsular hematoma with evolving blood products slightly increased in size compared to previous but otherwise not significantly changed. 2. Interval embolization coils involving the fractured portion of the LEFT kidney with decreased enhancement along the lower pole and medial aspect. 3. Otherwise relatively normal but slightly delayed LEFT renal parenchymal enhancement and normal excretion. 4. No contrast extravasation to indicate active urine leak. Chest X-Ray 03/22/25 11:19 Impression: Atherosclerosis. Laboratory Results WBC 6.78 10^3/uL (3.29-11.43) 03/22/25 11:39 RBC 3.75 10^6/uL (3.85-5.65) L 03/22/25 11:39 Hgb 10.60 g/dL (11.27-16.99) L 03/22/25 11:39 Hct 32.6 % (36-47) L 03/22/25 11:39 MCV 86.9 fl (85-98) 03/22/25 11:39 MCH 28.3 pg (27-33) 03/22/25 11:39 MCHC 32.5 g/dL (30-55) 03/22/25 11:39 RDW 11.9 % (12.1-15.1) L 03/22/25 11:39 Plt Count 358 10^3/cmm (157-399) 03/22/25 11:39 MPV 10.4 fL (7.4-10.4) 03/22/25 11:39 Neut % (Auto) 66.2 % 03/22/25 11:39 Lymph % (Auto) 24.5 % 03/22/25 11:39 [place] % (Auto) 8.6 % 03/22/25 11:39 Eos % (Auto) 0.3 % 03/22/25 11:39 Baso % (Auto) 0.1 % 03/22/25 11:39 Neut # (Auto) 4.49 10^3/uL (1.8-7.7) 03/22/25 11:39 Lymph # (Auto) 1.7 10^3/uL (0.8-4.8) 03/22/25 11:39 [place] # (Auto) 0.6 10^3/uL (0.2-0.9) 03/22/25 11:39 Eos # (Auto) 0.0 10^3/uL (0.0-0.8) 03/22/25 11:39 Baso # (Auto) 0.0 10^3/uL (0.0-0.1) 03/22/25 11:39 Nucleated RBC % (auto) 0 % 03/22/25 11:39 Nucleated RBCs # 0.0 /100WBC 03/22/25 11:39 Sodium 139 mmol/L (136-145) 03/22/25 13:30 Potassium 5.0 mmol/L (3.5-5.1) 03/22/25 13:30 Chloride 102 mmol/L (98-107) 03/22/25 13:30 Carbon Dioxide 25 mmol/L (22-29) 03/22/25 13:30 Anion Gap 17.0 (5-19) 03/22/25 13:30 BUN 9 mg/dL (8-23) 03/22/25 13:30 Creatinine 0.7 mg/dL (0.5-0.9) 03/22/25 13:30 GFR Calculation 84.0 mL/min (90-130) L 03/22/25 13:30 Glucose 88 mg/dL (65-115) 03/22/25 13:30 Calculated Osmolality 286 mOsm/kg (285-295) 03/22/25 13:30 Calcium 9.2 mg/dL (8.5-10.5) 03/22/25 13:30 Total Bilirubin 0.4 mg/dL (0.15-1.2) 03/22/25 13:30 AST 13 U/L (0-32) 03/22/25 13:30 ALT 7 U/L (0-33) 03/22/25 13:30 Alkaline Phosphatase 72 U/L (35-105) 03/22/25 13:30 Total Protein 7.0 g/dL (6.6-8.7) 03/22/25 13:30 Albumin 3.5 g/dL (3.5-5.2) 03/22/25 13:30 Globulin 3.5 g/dL (1.3-4.6) 03/22/25 13:30 Lipase 29 U/L (13-60) 03/22/25 13:30 Urine Color Yellow (Yellow) 03/22/25 11:21 Urine Appearance Cloudy (CLEAR) A 03/22/25 11:21 Urine pH 7.0 (5-7) 03/22/25 11:21 Ur Specific [place] 1.019 (1.005-1.030) 03/22/25 11:21 Urine Protein Trace (Negative) A 03/22/25 11:21 Urine Glucose (UA) Negative (Normal) 03/22/25 11:21 Urine Ketones Negative (Negative) 03/22/25 11:21 Urine Blood Negative (Negative) 03/22/25 11:21 Urine Nitrate Negative (Negative) 03/22/25 11:21 Urine Bilirubin Negative (Negative) 03/22/25 11:21 Urine Urobilinogen 1.0 mg/dL (Negative) 03/22/25 11:21 Ur Leukocyte Esterase 1+ (Negative) A 03/22/25 11:21 Urine RBC >100 /hpf (0-2) H 03/22/25 11:21 Urine WBC 11-20 /hpf (0-5) H 03/22/25 11:21 Ur Squamous Epith Cells 6-10 /hpf (0-5) 03/22/25 11:21 Amorphous Sediment 1+ /hpf 03/22/25 11:21 Urine Bacteria None seen /hpf (NONE) 03/22/25 11:21 Hyaline Casts 4.11 /lpf 03/22/25 11:21 All radiology interpretation(s) finalized by discharge Discharge Plan Discharge Patient Disposition: Home Clinical Impression: Benign microscopic hematuria Condition: Stable Prescriptions: No Action Mounjaro 10 mg/0.5 mL pen injector 12.5 mg SUBCUT .weekly Osphena 60 mg tablet 60 mg PO DAILY Qty: 90 3RF Rx Instructions: must administer with food, preferably a high-fat meal levetiracetam 500 mg tablet See Rx Instructions .ROUTE .COMPLEX Qty: 90 0RF Dose Instruction: Take 1/2 (one-half) tablet by mouth twice daily Rx Instructions: Take 1/2 (one-half) tablet by mouth twice daily carvedilol 6.25 mg tablet See Rx Instructions .ROUTE .COMPLEX Qty: 180 0RF Dose Instruction: Take 1 tablet by mouth twice daily Rx Instructions: Take 1 tablet by mouth twice daily aspirin 81 mg tablet,delayed release (DR/EC) 81 mg PO QPM Patient Comments: on hold duloxetine 60 mg capsule,delayed release(DR/EC) 60 mg PO DAILY trazodone 100 mg tablet 100 mg PO BEDTIME oxycodone 5 mg tablet 5 mg PO Q4H PRN (Reason: Pain) Discharge Orders: Discharge ED (Routine); Ordered 03/22/25 Ordered By: Carol Mesa Referrals: Steve Nagy DO [Primary Care Provider, Family Practice] - 4-7 days Discharge Diet: Advance as tolerated Discharge Activity: Resume usual activity Patient Instructions: Hematuria (ED) Print Language: Irish Coding Level of Care Code ED Barn Operator for Althea Hutson
[2025-03-22 11:45] LABS: Glucose Urine UA Negative (Normal); Nitrate Urine Negative (Negative); Specific Gravity, Urine 1.019 (1.005-1.030)
[2025-03-22 11:48] LABS: Add Urine Microscopic? YES
[2025-03-22 12:02] VITALS: BP 136/77; O2SAT 98
[2025-03-22 12:08] LABS: Hematocrit 32.6 % (36-47); Hemoglobin 10.60 g/dL (11.27-16.99); Mean Corpuscular HGB Conc 32.5 g/dL (30-55); Mean Corpuscular Hemoglobin 28.3 pg (27-33); Mean Corpuscular Volume 86.9 fl (85-98); Nucleated Red Blood Cells % 0 %; Platelet Count 358 10^3/cmm (157-399); Red Blood Count 3.75 10^6/uL (3.85-5.65); White Blood Count 6.78 10^3/uL (3.29-11.43)
[2025-03-22 12:16] LABS: UA Slide Review UA Slide Review Perf
[2025-03-22] MEDS: iohexol 350 mg/mL 500 mL Btl (per mL) IV (12:25)
--- OUTSIDE RECORDS SUMMARY | 2025-03-22 12:30 | XMS_ITS | Encounter Summary ---
Author Organization [facility] Address [address] [place] [address] Care Team Providers Care Irb Compliance Coordinator Name Role Phone Vlad Francois MD Primary Care Provider [phone] Encounter Details Date Type Department Care Team (Late st Contact Info) Description 12/25/2005 Outpatient Historical [facility] Physical Therapy OP [address] [place] [address] [place] [phone] Vlad Raman MD NO ADDRESS ON FILE Social History Tobacco Use Types Packs/Day Years Used Date Smoking Tobacco: Never Assessed Comments Unknown Sex and Gender Information Value Date Recorded Sex Assigned at Not on file 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
--- OUTSIDE RECORDS SUMMARY | 2025-03-22 12:30 | XMS_ITS | Encounter Summary ---
Author Organization [facility] Address [address] [place] [address] Care Team Providers Care Alley Cleaner Name Role Phone Vlad Francois MD Primary Care Provider [phone] Reason for Referral * Outpatient Services (Routine) - Closed Specialty Diagnoses / Procedures Referred By Nanyc apple Referred To Contact Diagnoses Back pain Procedures MRI LUMBAR W WO CONTRAST Radha Díaz MD [address] [place] [address] Phone: tel: fax: Referral ID Status Reason Start Date Expiration Date Visits Re quested Visits Authorized [id number] Closed 09/03/2010 03/02/2011 1 1 Encounter Details Date Type Department Care Team (Late st Contact Info) Description 09/03/2010 Ancillary Orders [facility] Pre-Registration [place] CALL TO MAKE APPOINTMENT ONLY [address] [place] [address] Radha Díaz MD [address] 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 renay 1409 PM - uploaded from [employer]- Narrative 09/05/2010 4:01 PM CDT Exam: MRI [...] indicated. renay 1409 PM - uploaded from [employer]- us Radha Díaz MD MR ORDERABLES Final Result documented in this encounter Visit Diagnoses Diagnosis Back pain Backache, unspecified Back pain Backache, unspecified documented in this encounter Care Teams Alley Cleaner Relationship Specialty Start Date End Date Vlad Francois MD [address] [place] [address] PCP - General Family Practice 01/17/16 documented as of this encounter
--- OUTSIDE RECORDS SUMMARY | 2025-03-22 12:30 | XMS_ITS | Encounter Summary ---
Author Organization [facility] Address [address] [place] [address] Care Team Providers Care Leather Repairer Name Role Phone Vlad Francois MD Primary Care Provider [phone] Encounter Details Date Type Department Care Team (Latest Contact Info) Description 11/24/2005 Outpatient Historical [facility] Physical Therapy [address] [place] [address] [place] [phone] Vlad Raman MD NO ADDRESS ON FILE Cervicalgia (Primary Dx) Social History Tobacco Use Types Packs/Day Years Used Date Smoking Tobacco: Never Assessed Comments Unknown Sex and Gender Information Value Date Recorded Sex Assigned at Not on file 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
--- OUTSIDE RECORDS SUMMARY | 2025-03-22 12:30 | XMS_ITS | Clinical Summary ---
Author Organization [facility] [place] Address [address] [place] [address] Care Team Providers Care Freight Brake Operator Name Role Phone Vlad Francois MD [...] of knee daily. bi est cream Active Dpci-Ycxt-URA#1-Vi t C-Rogerio-Bor (GLUCOSAMINE-CHOND -MSM COMPLEX) [id number] mg Oral Tab Take by mouth daily. Active aspirin (EVELIN) 81 mg Oral Tab Take by mouth daily. 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
--- OUTSIDE RECORDS SUMMARY | 2025-03-22 12:30 | XMS_ITS | Encounter Summary ---
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
--- OUTSIDE RECORDS SUMMARY | 2025-03-22 12:30 | XMS_ITS | Encounter Summary ---
Author Organization [facility] Address [address] [place] [address] Care Team Providers Care Dockworker Name Role Phone Vlad Francois MD Primary Care Provider [phone] Encounter Details Date Type Department Care Team (Late st Contact Info) Description 12/03/2005 Outpatient Historical [facility] Th[facility] 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
--- OUTSIDE RECORDS SUMMARY | 2025-03-22 12:30 | XMS_ITS | Encounter Summary ---
Author Organization [facility] Address [address] [place] [address] Care Team Providers Care Journeyman Carpenter Name Role Phone Vlad Francois MD Primary Care Provider [phone] Reason for Referral * Outpatient Services (Routine) - Closed Specialty Diagnoses / Procedures Referred By Nancy apple Referred To Contact Diagnoses Other screening mammogram Procedures MAMMO DIGITAL SCREEN BILAT Vlad Palmer MD NO ADDRESS ON FILE Referral ID Status Reason Start Date Expiration Date Visits Re quested Visits Authorized [id number] Closed 07/12/2012 08/12/2013 1 1 E UP ARTIST Encounter Details Date Type Department Care Team (Latest Contact Info) Description 07/12/2012 Ancillary Orders [facility] Pre-Registration [place] CALL TO MAKE APPOINTMENT ONLY [address] [place] [address] Vlad Palmer MD NO ADDRESS ON FILE Other screening mammogram Social History Tobacco Use Types Packs/Day Years Used Date Smoking Tobacco: Never Smokeless Tobacco: Never Alcohol Use Standard Drinks/Week Comments No 0 (1 standard drink = 0.6 oz pur e alcohol) Comments No Sex and Gender Information Value Date Recorded Sex Assigned at Not on file Legal Sex Female 5:59 AM PASTE UP ARTIST Gender Identity Not on file Sexual Orientation Not on file Occupation Industry Job Start Date Job End Date Not on file Not on file Not on file Not on file documented as of this encounter Plan of Treatment Not on file documented as of this encounter Results * MAMMO DIGITAL SCREEN BILAT (08/05/2012 12:38 PM PASTE UP ARTIST) Anatomical Region Laterality Modality Breast Bilateral Mammography Narrative 08/06/2012 2:40 PM PASTE UP ARTIST Bilateral Mammogram Reason for Exam: Screening Comparison: [...] mammogram documented in this encounter Care Teams Journeyman Carpenter Relationship Specialty Start Date End Date Vlad Francois MD [address] [place] [phone] PCP - General Family Practice 01/17/16 documented as of this encounter
--- OUTSIDE RECORDS SUMMARY | 2025-03-22 12:30 | XMS_ITS | Encounter Summary ---
Author Organization [facility] Address [address] [place] [address] Care Team Providers Care Customer Retention Specialist Name Role Phone Vlad Francois MD Primary Care Provider [phone] Encounter Details Date Type Department Care Team (Latest Contact Info) Description 12/03/2005 Outpatient Historical [facility] Ear, Nose and Throat [address] [place] 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
--- OUTSIDE RECORDS SUMMARY | 2025-03-22 12:30 | XMS_ITS | Encounter Summary ---
Author Organization [facility] Address [address] [place] [address] Care Team Providers Care Tax Examiner Name Role Phone Vlad Francois MD Primary Care Provider [phone] Encounter Details Date Type Department Care Team (Latest Contact Info) Description 01/09/2006 Outpatient Historical [facility] Endocrinology[facility] [address] [place] [address] Barrington Laureano MD NO ADDRESS ON FILE Abnormal Weight Gain (Primary Dx) Social History Tobacco Use Types Packs/Day Years Used Date Smoking Tobacco: Never Assessed Comments Unknown Sex and Gender Information Value Date Recorded Sex Assigned at Not on file 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
--- OUTSIDE RECORDS SUMMARY | 2025-03-22 12:30 | XMS_ITS | Encounter Summary ---
Author Organization [facility] Address [address] [place] [address] Care Team Providers Care Enamel Burner Name Role Phone Vlad Francois MD Primary Care Provider [phone] Encounter Details Date Type Department Care Team (Latest Contact Info) Description 08/14/2004 Outpatient Historical [facility] Podiatry[facility] [address] [address] [place] [id number] Aidan Oden, DPM NO ADDRESS ON FILE Pain in limb (Primary Dx); EXOSTOSIS, SITE NOS; CALCANEAL SPUR Social History Tobacco Use Types Packs/Day Years Used Date Smoking Tobacco: Never Assessed Comments Unknown Sex and Gender Information Value Date Recorded Sex Assigned at Not on file Legal Sex Female 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
--- OUTSIDE RECORDS SUMMARY | 2025-03-22 12:30 | XMS_ITS | Encounter Summary ---
Author Organization [facility] Address [address] [place] [address] Care Team Providers Care Grain Distributor Name Role Phone Vlad Francois MD Primary Care Provider [phone] Reason for Referral * Outpatient Services (Routine) - Closed Specialty Diagnoses / Procedures Referred By Contac t Referred To Contact Diagnoses Backache, unspecified Pain in limb Thoracic or lumbosacral neuritis or radiculitis, unspecified Displacement of lumbar intervertebral disc without myelopathy Procedures MRI LUMBAR W WO CONTRAST Radha Díaz MD [address] [place] [address] Phone: tel: fax: [facility] Pre-Registration [place] CALL TO MAKE APPOINTMENT ONLY [address] [place] [address] Phone: tel: fax: Referral ID Status Reason Start Date Expiration Date Visits Re quested Visits Authorized [id number] Closed 12/02/2011 12/01/2012 1 1 * Outpatient Services (Routine) - Closed Specialty Diagnoses / Procedures Referred By Contac t Referred To Contact Diagnoses Cervicalgia Brachial neuritis or radiculitis NOS Procedures MRI CERVICAL WO CONTRAST Radha Díaz MD [address] 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 rli - uploaded from [employer] 12/11/2011 3:29 PM CDT Exam: MRI LUMBAR [...] Mild degenerative changes. rli - uploaded from [employer] - Radha Díaz MD MR ORDERABLES Final [...] myelopathy documented in this encounter Care Teams Grain Distributor Relationship Specialty Start Date End Date Vlad Francois MD [address] [place] [phone] PCP - General Family Practice 01/17/16 documented as of this encounter
--- OUTSIDE RECORDS SUMMARY | 2025-03-22 12:30 | XMS_ITS | Encounter Summary ---
Author Organization [facility] Address [address] [place] [address] Care Team Providers Care Healthcare Consulting Manager Name Role Phone Vlad Francois MD Primary Care Provider [phone] Encounter Details Date Type Department Care Team (Late st Contact Info) Description 12/03/2005 Outpatient Historical [facility] Social History Tobacco Use Types Packs/Day Years Used Date Smoking Tobacco: Never Assessed Comments Unknown Sex and Gender Information Value Date Recorded Sex Assigned at Not on file Legal Sex Female 5:59 AM PHONE SCREENER Gender Identity Not on file Sexual Orientation Not on file documented as of this encounter Plan of Treatment Not on file documented as of this encounter Visit Diagnoses Not on filedocumented in this encounter Care Teams Healthcare Consulting Manager Relationship Specialty Start Date End Date Vlad Francois MD [address] [place] [address] PCP - General Family Practice 01/17/16 documented as of this encounter
--- OUTSIDE RECORDS SUMMARY | 2025-03-22 12:30 | XMS_ITS | Encounter Summary ---
Author Organization [facility] Address [address] [place] [address] Care Team Providers Care Setter Up Name Role Phone Vlad Francois MD Primary Care Provider [phone] Encounter Details Date Type Department Care Team (Latest Contact Info) Description 12/11/2005 Outpatient Historical [facility] [place] [address] [place] [address] Simba Barroso, DO [address] [place] [address] Spasm of Muscle (Primary Dx) Social History Tobacco Use Types Packs/Day Years Used Date Smoking Tobacco: Never Assessed Comments Unknown Sex and Gender Information Value Date Recorded Sex Assigned at Not on file Legal Sex Female 5:59 AM SHUTTLE HAND Gender Identity Not on file Sexual Orientation Not on file documented as of this encounter Plan of Treatment Not on file documented as of this encounter Visit Diagnoses Diagnosis Spasm of muscle- Primary documented in this encounter Care Teams Setter Up Relationship Specialty [place] [address] [place] [phone] PCP - General Family Practice 01/17/16 documented as of this encounter
--- OUTSIDE RECORDS SUMMARY | 2025-03-22 12:30 | XMS_ITS | Encounter Summary ---
Author Organization [facility] Address [address] [place] [address] Care Team Providers Care Gang Drill Operator Name Role Phone Vlad Francois MD Primary Care Provider [phone] Reason for Referral * Outpatient Services (Routine) - Closed Specialty Diagnoses / Procedures Referred By Nancy apple Referred To Contact Diagnoses Other screening mammogram Procedures MAMMO DIGITAL SCREEN BILAT Vlad Palmer MD NO ADDRESS ON FILE Referral ID Status Reason Start Date Expiration Date Visits Re quested Visits Authorized [id number] Closed 05/09/2011 05/08/2012 1 1 SURVEYOR Encounter Details Date Type Department Care Team (Latest Contact Info) Description 05/09/2011 Ancillary Orders [facility] Pre-Registration [place] CALL TO MAKE APPOINTMENT ONLY [address] [place] [address] Vlad Palmer MD NO ADDRESS [...] file 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 Gender Identity Not on file Sexual Orientation Not on file documented as of this encounter Plan of Treatment Not on file documented as of this encounter Results * MAMMO DIGITAL SCREEN BILAT (06/18/2011 10:53 AM MINE SURVEYOR) Anatomical Region Laterality Modality Breast Bilateral Mammography Narrative 06/20/2011 9:18 AM MINE SURVEYOR Bilateral Mammogram Reason for Exam: Screening Comparison: [...] mammogram documented in this encounter Care Teams Gang Drill Operator Relationship Specialty Start Date End Date Vlad Francois MD [address] [place] [address] PCP - General Family Practice 01/17/16 documented as of this encounter
--- OUTSIDE RECORDS SUMMARY | 2025-03-22 12:31 | XMS_ITS | Encounter Summary ---
Author Organization [facility] Address [address] [place] [address] Care Team Providers Care Poultry Slaughterer Name Role Phone Vlad Francois MD Primary Care Provider [phone] Encounter Details Date Type Department Care Team (Latest Contact Info) Description 05/15/2004 Outpatient Historical [facility] Breast [place] [address] [facility] [address] [place] [address] Angel Viveros MD NO ADDRESS ON FILE SCREENING MAMM-MAILG NEOPL-OTHER (Primary Dx) Social History Tobacco Use Types Packs/Day Years Used Date Smoking Tobacco: Never Assessed Comments Unknown Sex and Gender Information Value Date Recorded Sex Assigned at Not on file 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
--- OUTSIDE RECORDS SUMMARY | 2025-03-22 12:31 | XMS_ITS | Encounter Summary ---
Author Organization [facility] Address [address] [place] [address] Care Team Providers Care Assistant Engineer Name Role Phone Vlad Francois MD Primary Care Provider [phone] Encounter Details Date Type Department Care Team (Latest Contact Info) Description 09/16/2005 Outpatient Historical [facility] [place] [address] [place] [address] Aidan Oden, DPM NO ADDRESS ON FILE Pain in Limb (Primary Dx) Social History Tobacco Use Types Packs/Day Years Used Date Smoking Tobacco: Never Assessed Comments Unknown Sex and Gender Information Value Date Recorded Sex Assigned at Not on file Legal Sex Female 5:59 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
--- OUTSIDE RECORDS SUMMARY | 2025-03-22 12:31 | XMS_ITS | Encounter Summary ---
Author Organization [facility] Address [address] [place] [address] Care Team Providers Care Teller Manager Name Role Phone Vlad Francois MD Primary Care Provider [phone] Reason for Referral * Outpatient Services (Routine) - Closed Specialty Diagnoses / Procedures Referred By Contkash t Referred To Contact Diagnoses Other screening mammogram Breast screening, unspecified Procedures MAMMO DIGITAL SCREEN BILAT Paul Sandoval DO [address] [facility] [address] [place] [address] Phone: tel: fax: [facility] Pre-Registration [place] CALL TO MAKE APPOINTMENT ONLY [address] [place] [address] Phone: tel: fax: Referral ID Status Reason Start Date Expiration Date V isits Requested Visits Authorized [id number] Closed [facility] TO SCHEDULE ([facility]) 12/27/2014 01/27/2016 1 1 Encounter Details Date Type Department Care Team (Late st Contact Info) Description 12/27/2014 Ancillary Orders [facility] Pre-Registration [place] CALL TO MAKE APPOINTMENT ONLY [address] [place] [phone] Paul Sandoval DO [address] [facility] [address] [place] [address] Other screening mammogram (Primary Dx); Breast screening, unspecified Social History Tobacco Use Types Packs/Day Years Used Date Smoking Tobacco: Never Smokeless Tobacco: Never Alcohol Use Standard Drinks/Week Comments No 0 (1 standard drink = 0.6 oz pur e alcohol) Comments No Sex and Gender Information Value Date Recorded Sex Assigned at Not on file Legal Sex Female 5:59 AM MANAGER ANALYSIS Gender Identity Not on file Sexual Orientation [...] unspecified documented in this encounter Care Teams Teller Manager Relationship Specialty Start Date End Date Vlad Francois MD [address] [place] [phone] PCP - General Family Practice 01/17/16 documented as of this encounter
--- OUTSIDE RECORDS SUMMARY | 2025-03-22 12:31 | XMS_ITS | Encounter Summary ---
Author Organization [facility] Address [address] [place] [address] Care Team Providers Care Animal Care Worker Name Role Phone Vlad Francois MD Primary Care Provider [phone] Reason for Referral * Outpatient Services (Routine) - Closed Specialty Diagnoses / Procedures Referred By Contkash t Referred To Contact Diagnoses Other screening mammogram Procedures MAMMO DIGITAL SCREEN BILAT Vlad Palmer MD NO ADDRESS ON FILE [facility] [place] Pre-Registration [place] CALL TO MAKE APPOINTMENT ONLY [address] [place] [address] Phone: tel: fax: Referral ID Status Reason Start Date Expiration Date V isits Requested Visits Authorized [id number] Closed [facility] MC TO SCHEDULE ([facility]) 09/23/2013 10/24/2014 1 1 Encounter Details Date Type Department Care Team (Latest Contact Info) Description 09/23/2013 Ancillary Orders [facility] Pre-Registration [place] CALL TO MAKE APPOINTMENT ONLY [address] [place] [address] Vlad Palmer MD NO ADDRESS [...] file Legal Sex Female 5:59 AM RISK 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
--- OUTSIDE RECORDS SUMMARY | 2025-03-22 12:31 | XMS_ITS | Encounter Summary ---
Author Organization [facility] Address [address] [place] [address] Care Team Providers Care Keyseating Machine Set Up Operator Name Role Phone Vlad Francois MD Primary Care Provider [phone] Encounter Details Date Type Department Care Team (Latest Contact Info) Description 09/16/2004 Outpatient Historical [facility] OBGYN-[place] [address] [place] [address] Teho Staley MD [address] [address] CANDIDAL VULVOVAGINITIS (Primary Dx); NONINFECT VAG LEUKORRHEA Social History Tobacco Use Types Packs/Day Years Used Date Smoking Tobacco: Never Assessed Comments Unknown Sex and Gender Information Value Date Recorded Sex Assigned at Not on file Legal Sex Female 5:59 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
--- OUTSIDE RECORDS SUMMARY | 2025-03-22 12:31 | XMS_ITS | Encounter Summary ---
Author Organization [facility] Address [address] [place] [address] Care Team Providers Care Necktie Operator Pockets And Pieces Name Role Phone Vlad Francois MD Primary Care Provider [phone] Encounter Details Date Type Department Care Team (Late st Contact Info) Description 04/29/2004 Outpatient Historical [facility] OBGYN-[place] [address] [place] [address] Ilia Sprague MD [address] [facility] [address] [place] [address] Atrophic vaginitis (Primary Dx); ATROPHY OF VULVA Social History Tobacco Use Types Packs/Day Years Used Date Smoking Tobacco: Never Assessed Comments Unknown Sex and Gender Information Value Date Recorded Sex Assigned at Not on file 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
--- OUTSIDE RECORDS SUMMARY | 2025-03-22 12:31 | XMS_ITS | Encounter Summary ---
Author Organization [facility] Address [address] [place] [address] Care Team Providers Care Chore Worker Name Role Phone Vlad Francois MD Primary Care Provider [phone] Encounter Details Date Type Department Care Team (Latest Contact Info) Description 12/16/2004 Outpatient Historical [facility] [address] [place] [address] [place] [address] Mason Charles MD NO ADDRESS ON FILE HEADACHE (Primary Dx); MYOPIA; ASTIGMATISM NOS; PRESBYOPIA Social History Tobacco Use Types Packs/Day Years Used Date Smoking Tobacco: Never Assessed Comments Unknown Sex and Gender Information Value Date Recorded Sex Assigned at Not on file Legal Sex Female 5:59 AM WHARF TALLY CLERK Gender Identity Not on file Sexual Orientation Not on file documented as of this encounter Plan of Treatment Not on file documented as of this encounter Visit Diagnoses Diagnosis Headache(784.0)- Primary Headache Myopia Astigmatism, unspecified Presbyopia documented in this encounter Care Teams Chore Worker Relationship Specialty Start Date End Date Vlad Francois MD [address] [place] [phone] PCP - General Family Practice 01/17/16 documented as of this encounter
--- OUTSIDE RECORDS SUMMARY | 2025-03-22 12:31 | XMS_ITS | Encounter Summary ---
Author Organization [facility] Address [address] [place] [address] Care Team Providers Care Mechanical Engineering Intern Name Role Phone Vlad Francois MD Primary Care Provider [phone] Encounter Details Date Type Department Care Team (Latest Contact Info) Description 09/16/2005 Outpatient [facility] Podiatry-[facility] [place] [address] [place] [address] Aidan Oden, DPM NO ADDRESS ON FILE Exostosis of Unspecified Site (Primary Dx) Social History Tobacco Use Types Packs/Day Years Used Date Smoking Tobacco: Never Assessed Comments Unknown Sex and Gender Information Value Date Recorded Sex Assigned at Not on file 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
--- OUTSIDE RECORDS SUMMARY | 2025-03-22 12:31 | XMS_ITS | Encounter Summary ---
Author Organization [facility] Address [address] [place] [address] Care Team Providers Care Nurse Quality Name Role Phone Vlad Francois MD Primary Care Provider [phone] Encounter Details Date Type Department Care Team (Latest Contact Info) Description 08/02/2004 Outpatient Historical [facility] [place] [address] [place] [address] Aidan Oden, DPM NO ADDRESS ON FILE Pain in limb (Primary Dx) Social History Tobacco Use Types Packs/Day Years Used Date Smoking Tobacco: Never Assessed Comments Unknown Sex and Gender Information Value Date Recorded Sex Assigned at Not on file Legal 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
--- OUTSIDE RECORDS SUMMARY | 2025-03-22 12:31 | XMS_ITS | Encounter Summary ---
Author Organization [facility] Address [address] [place] [address] Care Team Providers Care Principal Java Software Engineer Name Role Phone Vlad Francois MD Primary Care Provider [phone] Reason for Referral * Outpatient Services (Routine) - Closed Specialty Diagnoses / Procedures Referred By Nancy apple Referred To Contact Radiology Diagnoses Encounter for screening mammogram for malignant neoplasm of breast Procedures MAMMO DIGITAL SCREEN BILAT Vlad Francois MD [address] [facility] [place] [address] Phone: tel: fax: [facility] [address] [facility] [address] [place] [address] Phone: tel: fax: Referral ID Status Reason Start Date Expiration Date V isits Requested Visits Authorized [id number] Closed F [facility] TO SCHEDULE ([facility]) 01/11/2016 02/10/2017 1 1 Encounter Details Date Type Department Care Team (Latest Contact Info) Description 01/11/2016 Ancillary Orders [facility] Pre-Registration [place] CALL TO MAKE APPOINTMENT ONLY [address] [place] [address] Vlad Francois MD [address] [place] [address] Encounter for screening mammogram for [...] on file Legal Sex Female 5:59 AM GOVERNMENT TEACHER Gender Identity Not on file Sexual [...] findings since the prior mammogram(s). External Provider [facility] MAMMO ORDERABLES Final Res ult documented in this encounter Visit Diagnoses Diagnosis Encounter for screening mammogram for malignant neoplasm of breast- Primary Other screening mammogram Encounter for screening mammogram for malignant neoplasm of breast Other screening mammogram documented in this encounter Care Teams Principal Java Software Engineer Relationship Specialty Start Date End Date Vlad Francois MD [address] [place] [phone] PCP - General Family Practice 01/17/16 documented as of this encounter
--- OUTSIDE RECORDS SUMMARY | 2025-03-22 12:31 | XMS_ITS | Encounter Summary ---
Author Organization [facility] Address [address] [place] [address] Care Team Providers Care Car Wiper Name Role Phone Vlad Francois MD Primary Care Provider [phone] Encounter Details Date Type Department Care Team (Latest Contact Info) Description 08/08/2004 Outpatient Historical [facility] OBGYN-[place] [address] [place] [address] Marylu Brenner NO ADDRESS ON FILE Atrophic vaginitis (Primary Dx) Social History Tobacco Use Types Packs/Day Years Used Date Smoking Tobacco: Never Assessed Comments Unknown Sex and Gender Information Value Date Recorded Sex Assigned at Not on file 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
--- OUTSIDE RECORDS SUMMARY | 2025-03-22 12:31 | XMS_ITS | Encounter Summary ---
Author Organization [facility] Address [address] [place] [address] Care Team Providers Care Admission Nurse Name Role Phone Vlad Francois MD Primary Care Provider [phone] Encounter Details Date Type Department Care Team (Latest Contact Info) Description 09/18/1999 Outpatient Historical [facility] O[facility]YN-[facility] [place] [address] [place] [address] Chapito Isaacs MD NO ADDRESS ON FILE Unspecified symptom associated with female genital organs (Primary Dx) Social History Tobacco Use Types Packs/Day Years Used Date Smoking Tobacco: Never Assessed Comments Unknown Sex and Gender Information Value Date Recorded Sex Assigned at Not on file Legal Sex Female 5:59 AM GRIEVANCE AND APPEALS SPECIALIST Gender Identity Not on file Sexual Orientation Not on file documented as of this encounter Plan of Treatment Not on file documented as of this encounter Visit Diagnoses Diagnosis Unspecified symptom associated with female genital organs- Primary documented in this encounter Care Teams Admission Nurse Relationship Specialty Start Date End Date Vlad Francois MD [address] [place] [phone] PCP - General Family Practice 01/17/16 documented as of this encounter
--- OUTSIDE RECORDS SUMMARY | 2025-03-22 12:31 | XMS_ITS | Encounter Summary ---
Author Organization [facility] Address [address] [place] [address] Care Team Providers Care Gastroenterology Professor Name Role Phone Vlad Francois MD Primary Care Provider [phone] Encounter Details Date Type Department Care Team (Latest Contact Info) Description 06/07/2004 Outpatient Historical [facility] [address] [place] [address] Arnoldo Steward MD [address] [place] [address] Plantar fibromatosis (Primary Dx) Social History Tobacco Use Types Packs/Day Years Used Date Smoking Tobacco: Never Assessed Comments Unknown Sex and Gender Information Value Date Recorded Sex Assigned at Not on file Legal Sex Female 5:59 AM TENT FINISHER Gender Identity Not on file Sexual Orientation Not on file documented as of this encounter Plan of Treatment Not on file documented as of this encounter Visit Diagnoses Diagnosis Plantar fibromatosis- Primary Plantar fascial fibromatosis documented in this encounter Care Teams Gastroenterology Professor Relationship Specialty Start Date End Date Vlad Francois MD [address] [place] [address] PCP - General Family Practice 01/17/16 documented as of this encounter
--- OUTSIDE RECORDS SUMMARY | 2025-03-22 12:31 | XMS_ITS | Encounter Summary ---
Author Organization [facility] Address [address] Attn: [place] [address] Care Team Providers Care Checkering Machine Operator Name Role Phone Vlad Francois MD Primary Care Provider [phone] Encounter Details Date Type Department Care Team (Late st Contact Info) Description 09/09/1999 Outpatient Historical Goran Jaime MD NO ADDRESS ON FILE Social History Tobacco Use Types Packs/Day Years Used Date Smoking Tobacco: Never Assessed Comments Unknown Sex and Gender Information Value Date Recorded Sex Assigned at Not on file Legal Sex Female 5:59 AM REGULATORY PROCESS MANAGER Gender Identity Not on file Sexual Orientation Not on file documented as of this encounter Plan of Treatment Not on file documented as of this encounter Visit Diagnoses Not on filedocumented in this encounter Care Teams Checkering Machine Operator Relationship Specialty Start Date End Date Vlad Francois MD [address] [place] [phone] PCP - General Family Practice 01/17/16 documented as of this encounter
--- OUTSIDE RECORDS SUMMARY | 2025-03-22 12:31 | XMS_ITS | Encounter Summary ---
Author Organization [facility] Address [address] [place] [address] Care Team Providers Care Home Health Scheduler Name Role Phone Vlad Francois MD Primary Care Provider [phone] Reason for Referral * Outpatient Services (Routine) - Closed Specialty Diagnoses / Procedures Referred By Nancy apple Referred To Contact Radiology Diagnoses Encounter for screening mammogram for malignant neoplasm of breast Procedures MAMMO SCREEN BILAT W OR WO CAD Paul Sandoval DO [address] [facility] [address] [place] [address] Phone: tel: fax: [facility] Breast Exline [address] [facility] [address] [place] [address] Phone: tel: fax: Referral ID Status Reason Start Date Expiration Date Visits Re quested Visits Authorized [id number] Closed 01/28/2017 02/28/2018 1 1 Encounter Details Date Type Department Care Team (Late st Contact Info) Description 01/28/2017 Ancillary Orders [facility] Pre-Registration [place] CALL TO MAKE APPOINTMENT ONLY [address] [place] [address] Paul Sandoval DO [address] [facility] [address] [place] [address] Encounter for screening mammogram for malignant neoplasm of breast Social History Tobacco Use Types Packs/Day Years Used Date Smoking Tobacco: Never Smokeless Tobacco: Never Alcohol Use Standard Drinks/Week Comments No 0 (1 standard drink = 0.6 oz pur e alcohol) Comments No Sex and Gender Information Value Date Recorded Sex Assigned at Not on file Legal Sex Female 5:59 AM PAINT TESTER Gender Identity Not on file Sexual [...] mammogram documented in this encounter Care Teams Home Health Scheduler Relationship Specialty Start Date End Date Vlad Francois MD [address] [place] [address] PCP - General Family Practice 01/17/16 documented as of this encounter
--- OUTSIDE RECORDS SUMMARY | 2025-03-22 12:31 | XMS_ITS | Encounter Summary ---
Author Organization [facility] Address [address] [place] [address] Care Team Providers Care Unix System Administrator Name Role Phone Vlad Francois MD Primary Care Provider [phone] Encounter Details Date Type Department Care Team (Latest Contact Info) Description 08/02/2004 Outpatient Historical [facility] [place] [address] [place] [address] Aidan Oden, DPM NO ADDRESS ON FILE Pain in limb (Primary Dx) Social History Tobacco Use Types Packs/Day Years Used Date Smoking Tobacco: Never Assessed Comments Unknown Sex and Gender Information Value Date Recorded Sex Assigned at Not on file Legal Sex Female 5:59 AM DIE TRIMMER Gender Identity Not on file Sexual Orientation Not on file documented as of this encounter Plan of Treatment Not on file documented as of this encounter Visit Diagnoses Diagnosis Pain in limb- Primary Pain in soft tissues of limb documented in this encounter Care Teams Unix System Administrator Relationship Specialty Start Date End Date Vlad Francosi MD [address] [place] [address] PCP - General Family Practice 01/17/16 documented as of this encounter
--- OUTSIDE RECORDS SUMMARY | 2025-03-22 12:31 | XMS_ITS | Encounter Summary ---
Author Organization [facility] Address [address] [place] [address] Care Team Providers Care Spring Upholsterer Name Role Phone Vlad Francois MD Primary Care Provider [phone] Encounter Details Date Type Department Care Team (Late st Contact Info) Description 05/15/2004 Outpatient [facility] Breast [facility] [address] [place] [address] Ilia Sprague MD [address] [address] SCREENING MAMM-MAILG NEOPL-OTHER (Primary Dx) Social History Tobacco Use Types Packs/Day Years Used Date Smoking Tobacco: Never Assessed Comments Unknown Sex and Gender Information Value Date Recorded Sex Assigned at Not on file Legal Sex Female 5:59 AM NEW ACCOUNTS REPRESENTATIVE Gender Identity Not on file Sexual Orientation Not on file documented as of this encounter Plan of Treatment Not on file documented as of this encounter Visit Diagnoses Diagnosis Other screening mammogram- Primary documented in this encounter Care Teams Spring Upholsterer Relationship Specialty [place] [address] [place] [phone] PCP - General Family Practice 01/17/16 documented as of this encounter
--- OUTSIDE RECORDS SUMMARY | 2025-03-22 12:31 | XMS_ITS | Encounter Summary ---
Author Organization [facility] Address [address] [facility] Attn: [place] [address] Care Team Providers Care Customer Service Dispatcher Name Role Phone Vlad Francois MD Primary Care Provider [phone] Encounter Details Date Type Department Care Team (Late st Contact Info) Description 05/02/2001 Outpatient Historical Non-Staff, Physician NO ADDRESS ON FILE Social History Tobacco Use Types Packs/Day Years Used Date Smoking Tobacco: Never Assessed Comments Unknown Sex and Gender Information Value Date Recorded Sex Assigned at Not on file Legal Sex Female 5:59 AM MAJOR 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
--- OUTSIDE RECORDS SUMMARY | 2025-03-22 12:31 | XMS_ITS | Encounter Summary ---
Author Organization [facility] Address [address] [place] [address] Care Team Providers Care Brand Ambassador Name Role Phone Vlad Francois MD Primary Care Provider [phone] Encounter Details Date Type Department Care Team (Late st Contact Info) Description 06/13/2004 Outpatient Historical [facility] [address] [place] [address] Ilia Sprague MD [address] [facility] [address] [place] [address] Atrophic vaginitis (Primary Dx); ATROPHY OF VULVA Social History Tobacco Use Types Packs/Day Years Used Date Smoking Tobacco: Never Assessed Comments Unknown Sex and Gender Information Value Date Recorded Sex Assigned at Not on file Legal Sex Female 5:59 AM TRACK SWEEPER Gender Identity Not on file Sexual Orientation Not on file documented as of this encounter Plan of Treatment Not on file documented as of this encounter Visit Diagnoses Diagnosis Atrophic vaginitis- Primary Postmenopausal atrophic vaginitis Atrophy of vulva documented in this encounter Care Teams Brand Ambassador Relationship Specialty Start Date End Date Vlad Francois MD [address] [place] [address] PCP - General Family Practice 01/17/16 documented as of this encounter
--- OUTSIDE RECORDS SUMMARY | 2025-03-22 12:31 | XMS_ITS | Encounter Summary ---
Author Organization [facility] Address [address] [place] [address] Care Team Providers Care Amortization Clerk Name Role Phone Vlad Francois MD Primary Care Provider [phone] Encounter Details Date Type Department Care Team (Latest Contact Info) Description 06/12/1997 Outpatient Historical [facility] [place] [address] [place] [address] Chapito Isaacs MD NO ADDRESS ON FILE Vaginitis and vulvovaginitis, unspecified (Primary Dx) Social History Tobacco Use Types Packs/Day Years Used Date Smoking Tobacco: Never Assessed Comments Unknown Sex and Gender Information Value Date Recorded Sex Assigned at Not on file Legal Sex Female 5:59 AM AGENT PRODUCER Gender Identity Not on file Sexual Orientation Not on file documented as of this encounter Plan of Treatment Not on file documented as of this encounter Visit Diagnoses Diagnosis Vaginitis and vulvovaginitis, unspecified- Primary documented in this encounter Care Teams Amortization Clerk Relationship Specialty Start Date End Date Vlad Francois MD [address] [place] [address] PCP - General Family Practice 01/17/16 documented as of this encounter
--- OUTSIDE RECORDS SUMMARY | 2025-03-22 12:32 | XMS_ITS | Encounter Summary ---
Author Organization [facility] Address [address] [place] [address] Care Team Providers Care Finisher Screwdown Name Role Phone Vlad Francois MD Primary Care Provider [phone] Encounter Details Date Type Department Care Team (Latest Contact Info) Description 11/06/2006 Outpatient Historical [facility] Imaging Services [place] [address] [place] [address] Radha Díaz MD [address] 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
--- OUTSIDE RECORDS SUMMARY | 2025-03-22 12:32 | XMS_ITS | Encounter Summary ---
Author Organization [facility] Address [address] [place] [address] Care Team Providers Care Electric Meter Technician Name Role Phone lVad Francois MD Primary Care Provider [phone] Encounter Details Date Type Department Care Team (Late st Contact Info) Description 11/06/2006 Outpatient Historical [facility] Imaging Services Rad[facility] [place] [address] Social History Tobacco Use Types Packs/Day Years Used Date Smoking Tobacco: Never Assessed Comments Unknown Sex and Gender Information Value Date Recorded Sex Assigned at Not on file Legal Sex Female 5:59 AM ZINC ETCHER Gender Identity Not on file Sexual Orientation [...] left at C5-C6 could affect the left L3vxoos root. 2. Mild spondylosis and disc changes are noted elsewhere, withoutsuspected neural impingement. - Dictated By: Mason Ward M.D. Electronically Signed By: Mason Ward M.D. Date Signed: 11/06/06 Radha Díaz MD MR ORDERABLES Final Result documented in this encounter Visit Diagnoses Not on filedocumented in this encounter Care Teams Electric Meter Technician Relationship Specialty Start Date End Date Vlad Francois MD [address] [place] [address] PCP - General Family Practice 01/17/16 documented as of this encounter
--- OUTSIDE RECORDS SUMMARY | 2025-03-22 12:32 | XMS_ITS | Encounter Summary ---
Author Organization [facility] Address [address] [place] [address] Care Team Providers Care Digital Analyst Name Role Phone Vlad Francois MD Primary Care Provider [phone] Reason for Referral * Outpatient Services (Urgent) - Closed Specialty Diagnoses / Procedures Referred By Nancy apple Referred To Contact Radiology Diagnoses New daily persistent headache Memory loss Blurred vision Procedures MRI BRAIN WO CONTRAST Vlad Raman MD [facility] MRI [address] [place] [address] Phone: tel: fax: Referral ID Status Reason Start Date Expiration Date V isits Requested Visits Authorized [id number] Closed [facility] TO SCHEDULE (SGF) 01/30/2015 03/01/2016 1 1 Encounter Details Date Type Department Care Team (Latest Contact Info) Description 01/30/2015 Ancillary Orders [facility] Pre-Registration [place] CALL TO MAKE APPOINTMENT ONLY [address] [place] [address] Vlad Raman MD NO ADDRESS [...] on file Legal Sex Female 5:59 AM CELLAR HAND Gender Identity Not on file Sexual [...] normal. Impression: Normal exam. Narrative Procedure Note aMson Ward MD - 01/31/2015 IMPRESSION IMPRESSION: See [...] disturbances documented in this encounter Care Teams Digital Analyst Relationship Specialty Start Date End Date Vlad Francois MD [address] [place] [phone] PCP - General Family Practice 01/17/16 documented as of this encounter
--- OUTSIDE RECORDS SUMMARY | 2025-03-22 12:32 | XMS_ITS | Encounter Summary ---
Author Organization [facility] Address [address] [place] [address] Care Team Providers Care Senior Science Consultant Name Role Phone Vlad Francois MD Primary Care Provider [phone] Encounter Details Date Type Department Care Team (Latest Contact Info) Description 05/27/2017 Ancillary Orders [facility] Orthopedics - Orthopedic [facility] [address] [place] [address] Chaim Alejandro MD NO ADDRESS [...] on file Legal Sex Female 5:59 AM PROPAGATOR Gender Identity Not on file Sexual Orientation Not on file Occupation Industry Job Start Date Job End Date Not on file Not on file Not on file Not on file documented as of this encounter Plan of Treatment Not on file documented as of this encounter Results * XR KNEE 1 OR 2 VW BILAT (05/27/2017 11:25 AM PROPAGATOR) Anatomical Region Laterality Modality Lower Extremity Computed Radiogr aphy Narrative 05/28/2017 7:29 AM PROPAGATOR Weight-bearing AP and lateral x-rays of the bilateral knees were reviewed today and demonstrate medial compartment narrowing and patellofemoral wear of osteoarthritic changes. us Chaim Alejandro MD DIAGNOSTIC IMAGING ORDERAB LES Final Result documented in this encounter Visit Diagnoses Diagnosis Chronic pain of right knee Chronic pain of right knee documented in this encounter Care Teams Senior Science Consultant Relationship Specialty Start Date End Date Vlad Francois MD [address] [place] [phone] PCP - General Family Practice 01/17/16 documented as of this encounter
--- OUTSIDE RECORDS SUMMARY | 2025-03-22 12:32 | XMS_ITS | Encounter Summary ---
Author Organization [facility] Address [address] [place] [address] Care Team Providers Care J2Ee Consultant Name Role Phone Vlad Francois MD Primary Care Provider [phone] Encounter Details Date Type Department Care Team (Late st Contact Info) Description 01/28/2008 Outpatient Historical [facility] Imaging Services Rad[facility] [place] [address] [address] Other, [facility] NO ADDRESS ON FILE Social History Tobacco Use Types Packs/Day Years Used Date Smoking Tobacco: Never Assessed Comments Unknown Sex and Gender Information Value Date Recorded Sex Assigned at Not on file Legal Sex Female 5:59 AM SHINGLES ROOFER HELPER Gender Identity Not on file Sexual Orientation Not on file documented as of this encounter Plan of Treatment Not on file documented as of this encounter Visit Diagnoses Not on filedocumented in this encounter Care Teams J2Ee Consultant Relationship Specialty Start Date End Date Vlad Francois MD [address] [place] [phone] PCP - General Family Practice 01/17/16 documented as of this encounter
--- OUTSIDE RECORDS SUMMARY | 2025-03-22 12:32 | XMS_ITS | Encounter Summary ---
Author Organization [facility] Address [address] [place] [address] Care Team Providers Care Hoop Riveting Machine Operator Name Role Phone Vlad Francois MD Primary Care Provider [phone] Encounter Details Date Type Department Care Team (Latest Contact Info) Description 10/28/[address] [facility] Neurology [address] [place] [address] Shalini Johnston MD [address] [place] [address] Skin Sensation Disturb (Primary Dx); Pain in Limb Social History Tobacco Use Types Packs/Day Years Used Date Smoking Tobacco: Never Assessed Comments Unknown Sex and Gender Information Value Date Recorded Sex Assigned at Not on file Legal Sex Female 5:59 AM TACTICAL DECEPTION PLANS OFFICER Gender Identity Not on file Sexual Orientation Not on file documented as of this encounter Plan of Treatment Not on file documented as of this encounter Visit Diagnoses Diagnosis Skin sensation disturb- Primary Disturbance of skin sensation Pain in limb Pain in soft tissues of limb documented in this encounter Care Teams Hoop Riveting Machine Operator Relationship Specialty Start Date End Date Vlad Francois MD [address] [place] [address] PCP - General Family Practice 01/17/16 documented as of this encounter
--- OUTSIDE RECORDS SUMMARY | 2025-03-22 12:32 | XMS_ITS | Encounter Summary ---
Author Organization [facility] Address [address] [place] [address] Care Team Providers Care Customer Assistance Associate Name Role Phone Vlad Francois MD Primary Care Provider [phone] Encounter Details Date Type Department Care Team (Late st Contact Info) Description 03/08/2010 Ancillary Orders [facility] [place] [address] Aiden Mondragon MD NO ADDRESS ON FILE Pain Social History Tobacco Use Types Packs/Day Years Used Date Smoking Tobacco: Never Alcohol Use Standard Drinks/Week Comments No 0 (1 standard drink = 0.6 oz pur e alcohol) Comments No Sex and Gender Information Value Date Recorded Sex Assigned at Not on file Legal Sex Female 5:[address] Gender Identity Not on file Sexual Orientation [...] pain documented in this encounter Care Teams Customer Assistance Associate Relationship Specialty Start Date End Date Vlad Francois MD [address] [place] [phone] PCP - General Family Practice 01/17/16 documented as of this encounter
--- OUTSIDE RECORDS SUMMARY | 2025-03-22 12:32 | XMS_ITS | Encounter Summary ---
Author Organization [facility] Address [address] [place] [address] Care Team Providers Care Visiting Nurse Name Role Phone Vlad Francois MD Primary Care Provider [phone] Reason for Referral * Radiology Services (Routine) [...] DIGITAL BREAST TOMOSYNTHESIS BI Vlad Francois MD [address] [place] [address] Phone: tel: fax: [facility] [address] [place] [address] Phone: tel: Referral ID Status Reason Start Date Expiration Date Visits Re quested Visits Authorized [id number] Closed 03/19/2018 04/19/2019 1 1 Encounter Details Date Type Department Care Team (Late st Contact Info) Description 06/15/2018 Ancillary Orders [facility] [address] [address] Vlad Francois MD [address] [place] [address] Visit for screening mammogram Social History Tobacco Use Types Packs/Day Years Used Date Smoking Tobacco: Never Smokeless Tobacco: Never Alcohol Use Standard Drinks/Week Comments No 0 (1 standard drink = 0.6 oz pur e alcohol) Comments No Sex and Gender Information Value Date Recorded Sex Assigned at Not on file Legal Sex Female 5:59 AM FELT FINISHING SUPERVISOR Gender Identity Not on file Sexual Orientation Not on file Occupation Industry Job Start Date Job End Date Not on file Not on file Not on file Not on file documented as of this encounter Plan of Treatment Not on file documented as of this encounter Results * MAMMO SCRN BILAT 3D YAQUELIN W OR WO CAD (06/15/2018 1:07 PM FELT FINISHING SUPERVISOR) Anatomical Region Laterality Modality Breast Bilateral Mammography 06/15/2018 1:07 PM FELT FINISHING SUPERVISOR Narrative 06/16/2018 2:47 PM FELT FINISHING SUPERVISOR Screening 06/15/2018 3D MLO and CC digital [...] the patient return for right additional views. [id number] us External Provider [facility] MAMMO ORDERABLES Final Res ult documented in this encounter Visit Diagnoses Diagnosis Visit for screening mammogram Other screening mammogram Visit for screening mammogram Other screening mammogram documented in this encounter Care Teams Visiting Nurse Relationship Specialty Start Date End Date Vlad Francois MD [facility] [place] [address] PCP - General Family Practice 01/17/16 documented as of this encounter
--- OUTSIDE RECORDS SUMMARY | 2025-03-22 12:32 | XMS_ITS | Encounter Summary ---
Author Organization [facility] Address [address] [place] [address] Care Team Providers Care Calciner Operator Helper Name Role Phone Vlad Francois MD Primary Care Provider [phone] Encounter Details Date Type Department Care Team (Latest Contact Info) Description 09/23/1999 Outpatient Historical [facility] Imaging [facility] [address] [place] [address] Chapito Isaacs MD NO ADDRESS ON FILE Abdominal pain, unspecified site (Primary Dx) Social History Tobacco Use Types Packs/Day Years Used Date Smoking Tobacco: Never Assessed Comments Unknown Sex and Gender Information Value Date Recorded Sex Assigned at Not on file Legal Sex Female 5:59 AM DIRECTOR SOCIAL WELFARE Gender Identity Not on file Sexual Orientation Not on file documented as of this encounter Plan of Treatment Not on file documented as of this encounter Visit Diagnoses Diagnosis Abdominal pain, unspecified site- Primary documented in this encounter Care Teams Calciner Operator Helper Relationship Specialty [place] [address] [place] [phone] PCP - General Family Practice 01/17/16 documented as of this encounter
--- OUTSIDE RECORDS SUMMARY | 2025-03-22 12:32 | XMS_ITS | Encounter Summary ---
Author Organization [facility] Address [address] [place] [address] Care Team Providers Care Sash Assembler Name Role Phone Vlad Francois MD Primary Care Provider [phone] Encounter Details Date Type Department Care Team (Latest Contact Info) Description 09/18/[address] [facility] N[facility] Th[facility] 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
--- OUTSIDE RECORDS SUMMARY | 2025-03-22 12:32 | XMS_ITS | Encounter Summary ---
Author Organization [facility] Address [address] [place] [address] Care Team Providers Care Bias Machine Operator Name Role Phone Vlad Francois MD Primary Care Provider [phone] Encounter Details Date Type Department Care Team (Late st Contact Info) Description 01/27/2008 Outpatient [facility] Breast Center [facility] [address] [place] [address] Vlad Palmer MD NO ADDRESS ON FILE Social History Tobacco Use Types Packs/Day Years Used Date Smoking Tobacco: Never Assessed Comments Unknown Sex and Gender Information Value Date Recorded Sex Assigned at Not on file 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
--- OUTSIDE RECORDS SUMMARY | 2025-03-22 12:32 | XMS_ITS | Encounter Summary ---
Author Organization [facility] Address [address] [place] [address] Care Team Providers Care Oracle Obiee Developer Name Role Phone Vlad Francois MD Primary Care Provider [phone] Encounter Details Date Type Department Care Team (Late st Contact Info) Description 03/19/2018 Ancillary Orders [facility] Pre-Registration [place] CALL TO MAKE APPOINTMENT ONLY [address] [place] [address] [facility], External Provider [address] [place] [address] Visit for screening mammogram Social History Tobacco Use Types Packs/Day Years Used Date Smoking Tobacco: Never Smokeless Tobacco: Never Alcohol Use Standard Drinks/Week Comments No 0 (1 standard drink = 0.6 oz pur e alcohol) Comments No Sex and Gender Information Value Date Recorded Sex Assigned at Not on file 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
--- OUTSIDE RECORDS SUMMARY | 2025-03-22 12:32 | XMS_ITS | Patient Health Record ---
Author Organization [facility] Address [address] [place] [address] Care Team Providers Care Final Cigar And Box Examiner Name Role Phone Singh, Araseli Unavailable [phone] SINGH, [facility] Unavailable Unavailable Allergies Allergen (clinical drug [...] Do you drink alcohol? No Section Notes: Depression screen completed 04/20/2023 score 0 10/04/2021 Problems Problem Type SNOMED Code ICD Code Onset Dates Problem Status W/U Status Risk Notes Problem Type II diabetes mellitus without complication (579040646) Type 2 diabetes mellitus without complications (E11.9) Active confirmed Problem Essential hypertension (73247148) Essential (primary) hypertension (I10) Active confirmed Problem Fibromyalgia (257685789) Fibromyalgia (M79.7) Active confirmed Problem Long-term current use of insulin (300558312) intermediate teacher (current) use of insulin (Z79.4) Active confirmed Problem Type II diabetes mellitus without complication (130144110) Controlled type 2 diabetes mellitus without complication, without long-term current use of insulin (E11.9) Active confirmed Problem Bronchitis (13738360) Bronchitis (J40) Active confirmed Problem Migraine (32188512) Migraine without status migrainosus, not intractable, unspecified migraine type (G43.909) Active confirmed Problem Environmental allergy (203541658) Environmental allergies (Z91.09) Active confirmed Problem Primary hypertension (58315867) Primary hypertension (I10) Active confirmed Plan Of Treatment No Information Insurance Providers Payer Name Payer Address Payer Phone Subscriber Number Group Number Insured Name Patient Relationship to Insured Coverage Start Date Coverage End Date [place] [address] [place] [phone] [id number] Randi Arechiga Self - patient is the insured [facility] Medicare Supplement [address] [place] [phone] [id number] Randi Arechiga Self - patient is the insured Medications Administered Medication Instructions Date of Administration Dosage Notes DEPO-Medrol 10/04/2021 40 mg NDC: [address]-80 Patient tolerated well, advised to wait 20 min at clinic DEPO-Medrol 04/20/2023 40 mg ndc 07496-138 3-01 pt tolerated well/instructed to wait 20 min dexAMETHasone 10/04/2021 4 mg NDC: 87702-916-63 Patient tolerated well, advised to wait 20 min at clinic dexAMETHasone 04/20/[address] [address]-9 423-00 pt tolerated well/instructed to wait 20 min Rocephin 10/04/2021 250 mg NDC: 50113-678-53 Patient tolerated well, advised to wait 20 min at clinic
--- OUTSIDE RECORDS SUMMARY | 2025-03-22 12:32 | XMS_ITS | Encounter Summary ---
Author Organization [facility] Address [address] [place] [address] Care Team Providers Care Bleacher Lard Name Role Phone Vlad Francois MD Primary Care Provider [phone] Encounter Details Date Type Department Care Team (Late st Contact Info) Description 04/30/2018 Ancillary Orders [facility] [address] [facility] [address] [place] [address] [facility], External Provider [address] [place] [address] Visit for screening mammogram Social History Tobacco Use Types Packs/Day Years Used Date Smoking Tobacco: Never Smokeless Tobacco: Never Alcohol Use Standard Drinks/Week Comments No 0 (1 standard drink = 0.6 oz pur e alcohol) Comments No Sex and Gender Information Value Date Recorded Sex Assigned at Not on file 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
--- OUTSIDE RECORDS SUMMARY | 2025-03-22 12:32 | XMS_ITS | Encounter Summary ---
Author Organization [facility] Address [address] [place] [address] Care Team Providers Care Scientific Illustrator Name Role Phone Vlad Francois MD Primary Care Provider Encounter Details Date Type Department Care Team (Latest Contact Info) Description 02/22/2007 Outpatient Historical [facility]3] Orthopedic Sports Medicine-[facility] [address] [place] [phone] Javier Farmer MD NO ADDRESS ON FILE Primary Localized Osteoarthrosis, Lower Leg (Primary Dx); Pain in Joint, Lower Leg; Degeneration of Lumbar or Lumbosacral Intervertebral Disc; Obesity, Unspecified Social History Tobacco Use Types Packs/Day Years Used Date Smoking Tobacco: Never Assessed Comments Unknown Sex and Gender Information Value Date Recorded Sex Assigned at Not on file 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
--- OUTSIDE RECORDS SUMMARY | 2025-03-22 12:32 | XMS_ITS | Encounter Summary ---
Author Organization [facility] Address [address] [place] [address] Care Team Providers Care Science Analyst Name Role Phone Vlad Francois MD Primary Care Provider [phone] Encounter Details Date Type Department Care Team (Late st Contact Info) Description 01/25/2006 Outpatient Historical [facility] Physical Therapy [address] [place] [address] [place] [phone] Vlad Raman MD NO ADDRESS ON FILE Social History Tobacco Use Types Packs/Day Years Used Date Smoking Tobacco: Never Assessed Comments Unknown Sex and Gender Information Value Date Recorded Sex Assigned at Not on file 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
--- OUTSIDE RECORDS SUMMARY | 2025-03-22 12:32 | XMS_ITS | Encounter Summary ---
Author Organization [facility] Address [address] [place] [address] Care Team Providers Care Truck Driving Name Role Phone Vlad Francois MD Primary Care Provider [phone] Encounter Details Date Type Department Care Team (Late st Contact Info) Description 01/25/2008 Outpatient Historical [facility] Imaging Services Rad[place] [address] 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 Date Signed: 02/21/08 [facility] Procedure Note iBjan Piña - 02/21/2008 MRI OF THE CERVICAL [...] on filedocumented in this encounter Care Teams Truck Driving Relationship Specialty [place] [address] [place] [phone] PCP - General Family Practice 01/17/16 documented as of this encounter
--- OUTSIDE RECORDS SUMMARY | 2025-03-22 12:32 | XMS_ITS | Encounter Summary ---
Author Organization [facility] Address [address] [place] [address] Care Team Providers Care Rn Acute Dialysis Name Role Phone Vlad Francois MD Primary Care Provider [phone] Encounter Details Date Type Department Care Team (Latest Contact Info) Description 09/23/1999 Outpatient Historical [facility] O[facility]-[place] [address] [place] [address] Chapito Isaacs MD NO ADDRESS ON FILE Abdominal pain, unspecified site (Primary Dx) Social History Tobacco Use Types Packs/Day Years Used Date Smoking Tobacco: Never Assessed Comments Unknown Sex and Gender Information Value Date Recorded Sex Assigned at Not on file 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
--- OUTSIDE RECORDS SUMMARY | 2025-03-22 12:32 | XMS_ITS | Clinical Summary ---
Author Organization [facility] Address [address] [place] [address] Care Team Providers Care Diesel Fleet Mechanic Name Role Phone Vlad Francois MD Primary Care Provider [phone] Allergies Active Allergy Reactions Criticality Noted Date [...] Sex Assigned at Female 06/06/2024 12:31 PM OUTPATIENT CODING SPECIALIST Legal Sex Female 7:08 AM OUTPATIENT CODING SPECIALIST Gender Identity Female 06/06/2024 12:31 PM OUTPATIENT CODING SPECIALIST Sexual Orientation Straight 06/06/2024 12 :31 PM OUTPATIENT CODING SPECIALIST Last Filed Vital Signs Vital Sign Reading [...] Flex Sig/CT Colonography Q 5 years 12/21/2004 RSV VACCINE (60+ or ) (1 - Risk 50-74 years 1-dose series) 12/21/2009 ZOSTER VACCINE (1 of 2) 12/21/2009 DIABETES ANNUAL RETINAL EXAM 06/19/2023, 04/16/2021, 04/24/2020, Additional history exists DIABETES HBA1C Q 6 MONTHS 11/28/20242023, 02/03/2024, 11/03/2022, Additional history exists INFLUENZA VACCINE (#1) 2024 3, 03/25/2022, 03/30/2002 COVID-19 Vaccine (4 - 2024-2 6 season) 2025 06/08/2021, 08/16/2020, 07/17/2020 OSTEOPOROSIS [...] Most Recently Relevant to Health Maintenance Insurance [facility] [id number] MEDICARE PART A AND B * Guarantor: LINDA ARECHIGA Account Type Relation to Patient Date of Phone Billing Address Personal/Family [address] [place] [address] [employer] Medicare Part D Care Teams Diesel Fleet Mechanic Relationship Specialty [place] [address] [place] [phone] PCP - General 08/10/20
--- OUTSIDE RECORDS SUMMARY | 2025-03-22 12:33 | XMS_ITS | Encounter Summary ---
Author Organization [facility] Address [address] [place] [address] Care Team Providers Care Escrow Officer Name Role Phone Vlad Francois MD Primary Care Provider [phone] Reason for Referral * Radiology Services (Routine) - Closed Specialty Diagnoses / Procedures Referred By Contac t Referred To Contact Diagnoses Inconclusive mammogram Procedures MAMMO DIAG UNI RIGHT 3D YAQUELIN W OR WO CAD CHG DIAGNOSTIC MAMMOGRAPHY COMPUTER-AIDED DETCJ UNI CHG DIGITAL BREAST TOMOSYNTHESIS UNILATERAL Vlad Francois MD [address] [place] [address] Phone: tel: fax: Referral ID Status Reason Start Date Expiration Date Visits Re quested Visits Authorized [id number] Closed 06/17/2018 07/18/2019 1 1 NE GEOLOGIST Encounter Details Date Type Department Care Team (Latest Contact Info) Description 06/17/2018 Ancillary Orders [facility] [address] [address] Vlad Francois MD [address] [place] [address] Inconclusive mammogram Social History Tobacco Use Types Packs/Day Years Used Date Smoking Tobacco: Never Smokeless Tobacco: Never Alcohol Use Standard Drinks/Week Comments No 0 (1 standard drink = 0.6 oz pur e alcohol) Comments No Sex and Gender Information Value Date Recorded Sex Assigned at Not on file Legal Sex Female 5:59 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 Although an area of asymmetry persists, this appears to be normal asymmetrical glandular tissue and stable. I suspect this was caused to appear changed by summation artifact. I recommend routine screening mammogram in one year. The patient was given a result/recommendation letter. [id number] Narrative 07/06/2018 3:32 PM MARINE GEOLOGIST Right Diagnostic Mammogram 3-D Yaquelin Spot MLO [...] prominent by summation artifact. us External Provider [facility] MAMMO ORDERABLES Final Res ult documented in this encounter Visit Diagnoses Diagnosis Inconclusive mammogram Inconclusive mammogram documented in this encounter Care Teams Escrow Officer Relationship Specialty Start Date End Date Vlad Francois MD [facility] [place] [phone] PCP - General Family Practice 01/17/16 documented as of this encounter
[2025-03-22 12:41] VITALS: O2SAT 94
[2025-03-22 13:00] VITALS: BP 170/80; PULSE 90; RESP 16; O2SAT 96
[2025-03-22 14:28] LABS: Alanine Aminotransferase 7 U/L (0-33); Albumin Level 3.5 g/dL (3.5-5.2); Alkaline Phosphatase 72 U/L (35-105); Anion Gap 17.0 (5-19); Aspartate Amino Transferase 13 U/L (0-32); Blood Urea Nitrogen 9 mg/dL (8-23); Calcium 9.2 mg/dL (8.5-10.5); Carbon Dioxide 25 mmol/L (22-29); Chloride 102 mmol/L (98-107); Creatinine Clr Calc Pharmacy 71.4292; Globulin 3.5 g/dL (1.3-4.6); Glucose 88 mg/dL (65-115); Lipase 29 U/L (13-60); Osmolality Calculated 286 mOsm/kg (285-295); Potassium 5.0 mmol/L (3.5-5.1); Sodium 139 mmol/L (136-145); Total Protein 7.0 g/dL (6.6-8.7)
[2025-03-22] MEDS: morphine 4 mg/mL SDV 1 mL IVP (14:46)
[2025-03-22] MEDS: ondansetron 2 mg/ML SDV 2 mL 4 MG IVP (14:46)
[2025-03-22 14:54] VITALS: BP 142/80; PULSE 95; RESP 16; O2SAT 97
[2025-03-22 15:11] VITALS: BP 124/63; PULSE 90; RESP 16; O2SAT 97
== END 2025-03-22 15:10 | disposition home or self-care (01) ==
PROVIDERS: Emergency Provider Emergency Medicine; PCP Electrodiagnostic Medicine
DX: R31.1 Benign essential microscopic hematuria (principal); Z79.82 Long term (current) use of aspirin; E78.5 Hyperlipidemia, unspecified; E11.9 Type 2 diabetes mellitus without complications
CPT/HCPCS: 71045; 74177; 80053; 81001; 83690; 85025; 87086; 96361; 96374; 96375; 99285; J2270; J2405; J7030